=== PATIENT | male | born 1930 | race Caucasian/White ===

== ENCOUNTER 2016-03-08 08:32 | Inpatient (IN) | payer OTHER ==
[~2016-03-08] VITALS: Ht 157.5 cm; Wt 89.0 kg
[~2016-03-08 08:32] MED LIST: ASPI325T4 PO; BICA50TA4 PO; CARV3.1260 PO; LISI-525 PO; MAGN400T27 PO; URSO300C21 PO
[2016-03-08 08:38] VITALS: Ht 157.5 cm; Wt 89.0 kg
--- NOTE | 2016-03-08 09:08 | RADRPT ---
PROCEDURE: Chest Radiograph. CLINICAL INDICATION: Chest pain. Shortness of breath. TECHNIQUE: Single frontal chest radiograph. COMPARISON: Chest radiograph 04/18/2015 FINDINGS: The heart is enlarged. Atherosclerotic calcifications are present. There is mild central vascular c ongestion and interstitial opacities suggesting pulmonary edema. These findings are new when compar ed to prior study and suggest congestive heart failure. There is a small left pleural effusion and possible trace right pleural effusion. The bones are unchanged in appearance. IMPRESSION: 1. Cardiomegaly with new central vascular congestion and suggested pulmonary edema. Recommend jessica elation with CHF. 2. Small left and suggested trace right pleural effusion. 3. Atherosclerotic vascular disease. RPTAT: AA .Christian Alcantara MD, MD Date Time Electronically viewed and signed by .Christian Alcantara MD, on 03/08/2016 09:08 .B/
[2016-03-08 09:55] LABS: POTASSIUM 5.1 mmol/L (3.5-5.1)
[2016-03-08 09:57] LABS: CREATININE 0.97 mg/dl (0.61-1.24)
[2016-03-08 09:58] LABS: CALCIUM 6.5 mg/dl (8.4-10.2)
[2016-03-08 09:59] LABS: BASOPHILS % 0.1 % (0.0-2.0); EOSINOPHILS % 0.3 % (0.0-7.0); HEMATOCRIT 23.2 % (42.0-52.0); HEMOGLOBIN 7.8 g/dl (14.0-18.0); INR 1.16; LYMPHOCYTES # 0.9 10^3/ul (0.8-2.9); LYMPHOCYTES % 13.5 % (15.0-51.0); MEAN CORPUSCULAR HEMOGLOBIN 30.2 pg (29.0-33.0); MEAN CORPUSCULAR HGB CONC 33.5 g/dl (32.0-37.0); MEAN CORPUSCULAR VOLUME 90.2 fl (82.0-101.0); MEAN PLATELET VOLUME 6.9 fl (7.4-10.4); MONOCYTE # 0.7 10^3/ul (0.3-0.9); MONOCYTES % 10.4 % (0.0-11.0); NEUTROPHIL # 5.2 10^3/ul (1.6-7.5); NEUTROPHILS % 75.7 % (39.0-77.0); PLATELET COUNT 263 10^3/UL (140-440); PROTIME 14.9 Sec (12.2-14.2); PT RATIO 1.2; RED BLOOD COUNT 2.57 10^6/ul (4.70-6.10); RED CELL DISTRIBUTION WIDTH 18.2 % (11.5-14.5); UNCORRECTED WBC 6.9 10^3/ul (4.8-10.8); WHITE BLOOD COUNT 6.9 10^3/ul (4.8-10.8)
[2016-03-08 10:00] LABS: PARTIAL THROMBOPLASTIN TIME 44.5 Sec (25.0-35.0)
[2016-03-08 10:05] LABS: CONDITION 1; LH ANALYZER COMMENTS 1
[2016-03-08 10:11] LABS: TROPONIN-I 0.037 ng/ml (0.00-0.12)
[2016-03-08] MEDS ORDERED: ASPI-664 PO (10:22)
[2016-03-08] MEDS ORDERED: LEVO25TA50 PO (10:22)
[2016-03-08] MEDS ORDERED: IMIP25TA3 PO (10:23)
[2016-03-08] MEDS ORDERED: FUROSEMIDE 40 MG INJ IV ONE (10:30)
[2016-03-08] MEDS ORDERED: ACETAMINOPHEN 325 MG TAB PO PRN (12:00)
[2016-03-08] MEDS ORDERED: ONDANSETRON 4 MG INJ IV PRN ×2 (12:00→14:00)
[2016-03-08 12:10] LABS: T3 UPTAKE 41.3 % (23.5-40.5)
[2016-03-08] MEDS ORDERED: NACL 0.9% 3 ML SYG IV SCH (14:00)
[2016-03-08] MEDS: PANTOPRAZOLE (EC) 40 MG TAB PO SCH (14:12)
--- NOTE | 2016-03-08 15:07 | ERD ---
ER Documentation Chief Complaint Date/Time DATE: 03/08/16 TIME: 15:01 Chief Complaint sob, onset last night HPI This 85-year-old male presents with shortness of breath the began last night is getting worse. States that he can only take a few steps before he gets very short of breath. He denies any chest pain. Denies any nausea or vomiting. Patient gets his medications mostly in [place]. With him he has potassium pills from pharmacy in [place]. Does a history of congestive heart failure. Denies any fevers and chills. ROS All systems reviewed and are negative except as per history of present illness. Medications Home Meds Reported Medications Imipramine Hcl* (Imipramine Hcl*) 25 Mg Tablet, 25 MG PO BID, TAB 03/08/16 Levothyroxine Sodium* (Levoxyl*) 25 Mcg Tablet, 25 MCG PO BEFORE BREAKFAST, #30 TAB 03/08/16 Aspirin (Low Dose Aspirin) 81 Mg Tablet.dr, 81 MG PO DAILY, #30 TAB 03/08/16 Carvedilol* (Carvedilol*) 3.125 Mg Tablet, 3.125 MG PO BID, #60 TAB 04/18/15 Bicalutamide* (Bicalutamide*) 50 Mg Tablet, 50 MG PO DAILY, TAB 04/18/15 Discontinued Reported Medications Aspirin* (Aspirin*) 325 Mg Tablet, 325 MG PO DAILY, TAB 04/18/15 Discontinued Scripts Ursodiol* (Actigall*) 300 Mg Cap, 300 MG PO BID for 14 Days, CAP Prov:HARPREET GARZA MD 04/28/15 Magnesium Oxide* (Mag-Oxide*) 400 Mg Tab, 400 MG PO DAILY for 28 Days, TAB Prov:HARPREET GARZA MD 04/28/15 Lisinopril* (Zestril*) 20 Mg Tab, 20 MG PO BID for 90 Days, TAB Prov:HARPREET GARZA MD 04/28/15 Allergies Allergies: Coded Allergies: No Known Allergy (Unverified , 03/08/16) PMhx/Soc History of Surgery: No (not indicated) Anesthesia Reaction: No Hx Neurological Disorder: No Hx Respiratory Disorders: No Hx Cardiac Disorders: No (High cholestrol and possibly htn) Hx Psychiatric Problems: No Hx Miscellaneous Medical Probl: Yes (HTN, pancreatitis, prostate CA) Hx Alcohol Use: Yes (sporadically, tequilla in the morning per his doctor) Hx Substance Use: No Hx Tobacco Use: No Smoking Status: Former smoker Physical Exam Vitals Vital Signs Date Time Temp Pulse Resp B/P Pulse Ox O2 Delivery O2 Flow Rate FiO2 03/08/16 12:02 66 16 123/56 99 Nasal Cannula 2.0 03/08/16 08:54 Nasal Cannula 2 03/08/16 08:38 98.1 71 28 103/51 93 Physical Exam Const: [] No acute distress Head: Atraumatic Eyes: Normal Conjunctiva ENT: Normal External Ears, Nose and Mouth. Neck: Full range of motion..~ No meningismus. Resp: Decreased bibasilar breath sounds with mild bilateral rales Cardio: Regular rate and rhythm, no murmurs Abd: Soft, non tender, non distended. Normal bowel sounds Skin: No petechiae or rashes Back: No midline or flank tenderness Ext: No cyanosis, or edema Neur: Awake and alert and oriented 3, no focal deficits Psych: Normal Mood and Affect Result Diagram: 03/08/1691203/08/16912 Results 24 hrs Laboratory Tests Test 03/08/16 09:13 Activated Partial Thromboplast Time 44.5Sec Anion Gap 20 B-Type Natriuretic Peptide 98624FO/ML Basophils # 0.010^3/ul Basophils % 0.1% Blood Morphology Comment Blood Urea Nitrogen 23mg/dl Calcium Level 6.5mg/dl Carbon Dioxide Level 21mmol/L Chloride Level 104mmol/L Creatinine 0.97mg/dl Eosinophils # 0.010^3/ul Eosinophils % 0.3% Free Thyroxine Index 2.73ug/ml Glucose Level 118mg/dl Hematocrit 23.2% Hemoglobin 7.8g/dl INR International Normalized Ratio 1.16 Lymphocytes # 0.910^3/ul Lymphocytes % 13.5% Mean Corpuscular Hemoglobin 30.2pg Mean Corpuscular Hemoglobin Concent 33.5g/dl Mean Corpuscular Volume 90.2fl Mean Platelet Volume 6.9fl Monocytes # 0.710^3/ul Monocytes % 10.4% Neutrophils # 5.210^3/ul Neutrophils % 75.7% Nucleated Red Blood Cells # 0.010^3/ul Nucleated Red Blood Cells % 0.0/100WBC Platelet Count 18802^3/UL Potassium Level 5.1mmol/L Prothrombin Time 14.9Sec Prothrombin Time Ratio 1.2 Red Blood Count 2.5710^6/ul Red Cell Distribution Width 18.2% Sodium Level 140mmol/L Thyroxine (T4) 6.6ug/dl Triiodothyronine (T3) Uptake 41.3% Troponin I 0.037ng/ml White Blood Count 6.910^3/ul Current Medications Medications (Trade) Dose Ordered Sig/Alonso Route PRN Reason Start Time Stop Time Status Last Admin Dose Admin Furosemide (Lasix) 40 mg ONCE ONCE IV 03/08/16 10:30 03/08/16 10:31 DC 03/08/16 10:25 Ondansetron HCl (Zofran Inj) 4 mg ER BRIDGE PRN IV NAUSEA AND/OR VOMITING 03/08/16 12:00 03/09/16 11:59 Acetaminophen (Tylenol Tab) 650 mg ER BRIDGE PRN PO MILD PAIN/FEVER 03/08/16 12:00 03/09/16 11:59 IV Flush (NS 3 ml) 3 ml PER PROTOCOL IV 03/08/16 14:00 Ondansetron HCl (Zofran Inj) 4 mg Q6H PRN IV NAUSEA AND/OR VOMITING 03/08/16 14:00 Acetaminophen (Tylenol Tab) 650 mg Q6H PRN PO PAIN LEVEL 1-3 OR FEVER 03/08/16 14:00 Acetaminophen/ Hydrocodone Bitart ([place] (5/325)) 1 tab Q6H PRN PO PAIN LEVEL 4-6 03/08/16 14:00 Morphine Sulfate (morphine) 2 mg Q4H PRN IV PAIN LEVEL 7-10 03/08/16 14:00 Pantoprazole (Protonix Tab) 40 mg DAILY@06 PO 03/08/16 14:30 03/08/16 14:12 Furosemide (Lasix) 20 mg BID DIURETICS IV 03/08/16 18:00 Procedures/MDM EKG interpretation: Normal sinus rhythm at 65, right axis deviation, left bundle -branch block, no other ST or T-wave changes concerning for acute ischemia personnel monitor interpretation: Normal sinus rhythm with occasional PVCs. No other arrhythmia Chest x-ray interpretation: Pulmonary vascular engorgement with mild pulmonary edema most pronounced on right side. No widened mediastinum, no pneumothorax no fractures 85-year-old male with acute congestive heart failure. He appears elevated at 14, 000 patient's shortness of breath is increasing at most and dyspnea. He does have decreased bibasilar breath sounds and mild Rales. History of congestive heart failure as well as given 40 mg of Lasix in the emergency room stating monitoring specialist. Evidence and imaging of daily does have mild pulmonary edema. Patient as well as oxygen saturation 1-89% without oxygen. Patient is placed on oxygen. I'm admitting him to telemetry. I spoke with Dr. Montero who will be admitting for further cardiac workup and discussed the patient's 7.8 and hemoglobin he states that he will decide on transfusion. Departure Diagnosis: Primary Impression: Acute congestive heart failure Additional Impression: Symptomatic anemia Condition: Serious CASTRO ALEXIS DO Mar 08, 2016 15:07
[2016-03-08] MEDS ORDERED: hydrALAzine 20 MG INJ IV PRN (16:00)
[2016-03-08 16:15] VITALS: TEMP 98.3
--- NOTE | 2016-03-08 16:57 | HP ---
DATE OF ADMISSION: 03/08/2016 TIME OF EVALUATION: 1500 hours. REASON FOR ADMISSION: Dyspnea on exertion. CONSULTATIONS: Dr. aMrk Macias, cardiology. HISTORY OF PRESENT ILLNESS: This is an 85-year-old male with past medical history of essential hypertension, hypothyroidism, cardiomyopathy with ejection fraction of 25%, vascular dementia and esophagitis who was brought in by the patient's family members because of dyspnea with exertion that started from 03/07/2016 as per the patient's family. The patient was also complaining of some palpitations. The patient denied any chest pain. He denied any fevers or chills. The patient denied any syncope or presyncope. The patient gets most of his medications from [place]. In the emergency room, the patient's initial troponins were negative. The patient's 12-lead EKG showed sinus rhythm with right axis deviation and left bundle branch block. [place] [address]. The patient was noticed to be anemic with a hemoglobin and hematocrit of 7.8 and 23.2 respectively. The patient was treated with IV Lasix in the emergency room. PAST MEDICAL HISTORY: Hypothyroidism, essential hypertension, cardiomyopathy, prostate cancer, esophagitis, dementia. PAST SURGICAL HISTORY: None. HOME MEDICATIONS: 1. Bicalutamide 50 mg p.o. daily. 2. Coreg 3.125 mg p.o. daily. 3. Aspirin 81 mg p.o. daily. 4. Imipramine 25 mg p.o. b.i.d. 5. Synthroid 25 mcg p.o. before breakfast. ALLERGIES: NO KNOWN DRUG ALLERGIES. SOCIAL HISTORY: The patient lives at home with his family. The patient was a former smoker. Social drinker. REVIEW OF SYSTEMS: A 12-point review of systems were made and the review of systems were negative other than what is mentioned in history of present illness. PHYSICAL EXAMINATION: VITAL SIGNS: Temperature 98.1, pulse is 66, respiratory rate 18, blood pressure 123/57, oxygen saturation 99% on low flow O2. GENERAL: This is a frail-looking 85-year-old male lying in bed in no apparent distress. HEENT: Head normocephalic and atraumatic. Eyes: Anicteric sclerae. Conjunctivae clear. ENT: Nasal septum is midline. Oral mucosa is dry. NECK: Supple. No JVD noticed. RESPIRATORY: Bilaterally diminished breath sounds. Bilateral fine rales heard. No use of accessory muscles for respiration. CARDIAC: Regular rate and rhythm with a grade II/ systolic ejection murmur heard at the left sternal border. GASTROINTESTINAL: Abdomen soft, nontender and nondistended. Bowel sounds positive in all 4 quadrants. GENITOURINARY: Deferred. EXTREMITIES: No cyanosis, no clubbing. Bilateral trace pedal edema. Peripheral pulses palpable. NEUROLOGIC: The patient is awake, alert and oriented. Cranial nerves are grossly intact. LABORATORY AND DIAGNOSTIC DATA: WBC 6.9, hemoglobin 7.8, hematocrit 23.2, platelet count 263. Sodium 140, potassium 4.1, chloride 104, carbon dioxide 20 , anion gap 20, BUN 23, creatinine 0.97, glucose 118, calcium 6.5. Troponin 0.037. BNP 14573. PT 14.9, INR 1.16, PTT 44.5. Chest x-ray. Cardiomegaly with new central vascular congestion suggestive of pulmonary edema. Small left suggested trace right pleural effusion. Atherosclerotic vascular disease. IMPRESSION: This is an 85-year-old male who came to the emergency room with chief complaint of shortness breath who was found to have evidence of congestive heart failure who will be admitted here for further treatment and evaluation. ASSESSMENT AND PLAN: 1. Acute respiratory failure. Hypoxic, most probably secondary to underlying congestive heart failure exacerbation. The patient will be maintained on supplemental oxygen. The patient will be provided with inhaled bronchodilators. The patient will be started on adequate diuresis. The patient will be ruled out for any acute coronary syndrome. 2. Congestive heart failure exacerbation. Acute on chronic systolic and diastolic dysfunction. The patient will be adequately diuresed. A cardiology consult will be obtained. A 2D echocardiogram will be obtained to evaluate the left ventricular ejection fraction. 3. Cardiomyopathy, most probably ischemic cardiomyopathy. The patient had a stress test done on 04/20/2015 that showed a small to moderate-sized nonreversible perfusion defects with a left ventricular ejection fraction at stress of 21%. The patient will be maintained on beta blockers. If the blood pressure allows, the patient will be started on ANUJ inhibitors. 4. Normocytic normochromic anemia. Etiology unclear. Will obtain an iron panel to evaluate for any underlying iron deficiency. Will obtain a stool for occult blood to evaluate for any covert bleeding. The patient's aspirin will be held at this time because of the patient's anemia. The patient will be maintained on proton pump inhibitors. 5. Hypothyroidism. The patient's Synthroid will be resumed. A thyroid function will be obtained on this patient. 6. Essential hypertension. The patient will be maintained on antihypertensives including p.r.n. antihypertensives for any systolic blood pressure readings greater than 160 mmHg. 7. History of prostate cancer. The patient will be maintained on Bicalutamide. Plan. The patient will be admitted to inpatient telemetry floor. The patient will be started on a low cholesterol diet. The patient will be started on DVT prophylaxis and gastrointestinal prophylaxis. However, chemical DVT prophylaxis will be avoided because of the patient's underlying anemia. The patient will remain a FULL CODE. Activities will be as tolerated. The rest of the patient's management will be based on the clinical course, the results of diagnostic studies, and inputs from consultants. Based on the patient's clinical presentation, he most probably requires at least one midnight's stay for further management and evaluation of his clinical presentation. The case and management of this patient was fully discussed with Dr. Barrera. Approximately 50 minutes was spent on the history and physical of this patient. ERICA BARRERA MD, AM/JESUS Conf#: [id number] DID#: [id number] MTDD
[2016-03-08 17:52] LABS: IRON 56 ug/dl (35-150)
[2016-03-08 18:03] LABS: TOTAL IRON BINDING CAPACITY 255 ug/dl (241-421)
[2016-03-08] MEDS: FUROSEMIDE 20 MG INJ IV SCH (18:15)
[2016-03-08] MEDS: HYDROCODONE/APAP (5/325) TAB PO PRN (18:24)
[2016-03-08 18:25] LABS: THYROID STIMULATING HORMONE 5.66 MIU/L (0.465-4.680)
[2016-03-08 18:52] LABS: TROPONIN-I 0.101 ng/ml (0.00-0.12)
[2016-03-08 19:20] LABS: CK-MB 1.43 ng/ml (0.0-2.4)
--- NOTE | 2016-03-08 19:20 | RADRPT ---
Echocardiogram Report Patient Name: BELLA SAUCEDO Gender: Male Date: 1930 Study Date: 08-Mar-2016 Electrophysiology Nurse Practitioner: Kenya Garcia RDCS Location: [facility] Ref. Physician: ERICA MOHAN Quality: Good Procedures: Transthoracic echocardiogram with complete 2D, M-Mode, and doppler examination. Indications: Evaluate Left Ventricular function. 2D/M Mode Doppler Measurement Value Normal Ranges Measurement Value Normal Ranges LVIDd 2D 7.5 3.5 - 5.6 cm AV Mean Frederic 1.2 m/sec LVIDs 2D 5.1 2.1 - 4.1 cm AV Mean PG 7.4 mmHg LVPWd 2D 1.1 0.6 - 1.1 cm AV Peak Frederic 2.3 m/sec IVSd 2D 0.8 0.6 - 1.1 cm AV Peak PG 21.6 mmHg AoR Diam 2D 2.9 2.0 - 3.7 cm AV VTI 41.0 cm EDV 2D 300.2 cm3 AI Peak PG 36.3 mmHg ESV 2D 134.7 cm3 AI Peak Frederic 3.0 m/sec LA Dimen 2D 4.1 2.3 - 4.0 cm AI PHT 273.9 msec LVOT Mean Frederic 0.7 m/sec LVOT Mean PG 2.7 mmHg LVOT Peak Frederic 1.2 m/sec LVOT Peak PG 6.0 mmHg LVOT VTI 26.1 cm MV E Peak Frederic 0.9 m/sec MV A Peak Frederic 1.0 m/sec MV E/A 0.9 MV Decel Time 173 msec MV Decel Tarrant 5 MV E/A 0.9 TR Peak Frederic 4.4 m/sec TR Peak PG 76.6 mmHg RVSP 85.0 mmHg Findings Left Ventricle: Mild concentric left ventricular hypertrophy. Severe enlargement of left ventricle cavity. Severe left ventricular systolic dysfunction. Ejection fraction is visually estimated at 2025 %. Tissue Doppler/Mitral Doppler indices are consistent with impaired relaxation (Stage I diastolic dysfunction). Multiple segmental wall motion abnormalities. Right Ventricle: Normal right ventricular size. Normal right ventricular systolic function. Left Atrium: There is mild enlargement of left atrium. Right Atrium: There is mild enlargement of right atrium. Mitral Valve: Mitral valve leaflets appear mildly thickened. Mild mitral annular calcification. Moderate mitral valve regurgitation. Aortic Valve: Aortic valve Max velocity 2.32 m/sec. Max PG 21.60 mmHg. Mean PG 7.40 mmHg. Aortic sclerosis without stenosis. Aortic cusps appear moderately calcified. Mild to moderate aortic valve regurgitation. Tricuspid Valve: Normal appearance of the tricuspid valve. Estimated peak PA systolic pressure 85 mmHg. There is moderate tricuspid regurgitation. Pericardium: Normal pericardium with no significant pericardial effusion. Aorta: Normal aortic root. IVC: Dilated IVC with respiratory collapse consistent with elevated right atrial pressure. Conclusions 1.Mild concentric left ventricular hypertrophy. Severe enlargement of left ventricle cavity. Severe left ventricular systolic dysfunction. Ejection fraction is visually estimated at 20-25 %. Tissue Doppler/Mitral Doppler indices are consistent with impaired relaxation (Stage I diastolic dysfunction). Multiple segmental wall motion abnormalities. 2.There is mild enlargement of right atrium. 3.Mitral valve leaflets appear mildly thickened. Mild mitral annular calcification. Moderate mitral valve regurgitation. 4.Aortic valve Max velocity 2.32 m/sec. Max PG 21.60 mmHg. Mean PG 7.40 mmHg. Aortic sclerosis without stenosis. Aortic cusps appear moderately calcified. Mild to moderate aortic valve regurgitation. 5.Normal appearance of the tricuspid valve. Estimated peak PA systolic pressure 85 mmHg. There is moderate tricuspid regurgitation. Electronically Signed By: Mark Macias 08-Mar-2016 19:20:14 -0800 Patient Name: BELLA SAUCEDO Study Date: 08-Mar-[id number]
[2016-03-08] MEDS: ALBUTEROL/IPRATROPIUM (NEB) 3 ML AMP HHN SCH (20:00)
--- NOTE | 2016-03-08 21:35 | CONS ---
DATE OF ADMISSION: 03/08/2016 DATE OF CONSULTATION: 03/08/2016 CARDIOLOGY CONSULTATION REASON FOR CONSULTATION: Congestive heart failure. REQUESTING PHYSICIAN: Dr. Barrera from the hospitalist service and Taran Coffey NP from the hospitalis t service. HISTORY OF PRESENT ILLNESS: Mr. Frey is an 85-year-old male with a history of non-ST elevation m yocardial infarction, hypertension, cardiomyopathy with severely depressed left ventricular ejection fraction of approximately 20% to 25% and with a stress test 03/2015 revealing EF of 21% with no sig nificant ischemia, but positive scar, who now presents with shortness of breath. Upon arrival, temp erature 98.1, blood pressure 103/51, pulse 79, respiratory rate 20, saturating 93%. Patient's labs, white count of 6.9, hemoglobin low at 7.8, platelet count 263. Sodium 140, potassium 5.1, creatini ne 0.97, BUN of 23. Troponin negative. BNP of 13,900. T4 level 6.6. INR 1.1. The patient underwent a chest x-ray revealing cardiomegaly with new central vascular congestion cons istent with pulmonary edema, small suggested trace right pleural effusion. The patient's electrocar diogram revealed sinus rhythm and a rate of 65, first degree AV block, right axis deviation, left bu ndle branch block, secondary repolarization abnormalities. The patient subsequently has been treate d with aspirin, a dose of Lasix 40 x1 and now awaits admit to the floor. PAST MEDICAL HISTORY: As above in HPI. MEDICATIONS PRIOR TO ADMIT: 1. Carvedilol 3.125 mg p.o. b.i.d. 2. Aspirin 81 mg daily. 3. Imipramine 20 mg p.o. b.i.d. 4. Synthroid 25 mcg daily. 5. Casodex 50 mg daily. MEDICATIONS CURRENTLY IN HOSPITAL: 1. Casodex 60 mg daily. 2. Synthroid 25 mcg daily. 3. Carvedilol 3.125 mg p.o. b.i.d. 4. Lasix 20 mg IV b.i.d. 5. Hydralazine p.r.n. 6. Zofran p.r.n. 7. Tylenol p.r.n. 8. Morphine p.r.n. 9. Zofran p.r.n. 10. DuoNebs p.r.n. ALLERGIES: NO KNOWN DRUG ALLERGIES. SOCIAL HISTORY: No tobacco, ETOH or illicit drug use. FAMILY HISTORY: No history of sudden cardiac or early CAD. REVIEW OF SYSTEMS: As above in HPI. CONSTITUTIONAL: No fevers, chills. PULMONARY: Shortness of breath. CARDIOVASCULAR: No chest pain. GASTROINTESTINAL: No vomiting. GENITOURINARY: No hematuria. MUSCULOSKELETAL: Degenerative joint disease. PSYCHIATRIC: The patient denies depression. NEUROLOGIC: No documented history of CVA. ENDOCRINE: No documented history of diabetes mellitus. Positive for thyroid disease. PHYSICAL EXAMINATION: VITAL SIGNS: Temperature of 98.3, blood pressure 115/69, pulse 75, respiratory rate 19, saturating 90% on 2 liters. GENERAL: The patient is alert, awake, complaining of shortness of breath. NECK: JVP approximately 9 cm of water. CHEST: Bibasilar crackles. HEART: Regular rate and rhythm. Normal S1, S2, I/ systolic murmur, laterally displaced PMI. ABDOMEN: Positive bowel sounds, soft. EXTREMITIES: No pitting edema, 1+ pulses bilateral posterior tibial. LABORATORY DATA: As above in HPI. No further labs for my review at this time. IMAGING STUDIES: As above in HPI. No further imaging studies for my review at this time. ELECTROCARDIOGRAM: As above in HPI. No further electrocardiograms for my review at this time. IMPRESSION: 1. Congestive heart failure exacerbation, systolic, acute on chronic. 2. History of cardiomyopathy with severely depressed left ventricular ejection fraction, last appro ximately 20% to 25% by echo 04/2015. 3. End-stage renal disease on hemodialysis. 4. History of myocardial infarction by stress 04/2015. 5. Anemia. 6. Hypertension. 7. Hypothyroidism. 8. Prostate carcinoma. 9. Dementia. RECOMMENDATIONS: 1. At this time, the patient will be admitted to telemetry monitoring to follow rhythm and rate con trol closely. 2. Complete a rule out for myocardial infarction and assure the patient's current presentation is n ot due to acute coronary syndrome such as acute myocardial infarction. 3. Continue the patient's baseline carvedilol for treatment of cardiomyopathy and will initiate pat ient on low dose ANUJ inhibitor for afterload reduction. 4. Continue the patient's Lasix diuresis, following strict I's and O's to grade diuresis closely. 5. Check a fasting lipid panel for general risk stratification and initiate lipid-lowering medicati on as necessary. 6. We will follow up patient's 2D echo that has been order. 7. The patient has previously been evaluated for a LifeVest and it is unclear if the patient still has LifeVest at home or if this would be against the patient's current wishes. Thank you for allowing me to take part in the care of this patient. I will continue to follow very closely with you with further recommendations to be made as the patient progresses through his [facility] clinical course. Dictated By: JUAN CARLOS HERNANDEZ/JESUS Conf#: [id number] DID#: [id number] CC: TARAN COFFEY NP; OLIVA BARRERA MD;*End*
[2016-03-08] MEDS: IMIPRAMINE 25 MG TAB PO SCH (21:39)
[2016-03-08 22:49] LABS: CK-MB 1.22 ng/ml (0.0-2.4)
[2016-03-08 22:55] LABS: TROPONIN-I 0.126 ng/ml (0.00-0.12)
[2016-03-08 23:50] VITALS: BP 124/59; PULSE 68; RESP 16
[2016-03-09] VITALS (12 sets, daily range): BP systolic 92–129; BP diastolic 51–60; PULSE 66–164; RESP 18
[2016-03-09] MEDS: PANTOPRAZOLE (EC) 40 MG TAB PO SCH (06:21)
[2016-03-09] MEDS: FUROSEMIDE 20 MG INJ IV SCH ×2 (06:22→18:22)
[2016-03-09] MEDS: HYDROCODONE/APAP (5/325) TAB PO PRN ×2 (06:23→16:47)
[2016-03-09] MEDS: LEVOTHYROXINE 25 MCG TAB PO SCH (06:29)
[2016-03-09 06:46] LABS: PHOSPHORUS 2.9 mg/dl (2.5-4.9)
[2016-03-09 06:47] LABS: CHOL/HDL RATIO 7.6 RATIO
[2016-03-09 06:50] LABS: POTASSIUM 4.4 mmol/L (3.5-5.1)
[2016-03-09 06:53] LABS: CREATININE 1.01 mg/dl (0.61-1.24)
[2016-03-09 06:54] LABS: CALCIUM 6.1 mg/dl (8.4-10.2); HEMATOCRIT 22.7 % (42.0-52.0); HEMOGLOBIN 7.7 g/dl (14.0-18.0); MEAN CORPUSCULAR HEMOGLOBIN 30.6 pg (29.0-33.0); MEAN CORPUSCULAR HGB CONC 33.9 g/dl (32.0-37.0); MEAN CORPUSCULAR VOLUME 90.3 fl (82.0-101.0); MEAN PLATELET VOLUME 6.9 fl (7.4-10.4); PLATELET COUNT 231 10^3/UL (140-440); RED BLOOD COUNT 2.51 10^6/ul (4.70-6.10); RED CELL DISTRIBUTION WIDTH 18.2 % (11.5-14.5); UNCORRECTED WBC 5.6 10^3/ul (4.8-10.8); WHITE BLOOD COUNT 5.6 10^3/ul (4.8-10.8)
[2016-03-09 06:57] LABS: TROPONIN-I 0.104 ng/ml (0.00-0.12)
[2016-03-09 06:58] LABS: CK-MB 1.13 ng/ml (0.0-2.4)
[2016-03-09 07:28] LABS: CONDITION 1; LH ANALYZER COMMENTS 1
[2016-03-09] MEDS: ALBUTEROL/IPRATROPIUM (NEB) 3 ML AMP HHN SCH ×3 (08:50→20:00)
[2016-03-09] MEDS ORDERED: ASPIRIN (EC) 81 MG TAB PO SCH (09:00)
[2016-03-09] MEDS: IMIPRAMINE 25 MG TAB PO SCH ×2 (09:12→20:45)
[2016-03-09] MEDS: LISINOPRIL 5 MG TAB PO SCH (09:15)
[2016-03-09] MEDS: BICALUTAMIDE 50 MG TAB PO SCH (09:20)
[2016-03-09 10:43] LABS: ANISOCYTOSIS 1+; LYMPHOCYTES # 0.7 10^3/ul (0.8-2.9); MONOCYTE # 0.4 10^3/ul (0.3-0.9); MYELOCYTES # 0.1; NEUTROPHIL # 4.1 10^3/ul (1.6-7.5)
[2016-03-09 10:44] LABS: POLYCHROMASIA 1+
--- NOTE | 2016-03-09 12:44 | CONS ---
Date/Time of Note Date/Time of Note DATE: 03/09/16 TIME: 12:41 Assessment/Plan Assessment/Plan Chief Complaint/Hosp Course IMPRESSION: 1. Congestive heart failure exacerbation, systolic, acute on chronic. 2. History of cardiomyopathy with severely depressed left ventricular ejection fraction, last approximately 20% to 25% by echo 04/2015. 3. End-stage renal disease on hemodialysis. 4. History of myocardial infarction by stress 04/2015. 5. Anemia. 6. Hypertension. 7. Hypothyroidism. 8. Prostate carcinoma. 9. Dementia. 10. Positive troponin-now trended negative Recc: -Tele -continue BB -Continur ACEI -Continue gentle lasix diuresis Problems: Consultation Date/Type/Reason Admit Date/Time Mar 08, 2016 at 11:43 Initial Consult Date 03/08/2016 Type of Consultation: Cardiology Reason for Consultation CHF Referring Provider: OLIVA BARRERA Exam/Review of Systems Vital Signs Vitals Vital Signs Date Time Temp Pulse Resp B/P Pulse Ox O2 Delivery O2 Flow Rate FiO2 03/09/16 12:14 73 03/09/16 11:54 98.0 18 108/58 98 03/09/16 11:26 Nasal Cannula 3.0 Intake and Output 03/08/16 03/08/16 03/09/16 15:00 23:00 07:00 Intake Total 60 ml 80 ml Output Total 675 ml Balance -615 ml 80 ml Exam Review of Systems: CONSTITUTIONAL: No fevers, chills. PULMONARY: mild sob CARDIOVASCULAR: No chest pain/palpitations GASTROINTESTINAL: No nausea/vomiting. GENITOURINARY: No hematuria/dysuria. MUSCULOSKELETAL: No myagias/arthalgias. PSYCHIATRIC: The patient denies depression. NEUROLOGIC: lethargic Constitutional: other (sleeping, arousable) Psych: no complaints Head: normocephalic ENMT: mucosa pink and moist Neck: jvd (9 cm water), supple Respiratory: diminished breath sounds Cardiovascular: regular rate and rhythm Gastrointestinal: non-tender, soft Musculoskeletal: muscle tone (normal) Extremities: edema (none) Neurological: lethargic, other (No focal deficits) Results Result Diagram: 03/09/16 0600 03/09/16 0600 Results 24 hrs Laboratory Tests Test 03/08/16 15:42 03/08/16 17:55 03/08/16 21:45 03/09/16 06:00 Ferritin 215.0 Free Thyroxine 1.34 Thyroid Stimulating Hormone (TSH) 5.660 H Creatine Kinase 91 90 93 Creatine Kinase Index 1.6 1.4 1.2 Creatinine Kinase MB (Mass) 1.43 1.22 1.13 Troponin I 0.101 0.126 *H 0.104 Anion Gap 18 H Anisocytosis 1+ Band Neutrophils % 6.0 H Blood Morphology Comment Blood Urea Nitrogen 23 H Calcium Level 6.1 L Carbon Dioxide Level 22 Chloride Level 104 Cholesterol Level 200 Cholesterol/HDL Ratio 7.6 Creatinine 1.01 Glucose Level 138 HDL Cholesterol 26 L Hematocrit 22.7 L Hemoglobin 7.7 L LDL Cholesterol, Calculated 155 Lymphocytes # 0.7 L Lymphocytes % 12.0 L Magnesium Level 2.0 Mean Corpuscular Hemoglobin 30.6 Mean Corpuscular Hemoglobin Concent 33.9 Mean Corpuscular Volume 90.3 Mean Platelet Volume 6.9 L Metamyelocytes # 0.1 Metamyelocytes % 1.0 H Monocytes # 0.4 Monocytes % 7.0 Myelocytes # 0.1 Myelocytes % 1.0 H Neutrophils # 4.1 Neutrophils % 73.0 Nucleated Red Blood Cells # Nucleated Red Blood Cells % 4.0 H Phosphorus Level 2.9 Platelet Count 231 Polychromasia 1+ Potassium Level 4.4 Red Blood Count 2.51 L Red Cell Distribution Width 18.2 H Sodium Level 140 Triglycerides Level 95 White Blood Count 5.6 Medications Medications Current Medications Ondansetron HCl (Zofran Inj) 4 mg Q6H PRN IV NAUSEA AND/OR VOMITING; Start at 14:00 Acetaminophen (Tylenol Tab) 650 mg Q6H PRN PO PAIN LEVEL 1-3 OR FEVER; Start at 14:00 Acetaminophen/ Hydrocodone Bitart ([place] (5/325)) 1 tab Q6H PRN PO PAIN LEVEL 4 -6 Last administered on 03/09/16 06:23; Admin Dose 1 TAB; Start 03/08/16 at 14: 00 Morphine Sulfate (morphine) 2 mg Q4H PRN IV PAIN LEVEL 7-10; Start 03/08/16 at 14:00 Pantoprazole (Protonix Tab) 40 mg DAILY@06 PO Last administered on 03/09/16 06 :21; Admin Dose 40 MG; Start 03/08/16 at 14:30 Carvedilol (Coreg) 3.125 mg BID PO Last administered on 03/09/16 09:15; Admin Dose 3.125 MG; Start 03/08/16 at 21:00 Imipramine HCl (Tofranil) 25 mg BID PO Last administered on 03/09/16 09:12; Admin Dose 25 MG; Start 03/08/16 at 21:00 Hydralazine HCl (Apresoline) 10 mg Q6H PRN IV SBP>160; Start 03/08/16 at 16:00 Bicalutamide (Casodex) 50 mg DAILY PO Last administered on 03/09/16 09:20; Admin Dose 50 MG; Start 03/09/16 at 09:00 Lisinopril (Zestril) 2.5 mg DAILY PO Last administered on 03/09/16 09:15; Admin Dose 2.5 MG; Start 03/09/16 at 09:00 Influenza Virus Vaccine (Fluzone) 0.5 ml ONCE ONCE IM* ; Start 03/11/16 at 09:00 ; Stop 03/11/16 at 09:01 JUAN CARLOS ALEJANDRO Mar 09, 2016 12:44
--- NOTE | 2016-03-09 16:50 | PN ---
Date/Time of Note Date/Time of Note DATE: 03/09/16 TIME: 16:47 Assessment/Plan VTE Prophylaxis VTE Prophylaxis Intervention: SCD's Lines/Catheters IV [facility]from [facility] Urinary Cath still in place: No Assessment/Plan Chief Complaint/Hosp Course 1. Acute respiratory failure. Hypoxic, most probably secondary to underlying congestive heart failure exacerbation. The patient will be maintained on supplemental oxygen. The patient will be provided with inhaled bronchodilators. The patient was started on adequate diuresis. The patient will be ruled out for any acute coronary syndrome. 2. Congestive heart failure exacerbation. Acute on chronic systolic dysfunction. The patient will be adequately diuresed. Cardiology following. 2- D echocardiogram showing ejection fraction of 20-25% with stage I diastolic dysfunction. 3. Severe pulmonary hypertension. PA pressure of 85 mmHg as per 2-D echocardiogram. Continue supplemental oxygen. 4. Cardiomyopathy, most probably ischemic cardiomyopathy. 2-D echocardiogram showing ejection fraction of 20-25%. Continue beta blockers and nicho inhibitors. 5. Normocytic normochromic anemia. Etiology unclear. Iron panel showing no iron deficiency. Will obtain a stool for occult blood. Will evaluate the patient for any hemolytic anemia. The patient will be maintained on proton pump inhibitors. 6. Hypothyroidism. The patient will be continued on Synthroid. 7. Essential hypertension. The patient will be maintained on antihypertensives including p.r.n. antihypertensives for any systolic blood pressure readings greater than 160 mmHg. 8. History of prostate cancer. The patient will be maintained on Bicalutamide. 9. Dysphagia. The patient has prior history of dysphagia that was extensively evaluated and was found have reflux esophagitis as per EGDscopy. The patient will be maintained on proton pump inhibitors. Speech therapy evaluation will be ordered. 10. Elevated troponins. The patient's troponins have been normalized. Aspirin on hold because of underlying anemia. Cardiology following. 11. Fluids, electrolytes, and nutrition. Low-cholesterol diet. 12. DVT prophylaxis. No chemical DVT prophylaxis because of underlying anemia. Bilateral sequential compression devices. 13. Gastrointestinal prophylaxis. Proton pump inhibitors. 14. Plan. Continue diuretics. Appreciate cardiology input. Order speech therapy evaluation. Case discussed with Dr. Jimenez. Plan of care was explained to the patient's son was at the bedside. Problems: Subjective 24 Hr Interval Summary Free Text/Dictation Complains of dysphagia. "Breathing better." Exam/Review of Systems Vital Signs Vitals Vital Signs Date Time Temp Pulse Resp B/P Pulse Ox O2 Delivery O2 Flow Rate FiO2 03/09/16 16:39 98.0 74 18 129/60 97 03/09/16 12:52 Nasal Cannula 4.0 Intake and Output 03/08/16 03/08/16 03/09/16 15:00 23:00 07:00 Intake Total 60 ml 80 ml Output Total 675 ml Balance -615 ml 80 ml Exam GENERAL: This is a frail-looking 85-year-old male lying in bed in no apparent distress. HEENT: Head normocephalic and atraumatic. Eyes: Anicteric sclerae. Conjunctivae clear. ENT: Nasal septum is midline. Oral mucosa is dry. NECK: Supple. No JVD noticed. RESPIRATORY: Bilaterally diminished breath sounds. Bilateral fine rales heard. No use of accessory muscles for respiration. CARDIAC: Regular rate and rhythm with a grade II/ systolic ejection murmur heard at the left sternal border. GASTROINTESTINAL: Abdomen soft, nontender and nondistended. Bowel sounds positive in all 4 quadrants. GENITOURINARY: Deferred. EXTREMITIES: No cyanosis, no clubbing. Bilateral trace pedal edema. Peripheral pulses palpable. NEUROLOGIC: The patient is awake, alert and oriented. Cranial nerves are grossly intact. Results Result Diagram: 03/09/16 0600 03/09/16 0600 Results 24 hrs Laboratory Tests Test 03/08/16 17:55 03/08/16 21:45 03/09/16 06:00 Creatine Kinase 91 90 93 Creatine Kinase Index 1.6 1.4 1.2 Creatinine Kinase MB (Mass) 1.43 1.22 1.13 Troponin I 0.101 0.126 *H 0.104 Anion Gap 18 H Anisocytosis 1+ Band Neutrophils % 6.0 H Blood Morphology Comment Blood Urea Nitrogen 23 H Calcium Level 6.1 L Carbon Dioxide Level 22 Chloride Level 104 Cholesterol Level 200 Cholesterol/HDL Ratio 7.6 Creatinine 1.01 Glucose Level 138 HDL Cholesterol 26 L Hematocrit 22.7 L Hemoglobin 7.7 L LDL Cholesterol, Calculated 155 Lymphocytes # 0.7 L Lymphocytes % 12.0 L Magnesium Level 2.0 Mean Corpuscular Hemoglobin 30.6 Mean Corpuscular Hemoglobin Concent 33.9 Mean Corpuscular Volume 90.3 Mean Platelet Volume 6.9 L Metamyelocytes # 0.1 Metamyelocytes % 1.0 H Monocytes # 0.4 Monocytes % 7.0 Myelocytes # 0.1 Myelocytes % 1.0 H Neutrophils # 4.1 Neutrophils % 73.0 Nucleated Red Blood Cells # Nucleated Red Blood Cells % 4.0 H Phosphorus Level 2.9 Platelet Count 231 Polychromasia 1+ Potassium Level 4.4 Red Blood Count 2.51 L Red Cell Distribution Width 18.2 H Sodium Level 140 Triglycerides Level 95 White Blood Count 5.6 Medications Medications Current Medications Ondansetron HCl (Zofran Inj) 4 mg Q6H PRN IV NAUSEA AND/OR VOMITING; Start at 14:00 Acetaminophen (Tylenol Tab) 650 mg Q6H PRN PO PAIN LEVEL 1-3 OR FEVER; Start at 14:00 Acetaminophen/ Hydrocodone Bitart ([place] (5/325)) 1 tab Q6H PRN PO PAIN LEVEL 4 -6 Last administered on 03/09/16 06:23; Admin Dose 1 TAB; Start 03/08/16 at 14: 00 Morphine Sulfate (morphine) 2 mg Q4H PRN IV PAIN LEVEL 7-10; Start 03/08/16 at 14:00 Pantoprazole (Protonix Tab) 40 mg DAILY@06 PO Last administered on 03/09/16 06 :21; Admin Dose 40 MG; Start 03/08/16 at 14:30 Carvedilol (Coreg) 3.125 mg BID PO Last administered on 03/09/16 09:15; Admin Dose 3.125 MG; Start 03/08/16 at 21:00 Imipramine HCl (Tofranil) 25 mg BID PO Last administered on 03/09/16 09:12; Admin Dose 25 MG; Start 03/08/16 at 21:00 Hydralazine HCl (Apresoline) 10 mg Q6H PRN IV SBP>160; Start 03/08/16 at 16:00 Bicalutamide (Casodex) 50 mg DAILY PO Last administered on 03/09/16 09:20; Admin Dose 50 MG; Start 03/09/16 at 09:00 Lisinopril (Zestril) 2.5 mg DAILY PO Last administered on 03/09/16 09:15; Admin Dose 2.5 MG; Start 03/09/16 at 09:00 Influenza Virus Vaccine (Fluzone) 0.5 ml ONCE ONCE IM* ; Start 03/11/16 at 09:00 ; Stop 03/11/16 at 09:01 ERICA MOHAN NP Mar 09, 2016 16:50
[2016-03-10] VITALS (12 sets, daily range): BP systolic 106–129; BP diastolic 51–59; PULSE 69–94; RESP 17–20
[2016-03-10 06:00] LABS: ALBUMIN 3.2 g/dl (3.3-4.9)
[2016-03-10 06:02] LABS: BILIRUBIN,INDIRECT 0.4 mg/dl (0-1.1); BILIRUBIN,TOTAL 0.4 mg/dl (0.2-1.3); CREATININE 1.02 mg/dl (0.61-1.24)
[2016-03-10 06:03] LABS: ALBUMIN/GLOBULIN RATIO 1.03; CALCIUM 6.1 mg/dl (8.4-10.2); RETICULOCYTE COUNT % 3.2 % (0.5-1.5); TOTAL PROTEIN 6.3 g/dl (6.1-8.1)
[2016-03-10 06:04] LABS: BASOPHILS % 0.3 % (0.0-2.0); EOSINOPHILS % 0.5 % (0.0-7.0); HEMATOCRIT 22.2 % (42.0-52.0); HEMOGLOBIN 7.4 g/dl (14.0-18.0); LYMPHOCYTES # 0.9 10^3/ul (0.8-2.9); LYMPHOCYTES % 16.8 % (15.0-51.0); MEAN CORPUSCULAR HEMOGLOBIN 30.4 pg (29.0-33.0); MEAN CORPUSCULAR HGB CONC 33.5 g/dl (32.0-37.0); MEAN CORPUSCULAR VOLUME 90.8 fl (82.0-101.0); MEAN PLATELET VOLUME 7.1 fl (7.4-10.4); MONOCYTE # 0.6 10^3/ul (0.3-0.9); MONOCYTES % 11.5 % (0.0-11.0); NEUTROPHIL # 3.6 10^3/ul (1.6-7.5); NEUTROPHILS % 70.9 % (39.0-77.0); PLATELET COUNT 225 10^3/UL (140-440); RED BLOOD COUNT 2.44 10^6/ul (4.70-6.10); RED CELL DISTRIBUTION WIDTH 18.8 % (11.5-14.5); UNCORRECTED WBC 5.1 10^3/ul (4.8-10.8); WHITE BLOOD COUNT 5.1 10^3/ul (4.8-10.8)
[2016-03-10 06:08] LABS: MAGNESIUM 1.8 mg/dl (1.7-2.5)
[2016-03-10] MEDS: LEVOTHYROXINE 25 MCG TAB PO SCH (06:54)
[2016-03-10] MEDS: FUROSEMIDE 20 MG INJ IV SCH ×2 (06:54→17:33)
[2016-03-10] MEDS: PANTOPRAZOLE (EC) 40 MG TAB PO SCH ×2 (06:54→17:33)
[2016-03-10 06:56] LABS: CONDITION 1; LH ANALYZER COMMENTS 1
[2016-03-10] MEDS: ALBUTEROL/IPRATROPIUM (NEB) 3 ML AMP HHN SCH ×3 (07:56→20:45)
[2016-03-10] MEDS: IMIPRAMINE 25 MG TAB PO SCH ×2 (08:25→20:37)
[2016-03-10] MEDS: LISINOPRIL 5 MG TAB PO SCH (08:27)
[2016-03-10] MEDS: HYDROCODONE/APAP (5/325) TAB PO PRN ×2 (08:27→17:33)
[2016-03-10] MEDS: BICALUTAMIDE 50 MG TAB PO SCH (08:36)
--- NOTE | 2016-03-10 09:21 | CONS ---
Date/Time of Note Date/Time of Note DATE: 03/10/16 TIME: 09:07 Assessment/Plan Assessment/Plan Chief Complaint/Hosp Course Impression: 1. Dysphagia: chronic. 2. Anemia: r/o GIB 3. Acute respiratory failure. Hypoxic, most probably secondary to underlying congestive heart failure exacerbation. 4. Congestive heart failure exacerbation. Acute and chronic systolic and diastolic dysfunction. Cardiology following. 2-D echocardiogram showing ejection fraction of 20-25% with stage I diastolic dysfunction. 5. Severe pulmonary hypertension. PA pressure of 85 mmHg as per 2-D echocardiogram. 6. Cardiomyopathy, most probably ischemic cardiomyopathy. 2-D echocardiogram showing ejection fraction of 20-25%. Continue beta blockers and nicho inhibitors. 7. Normocytic normochromic anemia. Iron panel showing no iron deficiency. Most likely anemia of chronic disease. 8. Hypothyroidism. The patient will be continued on Synthroid. 9. GERD 10. Elevated troponins. The patient's troponins have been normalized. Aspirin on hold because of underlying anemia. Cardiology following. 11. Constipation: no BM since admission. Recommendations: 1. resume aspirin if occult blood negative 2. need medical and cardiac optimization and clearance for any potential endoscopic procedures especially given pt had runs of V tach yesterday 3. will perform EGD and colonoscopy if occult blood positive and pending medical and cardiac optimization and clearance. 4. will perform EGD for dysphagia if indicated after swallow evaluation and pending medical and cardiac optimization and clearance. 5. swallow eval 6. I ordered to check folate and vitamin B12 level as part of anemia w/u 7. I ordered standing colace for his constipation. 8. Continue protonix 40 mg bid Problems: Consultation Date/Type/Reason Admit Date/Time Mar 08, 2016 at 11:43 Type of Consultation: GI Reason for Consultation 1. dysphagia 2. anemia r/o GIB Hx of Present Illness 85-year-old male with past medical history of essential hypertension, hypothyroidism, cardiomyopathy with ejection fraction of 25%, vascular dementia and esophagitis who was admitted for dyspnea with exertion that started from 01/2017 as per the patient's family. The patient was also complaining of some palpitations. The patient denied any chest pain. He denied any fevers or chills. The patient denied any syncope or presyncope. The patient gets most of his medications from [place]. Hopitalization w/u showed that patient is anemic. Iron panel normal. Patient also states that he has dysphagia and always feel that food got stuck in his throat but no actual food impaction or odynophagia. He feels constipated since being hospitalized without any BM. No n/ v, melena, BRBPR, coffee ground emesis or hematemesis. All point ros administered, pertinent positives and negatives in HPI otherwise negative. Psychological: no complaints Past Medical History dysphagia Medical History: congestive heart failure, coronary artery disease, hypertension Past Surgical History Past Surgical Hx: no surgical history Family History Significant Family History: no pertinent family hx Social History Alcohol Use: none Smoking Status: Former smoker Drug Use: none Exam/Review of Systems Vital Signs Vitals Vital Signs Date Time Temp Pulse Resp B/P Pulse Ox O2 Delivery O2 Flow Rate FiO2 03/10/16 08:32 69 03/10/16 08:06 98.1 17 129/58 95 03/10/16 07:57 Nasal Cannula 4.0 Intake and Output 03/09/16 03/09/16 03/10/16 15:00 23:00 07:00 Intake Total 700 ml Output Total 1500 ml Balance -800 ml Exam Constitutional: alert, frail, oriented Psych: nl mood/affect, no complaints Head: atraumatic, normocephalic Eyes: EOMI, nl conjunctiva, nl lids, nl sclera ENMT: mucosa pink and moist, nl external ears & nose, nl lips & teeth, nl nasal mucosa & septum Neck: non-tender, supple Respiratory: clear to auscultation, normal air movement Cardiovascular: nl pulses, regular rate and rhythm Gastrointestinal: bowel sounds, non-tender, soft Musculoskeletal: nl extremities to inspection, nl gait and stance Neurological: nl mental status, nl speech, nl strength Results Result Diagram: 03/10/16 0500 03/10/16 0500 Results 24 hrs Laboratory Tests Test 03/09/16 20:34 03/10/16 05:00 Bedside Glucose 132 Absolute Reticulocyte Count 0.079 Alanine Aminotransferase (ALT/SGPT) 22 Albumin 3.2 L Albumin/Globulin Ratio 1.03 Alkaline Phosphatase 649 H Anion Gap 17 H Aspartate Amino Transf (AST/SGOT) 35 Basophils # 0.0 Basophils % 0.3 Blood Morphology Comment Blood Urea Nitrogen 26 H Calcium Level 6.1 L Carbon Dioxide Level 23 Chloride Level 103 Creatinine 1.02 Direct Bilirubin 0.00 Eosinophils # 0.0 Eosinophils % 0.5 Globulin 3.10 Glucose Level 105 Hematocrit 22.2 L Hemoglobin 7.4 L Indirect Bilirubin 0.4 Lactate Dehydrogenase 793 H Lymphocytes # 0.9 Lymphocytes % 16.8 Magnesium Level 1.8 Mean Corpuscular Hemoglobin 30.4 Mean Corpuscular Hemoglobin Concent 33.5 Mean Corpuscular Volume 90.8 Mean Platelet Volume 7.1 L Monocytes # 0.6 Monocytes % 11.5 H Neutrophils # 3.6 Neutrophils % 70.9 Nucleated Red Blood Cells # 0.0 Nucleated Red Blood Cells % 0.0 Percent Reticulocyte Count 3.2 H Phosphorus Level 3.0 Platelet Count 225 Potassium Level 4.0 Red Blood Count 2.44 L Red Cell Distribution Width 18.8 H Sodium Level 139 Total Bilirubin 0.4 Total Protein 6.3 White Blood Count 5.1 Medications Medications Current Medications Ondansetron HCl (Zofran Inj) 4 mg Q6H PRN IV NAUSEA AND/OR VOMITING; Start at 14:00 Acetaminophen (Tylenol Tab) 650 mg Q6H PRN PO PAIN LEVEL 1-3 OR FEVER; Start at 14:00 Acetaminophen/ Hydrocodone Bitart ([place] (5/325)) 1 tab Q6H PRN PO PAIN LEVEL 4 -6 Last administered on 03/10/16 08:27; Admin Dose 1 TAB; Start 03/08/16 at 14: 00 Morphine Sulfate (morphine) 2 mg Q4H PRN IV PAIN LEVEL 7-10; Start 03/08/16 at 14:00 Pantoprazole (Protonix Tab) 40 mg DAILY@06 PO Last administered on 03/10/16 06 :54; Admin Dose 40 MG; Start 03/08/16 at 14:30 Carvedilol (Coreg) 3.125 mg BID PO Last administered on 03/10/16 08:26; Admin Dose 3.125 MG; Start 03/08/16 at 21:00 Imipramine HCl (Tofranil) 25 mg BID PO Last administered on 03/10/16 08:25; Admin Dose 25 MG; Start 03/08/16 at 21:00 Hydralazine HCl (Apresoline) 10 mg Q6H PRN IV SBP>160; Start 03/08/16 at 16:00 Bicalutamide (Casodex) 50 mg DAILY PO Last administered on 03/10/16 08:36; Admin Dose 50 MG; Start 03/09/16 at 09:00 Lisinopril (Zestril) 2.5 mg DAILY PO Last administered on 03/10/16 08:27; Admin Dose 2.5 MG; Start 03/09/16 at 09:00 Influenza Virus Vaccine (Fluzone) 0.5 ml ONCE ONCE IM* ; Start 03/11/16 at 09:00 ; Stop 03/11/16 at 09:01 RENZO JEFFERY MD Mar 10, 2016 09:21
--- NOTE | 2016-03-10 10:06 | PN ---
Date/Time of Note Date/Time of Note DATE: 03/10/16 TIME: 09:57 Assessment/Plan VTE Prophylaxis VTE Prophylaxis Intervention: SCD's Lines/Catheters IV [facility] Urinary Cath still in place: No Assessment/Plan Chief Complaint/Hosp Course 1. Acute respiratory failure. Hypoxic, most probably secondary to underlying congestive heart failure exacerbation. The patient will be maintained on supplemental oxygen. The patient will be provided with inhaled bronchodilators. The patient was started on adequate diuresis. 2. Congestive heart failure exacerbation. Acute on chronic systolic dysfunction. The patient will be adequately diuresed. Cardiology following. 2- D echocardiogram showing ejection fraction of 20-25% with stage I diastolic dysfunction. 3. Severe pulmonary hypertension. PA pressure of 85 mmHg as per 2-D echocardiogram. Continue supplemental oxygen. 4. Cardiomyopathy, most probably ischemic cardiomyopathy. 2-D echocardiogram showing ejection fraction of 20-25%. Continue beta blockers and nicho inhibitors. 5. Normocytic normochromic anemia. Etiology unclear. Iron panel showing no iron deficiency. Pending stool for occult blood. The patient will be maintained on proton pump inhibitors. Absolute reticulocyte count within normal limits. LDH slightly elevated. Pending haptoglobin levels. Gastroenterology consult called. 6. Hypothyroidism. The patient will be continued on Synthroid. 7. Essential hypertension. The patient will be maintained on antihypertensives including p.r.n. antihypertensives for any systolic blood pressure readings greater than 160 mmHg. 8. History of prostate cancer. The patient will be maintained on Bicalutamide. 9. Dysphagia. The patient has prior history of dysphagia that was extensively evaluated and was found have reflux esophagitis as per EGDscopy. The patient will be maintained on proton pump inhibitors. Speech therapy evaluation ordered. 10. Elevated troponins. The patient's troponins have been normalized. Aspirin on hold because of underlying anemia. Cardiology following. 11. Nonsustained ventricular tachycardia. Continue beta-blockers. Will keep electrolyte levels optimal. Replete magnesium to keep the levels above 2.0. 12. Fluids, electrolytes, and nutrition. Low-cholesterol diet. 13. DVT prophylaxis. No chemical DVT prophylaxis because of underlying anemia. Bilateral sequential compression devices. 14. Gastrointestinal prophylaxis. Proton pump inhibitors. 15. Plan. Continue diuretics. Appreciate cardiology input. Gastroenterology consult called. Magnesium supplementation. Case discussed with Dr. Jimenez. Problems: Subjective 24 Hr Interval Summary Free Text/Dictation The patient had 8 beats of V. tach last night. Exam/Review of Systems Vital Signs Vitals Vital Signs Date Time Temp Pulse Resp B/P Pulse Ox O2 Delivery O2 Flow Rate FiO2 03/10/16 08:32 69 03/10/16 08:06 98.1 17 129/58 95 03/10/16 07:57 Nasal Cannula 4.0 Intake and Output 03/09/16 03/09/16 03/10/16 15:00 23:00 07:00 Intake Total 700 ml Output Total 1500 ml Balance -800 ml Exam GENERAL: This is a frail-looking 85-year-old male lying in bed in no apparent distress. HEENT: Head normocephalic and atraumatic. Eyes: Anicteric sclerae. Conjunctivae clear. ENT: Nasal septum is midline. Oral mucosa is dry. NECK: Supple. No JVD noticed. RESPIRATORY: Bilaterally diminished breath sounds. Bilateral fine rales heard. No use of accessory muscles for respiration. CARDIAC: Regular rate and rhythm with a grade II/ systolic ejection murmur heard at the left sternal border. GASTROINTESTINAL: Abdomen soft, nontender and nondistended. Bowel sounds positive in all 4 quadrants. GENITOURINARY: Deferred. EXTREMITIES: No cyanosis, no clubbing. Bilateral trace pedal edema. Peripheral pulses palpable. NEUROLOGIC: The patient is awake, alert and oriented. Cranial nerves are grossly intact. Results Result Diagram: 03/10/16 0500 03/10/16 0500 Results 24 hrs Laboratory Tests Test 03/09/16 20:34 03/10/16 05:00 Bedside Glucose 132 Absolute Reticulocyte Count 0.079 Alanine Aminotransferase (ALT/SGPT) 22 Albumin 3.2 L Albumin/Globulin Ratio 1.03 Alkaline Phosphatase 649 H Anion Gap 17 H Aspartate Amino Transf (AST/SGOT) 35 Basophils # 0.0 Basophils % 0.3 Blood Morphology Comment Blood Urea Nitrogen 26 H Calcium Level 6.1 L Carbon Dioxide Level 23 Chloride Level 103 Creatinine 1.02 Direct Bilirubin 0.00 Eosinophils # 0.0 Eosinophils % 0.5 Globulin 3.10 Glucose Level 105 Hematocrit 22.2 L Hemoglobin 7.4 L Indirect Bilirubin 0.4 Lactate Dehydrogenase 793 H Lymphocytes # 0.9 Lymphocytes % 16.8 Magnesium Level 1.8 Mean Corpuscular Hemoglobin 30.4 Mean Corpuscular Hemoglobin Concent 33.5 Mean Corpuscular Volume 90.8 Mean Platelet Volume 7.1 L Monocytes # 0.6 Monocytes % 11.5 H Neutrophils # 3.6 Neutrophils % 70.9 Nucleated Red Blood Cells # 0.0 Nucleated Red Blood Cells % 0.0 Percent Reticulocyte Count 3.2 H Phosphorus Level 3.0 Platelet Count 225 Potassium Level 4.0 Red Blood Count 2.44 L Red Cell Distribution Width 18.8 H Sodium Level 139 Total Bilirubin 0.4 Total Protein 6.3 White Blood Count 5.1 Medications Medications Current Medications Ondansetron HCl (Zofran Inj) 4 mg Q6H PRN IV NAUSEA AND/OR VOMITING; Start at 14:00 Acetaminophen (Tylenol Tab) 650 mg Q6H PRN PO PAIN LEVEL 1-3 OR FEVER; Start at 14:00 Acetaminophen/ Hydrocodone Bitart ([place] (5/325)) 1 tab Q6H PRN PO PAIN LEVEL 4 -6 Last administered on 03/10/16 08:27; Admin Dose 1 TAB; Start 03/08/16 at 14: 00 Morphine Sulfate (morphine) 2 mg Q4H PRN IV PAIN LEVEL 7-10; Start 03/08/16 at 14:00 Carvedilol (Coreg) 3.125 mg BID PO Last administered on 03/10/16 08:26; Admin Dose 3.125 MG; Start 03/08/16 at 21:00 Imipramine HCl (Tofranil) 25 mg BID PO Last administered on 03/10/16 08:25; Admin Dose 25 MG; Start 03/08/16 at 21:00 Hydralazine HCl (Apresoline) 10 mg Q6H PRN IV SBP>160; Start 03/08/16 at 16:00 Bicalutamide (Casodex) 50 mg DAILY PO Last administered on 03/10/16 08:36; Admin Dose 50 MG; Start 03/09/16 at 09:00 Lisinopril (Zestril) 2.5 mg DAILY PO Last administered on 03/10/16 08:27; Admin Dose 2.5 MG; Start 03/09/16 at 09:00 Influenza Virus Vaccine (Fluzone) 0.5 ml ONCE ONCE IM* ; Start 1/16/17 at 09:00 ; Stop 03/11/16 at 09:01 Docusate Sodium (Colace) 200 mg HS PO ; Start 03/10/16 at 21:00 ERICA MOHAN NP Mar 10, 2016 10:06
[2016-03-10] MEDS ORDERED: MAGNESIUM SULFATE 1 GM/D5W 100 ML IVPB ONE (10:30)
[2016-03-10] MEDS: morphine 2 MG INJ IV PRN (11:07)
--- NOTE | 2016-03-10 14:43 | CONS ---
Date/Time of Note Date/Time of Note DATE: 03/10/16 TIME: 14:40 Assessment/Plan Assessment/Plan Chief Complaint/Hosp Course IMPRESSION: 1. Congestive heart failure exacerbation, systolic, acute on chronic. 2. History of cardiomyopathy with severely depressed left ventricular ejection fraction, last approximately 20% to 25% by echo 04/2015. 3. End-stage renal disease on hemodialysis. 4. History of myocardial infarction by stress 04/2015. 5. Anemia. 6. Hypertension. 7. Hypothyroidism. 8. Prostate carcinoma. 9. Dementia. 10. Positive troponin-now trended negative 11.Wide complex tachycardia- ?NSVT Recc: -Tele -continue BB -Continue ACEI -Continue gentle lasix diuresis -Replete Mg Problems: Consultation Date/Type/Reason Admit Date/Time Mar 08, 2016 at 11:43 Initial Consult Date 03/08/2016 Type of Consultation: Cardiology Reason for Consultation CHF/cardiomyopathy Referring Provider: OLIVA BARRERA Exam/Review of Systems Vital Signs Vitals Vital Signs Date Time Temp Pulse Resp B/P Pulse Ox O2 Delivery O2 Flow Rate FiO2 03/10/16 13:35 86 18 95 Aerosol 3.0 Nasal Cannula Non Rebreather Mask 03/10/16 11:49 98.5 113/55 Intake and Output 03/09/16 03/09/16 03/10/16 15:00 23:00 07:00 Intake Total 700 ml Output Total 1500 ml Balance -800 ml Exam Review of Systems: CONSTITUTIONAL: No fevers, chills. PULMONARY: No sob CARDIOVASCULAR: No chest pain/palpitations GASTROINTESTINAL: No nausea/vomiting. GENITOURINARY: No hematuria/dysuria. MUSCULOSKELETAL: No myagias/arthalgias. PSYCHIATRIC: The patient denies depression. NEUROLOGIC: Generalized weakness Constitutional: alert Psych: no complaints Head: normocephalic ENMT: mucosa pink and moist Neck: jvd (9 cm water), supple Respiratory: diminished breath sounds (at bases/B) Cardiovascular: regular rate and rhythm Gastrointestinal: non-tender, soft Musculoskeletal: muscle tone (normal) Extremities: edema (none) Neurological: other (No focal deficits) Results Result Diagram: 03/10/16 0500 03/10/16 0500 Results 24 hrs Laboratory Tests Test 03/09/16 20:34 03/10/16 05:00 Bedside Glucose 132 Absolute Reticulocyte Count 0.079 Alanine Aminotransferase (ALT/SGPT) 22 Albumin 3.2 L Albumin/Globulin Ratio 1.03 Alkaline Phosphatase 649 H Anion Gap 17 H Aspartate Amino Transf (AST/SGOT) 35 Basophils # 0.0 Basophils % 0.3 Blood Morphology Comment Blood Urea Nitrogen 26 H Calcium Level 6.1 L Carbon Dioxide Level 23 Chloride Level 103 Creatinine 1.02 Direct Bilirubin 0.00 Eosinophils # 0.0 Eosinophils % 0.5 Globulin 3.10 Glucose Level 105 Hematocrit 22.2 L Hemoglobin 7.4 L Indirect Bilirubin 0.4 Lactate Dehydrogenase 793 H Lymphocytes # 0.9 Lymphocytes % 16.8 Magnesium Level 1.8 Mean Corpuscular Hemoglobin 30.4 Mean Corpuscular Hemoglobin Concent 33.5 Mean Corpuscular Volume 90.8 Mean Platelet Volume 7.1 L Monocytes # 0.6 Monocytes % 11.5 H Neutrophils # 3.6 Neutrophils % 70.9 Nucleated Red Blood Cells # 0.0 Nucleated Red Blood Cells % 0.0 Percent Reticulocyte Count 3.2 H Phosphorus Level 3.0 Platelet Count 225 Potassium Level 4.0 Red Blood Count 2.44 L Red Cell Distribution Width 18.8 H Sodium Level 139 Total Bilirubin 0.4 Total Protein 6.3 White Blood Count 5.1 Medications Medications Current Medications Ondansetron HCl (Zofran Inj) 4 mg Q6H PRN IV NAUSEA AND/OR VOMITING; Start at 14:00 Acetaminophen (Tylenol Tab) 650 mg Q6H PRN PO PAIN LEVEL 1-3 OR FEVER; Start at 14:00 Acetaminophen/ Hydrocodone Bitart ([place] (5/325)) 1 tab Q6H PRN PO PAIN LEVEL 4 -6 Last administered on 03/10/16 08:27; Admin Dose 1 TAB; Start 03/08/16 at 14: 00 Morphine Sulfate (morphine) 2 mg Q4H PRN IV PAIN LEVEL 7-10 Last administered on 03/10/16 11:07; Admin Dose 2 MG; Start 03/08/16 at 14:00 Carvedilol (Coreg) 3.125 mg BID PO Last administered on 03/10/16 08:26; Admin Dose 3.125 MG; Start 03/08/16 at 21:00 Imipramine HCl (Tofranil) 25 mg BID PO Last administered on 03/10/16 08:25; Admin Dose 25 MG; Start 03/08/16 at 21:00 Hydralazine HCl (Apresoline) 10 mg Q6H PRN IV SBP>160; Start 03/08/16 at 16:00 Bicalutamide (Casodex) 50 mg DAILY PO Last administered on 03/10/16 08:36; Admin Dose 50 MG; Start 03/09/16 at 09:00 Lisinopril (Zestril) 2.5 mg DAILY PO Last administered on 03/10/16 08:27; Admin Dose 2.5 MG; Start 03/09/16 at 09:00 Influenza Virus Vaccine (Fluzone) 0.5 ml ONCE ONCE IM* ; Start 03/11/16 at 09:00 ; Stop 03/11/16 at 09:01 Docusate Sodium (Colace) 200 mg HS PO ; Start 03/10/16 at 21:00 JUAN CARLOS ALEJANDRO Mar 10, 2016 14:42
[2016-03-10] MEDS ORDERED: MAGNESIUM SULFATE 2 GM/50 ML 50 ML IVPB ONE (15:00)
[2016-03-10] MEDS: DOCUSATE SODIUM 100 MG CAP PO SCH (20:37)
[2016-03-10] MEDS ORDERED: BISACODYL 10 MG SUPP PR ONE (22:30)
[2016-03-11] VITALS (16 sets, daily range): BP systolic 90–111; BP diastolic 50–57; PULSE 67–82; RESP 18–20
[2016-03-11] MEDS: FUROSEMIDE 20 MG INJ IV SCH (06:00)
[2016-03-11 06:03] LABS: EOSINOPHILS % 0.3 % (0.0-7.0); HEMATOCRIT 21.8 % (42.0-52.0); HEMOGLOBIN 7.4 g/dl (14.0-18.0); LYMPHOCYTES # 0.9 10^3/ul (0.8-2.9); LYMPHOCYTES % 15.4 % (15.0-51.0); MEAN CORPUSCULAR HEMOGLOBIN 30.5 pg (29.0-33.0); MEAN CORPUSCULAR VOLUME 89.6 fl (82.0-101.0); MEAN PLATELET VOLUME 7.2 fl (7.4-10.4); MONOCYTE # 0.7 10^3/ul (0.3-0.9); MONOCYTES % 11.7 % (0.0-11.0); NEUTROPHIL # 4.2 10^3/ul (1.6-7.5); NEUTROPHILS % 72.6 % (39.0-77.0); PLATELET COUNT 220 10^3/UL (140-440); RED BLOOD COUNT 2.44 10^6/ul (4.70-6.10); RED CELL DISTRIBUTION WIDTH 18.6 % (11.5-14.5); UNCORRECTED WBC 5.8 10^3/ul (4.8-10.8); WHITE BLOOD COUNT 5.8 10^3/ul (4.8-10.8)
[2016-03-11 06:12] LABS: CONDITION 1; LH ANALYZER COMMENTS 1
[2016-03-11 06:18] LABS: POTASSIUM 4.4 mmol/L (3.5-5.1)
[2016-03-11 06:20] LABS: CREATININE 1.5 mg/dl (0.61-1.24)
--- NOTE | 2016-03-11 06:20 | CONS ---
Date/Time of Note Date/Time of Note DATE: 03/11/16 TIME: 06:14 Assessment/Plan Assessment/Plan Chief Complaint/Hosp Course Impression: 1. Dysphagia: chronic. 2. Anemia: r/o GIB 3. Acute respiratory failure. Hypoxic, most probably secondary to underlying congestive heart failure exacerbation. 4. Congestive heart failure exacerbation. Acute and chronic systolic and diastolic dysfunction. Cardiology following. 2-D echocardiogram showing ejection fraction of 20-25% with stage I diastolic dysfunction. 5. Severe pulmonary hypertension. PA pressure of 85 mmHg as per 2-D echocardiogram. 6. Cardiomyopathy, most probably ischemic cardiomyopathy. 2-D echocardiogram showing ejection fraction of 20-25%. Continue beta blockers and nicho inhibitors. 7. Normocytic normochromic anemia. Iron panel showing no iron deficiency. Most likely anemia of chronic disease. 8. Hypothyroidism. The patient will be continued on Synthroid. 9. GERD 10. Elevated troponins. The patient's troponins have been normalized. Aspirin on hold because of underlying anemia. Cardiology following. 11. Constipation: no BM since admission. I started standing colace yesterday. Recommendations: 1. resume aspirin if occult blood negative 2. need medical and cardiac optimization and clearance for any potential endoscopic procedures especially given pt had runs of V tach on 03-09-16. 3. will perform EGD and colonoscopy if occult blood positive and pending medical and cardiac optimization and clearance. 4. will perform EGD for dysphagia if indicated after swallow evaluation and pending medical and cardiac optimization and clearance. 5. Await swallow eval 6. f/u folate and vitamin B12 level as part of anemia w/u (results not back as of time of this note) 7. continue colace and ulcolax for his constipation until he as a BM. 8. Continue protonix [address] Manzanares to resume care of this patient tomorrow. Problems: Consultation Date/Type/Reason Admit Date/Time Mar 08, 2016 at 11:43 Initial Consult Date Type of Consultation: Caden Referring Provider: OLIVA BARRERA 24 HR Interval Summary Free Text/Dictation sleepy but arousable, still reports sensation of dysphagia with food stuck in the throat. Denies melena, BRBPR. Exam/Review of Systems Vital Signs Vitals Vital Signs Date Time Temp Pulse Resp B/P Pulse Ox O2 Delivery O2 Flow Rate FiO2 03/11/16 04:31 67 03/11/16 04:14 99.3 19 98/53 93 03/11/16 01:50 3.0 03/10/16 20:46 Nasal Cannula Intake and Output 03/10/16 03/10/16 03/11/16 15:00 23:00 07:00 Intake Total 100 ml 900 ml Output Total 1100 ml Balance 100 ml -200 ml Exam Psych: nl mood/affect, no complaints Head: atraumatic, normocephalic Eyes: EOMI, nl conjunctiva, nl lids ENMT: mucosa pink and moist, nl external ears & nose, nl lips & teeth, nl nasal mucosa & septum Neck: non-tender, supple Respiratory: clear to auscultation, normal air movement Cardiovascular: nl pulses, regular rate and rhythm Gastrointestinal: bowel sounds, non-tender, soft Results Result Diagram: 03/11/16 0500 03/10/16 0500 Results 24 hrs Laboratory Tests Test 03/11/16 05:00 Basophils # 0.0 Basophils % 0.0 Blood Morphology Comment Eosinophils # 0.0 Eosinophils % 0.3 Hematocrit 21.8 L Hemoglobin 7.4 L Lymphocytes # 0.9 Lymphocytes % 15.4 Mean Corpuscular Hemoglobin 30.5 Mean Corpuscular Hemoglobin Concent 34.0 Mean Corpuscular Volume 89.6 Mean Platelet Volume 7.2 L Monocytes # 0.7 Monocytes % 11.7 H Neutrophils # 4.2 Neutrophils % 72.6 Nucleated Red Blood Cells # 0.0 Nucleated Red Blood Cells % 0.0 Platelet Count 220 Red Blood Count 2.44 L Red Cell Distribution Width 18.6 H White Blood Count 5.8 Medications Medications Current Medications Ondansetron HCl (Zofran Inj) 4 mg Q6H PRN IV NAUSEA AND/OR VOMITING; Start at 14:00 Acetaminophen (Tylenol Tab) 650 mg Q6H PRN PO PAIN LEVEL 1-3 OR FEVER; Start at 14:00 Acetaminophen/ Hydrocodone Bitart ([place] (5/325)) 1 tab Q6H PRN PO PAIN LEVEL 4 -6 Last administered on 03/10/16t 17:33; Admin Dose 1 TAB; Start 03/08/16 at 14: 00 Morphine Sulfate (morphine) 2 mg Q4H PRN IV PAIN LEVEL 7-10 Last administered on 03/10/16 11:07; Admin Dose 2 MG; Start 03/08/16 at 14:00 Carvedilol (Coreg) 3.125 mg BID PO Last administered on 03/10/16 20:38; Admin Dose 3.125 MG; Start 03/08/16 at 21:00 Imipramine HCl (Tofranil) 25 mg BID PO Last administered on 03/10/16 20:37; Admin Dose 25 MG; Start 03/08/16 at 21:00 Hydralazine HCl (Apresoline) 10 mg Q6H PRN IV SBP>160; Start 03/08/16 at 16:00 Bicalutamide (Casodex) 50 mg DAILY PO Last administered on 03/10/16 08:36; Admin Dose 50 MG; Start 03/09/16 at 09:00 Lisinopril (Zestril) 2.5 mg DAILY PO Last administered on 03/10/16 08:27; Admin Dose 2.5 MG; Start 03/09/16 at 09:00 Influenza Virus Vaccine (Fluzone) 0.5 ml ONCE ONCE IM* ; Start 03/11/16 at 09:00 ; Stop 03/11/16 at 09:01 Docusate Sodium (Colace) 200 mg HS PO Last administered on 03/10/16 20:37; Admin Dose 200 MG; Start 03/10/16 at 21:00 RENZO JEFFERY MD Mar 11, 2016 06:19
[2016-03-11 06:21] LABS: CALCIUM 6.2 mg/dl (8.4-10.2)
[2016-03-11] MEDS: LEVOTHYROXINE 25 MCG TAB PO SCH (06:27)
[2016-03-11] MEDS: PANTOPRAZOLE (EC) 40 MG TAB PO SCH ×2 (06:27→17:21)
[2016-03-11 07:06] LABS: MAGNESIUM 2.5 mg/dl (1.7-2.5); PHOSPHORUS 3.7 mg/dl (2.5-4.9)
[2016-03-11 07:49] LABS: FOLATE 5.4 ng/ml (2.8-20.0)
[2016-03-11] MEDS: morphine 2 MG INJ IV PRN (08:05)
[2016-03-11] MEDS: IMIPRAMINE 25 MG TAB PO SCH ×2 (08:09→21:28)
[2016-03-11] MEDS: BICALUTAMIDE 50 MG TAB PO SCH (08:15)
[2016-03-11] MEDS: LISINOPRIL 5 MG TAB PO SCH (08:26)
[2016-03-11] MEDS ORDERED: INFLUENZA VIRUS VACCINE 0.5 ML SYG IM* ONE (09:00)
[2016-03-11] MEDS: ALBUTEROL/IPRATROPIUM (NEB) 3 ML AMP HHN SCH ×3 (09:03→19:44)
--- NOTE | 2016-03-11 13:19 | CONS ---
Date/Time of Note Date/Time of Note DATE: 03/11/16 TIME: 13:13 Assessment/Plan Assessment/Plan Chief Complaint/Hosp Course IMPRESSION: 1. Congestive heart failure exacerbation, systolic, acute on chronic. 2. History of cardiomyopathy with severely depressed left ventricular ejection fraction, last approximately 20% to 25% by echo 04/2015. 3. End-stage renal disease on hemodialysis. 4. History of myocardial infarction by stress 04/2015. 5. Anemia. 6. Hypertension. 7. Hypothyroidism. 8. Prostate carcinoma. 9. Dementia. 10. Positive troponin-now trended negative 11.Wide complex tachycardia- ?NSVT-no recurrence 12. acute renal failure Recc: -Tele -continue BB -Hold ACEI given ARF -Continue gentle lasix diuresis -Check CXR to assess for ongoing CHF -will consider lexiscan stress test in this patient for GI pre-procedure eval Problems: Consultation Date/Type/Reason Admit Date/Time Mar 08, 2016 at 11:43 Initial Consult Date 03/08/2016 Type of Consultation: Cardiology Reason for Consultation CHF Referring Provider: OLIVA BARRERA Exam/Review of Systems Vital Signs Vitals Vital Signs Date Time Temp Pulse Resp B/P Pulse Ox O2 Delivery O2 Flow Rate FiO2 03/11/16 12:57 71 100/52 03/11/16 11:48 97.6 19 95 03/11/16 09:06 Nasal Cannula 3.0 Intake and Output 03/10/16 03/10/16 03/11/16 15:00 23:00 07:00 Intake Total 100 ml 900 ml 240 ml Output Total 1100 ml 200 ml Balance 100 ml -200 ml 40 ml Exam Review of Systems: CONSTITUTIONAL: No fevers, chills. PULMONARY: No sob CARDIOVASCULAR: No chest pain/palpitations GASTROINTESTINAL: No nausea/vomiting. GENITOURINARY: No hematuria/dysuria. MUSCULOSKELETAL: No myagias/arthalgias. PSYCHIATRIC: The patient denies depression. NEUROLOGIC: No weakness Constitutional: alert Psych: no complaints Head: normocephalic ENMT: mucosa pink and moist Respiratory: clear to auscultation Cardiovascular: regular rate and rhythm Gastrointestinal: non-tender, soft Musculoskeletal: muscle tone Extremities: edema (No focal deficits) Neurological: other (No focal deficits) Results Result Diagram: 03/11/16 0500 03/11/16 0500 Results 24 hrs Laboratory Tests Test 03/11/16 00:55 03/11/16 05:00 Stool Occult Blood NEGATIVE Anion Gap 16 Basophils # 0.0 Basophils % 0.0 Blood Morphology Comment Blood Urea Nitrogen 36 H Calcium Level 6.2 L Carbon Dioxide Level 24 Chloride Level 100 Creatinine 1.50 H Eosinophils # 0.0 Eosinophils % 0.3 Folate 5.4 Glucose Level 114 Hematocrit 21.8 L Hemoglobin 7.4 L Lymphocytes # 0.9 Lymphocytes % 15.4 Magnesium Level 2.5 Mean Corpuscular Hemoglobin 30.5 Mean Corpuscular Hemoglobin Concent 34.0 Mean Corpuscular Volume 89.6 Mean Platelet Volume 7.2 L Monocytes # 0.7 Monocytes % 11.7 H Neutrophils # 4.2 Neutrophils % 72.6 Nucleated Red Blood Cells # 0.0 Nucleated Red Blood Cells % 0.0 Phosphorus Level 3.7 Platelet Count 220 Potassium Level 4.4 Red Blood Count 2.44 L Red Cell Distribution Width 18.6 H Sodium Level 136 Vitamin B12 Level 647 White Blood Count 5.8 Medications Medications Current Medications Ondansetron HCl (Zofran Inj) 4 mg Q6H PRN IV NAUSEA AND/OR VOMITING; Start at 14:00 Acetaminophen (Tylenol Tab) 650 mg Q6H PRN PO PAIN LEVEL 1-3 OR FEVER; Start at 14:00 Acetaminophen/ Hydrocodone Bitart ([place] (5/325)) 1 tab Q6H PRN PO PAIN LEVEL 4 -6 Last administered on 03/10/16 17:33; Admin Dose 1 TAB; Start 03/08/16 at 14: 00 Morphine Sulfate (morphine) 2 mg Q4H PRN IV PAIN LEVEL 7-10 Last administered on 03/11/16 08:05; Admin Dose 2 MG; Start 03/08/16 at 14:00 Carvedilol (Coreg) 3.125 mg BID PO Last administered on 03/10/16 20:38; Admin Dose 3.125 MG; Start 03/08/16 at 21:00 Imipramine HCl (Tofranil) 25 mg BID PO Last administered on 03/11/16 08:09; Admin Dose 25 MG; Start 03/08/16 at 21:00 Hydralazine HCl (Apresoline) 10 mg Q6H PRN IV SBP>160; Start 03/08/16 at 16:00 Bicalutamide (Casodex) 50 mg DAILY PO Last administered on 03/11/16 08:15; Admin Dose 50 MG; Start 03/09/16 at 09:00 Lisinopril (Zestril) 2.5 mg DAILY PO Last administered on 03/11/16 08:26; Admin Dose 2.5 MG; Start 03/09/16 at 09:00 Docusate Sodium (Colace) 200 mg HS PO Last administered on 03/10/16 20:37; Admin Dose 200 MG; Start 03/10/16 at 21:00 JUAN CARLOS ALEJANDRO Mar 11, 2016 13:18
--- NOTE | 2016-03-11 14:38 | RADRPT ---
PROCEDURE: XR Chest. CLINICAL INDICATION: Congestive heart failure TECHNIQUE: Chest AP portable. COMPARISON: 03/08/2016 FINDINGS: The mediastinal structures are unremarkable. There is calcification of the thoracic aorta (consiste nt with atherosclerosis). There is mild cardiomegaly. There is a decrease in the congestive heart failure. There is a decrease in the RLL and LLL patchy consolidations. There are trace bilateral p leural effusions. There are senescent changes of the axial skeleton. IMPRESSION: Mild cardiomegaly. Decrease in congestive heart failure. Decrease in RLL and LLL patchy consolidations. Trace bilateral pleural effusions. RPTAT: HGDB .Stanley Velez MD, MD Date Time Electronically viewed and signed by .Stanley Velez MD, on 03/11/2016 14:37 .B/
--- NOTE | 2016-03-11 14:57 | PN ---
Date/Time of Note Date/Time of Note DATE: 03/11/16 TIME: 14:52 Assessment/Plan VTE Prophylaxis VTE Prophylaxis Intervention: SCD's Lines/Catheters IV [facility] [place] Urinary Cath still in place: No Assessment/Plan Chief Complaint/Hosp Course 1. Acute respiratory failure. Hypoxic, most probably secondary to underlying congestive heart failure exacerbation-Improved with Lasix -The patient will be maintained on supplemental oxygen. The patient will be provided with inhaled bronchodilators. -Hold Lasix 2/2 Cr rise 2. Congestive heart failure exacerbation. Acute on chronic systolic dysfunction - s/p Diureses. Cardiology following. 2-D echocardiogram showing ejection fraction of 20-25% with stage I diastolic dysfunction. -Hold Lasix for now 2/2 TOMASZ 3. Severe pulmonary hypertension. PA pressure of 85 mmHg as per 2-D echocardiogram. Continue supplemental oxygen. 4. Cardiomyopathy, most probably ischemic cardiomyopathy. 2-D echocardiogram showing ejection fraction of 20-25%. Continue beta blockers and nicho inhibitors. -Cards following 5. Normocytic normochromic anemia 2/2 Chronic Disease -Stool occult blood negative and Iron panel is normal -Pending haptoglobin levels. Gastroenterology consult appreciated 6. Hypothyroidism. The patient will be continued on Synthroid. 7. Essential hypertension. The patient will be maintained on antihypertensives including p.r.n. antihypertensives for any systolic blood pressure readings greater than 160 mmHg. 8. History of prostate cancer. The patient will be maintained on Bicalutamide. 9. Dysphagia. The patient has prior history of dysphagia that was extensively evaluated and was found have reflux esophagitis as per EGD. The patient will be maintained on proton pump inhibitors. Speech therapy evaluation ordered. 10. Elevated troponins. The patient's troponins have been normalized. Aspirin on hold because of underlying anemia. Cardiology following. 11. Nonsustained ventricular tachycardia. Continue beta-blockers. Will keep electrolyte levels optimal. Replete magnesium to keep the levels above 2.0. 12. Fluids, electrolytes, and nutrition. Low-cholesterol diet. 13. DVT prophylaxis. No chemical DVT prophylaxis because of underlying anemia. Bilateral sequential compression devices. 14. Gastrointestinal prophylaxis. Proton pump inhibitors. Problems: Subjective 24 Hr Interval Summary Constitutional: no complaints Exam/Review of Systems Vital Signs Vitals Vital Signs Date Time Temp Pulse Resp B/P Pulse Ox O2 Delivery O2 Flow Rate FiO2 03/11/16 13:52 81 20 95 Nasal Cannula 3.0 03/11/16 12:57 100/52 03/11/16 11:48 97.6 Intake and Output 03/10/16 03/10/16 03/11/16 15:00 23:00 07:00 Intake Total 100 ml 900 ml 240 ml Output Total 1100 ml 200 ml Balance 100 ml -200 ml 40 ml Exam Constitutional: alert Respiratory: clear to auscultation Cardiovascular: regular rate and rhythm Gastrointestinal: soft, No distended Musculoskeletal: nl extremities to inspection Results Result Diagram: 03/11/16 0500 03/11/16 0500 Results 24 hrs Laboratory Tests Test 03/11/16 00:55 03/11/16 05:00 Stool Occult Blood NEGATIVE Anion Gap 16 Basophils # 0.0 Basophils % 0.0 Blood Morphology Comment Blood Urea Nitrogen 36 H Calcium Level 6.2 L Carbon Dioxide Level 24 Chloride Level 100 Creatinine 1.50 H Eosinophils # 0.0 Eosinophils % 0.3 Folate 5.4 Glucose Level 114 Hematocrit 21.8 L Hemoglobin 7.4 L Lymphocytes # 0.9 Lymphocytes % 15.4 Magnesium Level 2.5 Mean Corpuscular Hemoglobin 30.5 Mean Corpuscular Hemoglobin Concent 34.0 Mean Corpuscular Volume 89.6 Mean Platelet Volume 7.2 L Monocytes # 0.7 Monocytes % 11.7 H Neutrophils # 4.2 Neutrophils % 72.6 Nucleated Red Blood Cells # 0.0 Nucleated Red Blood Cells % 0.0 Phosphorus Level 3.7 Platelet Count 220 Potassium Level 4.4 Red Blood Count 2.44 L Red Cell Distribution Width 18.6 H Sodium Level 136 Vitamin B12 Level 647 White Blood Count 5.8 Medications Medications Current Medications Ondansetron HCl (Zofran Inj) 4 mg Q6H PRN IV NAUSEA AND/OR VOMITING; Start at 14:00 Acetaminophen (Tylenol Tab) 650 mg Q6H PRN PO PAIN LEVEL 1-3 OR FEVER; Start at 14:00 Acetaminophen/ Hydrocodone Bitart ([place] (5/325)) 1 tab Q6H PRN PO PAIN LEVEL 4 -6 Last administered on 03/10/16t 17:33; Admin Dose 1 TAB; Start 03/08/16 at 14: 00 Morphine Sulfate (morphine) 2 mg Q4H PRN IV PAIN LEVEL 7-10 Last administered on 03/11/16 08:05; Admin Dose 2 MG; Start 03/08/16 at 14:00 Carvedilol (Coreg) 3.125 mg BID PO Last administered on 03/10/16 20:38; Admin Dose 3.125 MG; Start 03/08/16 at 21:00 Imipramine HCl (Tofranil) 25 mg BID PO Last administered on 03/11/16 08:09; Admin Dose 25 MG; Start 03/08/16 at 21:00 Hydralazine HCl (Apresoline) 10 mg Q6H PRN IV SBP>160; Start 03/08/16 at 16:00 Bicalutamide (Casodex) 50 mg DAILY PO Last administered on 03/11/16 08:15; Admin Dose 50 MG; Start 03/09/16 at 09:00 Lisinopril (Zestril) 2.5 mg DAILY PO Last administered on 03/11/16 08:26; Admin Dose 2.5 MG; Start 03/09/16 at 09:00; Status Future Hold Docusate Sodium (Colace) 200 mg HS PO Last administered on 03/10/16 20:37; Admin Dose 200 MG; Start 03/10/16 at 21:00 Hydralazine HCl (Apresoline) 10 mg Q12 PO ; Start 03/11/16 at 21:00 TESS MAURO Mar 11, 2016 14:56
[2016-03-11] MEDS ORDERED: SOD CHLORIDE 0.45% 1,000 ML IV SCH (15:00)
[2016-03-11] MEDS: DOCUSATE SODIUM 100 MG CAP PO SCH (21:28)
[2016-03-11] MEDS: ACETAMINOPHEN 325 MG TAB PO PRN (21:28)
[2016-03-12] VITALS (11 sets, daily range): BP systolic 99–116; BP diastolic 46–58; PULSE 69–80; RESP 18–20
[2016-03-12] MEDS: LEVOTHYROXINE 25 MCG TAB PO SCH (06:31)
[2016-03-12] MEDS: PANTOPRAZOLE (EC) 40 MG TAB PO SCH ×2 (06:31→17:33)
[2016-03-12 07:04] LABS: POTASSIUM 4.5 mmol/L (3.5-5.1)
[2016-03-12 07:07] LABS: CREATININE 1.22 mg/dl (0.61-1.24)
[2016-03-12 07:08] LABS: MAGNESIUM 2.5 mg/dl (1.7-2.5)
[2016-03-12 07:10] LABS: CALCIUM 5.7 mg/dl (8.4-10.2)
[2016-03-12] MEDS: ALBUTEROL/IPRATROPIUM (NEB) 3 ML AMP HHN SCH ×3 (07:27→19:48)
[2016-03-12 07:33] LABS: BASOPHILS % 0.2 % (0.0-2.0); EOSINOPHILS # 0.1 10^3/ul (0.0-0.5); HEMOGLOBIN 7.5 g/dl (14.0-18.0); LYMPHOCYTES # 0.8 10^3/ul (0.8-2.9); MEAN CORPUSCULAR HEMOGLOBIN 30.7 pg (29.0-33.0); MEAN CORPUSCULAR HGB CONC 34.2 g/dl (32.0-37.0); MEAN CORPUSCULAR VOLUME 89.8 fl (82.0-101.0); MEAN PLATELET VOLUME 7.4 fl (7.4-10.4); MONOCYTE # 0.5 10^3/ul (0.3-0.9); MONOCYTES % 9.5 % (0.0-11.0); NEUTROPHIL # 3.9 10^3/ul (1.6-7.5); NEUTROPHILS % 74.3 % (39.0-77.0); PLATELET COUNT 228 10^3/UL (140-440); RED BLOOD COUNT 2.45 10^6/ul (4.70-6.10); RED CELL DISTRIBUTION WIDTH 18.8 % (11.5-14.5); UNCORRECTED WBC 5.3 10^3/ul (4.8-10.8); WHITE BLOOD COUNT 5.3 10^3/ul (4.8-10.8)
[2016-03-12 07:48] LABS: CONDITION 1; LH ANALYZER COMMENTS 1; NUCLEATED RED BLOOD CELLS # 0.1 10^3/ul (0.0-0.0)
[2016-03-12] MEDS: BICALUTAMIDE 50 MG TAB PO SCH (09:14)
[2016-03-12] MEDS: IMIPRAMINE 25 MG TAB PO SCH ×2 (09:14→20:51)
[2016-03-12] MEDS ORDERED: CALCIUM GLUCONATE 10% 2 GM in SOD CHLORIDE 0.9% 100 ML IVPB ONE (09:30)
[2016-03-12] MEDS: morphine 2 MG INJ IV PRN (10:48)
--- NOTE | 2016-03-12 11:03 | RADRPT ---
Vent Rate: 77 bpm RR Interval: 0 msec [place] Interval: 176 msec QRS Duration: 170 msec QT Interval: 482 msec QTC Interval: 545 msec P-R-T [place]: 53 - 22 - 171 degrees Normal sinus rhythm with sinus arrhythmia Left bundle branch block Abnormal ECG Electronically Signed By: Ayaz Chris [id number]
--- NOTE | 2016-03-12 11:24 | CONS ---
Date/Time of Note Date/Time of Note DATE: 03/12/16 TIME: 11:23 Assessment/Plan Assessment/Plan Additional Assessment/Plan 1. Congestive heart failure exacerbation, systolic, acute on chronic =- better now, remove fluid with HD. 2. History of cardiomyopathy with severely depressed left ventricular ejection fraction, last approximately 20% to 25% by echo 04/2015 - will monitor clinically. 3. End-stage renal disease on hemodialysis - RD per renal team. 4. History of myocardial infarction by stress 04/2015. 5. Anemia - H/H stable - op bleeding noted. 6. Hypertension. 7. Hypothyroidism. 8. Prostate carcinoma. 9. Dementia- advanced. 10. Positive troponin-now trended negative 11.Wide complex tachycardia- ?NSVT-no recurrence 12. acute renal failure Consultation Date/Type/Reason Admit Date/Time Mar 08, 2016 at 11:43 Initial Consult Date Type of Consultation: Cardiology Referring Provider: OLIVA BARRERA 24 HR Interval Summary Free Text/Dictation No acute events - BP stable - con't top remove fluid with HD. ROS: No fever, no chills, no nausea, no vomiting, no diarrhea/constipation No recent weight changes No chest pain, no PND, no orthopnea No dizziness, blurred vision No thirst, no heat or cold intolerance Exam/Review of Systems Vital Signs Vitals Vital Signs Date Time Temp Pulse Resp B/P Pulse Ox O2 Delivery O2 Flow Rate FiO2 03/12/16 11:02 98.7 72 20 106/57 96 03/12/16 09:43 Nasal Cannula 3.0 Intake and Output 03/11/16 03/11/16 03/12/16 15:00 23:00 07:00 Intake Total 1010 ml 630 ml Output Total 700 ml 700 ml Balance 310 ml -70 ml Exam General: WN/WD/NAD, AOx 1-2 HEENT: Unicetric/atraumatic/EOMI (does not follow commands) NECK: JVD elevated, no thyromegaly Lymph: no lymphadenopathy HEART: regular with no S3, II/ systolic murmur at apex LUNGS: Coarse sounds ABD: soft, NT, ND, +BS : Intact Neuro: non focal SKIN: chronic changes EXT: trace edema Results Result Diagram: 03/12/1661903/12/16619 Results 24 hrs Laboratory Tests Test 03/12/16 06:20 Anion Gap 18 H Basophils # 0.0 Basophils % 0.2 Blood Morphology Comment Blood Urea Nitrogen 39 H Calcium Level 5.7 *L Carbon Dioxide Level 24 Chloride Level 98 Creatinine 1.22 Differential Comment AUTO w/SCAN Eosinophils # 0.1 Eosinophils % 1.0 Glucose Level 115 Hematocrit 22.0 L Hemoglobin 7.5 L Lymphocytes # 0.8 Lymphocytes % 15.0 Magnesium Level 2.5 Mean Corpuscular Hemoglobin 30.7 Mean Corpuscular Hemoglobin Concent 34.2 Mean Corpuscular Volume 89.8 Mean Platelet Volume 7.4 Monocytes # 0.5 Monocytes % 9.5 Neutrophils # 3.9 Neutrophils % 74.3 Nucleated Red Blood Cells # 0.1 H Nucleated Red Blood Cells % 0.0 Platelet Count 228 Potassium Level 4.5 Red Blood Count 2.45 L Red Cell Distribution Width 18.8 H Sodium Level 135 White Blood Count 5.3 Medications Medications Current Medications Ondansetron HCl (Zofran Inj) 4 mg Q6H PRN IV NAUSEA AND/OR VOMITING; Start at 14:00 Acetaminophen (Tylenol Tab) 650 mg Q6H PRN PO PAIN LEVEL 1-3 OR FEVER Last administered on 03/11/16 21:28; Admin Dose 650 MG; Start 03/08/16 at 14:00 Acetaminophen/ Hydrocodone Bitart ([place] (5/325)) 1 tab Q6H PRN PO PAIN LEVEL 4 -6 Last administered on 03/10/16 17:33; Admin Dose 1 TAB; Start 03/08/16 at 14: 00 Morphine Sulfate (morphine) 2 mg Q4H PRN IV PAIN LEVEL 7-10 Last administered on 03/12/16 10:48; Admin Dose 2 MG; Start 03/08/16 at 14:00 Carvedilol (Coreg) 3.125 mg BID PO Last administered on 03/11/16 21:28; Admin Dose 3.125 MG; Start 03/08/16 at 21:00 Imipramine HCl (Tofranil) 25 mg BID PO Last administered on 03/12/16 09:14; Admin Dose 25 MG; Start 03/08/16 at 21:00 Hydralazine HCl (Apresoline) 10 mg Q6H PRN IV SBP>160; Start 03/08/16 at 16:00 Bicalutamide (Casodex) 50 mg DAILY PO Last administered on 03/12/16 09:14; Admin Dose 50 MG; Start 03/09/16 at 09:00 Lisinopril (Zestril) 2.5 mg DAILY PO Last administered on 03/11/16 08:26; Admin Dose 2.5 MG; Start 03/09/16 at 09:00; Status Future Hold Docusate Sodium (Colace) 200 mg HS PO Last administered on 03/11/16 21:28; Admin Dose 200 MG; Start 03/10/16 at 21:00 Hydralazine HCl 10 mg 10 mg Q12 PO ; Start 03/11/16 at 21:00 Sodium Chloride 1,000 ml @ 40 mls/hr Q24H IV Last administered on 03/11/16 15 :26; Admin Dose 40 MLS/HR; Start 03/11/16 at 15:00; Stop 03/12/16 at 15:59 Calcium Gluconate/ Sodium Chloride (Ca Gluc/NS) 120 ml @ 60 mls/hr ONCE ONCE IVPB Last administered on 03/12/16 09:32; Admin Dose 60 MLS/HR; Start at 09:30; Stop 03/12/16 at 11:29 KIMBERLEE LOPES MD Mar 12, 2016 11:24
[2016-03-12] MEDS ORDERED: FURO40TA4 PO (14:25)
--- NOTE | 2016-03-12 14:25 | PDOCDIS ---
Discharge Instructions CONDITION Patient Condition: Good HOME CARE INSTRUCTIONS: Diet Instructions: Reduced Sodium ACTIVITY: Activity Restrictions: No Restrictions FOLLOW UP/APPOINTMENTS Appointments F/U WITH YOUR PCP IN 1-2 WEEKS TESS MAURO Mar 12, 2016 14:25
[2016-03-12] MEDS ORDERED: FURO20TA3 PO (14:27)
--- NOTE | 2016-03-12 14:42 | CONS ---
Date/Time of Note Date/Time of Note DATE: 03/12/16 TIME: 14:40 Assessment/Plan Assessment/Plan Additional Assessment/Plan 1. Dysphagia: chronic. Passed swallow evaluation. 2. Anemia: Likely secondary to chronic disease. Stool OB negative. 3. Acute respiratory failure. Hypoxic, most probably secondary to underlying congestive heart failure exacerbation. 4. Congestive heart failure exacerbation. Acute and chronic systolic and diastolic dysfunction. Cardiology following. 2-D echocardiogram showing ejection fraction of 20-25% with stage I diastolic dysfunction. 5. Severe pulmonary hypertension. PA pressure of 85 mmHg as per 2-D echocardiogram. 6. Cardiomyopathy, most probably ischemic cardiomyopathy. 2-D echocardiogram showing ejection fraction of 20-25%. Continue beta blockers and nicho inhibitors. 7. Normocytic normochromic anemia. Iron panel showing no iron deficiency. Most likely anemia of chronic disease. 8. Hypothyroidism. The patient will be continued on Synthroid. 9. GERD 10. Elevated troponins. The patient's troponins have been normalized. Aspirin on hold because of underlying anemia. Cardiology following. 11. Constipation: no BM since admission. I started standing colace yesterday. Recommendations: 1. resume aspirin if occult blood negative 2. need medical and cardiac optimization and clearance for any potential endoscopic procedures especially given pt had runs of V tach on 03-09-16. 3. will perform EGD and colonoscopy if occult blood positive and pending medical and cardiac optimization and clearance. Not indicated. Stool OB neg 4. will perform EGD for dysphagia if indicated after swallow evaluation and pending medical and cardiac optimization and clearance. Passed swallow eval. 5. Continue protonix 40 mg bid 6. folate and vitamin B12 WNL 7. continue colace and Dulcolax for his constipation until he as a BM. 8. Pt stable from GI standpoint. GI sign off 9. Patient seen in collaboration with Dr. Manzanares Consultation Date/Type/Reason Admit Date/Time Mar 08, 2016 at 11:43 Initial Consult Date Type of Consultation: Gastroenterology Referring Provider: OLIVA BARRERA 24 HR Interval Summary Free Text/Dictation No reports of abdominal pain, nausea, vomiting Passed swallow evaluation Stool OB negative Exam/Review of Systems Vital Signs Vitals Vital Signs Date Time Temp Pulse Resp B/P Pulse Ox O2 Delivery O2 Flow Rate FiO2 03/12/16 13:45 62 18 97 Nasal Cannula 3.0 03/12/16 11:02 98.7 106/57 Intake and Output 03/11/16 03/11/16 03/12/16 15:00 23:00 07:00 Intake Total 1010 ml 630 ml Output Total 700 ml 700 ml Balance 310 ml -70 ml Exam Psych: nl mood/affect, no complaints Head: atraumatic, normocephalic Eyes: EOMI, nl conjunctiva, nl lids ENMT: mucosa pink and moist, nl external ears & nose, nl lips & teeth, nl nasal mucosa & septum Neck: non-tender, supple Respiratory: clear to auscultation, normal air movement Cardiovascular: nl pulses, regular rate and rhythm Gastrointestinal: bowel sounds, non-tender, soft Results Result Diagram: 03/12/1661903/12/16 06 Results 24 hrs Laboratory Tests Test 03/12/16 06:20 Anion Gap 18 H Basophils # 0.0 Basophils % 0.2 Blood Morphology Comment Blood Urea Nitrogen 39 H Calcium Level 5.7 *L Carbon Dioxide Level 24 Chloride Level 98 Creatinine 1.22 Differential Comment AUTO w/SCAN Eosinophils # 0.1 Eosinophils % 1.0 Glucose Level 115 Hematocrit 22.0 L Hemoglobin 7.5 L Lymphocytes # 0.8 Lymphocytes % 15.0 Magnesium Level 2.5 Mean Corpuscular Hemoglobin 30.7 Mean Corpuscular Hemoglobin Concent 34.2 Mean Corpuscular Volume 89.8 Mean Platelet Volume 7.4 Monocytes # 0.5 Monocytes % 9.5 Neutrophils # 3.9 Neutrophils % 74.3 Nucleated Red Blood Cells # 0.1 H Nucleated Red Blood Cells % 0.0 Platelet Count 228 Potassium Level 4.5 Red Blood Count 2.45 L Red Cell Distribution Width 18.8 H Sodium Level 135 White Blood Count 5.3 Medications Medications Current Medications Ondansetron HCl (Zofran Inj) 4 mg Q6H PRN IV NAUSEA AND/OR VOMITING; Start at 14:00 Acetaminophen (Tylenol Tab) 650 mg Q6H PRN PO PAIN LEVEL 1-3 OR FEVER Last administered on 03/11/16 21:28; Admin Dose 650 MG; Start 03/08/16 at 14:00 Acetaminophen/ Hydrocodone Bitart ([place] (5/325)) 1 tab Q6H PRN PO PAIN LEVEL 4 -6 Last administered on 03/10/16 17:33; Admin Dose 1 TAB; Start 03/08/16 at 14: 00 Morphine Sulfate (morphine) 2 mg Q4H PRN IV PAIN LEVEL 7-10 Last administered on 03/12/16 10:48; Admin Dose 2 MG; Start 03/08/16 at 14:00 Carvedilol (Coreg) 3.125 mg BID PO Last administered on 03/11/16 21:28; Admin Dose 3.125 MG; Start 03/08/16 at 21:00 Imipramine HCl (Tofranil) 25 mg BID PO Last administered on 03/12/16 09:14; Admin Dose 25 MG; Start 03/08/16 at 21:00 Hydralazine HCl (Apresoline) 10 mg Q6H PRN IV SBP>160; Start 03/08/16 at 16:00 Bicalutamide (Casodex) 50 mg DAILY PO Last administered on 03/12/16 09:14; Admin Dose 50 MG; Start 03/09/16 at 09:00 Lisinopril (Zestril) 2.5 mg DAILY PO Last administered on 03/11/16 08:26; Admin Dose 2.5 MG; Start 03/09/16 at 09:00; Status Future Hold Docusate Sodium (Colace) 200 mg HS PO Last administered on 03/11/16 21:28; Admin Dose 200 MG; Start 03/10/16 at 21:00 Hydralazine HCl 10 mg 10 mg Q12 PO ; Start 03/11/16 at 21:00 Sodium Chloride (1/2 NS) 1,000 ml @ 40 mls/hr Q24H IV Last administered on 15:26; Admin Dose 40 MLS/HR; Start 03/11/16 at 15:00; Stop 03/12/16 at 15:59 WAYNE NICOLE Mar 12, 2016 14:42
[2016-03-12] MEDS: HYDROCODONE/APAP (5/325) TAB PO PRN (17:30)
--- NOTE | 2016-03-12 18:03 | DS ---
DATE OF ADMISSION: 03/08/2016 DATE OF DISCHARGE: 03/12/2016 DISCHARGE DIAGNOSES 1. Acute respiratory failure secondary to congestive heart failure exacerbation. The patient has a n ejection fraction of 20% to 25%, now improved with Lasix. 2. Cardiomyopathy with an ejection fraction of 20% to 25%, likely ischemic. Patient was seen by ca rdiology during the hospitalization. Continue home medications. 3. Anemia of chronic disease, stable. 4. Hypothyroidism. Continue home Synthroid. 5. Hypertension, stable. 6. History of prostate cancer. Continue home medications. 7. History of dysphagia. The patient has a diagnosis of reflux esophagitis as per EGD in the past. The patient tolerating a p.o. diet and was evaluated by speech therapy. 8. Elevated troponins, stabilized. No further intervention per cardiology. 9. Nonsustained ventricular tachycardia, resolved with no further episodes. HOSPITAL COURSE: The patient is an 85-year-old male, likely history of dementia. The patient prese nted with acute respiratory failure. Patient had echo that showed ejection fraction of 20% to 25%. Of note, he also has a history of hypothyroidism, hypertension, and prostate cancer. Patient was s tarted on diuretics. He was seen by cardiology this cardiomyopathy, it is likely from ischemi c cardiomyopathy. The patient has a reported history of dysphagia, and this was extensively evaluat ed in the past and was found to have reflux esophagitis per an EGD in the past. Patient was maintai kia on his PPIs. The patient did have episode of nonsustained ventricular tachycardia. This resolve d and there was no further episode. There was a question of possible gastrointestinal bleed. The p atient did have anemia, is felt to be anemia of chronic disease. Stool occult was negative. The pa kristen's shortness of breath did improve with diuretics and was felt to be stable for discharge per c ardiology, and on day of discharge the patient's vitals, labs, physical exam were stable. Of note, his creatinine did jump up at one point then later diuretics were held and he was given some IV flui ds and his creatinine improved. Once again, the day of discharge, the patient's vitals, labs and ph ysical exam was stable. He had no acute complaints. Questions were answered. CONDITION ON DISCHARGE: Stable. DISPOSITION: To home. MEDICATIONS: Patient to continue usual home medications. He was given a prescription for Lasix 20 mg daily. FOLLOWUP: The patient to follow up with his PCP in 1 to 2 weeks. Greater than 30 minutes was spent coordinating discharge of this patient. Dictated By: TESS MAURO MD BS/NTS Conf#: [id number] DID#: [id number]
[2016-03-12] MEDS: DOCUSATE SODIUM 100 MG CAP PO SCH (20:51)
[2016-03-13] MEDS: PANTOPRAZOLE (EC) 40 MG TAB PO SCH ×2 (07:10→17:33)
[2016-03-13] MEDS: LEVOTHYROXINE 25 MCG TAB PO SCH (07:10)
[2016-03-13 07:57] VITALS: BP 138/60; RESP 18
[2016-03-13] MEDS: ALBUTEROL/IPRATROPIUM (NEB) 3 ML AMP HHN SCH ×3 (08:56→20:11)
--- NOTE | 2016-03-13 11:27 | CONS ---
Date/Time of Note Date/Time of Note DATE: 03/13/16 TIME: 11:23 Assessment/Plan Assessment/Plan Chief Complaint/Hosp Course IMPRESSION: 1. Congestive heart failure exacerbation, systolic, acute on chronic.-improved volume status by exam 2. History of cardiomyopathy with severely depressed left ventricular ejection fraction, last approximately 20% to 25% by echo 04/2015. 3. End-stage renal disease on hemodialysis. 4. History of myocardial infarction by stress 04/2015. 5. Anemia. 6. Hypertension. 7. Hypothyroidism. 8. Prostate carcinoma. 9. Dementia. 10. Positive troponin-now trended negative 11.Wide complex tachycardia- ?NSVT-no recurrence 12. acute renal failure Recc: -Tele -continue BB/HYdralazine as tolerated -ACEI held given ARF -Would resume gentle PO lasix diuresis as outpatient -Consider lexiscan stress test which can be done as an outpatient to assess significance of low positive troponin -outpatient cards f/u 2-3 weeks Problems: Consultation Date/Type/Reason Admit Date/Time Mar 08, 2016 at 11:43 Initial Consult Date 03/08/2016 Type of Consultation: Cardiology Reason for Consultation CHF Referring Provider: OLIVA BARRERA Exam/Review of Systems Vital Signs Vitals Vital Signs Date Time Temp Pulse Resp B/P Pulse Ox O2 Delivery O2 Flow Rate FiO2 03/13/16 08:57 72 16 96 Nasal Cannula 3.0 03/13/16 07:57 98.0 138/60 Intake and Output 03/12/16 03/12/16 03/13/16 15:00 23:00 07:00 Intake Total 420 ml 240 ml Output Total 900 ml 400 ml Balance -480 ml -160 ml Exam Review of Systems: CONSTITUTIONAL: No fevers, chills. PULMONARY: Mild sob CARDIOVASCULAR: No chest pain/palpitations GASTROINTESTINAL: No nausea/vomiting. GENITOURINARY: No hematuria/dysuria. MUSCULOSKELETAL: No myagias/arthalgias. PSYCHIATRIC: The patient denies depression. NEUROLOGIC: No weakness Constitutional: alert Head: normocephalic ENMT: mucosa pink and moist Neck: jvd (9 cm water), supple Respiratory: diminished breath sounds (at bases/B) Cardiovascular: regular rate and rhythm Gastrointestinal: non-tender, soft Musculoskeletal: muscle tone (normal) Extremities: edema (none) Neurological: other (No focal deficits) Results Result Diagram: 03/12/1661903/12/16619 Medications Medications Current Medications Ondansetron HCl (Zofran Inj) 4 mg Q6H PRN IV NAUSEA AND/OR VOMITING; Start at 14:00 Acetaminophen (Tylenol Tab) 650 mg Q6H PRN PO PAIN LEVEL 1-3 OR FEVER Last administered on 03/11/16 21:28; Admin Dose 650 MG; Start 03/08/16 at 14:00 Acetaminophen/ Hydrocodone Bitart ([place] (5/325)) 1 tab Q6H PRN PO PAIN LEVEL 4 -6 Last administered on 03/12/16 17:30; Admin Dose 1 TAB; Start 03/08/16 at 14: 00 Morphine Sulfate (morphine) 2 mg Q4H PRN IV PAIN LEVEL 7-10 Last administered on 03/12/16 10:48; Admin Dose 2 MG; Start 03/08/16 at 14:00 Carvedilol (Coreg) 3.125 mg BID PO Last administered on 03/13/16 08:51; Admin Dose 3.125 MG; Start 03/08/16 at 21:00 Imipramine HCl (Tofranil) 25 mg BID PO Last administered on 03/12/16 20:51; Admin Dose 25 MG; Start 03/08/16 at 21:00 Hydralazine HCl (Apresoline) 10 mg Q6H PRN IV SBP>160; Start 03/08/16 at 16:00 Bicalutamide (Casodex) 50 mg DAILY PO Last administered on 03/12/16 09:14; Admin Dose 50 MG; Start 03/09/16 at 09:00 Lisinopril (Zestril) 2.5 mg DAILY PO Last administered on 03/11/16 08:26; Admin Dose 2.5 MG; Start 03/09/16 at 09:00; Status Future Hold Docusate Sodium (Colace) 200 mg HS PO Last administered on 03/12/16 20:51; Admin Dose 200 MG; Start 03/10/16 at 21:00 Hydralazine HCl (Apresoline) 10 mg Q12 PO Last administered on 03/13/16 08:51 ; Admin Dose 10 MG; Start 03/11/16 at 21:00 JUAN CARLOS ALEJANDRO Mar 13, 2016 11:27
[2016-03-13] MEDS: IMIPRAMINE 25 MG TAB PO SCH ×2 (13:00→21:00)
[2016-03-13] MEDS: BICALUTAMIDE 50 MG TAB PO SCH (13:09)
--- NOTE | 2016-03-13 17:50 | PN ---
Date/Time of Note Date/Time of Note DATE: 03/13/16 TIME: 17:48 Assessment/Plan VTE Prophylaxis VTE Prophylaxis Intervention: SCD's Lines/Catheters IV [facility]ter Type [facility] Peripheral IV Urinary Cath still in place: No Assessment/Plan Chief Complaint/Hosp Course 1. Acute respiratory failure 2/2 underlying congestive heart failure exacerbation-Improved with Lasix -The patient will be maintained on supplemental oxygen. The patient will be provided with inhaled bronchodilators. -Hold Lasix 2/2 Cr rise 2. Congestive heart failure exacerbation. Acute on chronic systolic dysfunction - s/p Diureses. Cardiology following. 2-D echocardiogram showing ejection fraction of 20-25% with stage I diastolic dysfunction. -Hold Lasix for now 2/2 TOMASZ 3. Severe pulmonary hypertension. PA pressure of 85 mmHg as per 2-D echocardiogram. Continue supplemental oxygen. 4. Cardiomyopathy, most probably ischemic cardiomyopathy. 2-D echocardiogram showing ejection fraction of 20-25%. Continue beta blockers and nicho inhibitors. -Cards following 5. Normocytic normochromic anemia 2/2 Chronic Disease -Stool occult blood negative and Iron panel is normal -Pending haptoglobin levels. Gastroenterology consult appreciated 6. Hypothyroidism. The patient will be continued on Synthroid. 7. Essential hypertension. The patient will be maintained on antihypertensives including p.r.n. antihypertensives for any systolic blood pressure readings greater than 160 mmHg. 8. History of prostate cancer. The patient will be maintained on Bicalutamide. 9. Dysphagia. The patient has prior history of dysphagia that was extensively evaluated and was found have reflux esophagitis as per EGD. The patient will be maintained on proton pump inhibitors. Speech therapy evaluation ordered. 10. Elevated troponins. The patient's troponins have been normalized. Aspirin on hold because of underlying anemia. Cardiology following. 11. Nonsustained ventricular tachycardia. Continue beta-blockers. Will keep electrolyte levels optimal. Replete magnesium to keep the levels above 2.0. 12. Dementia -will need SNF placement, CM aware 13. DVT prophylaxis. No chemical DVT prophylaxis because of underlying anemia. Bilateral sequential compression devices. 14. Gastrointestinal prophylaxis. Proton pump inhibitors. Problems: Subjective 24 Hr Interval Summary Constitutional: disoriented Exam/Review of Systems Vital Signs Vitals Vital Signs Date Time Temp Pulse Resp B/P Pulse Ox O2 Delivery O2 Flow Rate FiO2 03/13/16 16:33 3.0 03/13/16 14:10 69 14 95 Nasal Cannula 03/13/16 07:57 98.0 138/60 Intake and Output 03/12/16 03/12/16 03/13/16 15:00 23:00 07:00 Intake Total 420 ml 240 ml Output Total 900 ml 400 ml Balance -480 ml -160 ml Exam Psych: confusion Respiratory: clear to auscultation Cardiovascular: regular rate and rhythm Gastrointestinal: soft, No distended Musculoskeletal: nl extremities to inspection Results Result Diagram: 03/12/1661903/12/16 0620 Medications Medications Current Medications Ondansetron HCl (Zofran Inj) 4 mg Q6H PRN IV NAUSEA AND/OR VOMITING; Start at 14:00 Acetaminophen (Tylenol Tab) 650 mg Q6H PRN PO PAIN LEVEL 1-3 OR FEVER Last administered on 03/11/16 21:28; Admin Dose 650 MG; Start 03/08/16 at 14:00 Acetaminophen/ Hydrocodone Bitart ([place] (5/325)) 1 tab Q6H PRN PO PAIN LEVEL 4 -6 Last administered on 03/12/16 17:30; Admin Dose 1 TAB; Start 03/08/16 at 14: 00 Morphine Sulfate (morphine) 2 mg Q4H PRN IV PAIN LEVEL 7-10 Last administered on 03/12/16 10:48; Admin Dose 2 MG; Start 03/08/16 at 14:00 Carvedilol (Coreg) 3.125 mg BID PO Last administered on 03/13/16 08:51; Admin Dose 3.125 MG; Start 03/08/16 at 21:00 Imipramine HCl (Tofranil) 25 mg BID PO Last administered on 03/13/16 13:00; Admin Dose 25 MG; Start 03/08/16 at 21:00 Hydralazine HCl (Apresoline) 10 mg Q6H PRN IV SBP>160; Start 03/08/16 at 16:00 Bicalutamide (Casodex) 50 mg DAILY PO Last administered on 03/13/16 13:09; Admin Dose 50 MG; Start 03/09/16 at 09:00 Lisinopril (Zestril) 2.5 mg DAILY PO Last administered on 03/11/16 08:26; Admin Dose 2.5 MG; Start 03/09/16 at 09:00; Status Future Hold Docusate Sodium (Colace) 200 mg HS PO Last administered on 03/12/16 20:51; Admin Dose 200 MG; Start 03/10/16 at 21:00 Hydralazine HCl (Apresoline) 10 mg Q12 PO Last administered on 03/13/16 08:51 ; Admin Dose 10 MG; Start 03/11/16 at 21:00 TESS MAURO Mar 13, 2016 17:50
[2016-03-13] MEDS ORDERED: CEPASTAT LOZENGE MT PRN (19:00)
[2016-03-13] MEDS: HYDROCODONE/APAP (5/325) TAB PO PRN (19:33)
[2016-03-13 20:00] VITALS: BP 128/55; RESP 20
[2016-03-13] MEDS: DOCUSATE SODIUM 100 MG CAP PO SCH (20:51)
[2016-03-14 06:30] LABS: CALCIUM 6.5 mg/dl (8.4-10.2); CREATININE 0.92 mg/dl (0.61-1.24)
[2016-03-14 06:31] LABS: MAGNESIUM 2.4 mg/dl (1.7-2.5)
[2016-03-14] MEDS: LEVOTHYROXINE 25 MCG TAB PO SCH (07:43)
[2016-03-14] MEDS: PANTOPRAZOLE (EC) 40 MG TAB PO SCH ×2 (07:43→17:38)
[2016-03-14] MEDS: ALBUTEROL/IPRATROPIUM (NEB) 3 ML AMP HHN SCH ×3 (08:00→20:27)
[2016-03-14 08:12] VITALS: BP 117/56; RESP 18
[2016-03-14] MEDS: IMIPRAMINE 25 MG TAB PO SCH ×2 (08:35→21:28)
[2016-03-14] MEDS: BICALUTAMIDE 50 MG TAB PO SCH (08:39)
--- NOTE | 2016-03-14 10:27 | CONS ---
Date/Time of Note Date/Time of Note DATE: 03/14/16 TIME: 10:24 Assessment/Plan Assessment/Plan Chief Complaint/Hosp Course IMPRESSION: 1. Congestive heart failure exacerbation, systolic, acute on chronic.-improved volume status by exam 2. History of cardiomyopathy with severely depressed left ventricular ejection fraction, last approximately 20% to 25% by echo thius admit 3. End-stage renal disease on hemodialysis. 4. History of myocardial infarction by stress 04/2015. 5. Anemia. 6. Hypertension. 7. Hypothyroidism. 8. Prostate carcinoma. 9. Dementia. 10. Positive troponin-now trended negative 11.Wide complex tachycardia- ?NSVT-no recurrence 12. acute renal failure Recc: -Tele -continue BB/HYdralazine as tolerated -ACEI held given ARF but if creatnine remains stable will resume ACEI -Resume PO lasix diuresis -Lexiscan stress test to assess significance of positive troponin Problems: Consultation Date/Type/Reason Admit Date/Time Mar 08, 2016 at 11:43 Initial Consult Date 03/08/2016 Type of Consultation: Cardiology Reason for Consultation cardiomyopathy/CHF./positive troponin Referring Provider: OLIVA BARRERA Exam/Review of Systems Vital Signs Vitals Vital Signs Date Time Temp Pulse Resp B/P Pulse Ox O2 Delivery O2 Flow Rate FiO2 03/14/16 08:44 3.0 03/14/16 08:12 97.8 75 18 117/56 98 03/13/16 21:00 Nasal Cannula Intake and Output 03/13/16 03/13/16 03/14/16 15:00 23:00 07:00 Intake Total 940 ml 200 ml Output Total 1000 ml 650 ml Balance -60 ml -450 ml Exam Review of Systems: CONSTITUTIONAL: No fevers, chills. PULMONARY: No sob CARDIOVASCULAR: No chest pain/palpitations GASTROINTESTINAL: No nausea/vomiting. GENITOURINARY: No hematuria/dysuria. MUSCULOSKELETAL: No myagias/arthalgias. PSYCHIATRIC: The patient denies depression. NEUROLOGIC: mile generalized weakness Constitutional: alert Psych: no complaints Head: normocephalic ENMT: mucosa pink and moist Neck: jvd (9 cm water), supple Respiratory: diminished breath sounds (at bases/B) Cardiovascular: regular rate and rhythm Gastrointestinal: non-tender, soft Musculoskeletal: muscle tone (normal) Extremities: edema (none) Neurological: lethargic Results Result Diagram: 03/12/16 0620 03/14/16 0525 Results 24 hrs Laboratory Tests Test 03/14/16 05:25 Anion Gap 18 H Blood Urea Nitrogen 25 #H Calcium Level 6.5 L Carbon Dioxide Level 24 Chloride Level 101 Creatinine 0.92 Glucose Level 120 Magnesium Level 2.4 Potassium Level 5.0 Sodium Level 138 Medications Medications Current Medications Ondansetron HCl (Zofran Inj) 4 mg Q6H PRN IV NAUSEA AND/OR VOMITING; Start at 14:00 Acetaminophen (Tylenol Tab) 650 mg Q6H PRN PO PAIN LEVEL 1-3 OR FEVER Last administered on 03/11/16 21:28; Admin Dose 650 MG; Start 03/08/16 at 14:00 Acetaminophen/ Hydrocodone Bitart ([place] (5/325)) 1 tab Q6H PRN PO PAIN LEVEL 4 -6 Last administered on 03/13/16 19:33; Admin Dose 1 TAB; Start 03/08/16 at 14: 00 Morphine Sulfate (morphine) 2 mg Q4H PRN IV PAIN LEVEL 7-10 Last administered on 03/12/16 10:48; Admin Dose 2 MG; Start 03/08/16 at 14:00 Carvedilol (Coreg) 3.125 mg BID PO Last administered on 03/14/16 08:30; Admin Dose 3.125 MG; Start 03/08/16 at 21:00 Imipramine HCl (Tofranil) 25 mg BID PO Last administered on 03/14/16 08:35; Admin Dose 25 MG; Start 03/08/16 at 21:00 Hydralazine HCl (Apresoline) 10 mg Q6H PRN IV SBP>160; Start 03/08/16 at 16:00 Bicalutamide (Casodex) 50 mg DAILY PO Last administered on 03/14/16 08:39; Admin Dose 50 MG; Start 03/09/16 at 09:00 Lisinopril (Zestril) 2.5 mg DAILY PO Last administered on 03/11/16 08:26; Admin Dose 2.5 MG; Start 03/09/16 at 09:00; Status Future Hold Docusate Sodium (Colace) 200 mg HS PO Last administered on 03/13/16 20:51; Admin Dose 200 MG; Start 03/10/16 at 21:00 Hydralazine HCl (Apresoline) 10 mg Q12 PO Last administered on 03/14/16 08:30 ; Admin Dose 10 MG; Start 03/11/16 at 21:00 Phenol (Cepastat Lozenge) 1 lozenge Q4 PRN MT SORE THROAT; Start 03/13/16 at 19 :00 JUAN CARLOS ALEJANDRO Mar 14, 2016 10:27
[2016-03-14] MEDS: FUROSEMIDE 20 MG TAB PO SCH (11:26)
--- NOTE | 2016-03-14 14:43 | PN ---
Date/Time of Note Date/Time of Note DATE: 03/14/16 TIME: 14:41 Assessment/Plan VTE Prophylaxis VTE Prophylaxis Intervention: SCD's Lines/Catheters IV [facility] Urinary Cath still in place: No Assessment/Plan Chief Complaint/Hosp Course 1. Acute respiratory failure 2/2 underlying congestive heart failure exacerbation-Improved with Lasix -The patient will be maintained on supplemental oxygen. The patient will be provided with inhaled bronchodilators. -Cont Lasix 2. Congestive heart failure exacerbation. Acute on chronic systolic dysfunction - s/p Diureses. Cardiology following. 2-D echocardiogram showing ejection fraction of 20-25% with stage I diastolic dysfunction. -Cont cardiac meds, Nuclear Stress test 3. Severe pulmonary hypertension. PA pressure of 85 mmHg as per 2-D echocardiogram. Continue supplemental oxygen. 4. Cardiomyopathy, most probably ischemic cardiomyopathy. 2-D echocardiogram showing ejection fraction of 20-25%. Continue beta blockers and nicho inhibitors. -Cards following 5. Normocytic normochromic anemia 2/2 Chronic Disease -Stool occult blood negative and Iron panel is normal -Gastroenterology consult appreciated 6. Hypothyroidism. The patient will be continued on Synthroid. 7. Essential hypertension. The patient will be maintained on antihypertensives including p.r.n. antihypertensives for any systolic blood pressure readings greater than 160 mmHg. 8. History of prostate cancer. The patient will be maintained on Bicalutamide. 9. Dysphagia. The patient has prior history of dysphagia that was extensively evaluated and was found have reflux esophagitis as per EGD. The patient will be maintained on proton pump inhibitors. Speech therapy evaluation ordered. 10. Elevated troponins. The patient's troponins have been normalized. Aspirin on hold because of underlying anemia. Cardiology following. 11. Nonsustained ventricular tachycardia. Continue beta-blockers. Will keep electrolyte levels optimal. Replete magnesium to keep the levels above 2.0. 12. Dementia -will need SNF placement, CM aware 13. DVT prophylaxis. No chemical DVT prophylaxis because of underlying anemia. Bilateral sequential compression devices. 14. Gastrointestinal prophylaxis. Proton pump inhibitors. Problems: Subjective 24 Hr Interval Summary Constitutional: disoriented, no complaints Exam/Review of Systems Vital Signs Vitals Vital Signs Date Time Temp Pulse Resp B/P Pulse Ox O2 Delivery O2 Flow Rate FiO2 03/14/16 12:51 77 16 96 Nasal Cannula 3.0 03/14/16 08:12 97.8 117/56 Intake and Output 03/13/16 03/13/16 03/14/16 15:00 23:00 07:00 Intake Total 940 ml 200 ml Output Total 1000 ml 650 ml Balance -60 ml -450 ml Exam Constitutional: alert Respiratory: clear to auscultation Cardiovascular: regular rate and rhythm Gastrointestinal: soft, No distended Musculoskeletal: nl extremities to inspection Results Result Diagram: 03/12/16 0620 03/14/16 0525 Results 24 hrs Laboratory Tests Test 03/14/16 05:25 Anion Gap 18 H Blood Urea Nitrogen 25 #H Calcium Level 6.5 L Carbon Dioxide Level 24 Chloride Level 101 Creatinine 0.92 Glucose Level 120 Magnesium Level 2.4 Potassium Level 5.0 Sodium Level 138 Medications Medications Current Medications Ondansetron HCl (Zofran Inj) 4 mg Q6H PRN IV NAUSEA AND/OR VOMITING; Start at 14:00 Acetaminophen (Tylenol Tab) 650 mg Q6H PRN PO PAIN LEVEL 1-3 OR FEVER Last administered on 03/11/16 21:28; Admin Dose 650 MG; Start 03/08/16 at 14:00 Acetaminophen/ Hydrocodone Bitart ([place] (5/325)) 1 tab Q6H PRN PO PAIN LEVEL 4 -6 Last administered on 03/13/16 19:33; Admin Dose 1 TAB; Start 03/08/16 at 14: 00 Morphine Sulfate (morphine) 2 mg Q4H PRN IV PAIN LEVEL 7-10 Last administered on 03/12/16 10:48; Admin Dose 2 MG; Start 03/08/16 at 14:00 Carvedilol (Coreg) 3.125 mg BID PO Last administered on 03/14/16 08:30; Admin Dose 3.125 MG; Start 03/08/16 at 21:00 Imipramine HCl (Tofranil) 25 mg BID PO Last administered on 03/14/16 08:35; Admin Dose 25 MG; Start 03/08/16 at 21:00 Hydralazine HCl (Apresoline) 10 mg Q6H PRN IV SBP>160; Start 03/08/16 at 16:00 Bicalutamide (Casodex) 50 mg DAILY PO Last administered on 03/14/16 08:39; Admin Dose 50 MG; Start 03/09/16 at 09:00 Lisinopril (Zestril) 2.5 mg DAILY PO Last administered on 03/11/16 08:26; Admin Dose 2.5 MG; Start 03/09/16 at 09:00; Status Future Hold Docusate Sodium (Colace) 200 mg HS PO Last administered on 03/13/16 20:51; Admin Dose 200 MG; Start 03/10/16 at 21:00 Hydralazine HCl (Apresoline) 10 mg Q12 PO Last administered on 03/14/16 08:30 ; Admin Dose 10 MG; Start 03/11/16 at 21:00 Phenol (Cepastat Lozenge) 1 lozenge Q4 PRN MT SORE THROAT; Start 03/13/16 at 19 :00 Furosemide (Lasix) 20 mg DAILY PO Last administered on 03/14/16 11:26; Admin Dose 20 MG; Start 03/14/16 at 11:00 TESS MAURO Mar 14, 2016 14:43
[2016-03-14 19:34] VITALS: BP 124/67; RESP 40
[2016-03-14] MEDS: morphine 2 MG INJ IV PRN (19:54)
[2016-03-14] MEDS ORDERED: NITROGLYCERIN (SL) 0.4 MG TAB SL ONE (20:30)
[2016-03-14] MEDS: DOCUSATE SODIUM 100 MG CAP PO SCH (21:28)
[2016-03-15] MEDS: LEVOTHYROXINE 25 MCG TAB PO SCH (06:10)
[2016-03-15 06:40] LABS: HEMATOCRIT 20.7 % (42.0-52.0); MEAN CORPUSCULAR HGB CONC 33.1 g/dl (32.0-37.0); MEAN CORPUSCULAR VOLUME 90.6 fl (82.0-101.0); MEAN PLATELET VOLUME 7.4 fl (7.4-10.4); PLATELET COUNT 245 10^3/UL (140-440); RED BLOOD COUNT 2.28 10^6/ul (4.70-6.10); RED CELL DISTRIBUTION WIDTH 18.5 % (11.5-14.5); UNCORRECTED WBC 5.4 10^3/ul (4.8-10.8); WHITE BLOOD COUNT 5.4 10^3/ul (4.8-10.8)
[2016-03-15 06:41] LABS: POTASSIUM 4.4 mmol/L (3.5-5.1)
[2016-03-15 06:44] LABS: CREATININE 1.06 mg/dl (0.61-1.24)
[2016-03-15 06:51] LABS: CALCIUM 5.5 mg/dl (8.4-10.2)
[2016-03-15 07:06] LABS: CONDITION 1; HEMOGLOBIN 6.8 g/dl (14.0-18.0); LH ANALYZER COMMENTS 1
[2016-03-15 07:28] VITALS: BP 118/60; RESP 20
[2016-03-15] MEDS ORDERED: FUROSEMIDE 20 MG INJ IV ONE (07:30)
[2016-03-15] MEDS: PANTOPRAZOLE (EC) 40 MG TAB PO SCH ×2 (08:11→17:30)
[2016-03-15] MEDS: IMIPRAMINE 25 MG TAB PO SCH ×2 (08:11→22:41)
[2016-03-15] MEDS: FUROSEMIDE 20 MG TAB PO SCH (08:11)
[2016-03-15] MEDS: BICALUTAMIDE 50 MG TAB PO SCH (08:27)
[2016-03-15] MEDS: ALBUTEROL/IPRATROPIUM (NEB) 3 ML AMP HHN SCH ×3 (08:37→20:13)
[2016-03-15 09:51] LABS: EOSINOPHILS # 0.1 10^3/ul (0.0-0.5); LYMPHOCYTES # 0.8 10^3/ul (0.8-2.9); MONOCYTE # 0.2 10^3/ul (0.3-0.9); MYELOCYTES # 0.1; NEUTROPHIL # 3.3 10^3/ul (1.6-7.5)
--- NOTE | 2016-03-15 10:04 | CONS ---
Date/Time of Note Date/Time of Note DATE: 03/15/16 TIME: 10:02 Assessment/Plan Assessment/Plan Chief Complaint/Hosp Course IMPRESSION: 1. Congestive heart failure exacerbation, systolic, acute on chronic.-improved volume status by exam 2. History of cardiomyopathy with severely depressed left ventricular ejection fraction, last approximately 20% to 25% by echo thius admit 3. End-stage renal disease on hemodialysis. 4. History of myocardial infarction by stress 04/2015. 5. Anemia. 6. Hypertension. 7. Hypothyroidism. 8. Prostate carcinoma. 9. Dementia. 10. Positive troponin-now trended negative 11.Wide complex tachycardia- ?NSVT-no recurrence 12. acute renal failure Recc: -Tele -continue BB/Hydralazine as tolerated -ACEI held given ARF but if creatnine remains stable will resume ACEI -Resume PO lasix diuresis -Lexiscan stress test to assess significance of positive troponin today -Transfuse PRBC's Problems: Consultation Date/Type/Reason Admit Date/Time Mar 08, 2016 at 11:43 Initial Consult Date 03/08/2016 Type of Consultation: Cardiology Reason for Consultation positive troponin Referring Provider: OLIVA BARRERA Exam/Review of Systems Vital Signs Vitals Vital Signs Date Time Temp Pulse Resp B/P Pulse Ox O2 Delivery O2 Flow Rate FiO2 03/15/16 08:37 97 3.0 03/15/16 08:37 89 18 Nasal Cannula 03/15/16 07:28 97.6 118/60 Intake and Output 03/14/16 03/14/16 03/15/16 15:00 23:00 07:00 Intake Total 120 ml 100 ml Output Total 240 ml 300 ml Balance -120 ml -200 ml Exam Review of Systems: CONSTITUTIONAL: No fevers, chills. PULMONARY: No sob CARDIOVASCULAR: No chest pain/palpitations GASTROINTESTINAL: No nausea/vomiting. GENITOURINARY: No hematuria/dysuria. MUSCULOSKELETAL: No myagias/arthalgias. PSYCHIATRIC: The patient denies depression. NEUROLOGIC: lethargic Constitutional: alert Psych: no complaints Head: normocephalic ENMT: mucosa pink and moist Neck: jvd (9 cm water.), supple Respiratory: diminished breath sounds (at bases/B) Cardiovascular: regular rate and rhythm Gastrointestinal: non-tender, soft Musculoskeletal: muscle tone (normal) Extremities: edema (none) Neurological: other (No focal deficits) Results Result Diagram: 03/15/16 0515 03/15/16 0515 Results 24 hrs Laboratory Tests Test 03/15/16 05:15 Anion Gap 17 H Band Neutrophils % 16.0 H Basophils # Basophils % Blood Morphology Comment Blood Urea Nitrogen 28 H Calcium Level 5.5 *L Carbon Dioxide Level 22 Chloride Level 103 Creatinine 1.06 Differential Comment MANUAL DIFF Eosinophils # 0.1 Eosinophils % 1.0 Glucose Level 117 Hematocrit 20.7 L Hemoglobin 6.8 *L Lymphocytes # 0.8 Lymphocytes % 14.0 L Mean Corpuscular Hemoglobin 30.0 Mean Corpuscular Hemoglobin Concent 33.1 Mean Corpuscular Volume 90.6 Mean Platelet Volume 7.4 Metamyelocytes # 0.2 Metamyelocytes % 3.0 H Monocytes # 0.2 L Monocytes % 3.0 Myelocytes # 0.1 Myelocytes % 2.0 H Neutrophils # 3.3 Neutrophils % 61.0 Nucleated Red Blood Cells # Nucleated Red Blood Cells % Platelet Count 245 Potassium Level 4.4 Red Blood Count 2.28 L Red Cell Distribution Width 18.5 H Sodium Level 138 White Blood Count 5.4 Medications Medications Current Medications Ondansetron HCl (Zofran Inj) 4 mg Q6H PRN IV NAUSEA AND/OR VOMITING; Start at 14:00 Acetaminophen (Tylenol Tab) 650 mg Q6H PRN PO PAIN LEVEL 1-3 OR FEVER Last administered on 03/11/16 21:28; Admin Dose 650 MG; Start 03/08/16 at 14:00 Acetaminophen/ Hydrocodone Bitart ([place] (5/325)) 1 tab Q6H PRN PO PAIN LEVEL 4 -6 Last administered on 03/13/16 19:33; Admin Dose 1 TAB; Start 03/08/16 at 14: 00 Morphine Sulfate (morphine) 2 mg Q4H PRN IV PAIN LEVEL 7-10 Last administered on 03/14/16 19:54; Admin Dose 2 MG; Start 03/08/16 at 14:00 Carvedilol (Coreg) 3.125 mg BID PO Last administered on 03/15/16 08:17; Admin Dose 3.125 MG; Start 03/08/16 at 21:00 Imipramine HCl (Tofranil) 25 mg BID PO Last administered on 03/15/16 08:11; Admin Dose 25 MG; Start 03/08/16 at 21:00 Hydralazine HCl (Apresoline) 10 mg Q6H PRN IV SBP>160; Start 03/08/16 at 16:00 Bicalutamide (Casodex) 50 mg DAILY PO Last administered on 03/15/16 08:27; Admin Dose 50 MG; Start 03/09/16 at 09:00 Lisinopril (Zestril) 2.5 mg DAILY PO Last administered on 03/11/16 08:26; Admin Dose 2.5 MG; Start 03/09/16 at 09:00; Status Future Hold Docusate Sodium (Colace) 200 mg HS PO Last administered on 03/14/16 21:28; Admin Dose 200 MG; Start 03/10/16 at 21:00 Hydralazine HCl (Apresoline) 10 mg Q12 PO Last administered on 03/15/16 08:12 ; Admin Dose 10 MG; Start 03/11/16 at 21:00 Phenol (Cepastat Lozenge) 1 lozenge Q4 PRN MT SORE THROAT; Start 03/13/16 at 19 :00 Furosemide (Lasix) 20 mg DAILY PO Last administered on 03/15/16 08:11; Admin Dose 20 MG; Start 03/14/16 at 11:00 Epoetin Nick (Epogen (Oncology)) 20,000 units ONCE SC ; Start 03/15/16 at 09:30 ; Status JUAN CARLOS MORA Mar 15, 2016 10:04
[2016-03-15] MEDS ORDERED: SOD CHLORIDE 0.9% 250 ML IV* ONE (10:06)
[2016-03-15] MEDS ORDERED: REGADENOSON 0.4 MG/5 ML SYG ONE (10:07)
[2016-03-15] MEDS ORDERED: CALCIUM GLUCONATE 10% 1 GM in SOD CHLORIDE 0.9% 100 ML IVPB ONE (10:30)
--- NOTE | 2016-03-15 11:09 | CONS ---
DATE OF ADMISSION: 03/08/2016 DATE OF CONSULTATION: 03/15/2016 PHYSICIAN REQUESTING CONSULTATION: Dr. Tomlin REASON FOR CONSULTATION: Prostate carcinoma and anemia. Dear Dr. Tomlin: Thank you very much for asking me to see this very interesting and pleasant gentleman in oncologic c onsultation. As you may be aware, I am familiar with Mr. Frey who actually is known in our offic e as Anil Zabala. I originally saw Mr. Zabala in approximately 09/1994. At that time, the mel varela was referred because of worsening anemia. The patient did have a diagnosis at the time of meta static prostate carcinoma. He had been treated with leuprolide. The patient apparently, however, d iscontinued this therapy and because of what he felt were side effects, after discontinuation of the rapy, the patient was followed in our office, but remained on Casodex. At the same time, the patien magaly was receiving monthly zoledronic acid. The patient did have an excellent response. His PSA had remained under good control. The patient wendy torres originally seen had a PSA of only 0.3. More recently, however, it has begun to increase, so elena magaly when the patient was last seen on 01/16/2016, PSA had increased to 68.0. At the same time, the zaki peterson at that time had a hemoglobin of 10.3. His hemoglobin had previously risen to 12.8. The patient was then started on Firmagon. He received a loading dose of 240 mg of Firmagon on 01/23 and was due within the last week to receive his next dose of Firmagon. 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 MEDICATIONS: Had included: 1. Carvedilol 3.125 mg twice a day. 2. Casodex 50 mg daily. 2. Ibuprofen 800 mg every 8 hours as needed. 3. Imipramine 25 mg twice a day. 4. Lisinopril 10 mg daily. ALLERGIES: THE PATIENT IS STATED TO HAVE NO ALLERGIES. The patient's past history includes the diagnosis of prostatic carcinoma. As noted, the patient was originally diagnosed with prostatic carcinoma approximately 10 years ago. He underwent a radical p rostatectomy. He did not receive any postoperative therapy. In early 2014, however, the patient began to experience increasing weakness and fatigue and bone albaro n. 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 The patient was started at that time on leuprolide and Casodex, which resulted in significant improv ement. The patient discontinued the injections of leuprolide; however, on 06/2014 because he had be en told by others it had many side effects. The Casodex has continued to this time. Other medical problems in the past have included hypertension. The patient has also had an open red uction internal fixation of left hip and right ankle due to fractures. SOCIAL HISTORY: The patient is and he lives with his daughters. 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 He has no known exposures to industrial toxins or ionizing radiation. He has never been a smoker or used tobacco products but has had moderate alcohol intake. FAMILY HISTORY: Unremarkable except for some history of diabetes. REVIEW OF SYSTEMS: The patient at this time is admitted with complaints of increasing shortness of breath. This has included dyspnea exertion. He has not actually had any chest pain. He has had no fevers, chills or night sweats. LABORATORIES: On admission, on the patient's white count is 6900, hemoglobin 7.9, hematocrit 23.3 wi th MCV of 90.2, platelet count 263,000. The patient's hemoglobin has now dropped to 6.8 today. Ret ic count is 3.2, haptoglobin 528. Chemistries have included on admission, sodium 140, potassium 5.1, creatinine 0.97, BUN 23, calcium 6.5 with an albumin of 3.4. An iron is 56, iron binding capacity 255, percent saturation 22, and a ferritin 215. IMAGING: A chest x-ray suggests some central vascular congestion with pulmonary edema. There is a small left as suggested trace right pleural effusion. There is no mention of sclerotic or lytic les ions in the bone. PHYSICAL EXAMINATION: GENERAL: At this time reveals a well-developed elderly male who is resting comfortably in bed. VITAL SIGNS: Temperature 97.6, pulse 101 per minute and regular, respirations 20, blood pressure 11 8/60, pulse oximetry is 97% on 3 liters of nasal oxygen. SKIN: No ecchymoses. No petechiae or rashes. HEENT: Normocephalic. No evidence of trauma. The pupils are equal, round, react to light and acco mmodation. Sclerae are nonicteric. Oral mucosa is moist without lesions. Tongue is well papillate d. There is no gingival hyperplasia, no hypertrophy of Waldeyer ring, no mucosa telangiectasias. NECK: Supple, no jugular venous distention or thyroid enlargement. CHEST: Reveals bilateral basilar rales. There are no rubs or wheezes. CARDIOVASCULAR: Sinus tachycardia. No S3, S4 or murmurs. ABDOMEN: Flat and soft. No organomegaly, masses or tenderness. Bowel sounds are active. There is no obvious ascites. EXTREMITIES: No clubbing or cyanosis. There is trace pretibial pedal edema. DISCUSSION: This patient has evidence of congestive heart failure. It is also known that this patient has a history of prostatic carcinoma. This was well controlled u ntil the patient refused to take Lupron any longer. Since then his PSA has been climbing. He has n ot complained of bone pain, but there has been increasing alkaline phosphatase as well. His anemia has been worsening as well. Iron studies do not suggest an iron deficiency, but more rather anemia of chronic disease. As noted, the patient has received 1 dose of Firmagon. I do feel this should be continued. The pat ient, however, should not receive denosumab or zoledronic acid due to his hypocalcemia. Some of the hypercalcemia is of course related to his hypoalbuminemia. I will request a nuclear medicine bone scan at this time, as well as a PSA. It is presently planned that the patient will be given a unit of packed red blood cells. Would also start therapy with erythropoietin. Once again, thank you very much for the opportunity of participating in the medical care of this donita y interesting and pleasant patient. I will be happy to follow this patient with you and assist in h is hematologic and oncologic evaluation and followup as necessary. Dictated By: MELINDA PAYNE MD SR/JESUS Conf#: [id number] DID#: [id number]
--- NOTE | 2016-03-15 11:53 | CARRPT ---
DATE OF PROCEDURE: 03/15/2016 LEXISCAN CARDIOLITE STRESS TEST, ELECTROCARDIOGRAM PORTION REASON FOR STRESS TESTING: Positive troponin, assess significance. REQUESTING PHYSICIAN: Dr. Peck from the hospitalist service BASELINE VITAL SIGNS AND ELECTROCARDIOGRAM: Pulse 80, blood pressure 109/58. Electrocardiogram rev eals normal sinus rhythm, rate of 80 with left axis deviation, left bundle branch block, secondary r epolarization abnormalities. PROCEDURE: The patient underwent standard Lexiscan infusion protocol over 10 seconds followed by ra diolabeled tracer. The patient's test was stopped due to completion of protocol. Maximal achieved blood pressure during the test 101/51. Maximum heart rate during the test 90. ECG FINDINGS: The patient did not develop any new Lexiscan-induced ST or T-wave changes from baseli ne abnormalities. No documented PVCs. SYMPTOMS: 1. The patient had no complaints of chest pain or shortness of breath during stress testing. 2. The patient had no documented premature ventricular contractions during stress testing. 3. Report of nuclear images to follow in separate dictation. Dictated By: JUAN CARLOS HERNANDEZ/NTS Conf#: [id number] DID#: [id number] CC: TESS PECK MD;*EndCC*
[2016-03-15 12:00] VITALS: BP 112/53; PULSE 79; RESP 19
[2016-03-15] MEDS ORDERED: EPOETIN 10000 UNITS/ML VIAL (ONCOLOGY) SC ONE (13:00)
--- NOTE | 2016-03-15 14:58 | RADRPT ---
PROCEDURE: Nuclear medicine myocardial stress and rest scan. CLINICAL INDICATION: Chest pain. TECHNIQUE: The patient was stressed with 0.4 mg IV Lexiscan. 10.6 mCi technetium 99m Tetrofosmin (Myoview) was administered rest. 31.8 mCi technetium 99m Tetrofosmin (Myoview) was administered du ring stress. Images were obtained and reconstructed in the short axis, horizontal long axis, and ve rtical long axis. Gated images were obtained and ejection fraction was calculated. COMPARISON: 04/20/2015. FINDINGS: The stress and rest images demonstrate a fixed defect in the inferior wall from base to apex consist ent with an old infarct. There is no reversible abnormality. There is no evidence of transient isch emic dilatation. There is diffuse hypokinesis with minimal wall motion and no wall thickening throughout. There is a kinesis of the infarcted inferior wall. The ventricle is diffusely dilated. Ejection fraction at stress is 16%. IMPRESSION: 1. No evidence of stress induced myocardial ischemia. 2. Large fixed defect in the inferior wall from base to apex consistent with an old infarct. This i s larger than seen on 04/20/2015. 3. Diffuse hypokinesis. 4. Akinesis of the infarcted inferior wall. 5. Diffusely dilated left ventricle. 6. Ejection fraction at stress is markedly diminished measuring 16%. RPTAT: QQ .Srinivas Coley MD, Date Time Electronically viewed and signed by .Srinivas Coley MD, on 03/15/2016 14:58 .R/
--- NOTE | 2016-03-15 15:50 | PN ---
Date/Time of Note Date/Time of Note DATE: 03/15/16 TIME: 15:47 Assessment/Plan VTE Prophylaxis VTE Prophylaxis Intervention: SCD's Lines/Catheters IV Catheter Type (from [facility] Saline Lock Urinary Cath still in place: No Assessment/Plan Chief Complaint/Hosp Course 1. Acute respiratory failure 2/2 underlying congestive heart failure exacerbation-Improved with Lasix -The patient will be maintained on supplemental oxygen. The patient will be provided with inhaled bronchodilators. -Cont Lasix 2. Congestive heart failure exacerbation. Acute on chronic systolic dysfunction - s/p Diureses. Cardiology following. 2-D echocardiogram showing ejection fraction of 20-25% with stage I diastolic dysfunction. -Cont cardiac meds, Nuclear Stress test shows no acute lesions 3. Severe pulmonary hypertension. PA pressure of 85 mmHg as per 2-D echocardiogram. Continue supplemental oxygen. 4. Cardiomyopathy, most probably ischemic cardiomyopathy. 2-D echocardiogram showing ejection fraction of 20-25%. Continue beta blockers and nicho inhibitors. -Cards following 5. Normocytic normochromic anemia 2/2 Chronic Disease from Prostate CA -transfuse 2 units today -Stool occult blood negative and Iron panel is normal -Gastroenterology consult appreciated 6. Hypothyroidism. The patient will be continued on Synthroid. 7. Essential hypertension. The patient will be maintained on antihypertensives including p.r.n. antihypertensives for any systolic blood pressure readings greater than 160 mmHg. 8. History of Metastatic prostate cancer -cont Bicalutamide -Dr Rain who is the patients Onc has seen pt in house 9. Dysphagia. The patient has prior history of dysphagia that was extensively evaluated and was found have reflux esophagitis as per EGD. The patient will be maintained on proton pump inhibitors. Speech therapy evaluation ordered. 10. Elevated troponins. The patient's troponins have been normalized. Aspirin on hold because of underlying anemia. Cardiology following. 11. Nonsustained ventricular tachycardia. Continue beta-blockers. Will keep electrolyte levels optimal. Replete magnesium to keep the levels above 2.0. 12. Dementia -will need SNF placement, CM aware 13. DVT prophylaxis. No chemical DVT prophylaxis because of underlying anemia. Bilateral sequential compression devices. 14. Gastrointestinal prophylaxis. Proton pump inhibitors. Problems: Subjective 24 Hr Interval Summary Constitutional: no complaints Exam/Review of Systems Vital Signs Vitals Vital Signs Date Time Temp Pulse Resp B/P Pulse Ox O2 Delivery O2 Flow Rate FiO2 03/15/16 14:00 98 3.0 03/15/16 14:00 99 22 Nasal Cannula 03/15/16 12:00 97.8 112/53 Intake and Output 03/14/16 03/14/16 03/15/16 15:00 23:00 07:00 Intake Total 120 ml 100 ml Output Total 240 ml 300 ml Balance -120 ml -200 ml Exam Constitutional: alert Psych: confusion Respiratory: clear to auscultation Cardiovascular: regular rate and rhythm Gastrointestinal: soft, No distended Musculoskeletal: nl extremities to inspection Results Result Diagram: 03/15/16 0515 03/15/16 0515 Results 24 hrs Laboratory Tests Test 03/15/16 05:15 Anion Gap 17 H Band Neutrophils % 16.0 H Basophils # Basophils % Blood Morphology Comment Blood Urea Nitrogen 28 H Calcium Level 5.5 *L Carbon Dioxide Level 22 Chloride Level 103 Creatinine 1.06 Differential Comment MANUAL DIFF Eosinophils # 0.1 Eosinophils % 1.0 Glucose Level 117 Hematocrit 20.7 L Hemoglobin 6.8 *L Lymphocytes # 0.8 Lymphocytes % 14.0 L Mean Corpuscular Hemoglobin 30.0 Mean Corpuscular Hemoglobin Concent 33.1 Mean Corpuscular Volume 90.6 Mean Platelet Volume 7.4 Metamyelocytes # 0.2 Metamyelocytes % 3.0 H Monocytes # 0.2 L Monocytes % 3.0 Myelocytes # 0.1 Myelocytes % 2.0 H Neutrophils # 3.3 Neutrophils % 61.0 Nucleated Red Blood Cells # Nucleated Red Blood Cells % Platelet Count 245 Potassium Level 4.4 Prostate Specific Antigen Red Blood Count 2.28 L Red Cell Distribution Width 18.5 H Sodium Level 138 White Blood Count 5.4 Medications Medications Current Medications Ondansetron HCl (Zofran Inj) 4 mg Q6H PRN IV NAUSEA AND/OR VOMITING; Start at 14:00 Acetaminophen (Tylenol Tab) 650 mg Q6H PRN PO PAIN LEVEL 1-3 OR FEVER Last administered on 03/11/16 21:28; Admin Dose 650 MG; Start 03/08/16 at 14:00 Acetaminophen/ Hydrocodone Bitart ([place] (5/325)) 1 tab Q6H PRN PO PAIN LEVEL 4 -6 Last administered on 03/13/16 19:33; Admin Dose 1 TAB; Start 03/08/16 at 14: 00 Morphine Sulfate (morphine) 2 mg Q4H PRN IV PAIN LEVEL 7-10 Last administered on 03/14/16 19:54; Admin Dose 2 MG; Start 03/08/16 at 14:00 Carvedilol (Coreg) 3.125 mg BID PO Last administered on 03/15/16 08:17; Admin Dose 3.125 MG; Start 03/08/16 at 21:00 Imipramine HCl (Tofranil) 25 mg BID PO Last administered on 03/15/16 08:11; Admin Dose 25 MG; Start 03/08/16 at 21:00 Hydralazine HCl (Apresoline) 10 mg Q6H PRN IV SBP>160; Start 03/08/16 at 16:00 Bicalutamide (Casodex) 50 mg DAILY PO Last administered on 03/15/16 08:27; Admin Dose 50 MG; Start 03/09/16 at 09:00 Lisinopril (Zestril) 2.5 mg DAILY PO Last administered on 03/11/16 08:26; Admin Dose 2.5 MG; Start 03/09/16 at 09:00; Status Future Hold Docusate Sodium (Colace) 200 mg HS PO Last administered on 03/14/16 21:28; Admin Dose 200 MG; Start 03/10/16 at 21:00 Hydralazine HCl (Apresoline) 10 mg Q12 PO Last administered on 03/15/16 08:12 ; Admin Dose 10 MG; Start 03/11/16 at 21:00 Phenol (Cepastat Lozenge) 1 lozenge Q4 PRN MT SORE THROAT; Start 03/13/16 at 19 :00 Furosemide (Lasix) 20 mg DAILY PO Last administered on 03/15/16 08:11; Admin Dose 20 MG; Start 03/14/16 at 11:00 TESS MAURO Mar 15, 2016 15:50
[2016-03-15 19:25] VITALS: BP 107/69; RESP 20
[2016-03-15] MEDS ORDERED: DIPHENHYDRAMINE 25 MG CAP PO ONE (21:30)
[2016-03-15] MEDS ORDERED: ACETAMINOPHEN 325 MG TAB PO ONE (21:30)
[2016-03-15] MEDS: DOCUSATE SODIUM 100 MG CAP PO SCH (21:32)
[2016-03-16] MEDS ORDERED: FUROSEMIDE 20 MG INJ IV ONE (02:34)
[2016-03-16] MEDS: LEVOTHYROXINE 25 MCG TAB PO SCH (05:58)
[2016-03-16 07:27] LABS: POTASSIUM 4.2 mmol/L (3.5-5.1)
[2016-03-16 07:30] LABS: CREATININE 1.27 mg/dl (0.61-1.24)
[2016-03-16 07:49] LABS: CALCIUM 5.2 mg/dl (8.4-10.2)
[2016-03-16] MEDS: ALBUTEROL/IPRATROPIUM (NEB) 3 ML AMP HHN SCH ×3 (08:17→19:39)
[2016-03-16 08:24] VITALS: BP 119/57; RESP 16
[2016-03-16 08:32] LABS: BASOPHILS % 0.3 % (0.0-2.0); CONDITION 1; EOSINOPHILS % 0.2 % (0.0-7.0); HEMATOCRIT 28.7 % (42.0-52.0); HEMOGLOBIN 9.7 g/dl (14.0-18.0); LH ANALYZER COMMENTS 1; LYMPHOCYTES # 0.8 10^3/ul (0.8-2.9); LYMPHOCYTES % 13.5 % (15.0-51.0); MEAN CORPUSCULAR HGB CONC 33.8 g/dl (32.0-37.0); MEAN CORPUSCULAR VOLUME 88.8 fl (82.0-101.0); MEAN PLATELET VOLUME 7.8 fl (7.4-10.4); MONOCYTE # 0.5 10^3/ul (0.3-0.9); MONOCYTES % 8.7 % (0.0-11.0); NEUTROPHIL # 4.3 10^3/ul (1.6-7.5); NEUTROPHILS % 77.3 % (39.0-77.0); NUCLEATED RED BLOOD CELLS # 0.2 10^3/ul (0.0-0.0); NUCLEATED RED BLOOD CELLS% 3.2 /100WBC (0.0-0.0); PLATELET COUNT 242 10^3/UL (140-440); RED BLOOD COUNT 3.23 10^6/ul (4.70-6.10); RED CELL DISTRIBUTION WIDTH 16.8 % (11.5-14.5); UNCORRECTED WBC 5.6 10^3/ul (4.8-10.8); WHITE BLOOD COUNT 5.6 10^3/ul (4.8-10.8)
[2016-03-16] MEDS: FUROSEMIDE 20 MG TAB PO SCH (08:47)
[2016-03-16] MEDS: IMIPRAMINE 25 MG TAB PO SCH ×2 (08:47→21:23)
[2016-03-16] MEDS: BICALUTAMIDE 50 MG TAB PO SCH (08:51)
[2016-03-16] MEDS: PANTOPRAZOLE (EC) 40 MG TAB PO SCH ×2 (08:53→17:58)
--- NOTE | 2016-03-16 08:53 | CONS ---
Date/Time of Note Date/Time of Note DATE: 03/16/16 TIME: 08:47 Consult Date/Type/Reason Admit Date/Time Mar 08, 2016 at 11:43 Initial Consult Date Type of Consultation: Cardiology Ordering Provider: OLIAV BARRERA Subjective Pt has some shortness of breath and weakness. Tx 2upRBC yesterday. Tolerated it well. No fevers or chills. Objective Vital Signs Date Time Temp Pulse Resp B/P Pulse Ox O2 Delivery O2 Flow Rate FiO2 03/16/16 08:24 97.7 74 16 119/57 94 03/16/16 08:18 Nasal Cannula 3.0 Intake and Output 03/15/16 03/15/16 03/16/16 15:00 23:00 07:00 Intake Total 840 ml 420 ml Output Total 250 ml Balance 840 ml 170 ml Thin male OP clear JVD not elevated Distant heart sounds- Weak radial pulse CTA B Abd-thin, nt, nd, +BS, no organomegaly No c/c/e Results/Medications Result Diagram: 03/16/16 0508 03/16/16 0508 Results 24 hrs Laboratory Tests Test 03/16/16 05:08 Anion Gap 21 H Basophils # 0.0 Basophils % 0.3 Blood Morphology Comment Blood Urea Nitrogen 39 #H Calcium Level 5.2 *L Carbon Dioxide Level 21 Chloride Level 101 Creatinine 1.27 H Eosinophils # 0.0 Eosinophils % 0.2 Glucose Level 131 Hematocrit 28.7 #L Hemoglobin 9.7 #L Lymphocytes # 0.8 Lymphocytes % 13.5 L Mean Corpuscular Hemoglobin 30.0 Mean Corpuscular Hemoglobin Concent 33.8 Mean Corpuscular Volume 88.8 Mean Platelet Volume 7.8 Monocytes # 0.5 Monocytes % 8.7 Neutrophils # 4.3 Neutrophils % 77.3 H Nucleated Red Blood Cells # 0.2 H Nucleated Red Blood Cells % 3.2 H Platelet Count 242 Potassium Level 4.2 Red Blood Count 3.23 #L Red Cell Distribution Width 16.8 H Sodium Level 139 White Blood Count 5.6 Medications Current Medications Ondansetron HCl (Zofran Inj) 4 mg Q6H PRN IV NAUSEA AND/OR VOMITING; Start at 14:00 Acetaminophen (Tylenol Tab) 650 mg Q6H PRN PO PAIN LEVEL 1-3 OR FEVER Last administered on 03/11/16 21:28; Admin Dose 650 MG; Start 03/08/16 at 14:00 Acetaminophen/ Hydrocodone Bitart ([place] (5/325)) 1 tab Q6H PRN PO PAIN LEVEL 4 -6 Last administered on 03/13/16 19:33; Admin Dose 1 TAB; Start 03/08/16 at 14: 00 Morphine Sulfate (morphine) 2 mg Q4H PRN IV PAIN LEVEL 7-10 Last administered on 03/14/16 19:54; Admin Dose 2 MG; Start 03/08/16 at 14:00 Carvedilol (Coreg) 3.125 mg BID PO Last administered on 03/15/16 22:41; Admin Dose 3.125 MG; Start 03/08/16 at 21:00 Imipramine HCl (Tofranil) 25 mg BID PO Last administered on 03/15/16 22:41; Admin Dose 25 MG; Start 03/08/16 at 21:00 Hydralazine HCl (Apresoline) 10 mg Q6H PRN IV SBP>160; Start 03/08/16 at 16:00 Bicalutamide (Casodex) 50 mg DAILY PO Last administered on 03/15/16 08:27; Admin Dose 50 MG; Start 03/09/16 at 09:00 Lisinopril (Zestril) 2.5 mg DAILY PO Last administered on 03/11/16 08:26; Admin Dose 2.5 MG; Start 03/09/16 at 09:00; Status Future Hold Docusate Sodium (Colace) 200 mg HS PO Last administered on 03/15/16 21:32; Admin Dose 200 MG; Start 03/10/16 at 21:00 Hydralazine HCl (Apresoline) 10 mg Q12 PO Last administered on 03/15/16 23:21 ; Admin Dose 10 MG; Start 03/11/16 at 21:00 Phenol (Cepastat Lozenge) 1 lozenge Q4 PRN MT SORE THROAT; Start 03/13/16 at 19 :00 Furosemide (Lasix) 20 mg DAILY PO Last administered on 03/15/16 08:11; Admin Dose 20 MG; Start 03/14/16 at 11:00 Assessment/Plan Problems: (1) Acute renal insufficiency (2) Leukocytosis (3) Community acquired pneumonia (4) Severe sepsis (5) NSTEMI (non-ST elevated myocardial infarction) (6) History of prostate cancer (7) Acute congestive heart failure (8) Symptomatic anemia Additional Assessment/Plan 1. Anemia: due to chronic disease and possibly prostate cancer invading bone marrow reducing erythropoiesis. 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 Consider bone marrow biopsy to confirm above suspicion. Hb stable today. No need for further transfusion now. 2. CHF: controlled with diuretics and blood transfusion. Cont current care. 3. 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 Can consider oral testosterone phil, Xtandi or enzalutamide, to better control disease. Pt is not a candidate for chemotherapy due to poor performance status. Nuclear bone scan pending. 4. Hypocalcemia: Will give 1 amp of calcium gluconate. Monitor closely. TIFF CALDERON Mar 16, 2016 08:53
[2016-03-16] MEDS ORDERED: CALCIUM GLUCONATE 10% 1 GM in SOD CHLORIDE 0.9% 100 ML IVPB ONE (09:00)
--- NOTE | 2016-03-16 11:48 | CONS ---
Date/Time of Note Date/Time of Note DATE: 03/16/16 TIME: 11:34 Assessment/Plan Assessment/Plan Additional Assessment/Plan Congestive heart failure exacerbation, systolic, acute on chronic. CAD s/p ME with cardiomyopathy Severe Pulmonary Hypertension End-stage renal disease on hemodialysis. Anemia. Hypertension. Hypothyroidism. Prostate carcinoma. Dementia. Wide complex tachycardia Acute renal failure Hypocalcemia Hypothyroidism Heart failure clinically compensated Hemodynamically stable Avoid Volume Overload Restrict fluids 1500cc/ 24 hours Hold Lasix, pre renal Hold ANUJ-I due to elevated creatinine Continue Coreg Continue Casodex Continue Synthroid Continue GI and DVT Prophylaxis Consultation Date/Type/Reason Admit Date/Time Mar 08, 2016 at 11:43 Constitutional: no complaints Psychological: confusion Past Medical History Medical History: congestive heart failure, coronary artery disease, hypertension Past Surgical History Past Surgical Hx: no surgical history Social History Alcohol Use: none Smoking Status: Former smoker Drug Use: none Exam/Review of Systems Vital Signs Vitals Vital Signs Date Time Temp Pulse Resp B/P Pulse Ox O2 Delivery O2 Flow Rate FiO2 03/16/16 08:24 97.7 74 16 119/57 94 03/16/16 08:18 Nasal Cannula 3.0 Intake and Output 03/15/16 03/15/16 03/16/16 15:00 23:00 07:00 Intake Total 840 ml 420 ml Output Total 250 ml Balance 840 ml 170 ml Exam Constitutional: alert, oriented Head: atraumatic, normocephalic Respiratory: clear to auscultation Cardiovascular: regular rate and rhythm Gastrointestinal: nl liver, spleen, non-tender, soft Extremities: normal pulses Results Result Diagram: 03/16/16 0508 03/16/16 0508 Results 24 hrs Laboratory Tests Test 03/16/16 05:08 Anion Gap 21 H Basophils # 0.0 Basophils % 0.3 Blood Morphology Comment Blood Urea Nitrogen 39 #H Calcium Level 5.2 *L Carbon Dioxide Level 21 Chloride Level 101 Creatinine 1.27 H Eosinophils # 0.0 Eosinophils % 0.2 Glucose Level 131 Hematocrit 28.7 #L Hemoglobin 9.7 #L Lymphocytes # 0.8 Lymphocytes % 13.5 L Mean Corpuscular Hemoglobin 30.0 Mean Corpuscular Hemoglobin Concent 33.8 Mean Corpuscular Volume 88.8 Mean Platelet Volume 7.8 Monocytes # 0.5 Monocytes % 8.7 Neutrophils # 4.3 Neutrophils % 77.3 H Nucleated Red Blood Cells # 0.2 H Nucleated Red Blood Cells % 3.2 H Platelet Count 242 Potassium Level 4.2 Red Blood Count 3.23 #L Red Cell Distribution Width 16.8 H Sodium Level 139 White Blood Count 5.6 Medications Medications Current Medications Ondansetron HCl (Zofran Inj) 4 mg Q6H PRN IV NAUSEA AND/OR VOMITING; Start at 14:00 Acetaminophen (Tylenol Tab) 650 mg Q6H PRN PO PAIN LEVEL 1-3 OR FEVER Last administered on 03/11/16 21:28; Admin Dose 650 MG; Start 03/08/16 at 14:00 Acetaminophen/ Hydrocodone Bitart ([place] (5/325)) 1 tab Q6H PRN PO PAIN LEVEL 4 -6 Last administered on 03/13/16 19:33; Admin Dose 1 TAB; Start 03/08/16 at 14: 00 Morphine Sulfate (morphine) 2 mg Q4H PRN IV PAIN LEVEL 7-10 Last administered on 03/14/16 19:54; Admin Dose 2 MG; Start 03/08/16 at 14:00 Carvedilol (Coreg) 3.125 mg BID PO Last administered on 03/16/16 08:52; Admin Dose 3.125 MG; Start 03/08/16 at 21:00 Imipramine HCl (Tofranil) 25 mg BID PO Last administered on 03/16/16 08:47; Admin Dose 25 MG; Start 03/08/16 at 21:00 Hydralazine HCl (Apresoline) 10 mg Q6H PRN IV SBP>160; Start 03/08/16 at 16:00 Bicalutamide (Casodex) 50 mg DAILY PO Last administered on 03/16/16 08:51; Admin Dose 50 MG; Start 03/09/16 at 09:00 Lisinopril (Zestril) 2.5 mg DAILY PO Last administered on 03/11/16 08:26; Admin Dose 2.5 MG; Start 03/09/16 at 09:00; Status Future Hold Docusate Sodium (Colace) 200 mg HS PO Last administered on 03/15/16 21:32; Admin Dose 200 MG; Start 03/10/16 at 21:00 Hydralazine HCl (Apresoline) 10 mg Q12 PO Last administered on 03/16/16 08:47 ; Admin Dose 10 MG; Start 03/11/16 at 21:00 Phenol (Cepastat Lozenge) 1 lozenge Q4 PRN MT SORE THROAT; Start 03/13/16 at 19 :00 Furosemide (Lasix) 20 mg DAILY PO Last administered on 03/16/16 08:47; Admin Dose 20 MG; Start 03/14/16 at 11:00 TYSHAWN MATHEWS M.D. Mar 16, 2016 11:44
--- NOTE | 2016-03-16 13:00 | PN ---
Date/Time of Note Date/Time of Note DATE: 03/16/16 TIME: 12:57 Assessment/Plan VTE Prophylaxis VTE Prophylaxis Intervention: SCD's Lines/Catheters IV Catheter Type (from [facility]): Saline Lock Urinary Cath still in place: No Assessment/Plan Chief Complaint/Hosp Course 1. Acute respiratory failure 2/2 underlying congestive heart failure exacerbation-Improved with Lasix -The patient will be maintained on supplemental oxygen. The patient will be provided with inhaled bronchodilators. -Cont Lasix 2. Congestive heart failure exacerbation. Acute on chronic systolic dysfunction - s/p Diureses. Cardiology following. 2-D echocardiogram showing ejection fraction of 20-25% with stage I diastolic dysfunction. -Cont cardiac meds, Nuclear Stress test shows no acute lesions 3. Severe pulmonary hypertension. PA pressure of 85 mmHg as per 2-D echocardiogram. Continue supplemental oxygen. 4. Cardiomyopathy, most probably ischemic cardiomyopathy. 2-D echocardiogram showing ejection fraction of 20-25%. Continue beta blockers and nicho inhibitors. -Cards following 5. Normocytic normochromic anemia 2/2 Chronic Disease from Prostate CA -transfuse 2 units today -Stool occult blood negative and Iron panel is normal -Gastroenterology consult appreciated 6. Hypothyroidism. The patient will be continued on Synthroid. 7. Essential hypertension. The patient will be maintained on antihypertensives including p.r.n. antihypertensives for any systolic blood pressure readings greater than 160 mmHg. 8. History of Metastatic prostate cancer -cont Bicalutamide -Dr Rain who is the patients Onc has seen pt in house and has ordered a Bone scan which is being delayed as pt recently had a Nuclear Stress test and the contrast from that test interferes with the Bone scan for a few days 9. Dysphagia. The patient has prior history of dysphagia that was extensively evaluated and was found have reflux esophagitis as per EGD. The patient will be maintained on proton pump inhibitors. Speech therapy evaluation ordered. 10. Elevated troponins. The patient's troponins have been normalized. Aspirin on hold because of underlying anemia. Cardiology following. 11. Nonsustained ventricular tachycardia. Continue beta-blockers. Will keep electrolyte levels optimal. Replete magnesium to keep the levels above 2.0. 12. Dementia -will need SNF placement, CM aware and placement is pending 13. DVT prophylaxis. No chemical DVT prophylaxis because of underlying anemia. Bilateral sequential compression devices. 14. Gastrointestinal prophylaxis. Proton pump inhibitors. Problems: Subjective 24 Hr Interval Summary Constitutional: no complaints Exam/Review of Systems Vital Signs Vitals Vital Signs Date Time Temp Pulse Resp B/P Pulse Ox O2 Delivery O2 Flow Rate FiO2 03/16/16 08:30 Nasal Cannula 3.0 03/16/16 08:24 97.7 74 16 119/57 94 Intake and Output 03/15/16 03/15/16 03/16/16 15:00 23:00 07:00 Intake Total 840 ml 420 ml Output Total 250 ml Balance 840 ml 170 ml Exam Constitutional: alert Psych: confusion Respiratory: clear to auscultation Cardiovascular: regular rate and rhythm Gastrointestinal: soft, No distended Musculoskeletal: No nl extremities to inspection Results Result Diagram: 03/16/16 0508 03/16/16 0508 Results 24 hrs Laboratory Tests Test 03/16/16 05:08 Anion Gap 21 H Basophils # 0.0 Basophils % 0.3 Blood Morphology Comment Blood Urea Nitrogen 39 #H Calcium Level 5.2 *L Carbon Dioxide Level 21 Chloride Level 101 Creatinine 1.27 H Eosinophils # 0.0 Eosinophils % 0.2 Glucose Level 131 Hematocrit 28.7 #L Hemoglobin 9.7 #L Lymphocytes # 0.8 Lymphocytes % 13.5 L Mean Corpuscular Hemoglobin 30.0 Mean Corpuscular Hemoglobin Concent 33.8 Mean Corpuscular Volume 88.8 Mean Platelet Volume 7.8 Monocytes # 0.5 Monocytes % 8.7 Neutrophils # 4.3 Neutrophils % 77.3 H Nucleated Red Blood Cells # 0.2 H Nucleated Red Blood Cells % 3.2 H Platelet Count 242 Potassium Level 4.2 Red Blood Count 3.23 #L Red Cell Distribution Width 16.8 H Sodium Level 139 White Blood Count 5.6 Medications Medications Current Medications Ondansetron HCl (Zofran Inj) 4 mg Q6H PRN IV NAUSEA AND/OR VOMITING; Start at 14:00 Acetaminophen (Tylenol Tab) 650 mg Q6H PRN PO PAIN LEVEL 1-3 OR FEVER Last administered on 03/11/16 21:28; Admin Dose 650 MG; Start 03/08/16 at 14:00 Acetaminophen/ Hydrocodone Bitart ([place] (5/325)) 1 tab Q6H PRN PO PAIN LEVEL 4 -6 Last administered on 03/13/16 19:33; Admin Dose 1 TAB; Start 03/08/16 at 14: 00 Morphine Sulfate (morphine) 2 mg Q4H PRN IV PAIN LEVEL 7-10 Last administered on 03/14/16 19:54; Admin Dose 2 MG; Start 03/08/16 at 14:00 Carvedilol (Coreg) 3.125 mg BID PO Last administered on 03/16/16 08:52; Admin Dose 3.125 MG; Start 03/08/16 at 21:00 Imipramine HCl (Tofranil) 25 mg BID PO Last administered on 03/16/16 08:47; Admin Dose 25 MG; Start 03/08/16 at 21:00 Hydralazine HCl (Apresoline) 10 mg Q6H PRN IV SBP>160; Start 03/08/16 at 16:00 Bicalutamide (Casodex) 50 mg DAILY PO Last administered on 03/16/16 08:51; Admin Dose 50 MG; Start 03/09/16 at 09:00 Lisinopril (Zestril) 2.5 mg DAILY PO Last administered on 03/11/16 08:26; Admin Dose 2.5 MG; Start 03/09/16 at 09:00; Status Future Hold Docusate Sodium (Colace) 200 mg HS PO Last administered on 03/15/16 21:32; Admin Dose 200 MG; Start 03/10/16 at 21:00 Hydralazine HCl (Apresoline) 10 mg Q12 PO Last administered on 03/16/16 08:47 ; Admin Dose 10 MG; Start 03/11/16 at 21:00 Phenol (Cepastat Lozenge) 1 lozenge Q4 PRN MT SORE THROAT; Start 03/13/16 at 19 :00 Furosemide (Lasix) 20 mg DAILY PO Last administered on 03/16/16 08:47; Admin Dose 20 MG; Start 03/14/16 at 11:00; Status Future Hold TESS MAURO Mar 16, 2016 13:00
[2016-03-16 19:19] VITALS: BP 124/73; RESP 18
[2016-03-16 20:13] VITALS: BP 108/60; RESP 18
[2016-03-16] MEDS: DOCUSATE SODIUM 100 MG CAP PO SCH (21:23)
[2016-03-17] MEDS: ALBUTEROL/IPRATROPIUM (NEB) 3 ML AMP HHN SCH ×4 (00:43→19:14)
[2016-03-17] MEDS: ALBUTEROL/IPRATROPIUM (NEB) 3 ML AMP HHN PRN ×2 (00:45→04:54)
[2016-03-17 05:45] LABS: POTASSIUM 4.1 mmol/L (3.5-5.1)
[2016-03-17 05:48] LABS: CREATININE 1.25 mg/dl (0.61-1.24)
[2016-03-17 05:53] LABS: CALCIUM 5.4 mg/dl (8.4-10.2)
[2016-03-17] MEDS: LEVOTHYROXINE 25 MCG TAB PO SCH (06:13)
[2016-03-17 07:54] VITALS: BP 114/61; RESP 16
[2016-03-17] MEDS: PANTOPRAZOLE (EC) 40 MG TAB PO SCH ×2 (08:23→17:45)
[2016-03-17] MEDS: IMIPRAMINE 25 MG TAB PO SCH ×2 (08:23→21:46)
--- NOTE | 2016-03-17 08:27 | CONS ---
Date/Time of Note Date/Time of Note DATE: 03/17/16 TIME: 08:24 Consult Date/Type/Reason Admit Date/Time Mar 08, 2016 at 11:43 Type of Consultation: Cardiology Ordering Provider: OLIVA BARRERA Subjective No fevers overnight. Not eating much. SOB better. Objective Vital Signs Date Time Temp Pulse Resp B/P Pulse Ox O2 Delivery O2 Flow Rate FiO2 03/17/16 07:54 97.6 78 16 114/61 98 03/17/16 04:54 Nasal Cannula 3.0 Intake and Output 03/16/16 03/16/16 03/17/16 15:00 23:00 07:00 Intake Total 710 ml 200 ml Output Total 400 ml 400 ml Balance 310 ml -200 ml Resting, A&Ox 2, Thin, cachectic RRR CTA Soft no c/c/e Poor le strength Results/Medications Result Diagram: 03/16/16 0508 03/17/16 0435 Results 24 hrs Laboratory Tests Test 03/17/16 04:35 Anion Gap 22 H Blood Urea Nitrogen 40 H Calcium Level 5.4 *L Carbon Dioxide Level 21 Chloride Level 99 Creatinine 1.25 H Glucose Level 145 Potassium Level 4.1 Sodium Level 138 Medications Current Medications Ondansetron HCl (Zofran Inj) 4 mg Q6H PRN IV NAUSEA AND/OR VOMITING; Start at 14:00 Acetaminophen (Tylenol Tab) 650 mg Q6H PRN PO PAIN LEVEL 1-3 OR FEVER Last administered on 03/11/16 21:28; Admin Dose 650 MG; Start 03/08/16 at 14:00 Acetaminophen/ Hydrocodone Bitart ([employer] (5/325)) 1 tab Q6H PRN PO PAIN LEVEL 4 -6 Last administered on 03/13/16 19:33; Admin Dose 1 TAB; Start 03/08/16 at 14: 00 Morphine Sulfate (morphine) 2 mg Q4H PRN IV PAIN LEVEL 7-10 Last administered on 03/14/16 19:54; Admin Dose 2 MG; Start 03/08/16 at 14:00 Carvedilol (Coreg) 3.125 mg BID PO Last administered on 03/16/16 21:30; Admin Dose 3.125 MG; Start 03/08/16 at 21:00 Imipramine HCl (Tofranil) 25 mg BID PO Last administered on 03/16/16 21:23; Admin Dose 25 MG; Start 03/08/16 at 21:00 Hydralazine HCl (Apresoline) 10 mg Q6H PRN IV SBP>160; Start 03/08/16 at 16:00 Bicalutamide (Casodex) 50 mg DAILY PO Last administered on 03/16/16 08:51; Admin Dose 50 MG; Start 03/09/16 at 09:00 Lisinopril (Zestril) 2.5 mg DAILY PO Last administered on 03/11/16 08:26; Admin Dose 2.5 MG; Start 03/09/16 at 09:00; Status Future Hold Docusate Sodium (Colace) 200 mg HS PO Last administered on 03/16/16 21:23; Admin Dose 200 MG; Start 03/10/16 at 21:00 Hydralazine HCl (Apresoline) 10 mg Q12 PO Last administered on 03/16/16 21:24 ; Admin Dose 10 MG; Start 03/11/16 at 21:00 Phenol (Cepastat Lozenge) 1 lozenge Q4 PRN MT SORE THROAT; Start 03/13/16 at 19 :00 Furosemide (Lasix) 20 mg DAILY PO Last administered on 03/16/16 08:47; Admin Dose 20 MG; Start 03/14/16 at 11:00; Status Future Hold Assessment/Plan Problems: (1) Acute renal insufficiency (2) Leukocytosis (3) Community acquired pneumonia (4) Severe sepsis (5) NSTEMI (non-ST elevated myocardial infarction) (6) History of prostate cancer (7) Acute congestive heart failure (8) Symptomatic anemia Additional Assessment/Plan 1. Anemia: due to chronic disease and possibly prostate cancer invading bone marrow reducing erythropoiesis. 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 Consider bone marrow biopsy to confirm above suspicion. Hb stable today. No need for further transfusion now. 2. CHF: controlled with diuretics and blood transfusion. Cont current care. 3. 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 Can consider oral testosterone phil, Xtandi or enzalutamide, to better control disease. Pt is not a candidate for chemotherapy due to poor performance status. Nuclear bone scan pending. 4. Hypocalcemia: Transfuse another amp today. 5. KIESHA: Consider holding on further diuresis as Cr rising. TIFF CALDERON Mar 17, 2016 08:27
[2016-03-17] MEDS: BICALUTAMIDE 50 MG TAB PO SCH (08:38)
--- NOTE | 2016-03-17 14:22 | CONS ---
Date/Time of Note Date/Time of Note DATE: 03/17/16 TIME: 14:19 Assessment/Plan Assessment/Plan Additional Assessment/Plan Congestive heart failure exacerbation, systolic, acute on chronic. CAD s/p SD with cardiomyopathy Severe Pulmonary Hypertension End-stage renal disease on hemodialysis. Anemia. Hypertension. Hypothyroidism. Prostate carcinoma. Dementia. Wide complex tachycardia Acute renal failure Hypocalcemia Hypothyroidism Heart failure clinically compensated Hemodynamically stable Avoid Volume Overload Restrict fluids 1500cc/ 24 hours Hold Lasix, pre renal Hold ANUJ-I due to elevated creatinine Continue Coreg Continue Casodex Continue Synthroid Continue GI and DVT Prophylaxis Consultation Date/Type/Reason Admit Date/Time Mar 08, 2016 at 11:43 Initial Consult Date Type of Consultation: Cardiology Referring Provider: OLIVA BARRERA Exam/Review of Systems Vital Signs Vitals Vital Signs Date Time Temp Pulse Resp B/P Pulse Ox O2 Delivery O2 Flow Rate FiO2 03/17/16 08:15 Nasal Cannula 2.0 03/17/16 07:54 82 18 99 03/17/16 07:54 97.6 114/61 Intake and Output 03/16/16 03/16/16 03/17/16 15:00 23:00 07:00 Intake Total 710 ml 200 ml Output Total 400 ml 400 ml Balance 310 ml -200 ml Exam Head: atraumatic, normocephalic Respiratory: clear to auscultation Cardiovascular: regular rate and rhythm Gastrointestinal: nl liver, spleen, non-tender, soft Extremities: normal pulses Results Result Diagram: 03/16/16 0508 03/17/16 0435 Results 24 hrs Laboratory Tests Test 03/17/16 04:35 Anion Gap 22 H Blood Urea Nitrogen 40 H Calcium Level 5.4 *L Carbon Dioxide Level 21 Chloride Level 99 Creatinine 1.25 H Glucose Level 145 Potassium Level 4.1 Sodium Level 138 Medications Medications Current Medications Ondansetron HCl (Zofran Inj) 4 mg Q6H PRN IV NAUSEA AND/OR VOMITING; Start at 14:00 Acetaminophen (Tylenol Tab) 650 mg Q6H PRN PO PAIN LEVEL 1-3 OR FEVER Last administered on 03/11/16t 21:28; Admin Dose 650 MG; Start 03/08/16 at 14:00 Acetaminophen/ Hydrocodone Bitart ([place] (5/325)) 1 tab Q6H PRN PO PAIN LEVEL 4 -6 Last administered on 03/13/16 19:33; Admin Dose 1 TAB; Start 03/08/16 at 14: 00 Morphine Sulfate (morphine) 2 mg Q4H PRN IV PAIN LEVEL 7-10 Last administered on 03/14/16 19:54; Admin Dose 2 MG; Start 03/08/16 at 14:00 Carvedilol (Coreg) 3.125 mg BID PO Last administered on 03/17/16 08:24; Admin Dose 3.125 MG; Start 03/08/16 at 21:00 Imipramine HCl (Tofranil) 25 mg BID PO Last administered on 03/17/16 08:23; Admin Dose 25 MG; Start 03/08/16 at 21:00 Hydralazine HCl (Apresoline) 10 mg Q6H PRN IV SBP>160; Start 03/08/16 at 16:00 Bicalutamide (Casodex) 50 mg DAILY PO Last administered on 03/17/16 08:38; Admin Dose 50 MG; Start 03/09/16 at 09:00 Lisinopril (Zestril) 2.5 mg DAILY PO Last administered on 03/11/16 08:26; Admin Dose 2.5 MG; Start 03/09/16 at 09:00; Status Future Hold Docusate Sodium (Colace) 200 mg HS PO Last administered on 03/16/16 21:23; Admin Dose 200 MG; Start 03/10/16 at 21:00 Hydralazine HCl (Apresoline) 10 mg Q12 PO Last administered on 03/17/16 08:24 ; Admin Dose 10 MG; Start 03/11/16 at 21:00 Phenol (Cepastat Lozenge) 1 lozenge Q4 PRN MT SORE THROAT; Start 03/13/16 at 19 :00 Furosemide (Lasix) 20 mg DAILY PO Last administered on 03/16/16 08:47; Admin Dose 20 MG; Start 03/14/16 at 11:00; Status Future Hold TYSHAWN MATHEWS M.D. Mar 17, 2016 14:21
--- NOTE | 2016-03-17 18:17 | PN ---
Date/Time of Note Date/Time of Note DATE: 03/17/16 TIME: 18:14 Assessment/Plan VTE Prophylaxis VTE Prophylaxis Intervention: SCD's Lines/Catheters [facility] [facility] Urinary Cath still in place: No Assessment/Plan Chief Complaint/Hosp Course 1. Acute respiratory failure 2/2 underlying congestive heart failure exacerbation-Improved with Lasix -The patient will be maintained on supplemental oxygen. The patient will be provided with inhaled bronchodilators. -Cont Lasix 2. Congestive heart failure exacerbation. Acute on chronic systolic dysfunction - s/p Diureses. Cardiology following. 2-D echocardiogram showing ejection fraction of 20-25% with stage I diastolic dysfunction. -Cont cardiac meds, Nuclear Stress test shows no acute lesions 3. Severe pulmonary hypertension. PA pressure of 85 mmHg as per 2-D echocardiogram. Continue supplemental oxygen. 4. Cardiomyopathy, most probably ischemic cardiomyopathy. 2-D echocardiogram showing ejection fraction of 20-25%. Continue beta blockers and nicho inhibitors. -Cards following 5. Normocytic normochromic anemia 2/2 Chronic Disease from Prostate CA -s/p 2 units -Stool occult blood negative and Iron panel is normal -Gastroenterology consult appreciated 6. Hypothyroidism. The patient will be continued on Synthroid. 7. Essential hypertension. The patient will be maintained on antihypertensives including p.r.n. antihypertensives for any systolic blood pressure readings greater than 160 mmHg. 8. History of Metastatic prostate cancer -cont Bicalutamide -Dr Rain who is the patients Onc has seen pt in house and has ordered a Bone scan which is being delayed as pt recently had a Nuclear Stress test and the contrast from that test interferes with the Bone scan for a few days -Megace for appetite stimulation 9. Dysphagia. The patient has prior history of dysphagia that was extensively evaluated and was found have reflux esophagitis as per EGD. The patient will be maintained on proton pump inhibitors. Speech therapy evaluation ordered. 10. Elevated troponins. The patient's troponins have been normalized. Aspirin on hold because of underlying anemia. Cardiology following. 11. Nonsustained ventricular tachycardia. Continue beta-blockers. Will keep electrolyte levels optimal. Replete magnesium to keep the levels above 2.0. 12. Dementia -will need SNF placement, CM aware and placement is pending, placement has been difficult possibly because of a monthly CTX that the pt is receiving but the pt can continue this at [facility] and does not need it to be administered at the [facility] 13. DVT prophylaxis. No chemical DVT prophylaxis because of underlying anemia. Bilateral sequential compression devices. 14. Gastrointestinal prophylaxis. Proton pump inhibitors. Problems: Subjective 24 Hr Interval Summary Free Text/Dictation lacking an appetite Exam/Review of Systems Vital Signs Vitals Vital Signs Date Time Temp Pulse Resp B/P Pulse Ox O2 Delivery O2 Flow Rate FiO2 03/17/16 14:47 98 2.0 03/17/16 14:47 80 32 Nasal Cannula 03/17/16 07:54 97.6 114/61 Intake and Output 03/16/16 03/16/16 03/17/16 15:00 23:00 07:00 Intake Total 710 ml 200 ml Output Total 400 ml 400 ml Balance 310 ml -200 ml Exam Constitutional: alert Respiratory: clear to auscultation Cardiovascular: regular rate and rhythm Gastrointestinal: soft, No distended Musculoskeletal: nl extremities to inspection Results Result Diagram: 03/16/16 0508 03/17/16 0435 Results 24 hrs Laboratory Tests Test 03/17/16 04:35 Anion Gap 22 H Blood Urea Nitrogen 40 H Calcium Level 5.4 *L Carbon Dioxide Level 21 Chloride Level 99 Creatinine 1.25 H Glucose Level 145 Potassium Level 4.1 Sodium Level 138 Medications Medications Current Medications Ondansetron HCl (Zofran Inj) 4 mg Q6H PRN IV NAUSEA AND/OR VOMITING; Start at 14:00 Acetaminophen (Tylenol Tab) 650 mg Q6H PRN PO PAIN LEVEL 1-3 OR FEVER Last administered on 03/11/16 21:28; Admin Dose 650 MG; Start 03/08/16 at 14:00 Acetaminophen/ Hydrocodone Bitart ([place] (5/325)) 1 tab Q6H PRN PO PAIN LEVEL 4 -6 Last administered on 03/13/16 19:33; Admin Dose 1 TAB; Start 03/08/16 at 14: 00 Morphine Sulfate (morphine) 2 mg Q4H PRN IV PAIN LEVEL 7-10 Last administered on 03/14/16 19:54; Admin Dose 2 MG; Start 03/08/16 at 14:00 Carvedilol (Coreg) 3.125 mg BID PO Last administered on 03/17/16 08:24; Admin Dose 3.125 MG; Start 03/08/16 at 21:00 Imipramine HCl (Tofranil) 25 mg BID PO Last administered on 03/17/16 08:23; Admin Dose 25 MG; Start 03/08/16 at 21:00 Hydralazine HCl (Apresoline) 10 mg Q6H PRN IV SBP>160; Start 03/08/16 at 16:00 Bicalutamide (Casodex) 50 mg DAILY PO Last administered on 03/17/16 08:38; Admin Dose 50 MG; Start 03/09/16 at 09:00 Lisinopril (Zestril) 2.5 mg DAILY PO Last administered on 03/11/16 08:26; Admin Dose 2.5 MG; Start 03/09/16 at 09:00; Status Future Hold Docusate Sodium (Colace) 200 mg HS PO Last administered on 03/16/16 21:23; Admin Dose 200 MG; Start 03/10/16 at 21:00 Hydralazine HCl (Apresoline) 10 mg Q12 PO Last administered on 03/17/16 08:24 ; Admin Dose 10 MG; Start 03/11/16 at 21:00 Phenol (Cepastat Lozenge) 1 lozenge Q4 PRN MT SORE THROAT; Start 03/13/16 at 19 :00 Furosemide (Lasix) 20 mg DAILY PO Last administered on 03/16/16 08:47; Admin Dose 20 MG; Start 03/14/16 at 11:00; Status Future Hold TESS MAURO Mar 17, 2016 18:17
[2016-03-17 19:20] VITALS: BP 107/53; RESP 18
[2016-03-17] MEDS: DOCUSATE SODIUM 100 MG CAP PO SCH (21:46)
[2016-03-17] MEDS: MEGESTROL (40 MG/ML) 10ML CUP PO SCH (21:46)
--- NOTE | 2016-03-17 22:33 | RADRPT ---
PROCEDURE: Whole body bone scan study CLINICAL INDICATION: 85 -year-old patient with prostate cancer, for evaluation for skeletal metast ases. TECHNIQUE: Following the intravenous injection of mCi of Tc-99m MDP, whole body anterior and post erior planar images were obtained along with spot views of the chest, abdomen and pelvis. COMPARISON: No prior bone scans are available for comparison. CT scan of the chest dated April 20, 2015. FINDINGS: Patchy heterogeneous distribution of activity seen in the calvarium, both shoulders, throughout the spine, in the rib cages bilaterally, left sacroiliac joint, left hip and perhaps left mid femur. No other definite abnormal areas of increased activity or asymmetries are visualized in the study an d distribution of radionuclide is homogeneous in the skull, spine, rib cages, sternum, pelvis and vi sualized portions of the upper and lower extremities. Of incidental note, there is no evidence of mass abnormalities of the poorly visualized kidney kidne ys. IMPRESSION: Patchy heterogeneous distribution of tracer activity throughout the axial and appendicular skeleton, as described above, concerning for skeletal metastases. RPTAT: HH .Keara Walden MD, MD Date Time Electronically viewed and signed by .Keara Walden MD, MD on 03/17/2016 22:32 .L/
[2016-03-18] VITALS (26 sets, daily range): BP systolic 90–115; BP diastolic 47–83; PULSE 66–95; RESP 18–38
[2016-03-18] MEDS: ALBUTEROL/IPRATROPIUM (NEB) 3 ML AMP HHN PRN (02:39)
[2016-03-18] MEDS ORDERED: LORAZEPAM 2 MG INJ IV ONE (03:30)
[2016-03-18] MEDS ORDERED: FUROSEMIDE 20 MG INJ IV ONE (03:30)
--- NOTE | 2016-03-18 05:14 | RADRPT ---
PROCEDURE: Chest. CLINICAL INDICATION: Shortness of breath. TECHNIQUE: Single frontal view of the chest was obtained. COMPARISON: 03/11/2016. FINDINGS: The cardiac silhouette is enlarged. The aortic arch is calcified. There is pulmonary venous conges tion. There are scattered infiltrates within the right lung . There are bilateral small pleural ef fusions. There is no pneumothorax. IMPRESSION: Moderate cardiomegaly and pulmonary venous congestion, increased compared with the prior study. Scattered infiltrates within the right lung, increased compared with the prior study. Bilateral small pleural effusions, increased. Aortic atherosclerosis. .Marty Winter MD, Date Time Electronically viewed and signed by .Marty Winter MD, MD on 03/18/2016 05:14 .T/
[2016-03-18 06:13] LABS: BASOPHILS % 0.3 % (0.0-2.0); EOSINOPHILS % 0.2 % (0.0-7.0); HEMATOCRIT 29.9 % (42.0-52.0); LYMPHOCYTES # 0.8 10^3/ul (0.8-2.9); LYMPHOCYTES % 13.5 % (15.0-51.0); MEAN CORPUSCULAR HEMOGLOBIN 30.2 pg (29.0-33.0); MEAN CORPUSCULAR HGB CONC 33.6 g/dl (32.0-37.0); MEAN CORPUSCULAR VOLUME 89.9 fl (82.0-101.0); MEAN PLATELET VOLUME 7.9 fl (7.4-10.4); MONOCYTE # 0.5 10^3/ul (0.3-0.9); MONOCYTES % 7.8 % (0.0-11.0); NEUTROPHIL # 4.7 10^3/ul (1.6-7.5); NEUTROPHILS % 78.2 % (39.0-77.0); PLATELET COUNT 271 10^3/UL (140-440); RED BLOOD COUNT 3.33 10^6/ul (4.70-6.10); RED CELL DISTRIBUTION WIDTH 17.7 % (11.5-14.5); UNCORRECTED WBC 6.1 10^3/ul (4.8-10.8); WHITE BLOOD COUNT 6.1 10^3/ul (4.8-10.8)
[2016-03-18 06:24] LABS: POTASSIUM 4.3 mmol/L (3.5-5.1)
[2016-03-18 06:26] LABS: CREATININE 1.11 mg/dl (0.61-1.24)
[2016-03-18 06:29] LABS: CONDITION 1; LH ANALYZER COMMENTS 1
[2016-03-18] MEDS ORDERED: LEVOFLOXACIN 500MG/D5W (PMX) 100 ML IVPB SCH ×2 (06:30)
[2016-03-18] MEDS: LEVOTHYROXINE 25 MCG TAB PO SCH (06:46)
[2016-03-18 06:57] LABS: CALCIUM 5.1 mg/dl (8.4-10.2)
[2016-03-18] MEDS: BICALUTAMIDE 50 MG TAB PO SCH (08:25)
[2016-03-18] MEDS: IMIPRAMINE 25 MG TAB PO SCH ×2 (08:25→21:20)
[2016-03-18] MEDS: PANTOPRAZOLE (EC) 40 MG TAB PO SCH ×2 (08:29→17:24)
[2016-03-18] MEDS: MEGESTROL (40 MG/ML) 10ML CUP PO SCH ×2 (08:30→21:19)
[2016-03-18] MEDS: ALBUTEROL/IPRATROPIUM (NEB) 3 ML AMP HHN SCH ×4 (08:43→20:33)
--- NOTE | 2016-03-18 09:00 | PN ---
DATE: 03/18/2016 SUBJECTIVE: Mr. Frey seems to be doing well. He has no specific complaints. No shortness of br eath or cough. He denies orthopnea or PND. OBJECTIVE VITAL SIGNS: Temperature 97.6 orally, pulse 78 per minute and regular, respirations 20, oxygen satu ration is 99 on high flow oxygen. SKIN: No ecchymosis, no petechiae or rashes. HEENT: No mucosal lesions. No scleral icterus. NECK: Supple, no jugular venous distention or thyroid enlargement. CHEST: Clear to auscultation and percussion. There are no rales. HEART: Regular sinus rhythm, no S3 or S4 or murmurs. ABDOMEN: Soft, no masses, no ascites. The patient has had a nuclear medicine myocardial stress test. There is a diffusely dilated left ve ntricle and diffuse hypokinesis. Ejection fraction at stress was measured to be only 16%. A bone scan does show findings consistent with diffuse skeletal metastases. White count is 6100, hemoglobin 10, hematocrit 29.9, platelet count 271,000. PSA obtained on 2016 is reported as being "greater than 1000." IMPRESSION 1. Cardiomyopathy. 2. Metastatic prostate carcinoma. PLAN: The patient is not actually hormone refractory. He had stopped taking Lupron approximately a year and a half ago because of potential side effects. He never demonstrated that he was refractor y. He was now to be started on Firmagon but received only a loading dose. Having some difficulty o btaining Firmagon here in the hospital. The patient's major issues, however, are not that of metastatic prostate carcinoma, although certain ly that is issue, but rather I feel that his problems mostly are cardiac in nature. Dictated By: MELINDA PAYNE MD SR/NTS Conf#: [id number] DID#: [id number]
[2016-03-18] MEDS ORDERED: FUROSEMIDE 40 MG INJ ONE (10:11)
[2016-03-18 10:23] LABS: AADO2 Arterial 326.5 mmHg (7.0-24.0); Arterial Base Excess -3.4 mmol/L (-3.0-3); Arterial COHb 0.3 % (0.0-3.0); Arterial HCO3 18.6 mmol/L (22.0-26.0); Arterial MetHb 0.1 % (0.0-1.5); Arterial Total Hemglobin 11.4 g/dl (12.0-18.0); MODE MASK - NRB
[2016-03-18] MEDS ORDERED: FUROSEMIDE 40 MG INJ IV ONE (10:30)
[2016-03-18] MEDS ORDERED: CALCIUM GLUCONATE 10% 2 GM in SOD CHLORIDE 0.9% 100 ML IVPB ONE (11:00)
--- NOTE | 2016-03-18 11:22 | PN ---
DATE: 03/18/2016 HOSPITALIST PROGRESS NOTE SUBJECTIVE DATA: A rapid response was called on this patient as the patient was desaturating Upon walking into the room, the patient was noticed to be using his accessory muscles of respiration. The patient was noticed to be saturating in the low 80s to high 70s despite being on 100% nonrebreather mask. The patient denied any chest pain. The patient was awake and alert. INTERVENTIONS done. A 12-lead EKG that showed atrial fibrillation with rapid ventricular response. Stat ABG ordered. Stat BMP and troponins ordered. The patient had a chest x-ray done earlier today that showed increasing pulmonary edema with bilateral small pleural effusions. The patient was given 40 mg IV Lasix. The patient was maintained on high-flow oxygen. A decision was made to move the patient down to intensive care unit for further monitoring. Will insert a Hernandez catheter. The patient's daughter who was at the bedside, was informed about the patient's condition, and the patient's daughter wants the patient to remain a full code. Pulmonary consult was obtained. Will involve Palliative Care on the case, since the patient remains a full code despite he has evidence of metastases. ASSESSMENT: 1. Congestive heart failure exacerbation. Systolic dysfunction. Acute on chronic. 2. Ischemic cardiomyopathy with ejection fraction of 20% to 25%. 3. Severe pulmonary hypertension with a PA pressure of 85 mmHg. 4. Metastatic prostate carcinoma with bone metastasis. 5. Hypocalcemia. 6. Hypothyroidism. 7. Wide complex tachycardia with current evidence of A. fib w/ RVR. 8. Essential hypertension. 9. Normocytic, normochromic anemia. 10. Dementia. Case discussed with Dr. Jimenez. Critical care time more than 35 minutes. ERICA JIMENEZ MD, AM/JESUS Conf#: [id number] DID#: [id number] MTDD
--- NOTE | 2016-03-18 12:00 | CONS ---
DATE OF ADMISSION: 03/08/2016 DATE OF CONSULTATION: REASON FOR CONSULTATION: Shortness of breath. Thank you, Dr. Tomlin, for this consultation. HISTORY OF PRESENT ILLNESS: An 85-year-old gentleman with multiple medical problems including histo ry of dementia had originally presented with shortness of breath secondary to congestive cardiac sanket lure with established low ejection fraction who had responded well to diuretics and was scheduled fo r discharge soon. He experienced increasing shortness of breath this morning with orthopnea, PND, h ypoxemia, now requiring nonrebreather O2 and transferred to the intensive care unit. Here, he remai ns awake, alert, oriented. He is on facemask O2, but no accessory muscle use. Arterial blood gas s hows adequate oxygenation, but no evidence of hypercapnia. PAST MEDICAL HISTORY: Prostate cancer, mild dementia, cardiomyopathy with decreased ejection fracti on and recurrent hypoxemic respiratory failure secondary to above, history of nonsustained ventricul ar tachycardia. MEDICATIONS: Per chart. ALLERGIES: NONE. SOCIAL HISTORY: Nonsmoker, no alcohol, no history of drug use. FAMILY HISTORY: Noncontributory. SYSTEMS REVIEW: A 12-point review of systems was negative other than that mentioned above. PHYSICAL EXAMINATION: GENERAL: Elderly-appearing gentleman appears comfortable at rest, no acute distress. VITAL SIGNS: Currently afebrile, pulse is 70, blood pressure 115/57, O2 saturation 96% on nonrebrea ther. NECK: Supple. No JVD or lymphadenopathy. CARDIAC: S1, S2, no added sounds or murmurs. CHEST: Diminished air entry bilaterally. ABDOMEN: Soft, nontender. No guarding or rebound. EXTREMITIES: No cyanosis, clubbing or edema. NEUROLOGIC: Grossly intact. No focal deficits. LABORATORIES: White count 6.1, hemoglobin 10, platelets of 271, BUN 42, creatinine 1.11. Arterial blood gas pH 7.49, pCO2 of 25, pO2 of 361. INR 1.16. Stool occult blood was negative. DIAGNOSTIC DATA: Chest x-ray showed congestive cardiac failure right side greater than left, possib le aspiration component. IMPRESSION AND PLAN: 1. Acute hypoxemic respiratory failure, likely secondary to congestive cardiac failure with underly ing history of cardiomyopathy. 2. History of prostate cancer. 3. Possible urinary retention. 4. Possible aspiration pneumonia. The patient will require: 1. Continued bronchodilators. 2. Supplemental O2. 3. Emergent diuresis. 4. Consider Hernandez catheter. 5. DVT and GI prophylaxis. Dictated By: MARLA MIRAMONTES/JESUS Conf#: [id number] DID#: [id number]
[2016-03-18 12:12] LABS: TROPONIN-I 0.047 ng/ml (0.00-0.12)
--- NOTE | 2016-03-18 12:36 | CONS ---
Date/Time of Note Date/Time of Note DATE: 03/18/16 TIME: 12:32 Assessment/Plan Assessment/Plan Chief Complaint/Hosp Course IMPRESSION: 1. Congestive heart failure exacerbation, systolic, acute on chronic.-Now with worsening volume status and has been transferred to ICU 2. History of cardiomyopathy with severely depressed left ventricular ejection fraction, last approximately 20% to 25% by echo thius admit 3. End-stage renal disease on hemodialysis. 4. History of myocardial infarction by stress 04/2015/No ischemia by stress this admit EF 16% 5. Anemia. 6. Hypertension. 7. Hypothyroidism. 8. Prostate carcinoma. 9. Dementia. 10. Positive troponin-now trended negative 11.Wide complex tachycardia- ?NSVT-no recurrence 12. acute renal failure Recc: -Tele -continue BB/Hydralazine as tolerated -ACEI held given ARF but if creatnine remains stable will resume ACEI -Increase lasix diuresis -F/U bone scan Problems: Consultation Date/Type/Reason Admit Date/Time Mar 08, 2016 at 11:43 Initial Consult Date 03/08/2016 Type of Consultation: Cardiology Reason for Consultation CHF Referring Provider: OLIVA BARRERA Exam/Review of Systems Vital Signs Vitals Vital Signs Date Time Temp Pulse Resp B/P Pulse Ox O2 Delivery O2 Flow Rate FiO2 03/18/16 11:45 24 101/58 03/18/16 11:15 83 03/18/16 11:00 Non Rebreather 15.0 03/18/16 10:45 99.1 03/18/16 10:30 77 03/18/16 09:55 100 Intake and Output 03/17/16 03/17/16 03/18/16 15:00 23:00 07:00 Intake Total 360 ml 700 ml Output Total 200 ml Balance 360 ml 500 ml Exam Review of Systems: CONSTITUTIONAL: No fevers, chills. PULMONARY: sob CARDIOVASCULAR: No chest pain/palpitations GASTROINTESTINAL: No nausea/vomiting. GENITOURINARY: No hematuria/dysuria. MUSCULOSKELETAL: No myagias/arthalgias. PSYCHIATRIC: The patient denies depression. NEUROLOGIC: Generalized weakness Constitutional: alert Head: normocephalic ENMT: mucosa pink and moist Neck: jvd (9-10 cm water) Respiratory: diminished breath sounds (at bases/B) Cardiovascular: regular rate and rhythm Gastrointestinal: non-tender, soft Musculoskeletal: muscle tone (normal) Extremities: edema (trace/B) Neurological: lethargic Results Result Diagram: 03/18/16 0510 03/18/16 0510 Results 24 hrs Laboratory Tests Test 03/18/16 05:10 03/18/16 10:03 03/18/16 10:06 03/18/16 10:30 Anion Gap 22 H Basophils # 0.0 Basophils % 0.3 Blood Morphology Comment Blood Urea Nitrogen 42 H Calcium Level 5.1 *L Carbon Dioxide Level 20 L Chloride Level 102 Creatinine 1.11 Eosinophils # 0.0 Eosinophils % 0.2 Glucose Level 142 Hematocrit 29.9 L Hemoglobin 10.0 L Lymphocytes # 0.8 Lymphocytes % 13.5 L Mean Corpuscular Hemoglobin 30.2 Mean Corpuscular Hemoglobin Concent 33.6 Mean Corpuscular Volume 89.9 Mean Platelet Volume 7.9 Monocytes # 0.5 Monocytes % 7.8 Neutrophils # 4.7 Neutrophils % 78.2 H Nucleated Red Blood Cells # 0.0 Nucleated Red Blood Cells % 0.0 Platelet Count 271 Potassium Level 4.3 Red Blood Count 3.33 L Red Cell Distribution Width 17.7 H Sodium Level 140 White Blood Count 6.1 Bedside Glucose 139 Arterial Blood HCO3 18.6 L Arterial Blood Base Excess -3.4 L Arterial Blood Oxygen Saturation 99.4 Brigido Test N/A Arterial Blood Gas Puncture Site Right Brachial Arterial Blood Carboxyhemoglobin 0.3 Arterial Blood Date Drawn 03/18/2016 10:10:25 AM Arterial Blood Methemoglobin 0.1 Arterial Blood pCO2 (Temp correct) 25.0 L Arterial Blood pH (Temp corrected) 7.490 H Arterial Blood pO2 (Temp corrected) 361.5 H Blood Gas A-a O2 Differential 326.5 H Blood Gas Modality MASK - NRB Blood Gas Notified Time 03/18/2016 10:23:05 AM Blood Gas Notified Whom JLD Blood Gas Specimen Source Blood arterial Blood Gas Temperature 37.0 FiO2 100.0 Oxyhemoglobin Percent 99.0 Total Hemoglobin 11.4 L B-Type Natriuretic Peptide Pending Lactic Acid Level 1.6 Troponin I 0.047 Medications Medications Current Medications Ondansetron HCl (Zofran Inj) 4 mg Q6H PRN IV NAUSEA AND/OR VOMITING; Start at 14:00 Acetaminophen (Tylenol Tab) 650 mg Q6H PRN PO PAIN LEVEL 1-3 OR FEVER Last administered on 03/11/16 21:28; Admin Dose 650 MG; Start 03/08/16 at 14:00 Acetaminophen/ Hydrocodone Bitart ([place] (5/325)) 1 tab Q6H PRN PO PAIN LEVEL 4 -6 Last administered on 03/13/16 19:33; Admin Dose 1 TAB; Start 03/08/16 at 14: 00 Morphine Sulfate (morphine) 2 mg Q4H PRN IV PAIN LEVEL 7-10 Last administered on 03/14/16 19:54; Admin Dose 2 MG; Start 03/08/16 at 14:00 Carvedilol (Coreg) 3.125 mg BID PO Last administered on 03/18/16 08:21; Admin Dose 3.125 MG; Start 03/08/16 at 21:00 Imipramine HCl (Tofranil) 25 mg BID PO Last administered on 03/18/16 08:25; Admin Dose 25 MG; Start 03/08/16 at 21:00 Hydralazine HCl (Apresoline) 10 mg Q6H PRN IV SBP>160; Start 03/08/16 at 16:00 Bicalutamide (Casodex) 50 mg DAILY PO Last administered on 03/18/16 08:25; Admin Dose 50 MG; Start 03/09/16 at 09:00 Lisinopril (Zestril) 2.5 mg DAILY PO Last administered on 03/11/16 08:26; Admin Dose 2.5 MG; Start 03/09/16 at 09:00; Status Future Hold Docusate Sodium (Colace) 200 mg HS PO Last administered on 03/17/16 21:46; Admin Dose 200 MG; Start 03/10/16 at 21:00 Hydralazine HCl (Apresoline) 10 mg Q12 PO Last administered on 03/18/16 08:34 ; Admin Dose 10 MG; Start 03/11/16 at 21:00 Phenol (Cepastat Lozenge) 1 lozenge Q4 PRN MT SORE THROAT; Start 03/13/16 at 19 :00 Furosemide (Lasix) 20 mg DAILY PO Last administered on 03/16/16 08:47; Admin Dose 20 MG; Start 03/14/16 at 11:00; Status Future Hold Megestrol Acetate 400 mg 400 mg BID PO Last administered on 03/18/16 08:30; Admin Dose 400 MG; Start 03/17/16 at 21:00 Levofloxacin/ Dextrose 50 ml @ 50 mls/hr Q24H IVPB ; Start 03/19/16 at 07:00 Calcium Gluconate/ Sodium Chloride (Ca Gluc/NS) 120 ml @ 60 mls/hr ONCE ONCE IVPB Last administered on 03/18/16 12:30; Admin Dose 60 MLS/HR; Start at 11:00; Stop 03/18/16 at 12:59 JUAN CARLOS ALEJANDRO Mar 18, 2016 12:36
--- NOTE | 2016-03-18 16:59 | CONS ---
DATE OF ADMISSION: 03/08/2016 DATE OF CONSULTATION: 03/18/2016 TYPE OF CONSULTATION: Urology. REQUESTING PHYSICIAN: 1. Dr. Jimenez 2. Dr. Tomlin 3. Taran Weir, Nurse Practitioner HISTORY OF PRESENT ILLNESS: The patient is an 85-year-old male who was initially admitted to [facility] with a history of shortness of breath and dyspnea on exertion. The patient w as found to have acute respiratory failure, hypoxic and secondary to congestive heart failure. The patient was then treated and he was found yesterday to be hypoxic and was desaturating and therefore was transferred to the intensive care unit and because of his congestive heart failure they wanted to diurese him and wanted to have a Hernandez catheter and when the catheter was attempted to be inserte d by the nursing staff, they were not successful. Therefore, a urological consultation was requeste d. This patient has history of prostate cancer. He is status post radical prostatectomy, but he do es have metastatic disease to the spine and the bones and he has been on bicalutamide 50 mg daily. According to his daughter he also has been incontinent. PAST MEDICAL HISTORY: Other medical problems includes, in addition to the acute respiratory failure, has a history of congestive heart failure and cardiomyopathy with an ejection fraction of 21%. He has normocytic, normochromic anemia, hypothyroidism, hypertension. ALLERGIES: THE PATIENT HAS NO KNOWN DRUG ALLERGIES. HOME MEDICATIONS: Included: 1. bicalutamide. 2. Coreg. 3. Aspirin. 4. Imipenem. 5. Synthroid. SOCIAL HISTORY: He lives at home with his family. He was a former smoker and also a social drinker . PHYSICAL EXAMINATION GENERAL: Reveals an elderly male. He weighs about 89 kilograms. He is 62 inches tall. VITAL SIGNS: The temperature is 98.7, pulse is 81, respiration 25, blood pressure 99/50. The patie nt is awake and alert. The neck is supple. The chest he has atrial fibrillation. ABDOMEN: Soft. He does have a scar in the low mid abdomen from the radical prostatectomy. GENITALIA: External genitalia are normal. RECTAL: No mass felt. EXTREMITIES: There is no edema. LABORATORY DATA: CBC shows a white count of 6.1, hemoglobin 10.0, hematocrit 29.9. The BUN is 42, creatinine 1.11. Electrolytes are normal. The PT is 14.9, INR 1.16. The prostate specific antigen was done and the PSA is greater than 1000. The patient also did have a bone scan and that showed patchy heterogeneous distribution of tracer ac tivity throughout the axial and appendicular skeleton concerning for skeletal metastasis that is daniel varium both shoulders, throughout the spine, ribcage bilaterally, sacroiliac joint left side, left h ip and left mid femur. IMPRESSION: Metastatic prostate cancer with PSA over 1000. The patient is on bicalutamide and he bishop s acute respiratory failure and congestive heart failure. On the examination, he did have a urethra l meatal stenosis which I dilated and then I inserted a 16-Macedonian coude catheter and that went into the bladder without problem and about 250 mL of clear urine drained out. Impression is metastatic p rostate cancer and urethral meatal stenosis. PLAN: The urethral dilatation and insertion of Hernandez catheter and that was done. I will follow his urological problem. I do thank you for allowing me to help in his care. Dictated By: DAQUAN PINTO/JESUS Conf#: [id number] DID#: [id number]
[2016-03-18] MEDS: FUROSEMIDE 20 MG INJ IV SCH (17:24)
--- NOTE | 2016-03-18 17:28 | CONS ---
DATE OF ADMISSION: 03/08/2016 DATE OF CONSULTATION: 03/18/2016 HISTORY OF PRESENT ILLNESS: This is an 85-year-old gentleman who was admitted to [facility] 03/08/2016. At that time, he was admitted with increasing shortness of breath, underlyin g respiratory failure with an ejection fraction of 25%, presumed to be secondary to ischemic cardiom yopathy. He also has comorbid medical problems including hypertension, hypothyroidism, normocytic n ormochromic anemia and history of prostate cancer with mets to the bone. He was being seen by oncol sean, cardiology, pulmonary medicine and has not done well while he has been hospitalized, and on he was transferred to the intensive care unit. A rapid response was done at that time. He was desaturating 80 to 90 without chest pain. He was found to be in atrial fibrillation which is new and a nonrebreather was placed at 100% FIO2, transferred to the intensive care unit. I am asked to speak to family members. He is an 85-year-old gentleman who is a FULL CODE at this time, who has m ultiple family members, two of which is at patient's bedside and [address]. Issue one is meta static prostate cancer with mets that family has not told patient of yet and that he is a FULL CODE at this time and still symptomatic in spite of aggressive intervention. History of dementia. MEDICATIONS: Please refer to reconciliation sheets. ALLERGIES: NO KNOWN DRUG ALLERGIES. MAJOR MEDICAL PROBLEMS IN THE PAST: Primarily for this hospitalization as per history of present il lness. SOCIAL HISTORY: Lives at home with family, social drinker, former smoker. FAMILY HISTORY: Noncontributory. REVIEW OF SYSTEMS: A 12-point review of systems cannot be ascertained as patient is mild to moderat lucho demented. PHYSICAL EXAMINATION: GENERAL: Shows an ill-appearing, elderly gentleman in no major acute distress. VITAL SIGNS: Blood pressure 96/62, pulse 74 and regular, respirations of 20, and 94% saturation on 5 liters FIO2. CHEST: Shows inspiratory and expiratory crackles on examination without rhonchi. COR: S1, S2, difficult to evaluate rhythm. NEUROLOGIC: He answers simple questions. He is oriented x1. Motor functions are intact both upper and lower extremities. LABORATORIES: Have been reviewed. I have had a short conference with patient's [id number]. Son is on his way. However, in speak ing to patient's [id number] apparently there are multiple other children. According to her, th ere has been no communication amongst the children except a daughter who did visit this morning. It is unclear whether or not she is a decision maker at this time. I will research that further once th e patient's son has arrived. We will try and address the code status first because patient has under lying dementia I do not think it is efficacious to address that question with him. I do not think h carmenza has the cognitive ability to make decisions on his own behalf. Dictated By: CARISSA TINAJERO MD, LP/JESUS Conf#: [id number] DID#: [id number]
[2016-03-18] MEDS: DOCUSATE SODIUM 100 MG CAP PO SCH (21:19)
[2016-03-19] VITALS (23 sets, daily range): BP systolic 82–122; BP diastolic 45–87; PULSE 75–103; RESP 17–34
[2016-03-19] MEDS: FUROSEMIDE 20 MG INJ IV SCH ×2 (05:24→17:17)
[2016-03-19] MEDS: LEVOTHYROXINE 25 MCG TAB PO SCH (05:24)
[2016-03-19] MEDS: PANTOPRAZOLE (EC) 40 MG TAB PO SCH ×3 (05:25→17:17)
[2016-03-19 05:39] LABS: ALBUMIN 3.1 g/dl (3.3-4.9); POTASSIUM 3.5 mmol/L (3.5-5.1)
[2016-03-19 05:42] LABS: ALBUMIN/GLOBULIN RATIO 0.88; BILIRUBIN,INDIRECT 0.5 mg/dl (0-1.1); BILIRUBIN,TOTAL 0.5 mg/dl (0.2-1.3); CREATININE 1.14 mg/dl (0.61-1.24); TOTAL PROTEIN 6.6 g/dl (6.1-8.1)
[2016-03-19 05:55] LABS: EOSINOPHILS % 0.2 % (0.0-7.0); HEMATOCRIT 27.6 % (42.0-52.0); HEMOGLOBIN 9.3 g/dl (14.0-18.0); LYMPHOCYTES # 0.7 10^3/ul (0.8-2.9); LYMPHOCYTES % 10.8 % (15.0-51.0); MEAN CORPUSCULAR HEMOGLOBIN 30.3 pg (29.0-33.0); MEAN CORPUSCULAR HGB CONC 33.8 g/dl (32.0-37.0); MEAN CORPUSCULAR VOLUME 89.6 fl (82.0-101.0); MEAN PLATELET VOLUME 7.7 fl (7.4-10.4); MONOCYTE # 0.4 10^3/ul (0.3-0.9); MONOCYTES % 6.8 % (0.0-11.0); NEUTROPHIL # 5.1 10^3/ul (1.6-7.5); NEUTROPHILS % 82.2 % (39.0-77.0); PLATELET COUNT 251 10^3/UL (140-440); RED BLOOD COUNT 3.08 10^6/ul (4.70-6.10); RED CELL DISTRIBUTION WIDTH 17.6 % (11.5-14.5); UNCORRECTED WBC 6.2 10^3/ul (4.8-10.8); WHITE BLOOD COUNT 6.2 10^3/ul (4.8-10.8)
[2016-03-19 05:58] LABS: NUCLEATED RED BLOOD CELLS # 0.2 10^3/ul (0.0-0.0)
[2016-03-19 05:59] LABS: CONDITION 1; LH ANALYZER COMMENTS 1
[2016-03-19] MEDS: LEVOFLOXACIN 250MG/D5W (PMX) 50 ML IVPB SCH (07:11)
[2016-03-19 07:15] LABS: PHOSPHORUS 3.4 mg/dl (2.5-4.9)
[2016-03-19 08:27] LABS: AADO2 Arterial 175.6 mmHg (7.0-24.0); Allen Test ACCEPTAB; Arterial Base Excess -4.3 mmol/L (-3.0-3); Arterial COHb 0.3 % (0.0-3.0); Arterial Fraction of Oxyhgb 95.1 % (93.0-99.0); Arterial HCO3 17.6 mmol/L (22.0-26.0); Arterial MetHb 0.3 % (0.0-1.5); Arterial Total Hemglobin 10.9 g/dl (12.0-18.0); MODE NASAL CANNULA
[2016-03-19] MEDS: ALBUTEROL/IPRATROPIUM (NEB) 3 ML AMP HHN SCH ×3 (08:28→20:39)
[2016-03-19] MEDS: MEGESTROL (40 MG/ML) 10ML CUP PO SCH ×2 (08:41→22:10)
[2016-03-19] MEDS: IMIPRAMINE 25 MG TAB PO SCH ×2 (08:41→21:07)
[2016-03-19] MEDS: BICALUTAMIDE 50 MG TAB PO SCH (08:47)
--- NOTE | 2016-03-19 09:42 | PN ---
DATE: 03/19/2016 HOSPITALIST PROGRESS NOTE TIME OF EVALUATION: 8:30 a.m. SUBJECTIVE DATA: Complains of dry mouth and throat pain. Denies any chest pain. OBJECTIVE DATA: VITAL SIGNS: Temperature 97.6, pulse rate 70, respiratory rate 20, blood pressure 108/54, oxygen saturation 96% on 5 L oxygen via nasal cannula. GENERAL: This is an elderly male lying in bed in mild to moderate respiratory distress. HEENT: Head normocephalic and atraumatic. Eyes: Anicteric sclerae. Conjunctivae clear. ENT: Nasal septum is midline. Oral mucosa is dry. Tongue midline. No thrush. NECK: Supple. No JVD noticed. RESPIRATORY: Bilaterally diminished breath sounds. Use of accessory muscles of respiration. CARDIAC: Regular rate and rhythm. ABDOMEN: Soft, nontender, and nondistended. Bowel sounds positive in all 4 quadrants. GENITOURINARY: The patient has a Hernandez catheter in place that is draining clear , straw-colored urine. EXTREMITIES: No cyanosis, no clubbing, no edema. Peripheral pulses are palpable. NEUROLOGIC: The patient is awake, alert, and oriented. The patient moves all 4 extremities. LABORATORY AND DIAGNOSTIC DATA: WBC 6.8, hemoglobin 9.3, hematocrit 27.6, platelet count 251. Sodium 139, potassium 3.5, chloride 102, carbon dioxide 90 , anion gap 22, BUN 30, creatinine 1.14, glucose 115, calcium 5.0, phosphorus 3.4, magnesium 2.0. ASSESSMENT AND PLAN: 1. Congestive heart failure exacerbation, acute on chronic, systolic dysfunction. Continue aggressive diuresis. Cardiology following the patient. 2. Metastatic prostate carcinoma with bone metastasis. Continue pain control. The patient is on bicalutamide. The patient being followed by oncology. 3. Ischemic cardiomyopathy with ejection fraction of 20% to 25%. Continue beta blockers. Je inhibitors have been on hold because of worsening renal function. Cardiology following. 4. Hypocalcemia. Will provide the patient with calcium supplements. Etiology of hypocalcemia remains unclear. Most probably secondary to bony metastasis. Will obtain a vitamin D level and parathyroid hormone levels. 5. Acute hypoxic respiratory failure secondary to congestive heart failure exacerbation. Continue supplemental oxygen and inhaled bronchodilators. Pulmonary following the patient. 6. Severe pulmonary hypertension with a PA pressure of 85 mmHg. Continue supplemental oxygen. 7. Hypothyroidism. Continue Synthroid. 8. Non sustained wide complex tachycardia. Continue management as per cardiology. 9. Essential hypertension. Continue antihypertensives. 10. Normocytic normochromic anemia. Iron panel within normal limits. Stool for OB x1 negative. Probably anemia of chronic disease. Monitor H and H closely. Transfuse as needed. 11. Dementia. Continue frequent reorientation. 12. Fluids, electrolytes, and nutrition. Pureed diet. 13. Deep venous thrombosis prophylaxis. Bilateral sequential compression devices. 14. Gastrointestinal prophylaxis. Proton pump inhibitors. 15. Plan. Continue supplemental oxygen. Continue inhaled bronchodilators. Replete calcium. The patient may be moved out of the intensive care unit if cleared by consultants. The case was discussed with Dr. Jimenez. Critical care time 35 minutes. ERICA JIMENEZ MD, AM/JESUS Conf#: [id number] DID#: [id number] MTDD
--- NOTE | 2016-03-19 09:42 | PN ---
Date/Time of Note Date/Time of Note DATE: 03/19/16 TIME: 09:37 Assessment/Plan VTE Prophylaxis VTE Prophylaxis Intervention: other (per primary MD) Lines/Catheters IV Catheter Type (from Nrsg): Saline Lock Urinary Cath still in place: Yes Reason Cath still needed: urinary retention Assessment/Plan Assessment/Plan Pt seen by Dr. Rain for Stage IV prostate cancer but pt was not compliant with treatment. Firmagon to be continued when available but the main issues appear to be cardiac. Family is not here now but are going to be coming in this week. We will f/u but the acute issues are not due to the malignancy. Subjective 24 Hr Interval Summary Free Text/Dictation Pt is stable but still on O2 and is fragile in ICU Exam/Review of Systems Vital Signs Vitals Vital Signs Date Time Temp Pulse Resp B/P Pulse Ox O2 Delivery O2 Flow Rate FiO2 03/19/16 09:00 78 20 102/80 98 Nasal Cannula 5.0 03/19/16 08:00 97.8 03/18/16 09:55 100 Intake and Output 03/18/16 03/18/16 03/19/16 15:00 23:00 07:00 Intake Total 220 ml Output Total 360 ml 365 ml 330 ml Balance -140 ml -365 ml -330 ml Exam Constitutional: oriented Head: normocephalic Eyes: nl conjunctiva Neck: supple Respiratory: diminished breath sounds Cardiovascular: regular rate and rhythm Gastrointestinal: non-tender, soft Results Result Diagram: 03/19/16 0450 03/19/16 0450 Results 24 hrs Laboratory Tests Test 03/18/16 10:03 03/18/16 10:06 03/18/16 10:30 03/18/16 18:04 Bedside Glucose 139 Arterial Blood HCO3 18.6 L Arterial Blood Base Excess -3.4 L Arterial Blood Oxygen Saturation 99.4 Brigido Test N/A Arterial Blood Gas Puncture Site Right Brachial Arterial Blood Carboxyhemoglobin 0.3 Arterial Blood Date Drawn 03/18/2016 10:10:25 AM Arterial Blood Methemoglobin 0.1 Arterial Blood pCO2 (Temp correct) 25.0 L Arterial Blood pH (Temp corrected) 7.490 H Arterial Blood pO2 (Temp corrected) 361.5 H Blood Gas A-a O2 Differential 326.5 H Blood Gas Modality MASK - NRB Blood Gas Notified Time 03/18/2016 10:23:05 AM Blood Gas Notified Whom D Blood Gas Specimen Source Blood arterial Blood Gas Temperature 37.0 FiO2 100.0 Oxyhemoglobin Percent 99.0 Total Hemoglobin 11.4 L B-Type Natriuretic Peptide 37084 H Lactic Acid Level 1.6 Troponin I 0.047 0.056 Test 03/19/16 04:50 03/19/16 08:00 Alanine Aminotransferase (ALT/SGPT) 60 Albumin 3.1 L Albumin/Globulin Ratio 0.88 Alkaline Phosphatase 698 H Anion Gap 22 H Aspartate Amino Transf (AST/SGOT) 58 H Basophils # 0.0 Basophils % 0.0 Blood Morphology Comment Blood Urea Nitrogen 38 H Calcium Level 5.0 *L Carbon Dioxide Level 19 L Chloride Level 102 Creatinine 1.14 Direct Bilirubin 0.00 Eosinophils # 0.0 Eosinophils % 0.2 Globulin 3.50 H Glucose Level 115 Hematocrit 27.6 L Hemoglobin 9.3 L Indirect Bilirubin 0.5 Lymphocytes # 0.7 L Lymphocytes % 10.8 L Magnesium Level 2.0 Mean Corpuscular Hemoglobin 30.3 Mean Corpuscular Hemoglobin Concent 33.8 Mean Corpuscular Volume 89.6 Mean Platelet Volume 7.7 Monocytes # 0.4 Monocytes % 6.8 Neutrophils # 5.1 Neutrophils % 82.2 H Nucleated Red Blood Cells # 0.2 H Nucleated Red Blood Cells % 3.0 H Phosphorus Level 3.4 Platelet Count 251 Potassium Level 3.5 Red Blood Count 3.08 L Red Cell Distribution Width 17.6 H Sodium Level 139 Total Bilirubin 0.5 Total Protein 6.6 White Blood Count 6.2 Arterial Blood HCO3 17.6 L Arterial Blood Base Excess -4.3 L Arterial Blood Oxygen Saturation 95.7 Brigido Test ACCEPTAB Arterial Blood Gas Puncture Site Right Radial Arterial Blood Carboxyhemoglobin 0.3 Arterial Blood Date Drawn 03/19/2016 8:15:41 AM Arterial Blood Methemoglobin 0.3 Arterial Blood pCO2 (Temp correct) 23.4 L Arterial Blood pH (Temp corrected) 7.494 H Arterial Blood pO2 (Temp corrected) 75.5 L Blood Gas A-a O2 Differential 175.6 H Blood Gas Modality NASAL CANNULA Blood Gas Notified Time 03/19/2016 8:27:25 AM Blood Gas Notified Whom [facility] Blood Gas Specimen Source Blood arterial Blood Gas Temperature 37.0 FiO2 39.0 Oxyhemoglobin Percent 95.1 Total Hemoglobin 10.9 L Medications Medications Current Medications Ondansetron HCl (Zofran Inj) 4 mg Q6H PRN IV NAUSEA AND/OR VOMITING; Start at 14:00 Acetaminophen (Tylenol Tab) 650 mg Q6H PRN PO PAIN LEVEL 1-3 OR FEVER Last administered on 03/11/16 21:28; Admin Dose 650 MG; Start 03/08/16 at 14:00 Acetaminophen/ Hydrocodone Bitart (Pe Ell (5/325)) 1 tab Q6H PRN PO PAIN LEVEL 4 -6 Last administered on 03/13/16 19:33; Admin Dose 1 TAB; Start 03/08/16 at 14: 00 Morphine Sulfate (morphine) 2 mg Q4H PRN IV PAIN LEVEL 7-10 Last administered on 03/14/16 19:54; Admin Dose 2 MG; Start 03/08/16 at 14:00 Carvedilol (Coreg) 3.125 mg BID PO Last administered on 03/19/16 08:57; Admin Dose 3.125 MG; Start 03/08/16 at 21:00 Imipramine HCl (Tofranil) 25 mg BID PO Last administered on 03/19/16 08:41; Admin Dose 25 MG; Start 03/08/16 at 21:00 Hydralazine HCl (Apresoline) 10 mg Q6H PRN IV SBP>160; Start 03/08/16 at 16:00 Bicalutamide (Casodex) 50 mg DAILY PO Last administered on 03/19/16 08:47; Admin Dose 50 MG; Start 03/09/16 at 09:00 Lisinopril (Zestril) 2.5 mg DAILY PO Last administered on 03/11/16 08:26; Admin Dose 2.5 MG; Start 03/09/16 at 09:00; Status Future Hold Docusate Sodium (Colace) 200 mg HS PO Last administered on 03/18/16 21:19; Admin Dose 200 MG; Start 03/10/16 at 21:00 Hydralazine HCl (Apresoline) 10 mg Q12 PO Last administered on 03/19/16 08:57 ; Admin Dose 10 MG; Start 03/11/16 at 21:00 Phenol (Cepastat Lozenge) 1 lozenge Q4 PRN MT SORE THROAT; Start 03/13/16 at 19 :00 Furosemide (Lasix) 20 mg DAILY PO Last administered on 03/16/16 08:47; Admin Dose 20 MG; Start 03/14/16 at 11:00; Status Future Hold Megestrol Acetate 400 mg 400 mg BID PO Last administered on 03/19/16 08:41; Admin Dose 400 MG; Start 03/17/16 at 21:00 Levofloxacin/ Dextrose 50 ml @ 50 mls/hr Q24H IVPB Last administered on 07:11; Admin Dose 50 MLS/HR; Start 03/19/16 at 07:00 Calcium Gluconate/ Sodium Chloride (Ca Gluc/NS) 120 ml @ 60 mls/hr ONCE ONCE IVPB ; Start 03/19/16 at 10:00; Stop 03/19/16 at 11:59 Calcium Carbonate (Oyster Shell Calcium) 1.25 gm TID PO ; Start 03/19/16 at 09: 00 KIMBERLEE BAER MD Mar 19, 2016 09:41
[2016-03-19] MEDS ORDERED: CALCIUM GLUCONATE 10% 2 GM in SOD CHLORIDE 0.9% 100 ML IVPB ONE (10:00)
[2016-03-19] MEDS: morphine 2 MG INJ IV PRN (10:48)
[2016-03-19] MEDS: CALCIUM CARBONATE 1.25 GM TAB PO SCH ×3 (10:48→21:07)
--- NOTE | 2016-03-19 11:07 | CONS ---
Date/Time of Note Date/Time of Note DATE: 03/19/16 TIME: 11:05 Consult Date/Type/Reason Admit Date/Time Mar 08, 2016 at 11:43 Initial Consult Date Type of Consultation: Pulm Ordering Provider: OLIVA BARRERA Subjective Better, less short of breath, on nasal cannula. Objective Vital Signs Date Time Temp Pulse Resp B/P Pulse Ox O2 Delivery O2 Flow Rate FiO2 03/19/16 10:00 78 22 108/71 94 Nasal Cannula 5.0 03/19/16 08:00 97.8 03/18/16 09:55 100 Intake and Output 03/18/16 03/18/16 03/19/16 14:59 22:59 06:59 Intake Total 220 ml Output Total 315 ml 370 ml 325 ml Balance -95 ml -370 ml -325 ml PHYSICAL EXAMINATION: GENERAL: Elderly-appearing gentleman appears comfortable at rest, no acute distress. VITAL SIGNS: as above NECK: Supple. No JVD or lymphadenopathy. CARDIAC: S1, S2, no added sounds or murmurs. CHEST: Diminished air entry bilaterally. ABDOMEN: Soft, nontender. No guarding or rebound. EXTREMITIES: No cyanosis, clubbing or edema. NEUROLOGIC: Grossly intact. No focal deficits. Results/Medications Result Diagram: 03/19/16 0450 03/19/16 0450 Results 24 hrs Laboratory Tests Test 03/18/16 18:04 03/19/16 04:50 03/19/16 08:00 Troponin I 0.056 Alanine Aminotransferase (ALT/SGPT) 60 Albumin 3.1 L Albumin/Globulin Ratio 0.88 Alkaline Phosphatase 698 H Anion Gap 22 H Aspartate Amino Transf (AST/SGOT) 58 H Basophils # 0.0 Basophils % 0.0 Blood Morphology Comment Blood Urea Nitrogen 38 H Calcium Level 5.0 *L Carbon Dioxide Level 19 L Chloride Level 102 Creatinine 1.14 Direct Bilirubin 0.00 Eosinophils # 0.0 Eosinophils % 0.2 Globulin 3.50 H Glucose Level 115 Hematocrit 27.6 L Hemoglobin 9.3 L Indirect Bilirubin 0.5 Lymphocytes # 0.7 L Lymphocytes % 10.8 L Magnesium Level 2.0 Mean Corpuscular Hemoglobin 30.3 Mean Corpuscular Hemoglobin Concent 33.8 Mean Corpuscular Volume 89.6 Mean Platelet Volume 7.7 Monocytes # 0.4 Monocytes % 6.8 Neutrophils # 5.1 Neutrophils % 82.2 H Nucleated Red Blood Cells # 0.2 H Nucleated Red Blood Cells % 3.0 H Phosphorus Level 3.4 Platelet Count 251 Potassium Level 3.5 Red Blood Count 3.08 L Red Cell Distribution Width 17.6 H Sodium Level 139 Total Bilirubin 0.5 Total Protein 6.6 White Blood Count 6.2 Arterial Blood HCO3 17.6 L Arterial Blood Base Excess -4.3 L Arterial Blood Oxygen Saturation 95.7 Brigido Test ACCEPTAB Arterial Blood Gas Puncture Site Right Radial Arterial Blood Carboxyhemoglobin 0.3 Arterial Blood Date Drawn 03/19/2016 8:15:41 AM Arterial Blood Methemoglobin 0.3 Arterial Blood pCO2 (Temp correct) 23.4 L Arterial Blood pH (Temp corrected) 7.494 H Arterial Blood pO2 (Temp corrected) 75.5 L Blood Gas A-a O2 Differential 175.6 H Blood Gas Modality NASAL CANNULA Blood Gas Notified Time 03/19/2016 8:27:25 AM Blood Gas Notified Whom JLD Blood Gas Specimen Source Blood arterial Blood Gas Temperature 37.0 FiO2 39.0 Oxyhemoglobin Percent 95.1 Total Hemoglobin 10.9 L Medications Current Medications Ondansetron HCl (Zofran Inj) 4 mg Q6H PRN IV NAUSEA AND/OR VOMITING; Start at 14:00 Acetaminophen (Tylenol Tab) 650 mg Q6H PRN PO PAIN LEVEL 1-3 OR FEVER Last administered on 03/11/16 21:28; Admin Dose 650 MG; Start 03/08/16 at 14:00 Acetaminophen/ Hydrocodone Bitart ([place] (5/325)) 1 tab Q6H PRN PO PAIN LEVEL 4 -6 Last administered on 03/13/16 19:33; Admin Dose 1 TAB; Start 03/08/16 at 14: 00 Morphine Sulfate (morphine) 2 mg Q4H PRN IV PAIN LEVEL 7-10 Last administered on 03/19/16 10:48; Admin Dose 2 MG; Start 03/08/16 at 14:00 Carvedilol (Coreg) 3.125 mg BID PO Last administered on 03/19/16 08:57; Admin Dose 3.125 MG; Start 03/08/16 at 21:00 Imipramine HCl (Tofranil) 25 mg BID PO Last administered on 03/19/16 08:41; Admin Dose 25 MG; Start 03/08/16 at 21:00 Hydralazine HCl (Apresoline) 10 mg Q6H PRN IV SBP>160; Start 03/08/16 at 16:00 Bicalutamide (Casodex) 50 mg DAILY PO Last administered on 03/19/16 08:47; Admin Dose 50 MG; Start 03/09/16 at 09:00 Lisinopril (Zestril) 2.5 mg DAILY PO Last administered on 03/11/16 08:26; Admin Dose 2.5 MG; Start 03/09/16 at 09:00; Status Future Hold Docusate Sodium (Colace) 200 mg HS PO Last administered on 03/18/16 21:19; Admin Dose 200 MG; Start 03/10/16 at 21:00 Hydralazine HCl (Apresoline) 10 mg Q12 PO Last administered on 03/19/16 08:57 ; Admin Dose 10 MG; Start 03/11/16 at 21:00 Phenol (Cepastat Lozenge) 1 lozenge Q4 PRN MT SORE THROAT; Start 03/13/16 at 19 :00 Furosemide (Lasix) 20 mg DAILY PO Last administered on 03/16/16 08:47; Admin Dose 20 MG; Start 03/14/16 at 11:00; Status Future Hold Megestrol Acetate 400 mg 400 mg BID PO Last administered on 03/19/16 08:41; Admin Dose 400 MG; Start 03/17/16 at 21:00 Levofloxacin/ Dextrose 50 ml @ 50 mls/hr Q24H IVPB Last administered on 07:11; Admin Dose 50 MLS/HR; Start 03/19/16 at 07:00 Calcium Gluconate/ Sodium Chloride (Ca Gluc/NS) 120 ml @ 60 mls/hr ONCE ONCE IVPB Last administered on 03/19/16 10:48; Admin Dose 60 MLS/HR; Start at 10:00; Stop 03/19/16 at 11:59 Calcium Carbonate (Oyster Shell Calcium) 1.25 gm TID PO Last administered on 10:48; Admin Dose 1.25 GM; Start 03/19/16 at 09:00 Assessment/Plan Chief Complaint/Hosp Course IMPRESSION AND PLAN: 1. Acute hypoxemic respiratory failure, likely secondary to congestive cardiac failure with underlying history of cardiomyopathy. 2. History of prostate cancer. 3. Possible urinary retention. 4. Possible aspiration pneumonia. The patient will require: 1. Continued bronchodilators. 2. Supplemental O2. 3. diuresis. 4. roque catheter in place, appreciate urology recs. 5. DVT and GI prophylaxis. ok for tele Problems: MARLA NEWBY MD, [facility] Mar 19, 2016 11:07
--- NOTE | 2016-03-19 11:46 | PN ---
DATE: FAMILY CONFERENCE I have spoken to family member this morning. They are still in agreement with DO NOT RESUSCITATE, D O NOT INTUBATE patient. I spoke to them about having a discussion with Mr. Frey about his metast atic prostate cancer. They understand that he has to be told and he is cognitively intact enough to understand this. The patient is a candidate for hospice care once he is clinically improved. The zaki peterson's family stated to me that they are unable to take care of him at home. Therefore, we will sp eak to case management about appropriate discharge planning. Dictated By: CARISSA TINAJERO MD LP/NTS Conf#: [id number] DID#: [id number]
--- NOTE | 2016-03-19 13:34 | RADRPT ---
PROCEDURE: XR Chest. CLINICAL INDICATION: Shortness of breath. TECHNIQUE: Single frontal chest x-ray. COMPARISON: 03/18/2016 FINDINGS: Cardiomegaly with decrease hilar vascular congestion is noted. Perihilar edema or infiltrates or im proved. There is a small bilateral pleural effusions unchanged. .. Calcific atherosclerosis of t he aorta is present.. The osseous structures are intact. IMPRESSION: Cardiomegaly with decreased congestion and perihilar edema since previous. Small bilateral pleural effusions unchanged.. RPTAT: JJ .Santhosh Whaley MD, MD Date Time Electronically viewed and signed by .Santhosh Whaley MD, MD on 03/19/2016 13:33 .L/
--- NOTE | 2016-03-19 18:28 | CONS ---
Date/Time of Note Date/Time of Note DATE: 03/19/16 TIME: 18:26 Assessment/Plan Assessment/Plan Chief Complaint/Hosp Course IMPRESSION: 1. Congestive heart failure exacerbation, systolic, acute on chronic.-Now with worsening volume status and has been transferred to ICU 2. History of cardiomyopathy with severely depressed left ventricular ejection fraction, last approximately 20% to 25% by echo this admit 3. End-stage renal disease on hemodialysis. 4. History of myocardial infarction by stress 04/2015/No ischemia by stress this admit EF 16% 5. Anemia. 6. Hypertension. 7. Hypothyroidism. 8. Prostate carcinoma. 9. Dementia. 10. Positive troponin-now trended negative 11.Wide complex tachycardia- ?NSVT-no recurrence 12. 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 Problems: Consultation Date/Type/Reason Admit Date/Time Mar 08, 2016 at 11:43 Initial Consult Date 03/08/2016 Type of Consultation: Cardiology Reason for Consultation CHF Referring Provider: OLIVA BARRERA Exam/Review of Systems Vital Signs Vitals Vital Signs Date Time Temp Pulse Resp B/P Pulse Ox O2 Delivery O2 Flow Rate FiO2 03/19/16 18:11 5.0 03/19/16 16:54 78 03/19/16 15:35 98.0 18 111/59 98 03/19/16 15:34 Nasal Cannula 03/18/16 09:55 100 Intake and Output 03/18/16 03/18/16 03/19/16 15:00 23:00 07:00 Intake Total 220 ml Output Total 360 ml 365 ml 330 ml Balance -140 ml -365 ml -330 ml Exam Review of Systems: CONSTITUTIONAL: No fevers, chills. PULMONARY: No sob CARDIOVASCULAR: No chest pain/palpitations GASTROINTESTINAL: No nausea/vomiting. GENITOURINARY: No hematuria/dysuria. MUSCULOSKELETAL: No myagias/arthalgias. PSYCHIATRIC: The patient denies depression. NEUROLOGIC: lethargy Constitutional: alert Psych: no complaints Head: normocephalic ENMT: mucosa pink and moist Neck: jvd (9 cm water), supple Respiratory: diminished breath sounds (at bases/B) Cardiovascular: regular rate and rhythm Gastrointestinal: non-tender, soft Musculoskeletal: muscle tone (normal) Extremities: edema (none) Neurological: other (No focal deficits) Results Result Diagram: 03/19/1644903/19/16 0450 Results 24 hrs Laboratory Tests Test 03/19/16 04:50 03/19/16 08:00 Alanine Aminotransferase (ALT/SGPT) 60 Albumin 3.1 L Albumin/Globulin Ratio 0.88 Alkaline Phosphatase 698 H Anion Gap 22 H Aspartate Amino Transf (AST/SGOT) 58 H Basophils # 0.0 Basophils % 0.0 Blood Morphology Comment Blood Urea Nitrogen 38 H Calcium Level 5.0 *L Carbon Dioxide Level 19 L Chloride Level 102 Creatinine 1.14 Direct Bilirubin 0.00 Eosinophils # 0.0 Eosinophils % 0.2 Globulin 3.50 H Glucose Level 115 Hematocrit 27.6 L Hemoglobin 9.3 L Indirect Bilirubin 0.5 Lymphocytes # 0.7 L Lymphocytes % 10.8 L Magnesium Level 2.0 Mean Corpuscular Hemoglobin 30.3 Mean Corpuscular Hemoglobin Concent 33.8 Mean Corpuscular Volume 89.6 Mean Platelet Volume 7.7 Monocytes # 0.4 Monocytes % 6.8 Neutrophils # 5.1 Neutrophils % 82.2 H Nucleated Red Blood Cells # 0.2 H Nucleated Red Blood Cells % 3.0 H Parathyroid Hormone (Intact) Phosphorus Level 3.4 Platelet Count 251 Potassium Level 3.5 Red Blood Count 3.08 L Red Cell Distribution Width 17.6 H Sodium Level 139 Total Bilirubin 0.5 Total Protein 6.6 Vitamin D 1,25-Dihydroxy 18.6 L White Blood Count 6.2 Arterial Blood HCO3 17.6 L Arterial Blood Base Excess -4.3 L Arterial Blood Oxygen Saturation 95.7 Brigido Test ACCEPTAB Arterial Blood Gas Puncture Site Right Radial Arterial Blood Carboxyhemoglobin 0.3 Arterial Blood Date Drawn 03/19/2016 8:15:41 AM Arterial Blood Methemoglobin 0.3 Arterial Blood pCO2 (Temp correct) 23.4 L Arterial Blood pH (Temp corrected) 7.494 H Arterial Blood pO2 (Temp corrected) 75.5 L Blood Gas A-a O2 Differential 175.6 H Blood Gas Modality NASAL CANNULA Blood Gas Notified Time 03/19/2016 8:27:25 AM Blood Gas Notified Whom JLD Blood Gas Specimen Source Blood arterial Blood Gas Temperature 37.0 FiO2 39.0 Oxyhemoglobin Percent 95.1 Total Hemoglobin 10.9 L Medications Medications Current Medications Ondansetron HCl (Zofran Inj) 4 mg Q6H PRN IV NAUSEA AND/OR VOMITING; Start at 14:00 Acetaminophen (Tylenol Tab) 650 mg Q6H PRN PO PAIN LEVEL 1-3 OR FEVER Last administered on 03/11/16 21:28; Admin Dose 650 MG; Start 03/08/16 at 14:00 Acetaminophen/ Hydrocodone Bitart ([place] (5/325)) 1 tab Q6H PRN PO PAIN LEVEL 4 -6 Last administered on 03/13/16 19:33; Admin Dose 1 TAB; Start 03/08/16 at 14: 00 Morphine Sulfate (morphine) 2 mg Q4H PRN IV PAIN LEVEL 7-10 Last administered on 03/19/16 10:48; Admin Dose 2 MG; Start 03/08/16 at 14:00 Carvedilol (Coreg) 3.125 mg BID PO Last administered on 03/19/16 08:57; Admin Dose 3.125 MG; Start 03/08/16 at 21:00 Imipramine HCl (Tofranil) 25 mg BID PO Last administered on 03/19/16 08:41; Admin Dose 25 MG; Start 03/08/16 at 21:00 Hydralazine HCl (Apresoline) 10 mg Q6H PRN IV SBP>160; Start 03/08/16 at 16:00 Bicalutamide (Casodex) 50 mg DAILY PO Last administered on 03/19/16 08:47; Admin Dose 50 MG; Start 03/09/16 at 09:00 Lisinopril (Zestril) 2.5 mg DAILY PO Last administered on 03/11/16 08:26; Admin Dose 2.5 MG; Start 03/09/16 at 09:00; Status Future Hold Docusate Sodium (Colace) 200 mg HS PO Last administered on 03/18/16 21:19; Admin Dose 200 MG; Start 03/10/16 at 21:00 Hydralazine HCl (Apresoline) 10 mg Q12 PO Last administered on 03/19/16 08:57 ; Admin Dose 10 MG; Start 03/11/16 at 21:00 Phenol (Cepastat Lozenge) 1 lozenge Q4 PRN MT SORE THROAT; Start 03/13/16 at 19 :00 Furosemide (Lasix) 20 mg DAILY PO Last administered on 03/16/16 08:47; Admin Dose 20 MG; Start 03/14/16 at 11:00; Status Future Hold Megestrol Acetate 400 mg 400 mg BID PO Last administered on 03/19/16 08:41; Admin Dose 400 MG; Start 03/17/16 at 21:00 Levofloxacin/ Dextrose (Levaquin 250 Mg/ D5W 50 ml (Pmx)) 50 ml @ 50 mls/hr Q24H IVPB Last administered on 03/19/16 07:11; Admin Dose 50 MLS/HR; Start at 07:00 Calcium Carbonate (Oyster Shell Calcium) 1.25 gm TID PO Last administered on 13:13; Admin Dose 1.25 GM; Start 03/19/16 at 09:00 Cholecalciferol (Vitamin D) 1,000 unit DAILY PO ; Start 03/20/16 at 09:00 JUAN CARLOS ALEJANDRO Mar 19, 2016 18:28
--- NOTE | 2016-03-19 20:42 | PN ---
DATE: 03/19/2016 SUBJECTIVE: Metastatic prostate cancer and urethral meatal stenosis that was dilated and a Hernandez ca theter was inserted. The patient himself appears to be comfortable today, more alert and awake. He does not complain of pain in the pelvic area from the Hernandez catheter. OBJECTIVE: VITAL SIGNS: He is afebrile, temperature is 98.0, the pulse is 78, respiration 18, blood pressure 1 11/59. ABDOMEN: Hernandez catheter is draining clear urine and the output is about 1010 mL per 24 hours. LABORATORY DATA: His PSA is over 1000. The CBC shows a white count of 6.2, hemoglobin 9.3, hematoc rit 27.6. BUN is 38, creatinine 1.14, sodium 139, potassium 3.5, chloride 102, CO2 19. PSA is grea ter than 1000. IMPRESSION: Metastatic prostate cancer. The patient is on bicalutamide and also he is being follow ed by Oncology and he was seen by Dr. Anil Gonzalez today and it appears that the patient is on als o Firmagon and it appears that it will be resumed when it is available. PLAN: To keep the Hernandez catheter in and continue his present treatment. Dictated By: DAQUAN PINTO/JESUS Conf#: [id number] DID#: [id number]
[2016-03-19] MEDS: DOCUSATE SODIUM 100 MG CAP PO SCH (21:07)
[2016-03-20] VITALS (13 sets, daily range): BP systolic 88–114; BP diastolic 53–57; PULSE 45–91; RESP 18–20
[2016-03-20] MEDS: FUROSEMIDE 20 MG INJ IV SCH ×2 (05:33→17:22)
[2016-03-20 07:01] LABS: BASOPHILS % 0.2 % (0.0-2.0); EOSINOPHILS % 0.3 % (0.0-7.0); HEMATOCRIT 26.6 % (42.0-52.0); HEMOGLOBIN 8.9 g/dl (14.0-18.0); LYMPHOCYTES # 0.8 10^3/ul (0.8-2.9); LYMPHOCYTES % 13.4 % (15.0-51.0); MEAN CORPUSCULAR HEMOGLOBIN 29.9 pg (29.0-33.0); MEAN CORPUSCULAR HGB CONC 33.6 g/dl (32.0-37.0); MEAN CORPUSCULAR VOLUME 89.2 fl (82.0-101.0); MEAN PLATELET VOLUME 7.9 fl (7.4-10.4); MONOCYTE # 0.4 10^3/ul (0.3-0.9); MONOCYTES % 6.1 % (0.0-11.0); NEUTROPHIL # 4.8 10^3/ul (1.6-7.5); PLATELET COUNT 250 10^3/UL (140-440); RED BLOOD COUNT 2.98 10^6/ul (4.70-6.10); RED CELL DISTRIBUTION WIDTH 17.4 % (11.5-14.5)
[2016-03-20 07:06] LABS: CONDITION 1; LH ANALYZER COMMENTS 1
[2016-03-20 07:14] LABS: ALBUMIN 3.1 g/dl (3.3-4.9); POTASSIUM 3.7 mmol/L (3.5-5.1)
[2016-03-20 07:16] LABS: BILIRUBIN,INDIRECT 0.6 mg/dl (0-1.1); BILIRUBIN,TOTAL 0.6 mg/dl (0.2-1.3); CREATININE 1.2 mg/dl (0.61-1.24)
[2016-03-20 07:17] LABS: ALBUMIN/GLOBULIN RATIO 0.93; TOTAL PROTEIN 6.4 g/dl (6.1-8.1)
[2016-03-20 07:34] LABS: CALCIUM 5.7 mg/dl (8.4-10.2)
[2016-03-20 07:44] LABS: PHOSPHORUS 3.8 mg/dl (2.5-4.9)
[2016-03-20] MEDS: PANTOPRAZOLE (EC) 40 MG TAB PO SCH ×2 (07:53→17:21)
[2016-03-20] MEDS: LEVOTHYROXINE 25 MCG TAB PO SCH (07:53)
[2016-03-20] MEDS: LEVOFLOXACIN 250MG/D5W (PMX) 50 ML IVPB SCH (07:53)
[2016-03-20] MEDS: ALBUTEROL/IPRATROPIUM (NEB) 3 ML AMP HHN SCH ×3 (08:11→21:13)
[2016-03-20] MEDS ORDERED: LEUPROLIDE 7.5 MG INJ IM ONE (08:30)
[2016-03-20] MEDS: MEGESTROL (40 MG/ML) 10ML CUP PO SCH ×2 (08:47→21:56)
[2016-03-20] MEDS: CALCIUM CARBONATE 1.25 GM TAB PO SCH ×3 (08:47→21:49)
[2016-03-20] MEDS: BICALUTAMIDE 50 MG TAB PO SCH (08:48)
[2016-03-20] MEDS: CHOLECALCIFEROL 1,000 UNIT TAB PO SCH (08:49)
[2016-03-20] MEDS: IMIPRAMINE 25 MG TAB PO SCH ×2 (08:49→21:49)
[2016-03-20] MEDS ORDERED: [UNRECOGNIZED DRUG - OTHER] SC SCH (10:00)
--- NOTE | 2016-03-20 10:22 | CONS ---
DATE OF ADMISSION: 03/08/2016 DATE OF CONSULTATION: 03/20/2016 MEDICAL ONCOLOGY PROGRESS NOTE SUBJECTIVE: Mr. Frey has been transferred back to floor care. He is now resting comfortably. He denies shortness of breath. No chest pain at this time. He does not complain of bone pain. OBJECTIVE: VITAL SIGNS: Temperature 98, pulse 70 per minute and regular, respirations 18, blood pressure 114/6 5 and pulse oximetry 100% on 5 liters of oxygen by nasal cannula. SKIN: Pale, but no ecchymosis, no petechiae or rashes. HEENT: No mucosal lesions. No scleral icterus. There is nasal oxygen in place. NECK: Supple. There is some jugulovenous distention. No carotid bruits. CHEST: Bibasilar rales and decreased breath sounds in both bases. No rubs. HEART: Regular sinus rhythm, no S3, S4 or murmurs. ABDOMEN: Soft, no masses, no ascites. EXTREMITIES: No clubbing or cyanosis. No edema. NEUROLOGIC: Normal. LABORATORY DATA: White count 6000, hemoglobin 8.9, hematocrit is 26.6, and platelet count 250,000. Sodium 138, potassium 3.7, BUN 39, creatinine 1.20, calcium 5.7. ASSESSMENT: 1. Congestive cardiomyopathy. 2. Metastatic prostate carcinoma. PLAN: I would like to reiterate again this patient is not hormone refractory. He had voluntarily s topped leuprolide almost 2 years ago. The patient has recently been started on Firmagon and received only a loading dose. It is difficult for us to obtain Firmagon in the hospital and therefore will, at least in the short term, administe r leuprolide again. The patient is already receiving bicalutamide. Therefore, there is no concern about the possibility of flare and pain due to a brief spiking testosterone level after administrati on of leuprolide. We will give 7.5 mg of Depo leuprolide today. Dictated By: MELINDA PAYNE MD, SR/JESUS Conf#: [id number] DID#: [id number]
--- NOTE | 2016-03-20 11:33 | CONS ---
Date/Time of Note Date/Time of Note DATE: 03/20/16 TIME: 11:32 Consult Date/Type/Reason Admit Date/Time Mar 08, 2016 at 11:43 Type of Consultation: Pulm Ordering Provider: OLIVA BARRERA Subjective Complaining of pain around neck, awake alert. Objective Vital Signs Date Time Temp Pulse Resp B/P Pulse Ox O2 Delivery O2 Flow Rate FiO2 03/20/16 08:30 Nasal Cannula 5.0 03/20/16 08:23 68 03/20/16 08:12 98 03/20/16 08:12 16 03/20/16 08:11 97.8 102/56 03/18/16 09:55 100 Intake and Output 03/19/16 03/19/16 03/20/16 15:00 23:00 07:00 Intake Total 890 ml 100 ml 600 ml Output Total 310 ml 140 ml 650 ml Balance 580 ml -40 ml -50 ml PHYSICAL EXAMINATION: GENERAL: Elderly-appearing gentleman appears comfortable at rest, no acute distress. VITAL SIGNS: as above NECK: Supple. No JVD or lymphadenopathy. CARDIAC: S1, S2, no added sounds or murmurs. CHEST: Diminished air entry bilaterally. ABDOMEN: Soft, nontender. No guarding or rebound. EXTREMITIES: No cyanosis, clubbing or edema. NEUROLOGIC: Grossly intact. No focal deficits. Results/Medications Result Diagram: 03/20/16 0540 03/20/16 0540 Results 24 hrs Laboratory Tests Test 03/20/16 05:40 Alanine Aminotransferase (ALT/SGPT) 56 Albumin 3.1 L Albumin/Globulin Ratio 0.93 Alkaline Phosphatase 693 H Anion Gap 19 H Aspartate Amino Transf (AST/SGOT) 54 H Basophils # 0.0 Basophils % 0.2 Blood Morphology Comment Blood Urea Nitrogen 39 H Calcium Level 5.7 *L Carbon Dioxide Level 22 Chloride Level 101 Creatinine 1.20 Direct Bilirubin 0.00 Eosinophils # 0.0 Eosinophils % 0.3 Globulin 3.30 H Glucose Level 105 Hematocrit 26.6 L Hemoglobin 8.9 L Indirect Bilirubin 0.6 Lymphocytes # 0.8 Lymphocytes % 13.4 L Magnesium Level 2.0 Mean Corpuscular Hemoglobin 29.9 Mean Corpuscular Hemoglobin Concent 33.6 Mean Corpuscular Volume 89.2 Mean Platelet Volume 7.9 Monocytes # 0.4 Monocytes % 6.1 Neutrophils # 4.8 Neutrophils % 80.0 H Nucleated Red Blood Cells # 0.0 Nucleated Red Blood Cells % 0.0 Phosphorus Level 3.8 Platelet Count 250 Potassium Level 3.7 Red Blood Count 2.98 L Red Cell Distribution Width 17.4 H Sodium Level 138 Total Bilirubin 0.6 Total Protein 6.4 White Blood Count 6.0 Medications Current Medications Ondansetron HCl (Zofran Inj) 4 mg Q6H PRN IV NAUSEA AND/OR VOMITING; Start at 14:00 Acetaminophen (Tylenol Tab) 650 mg Q6H PRN PO PAIN LEVEL 1-3 OR FEVER Last administered on 03/11/16 21:28; Admin Dose 650 MG; Start 03/08/16 at 14:00 Acetaminophen/ Hydrocodone Bitart ([place] (5/325)) 1 tab Q6H PRN PO PAIN LEVEL 4 -6 Last administered on 03/13/16 19:33; Admin Dose 1 TAB; Start 03/08/16 at 14: 00 Morphine Sulfate (morphine) 2 mg Q4H PRN IV PAIN LEVEL 7-10 Last administered on 03/19/16 10:48; Admin Dose 2 MG; Start 03/08/16 at 14:00 Carvedilol (Coreg) 3.125 mg BID PO Last administered on 03/20/16 08:47; Admin Dose 3.125 MG; Start 03/08/16 at 21:00 Imipramine HCl (Tofranil) 25 mg BID PO Last administered on 03/20/16 08:49; Admin Dose 25 MG; Start 03/08/16 at 21:00 Hydralazine HCl (Apresoline) 10 mg Q6H PRN IV SBP>160; Start 03/08/16 at 16:00 Bicalutamide (Casodex) 50 mg DAILY PO Last administered on 03/20/16 08:48; Admin Dose 50 MG; Start 03/09/16 at 09:00 Lisinopril (Zestril) 2.5 mg DAILY PO Last administered on 03/11/16 08:26; Admin Dose 2.5 MG; Start 03/09/16 at 09:00; Status Future Hold Docusate Sodium (Colace) 200 mg HS PO Last administered on 03/19/16 21:07; Admin Dose 200 MG; Start 03/10/16 at 21:00 Hydralazine HCl (Apresoline) 10 mg Q12 PO Last administered on 03/20/16 08:49 ; Admin Dose 10 MG; Start 03/11/16 at 21:00 Phenol (Cepastat Lozenge) 1 lozenge Q4 PRN MT SORE THROAT; Start 03/13/16 at 19 :00 Furosemide (Lasix) 20 mg DAILY PO Last administered on 03/16/16 08:47; Admin Dose 20 MG; Start 03/14/16 at 11:00; Status Future Hold Megestrol Acetate 400 mg 400 mg BID PO Last administered on 03/20/16 08:47; Admin Dose 400 MG; Start 03/17/16 at 21:00 Levofloxacin/ Dextrose (Levaquin 250 Mg/ D5W 50 ml (Pmx)) 50 ml @ 50 mls/hr Q24H IVPB Last administered on 03/20/16 07:53; Admin Dose 50 MLS/HR; Start at 07:00 Calcium Carbonate (Oyster Shell Calcium) 1.25 gm TID PO Last administered on 08:47; Admin Dose 1.25 GM; Start 03/19/16 at 09:00 Cholecalciferol (Vitamin D) 1,000 unit DAILY PO Last administered on 03/20/16 08:49; Admin Dose 1,000 UNIT; Start 03/20/16 at 09:00 Assessment/Plan Chief Complaint/Hosp Course IMPRESSION AND PLAN: 1. Acute hypoxemic respiratory failure, likely secondary to congestive cardiac failure with underlying history of cardiomyopathy. 2. History of prostate cancer. 3. Possible urinary retention. 4. Possible aspiration pneumonia. The patient will require: 1. Continued bronchodilators. 2. Supplemental O2. 3. diuresis. 4. roque catheter in place, appreciate urology recs. 5. DVT and GI prophylaxis. 6. Continue Lupron per heme onc consider transfer to [place]. Problems: MARLA NEWBY MD, [facility] Mar 20, 2016 11:33
--- NOTE | 2016-03-20 11:51 | PN ---
Date/Time of Note Date/Time of Note DATE: 03/20/16 TIME: 11:49 Assessment/Plan VTE Prophylaxis VTE Prophylaxis Intervention: SCD's Lines/Catheters IV [facility] Urinary Cath still in place: Yes Reason Cath still needed: terminal illness/intractable pain Assessment/Plan Chief Complaint/Hosp Course 1. Congestive heart failure exacerbation, acute on chronic, systolic dysfunction. Continue aggressive diuresis. Cardiology following the patient. 2. Metastatic prostate carcinoma with bone metastasis. Continue pain control. The patient is on bicalutamide. The patient being followed by oncology. 3. Ischemic cardiomyopathy with ejection fraction of 20% to 25%. Continue beta blockers. Je inhibitors have been on hold because of worsening renal function. Cardiology following. 4. Hypocalcemia. Will provide the patient with calcium supplements. Etiology of hypocalcemia remains unclear. Most probably secondary to bony metastasis. Low vitamin D levels. Continue vitamin D supplementation. Pending parathyroid hormone levels. 5. Acute hypoxic respiratory failure secondary to congestive heart failure exacerbation. Continue supplemental oxygen and inhaled bronchodilators. Pulmonary following the patient. 6. Severe pulmonary hypertension with a PA pressure of 85 mmHg. Continue supplemental oxygen. 7. Hypothyroidism. Continue Synthroid. 8. Non sustained wide complex tachycardia. Continue management as per cardiology. 9. Essential hypertension. Continue antihypertensives. 10. Normocytic normochromic anemia. Iron panel within normal limits. Stool for OB x1 negative. Probably anemia of chronic disease. Monitor H and H closely. Transfuse as needed. 11. Dementia. Continue frequent reorientation. 12. Fluids, electrolytes, and nutrition. Pureed diet. 13. Deep venous thrombosis prophylaxis. Bilateral sequential compression devices. 14. Gastrointestinal prophylaxis. Proton pump inhibitors. 15. Plan. Continue supplemental oxygen. Continue inhaled bronchodilators. Replete calcium. Patient's family requesting hospice evaluation. Pending hospice evaluation. The case was discussed with Dr. Jimenez Problems: Subjective 24 Hr Interval Summary Free Text/Dictation Denies any pain. Vital signs stable. Exam/Review of Systems Vital Signs Vitals Vital Signs Date Time Temp Pulse Resp B/P Pulse Ox O2 Delivery O2 Flow Rate FiO2 03/20/16 08:30 Nasal Cannula 5.0 03/20/16 08:23 68 03/20/16 08:12 98 03/20/16 08:12 16 03/20/16 08:11 97.8 102/56 03/18/16 09:55 100 Intake and Output 03/19/16 03/19/16 03/20/16 15:00 23:00 07:00 Intake Total 890 ml 100 ml 600 ml Output Total 310 ml 140 ml 650 ml Balance 580 ml -40 ml -50 ml Exam GENERAL: This is an elderly male lying in bed in mild respiratory distress. HEENT: Head normocephalic and atraumatic. Eyes: Anicteric sclerae. Conjunctivae clear. ENT: Nasal septum is midline. Oral mucosa is dry. Tongue midline. No thrush. NECK: Supple. No JVD noticed. RESPIRATORY: Bilaterally diminished breath sounds. Minimal use of accessory muscles of respiration. CARDIAC: Regular rate and rhythm. ABDOMEN: Soft, nontender, and nondistended. Bowel sounds positive in all 4 quadrants. GENITOURINARY: The patient has a Hernandez catheter in place that is draining clear , straw-colored urine. EXTREMITIES: No cyanosis, no clubbing, no edema. Peripheral pulses are palpable. NEUROLOGIC: The patient is awake, alert, and oriented. The patient moves all 4 extremities. Results Result Diagram: 03/20/16 0540 03/20/16 0540 Results 24 hrs Laboratory Tests Test 03/20/16 05:40 Alanine Aminotransferase (ALT/SGPT) 56 Albumin 3.1 L Albumin/Globulin Ratio 0.93 Alkaline Phosphatase 693 H Anion Gap 19 H Aspartate Amino Transf (AST/SGOT) 54 H Basophils # 0.0 Basophils % 0.2 Blood Morphology Comment Blood Urea Nitrogen 39 H Calcium Level 5.7 *L Carbon Dioxide Level 22 Chloride Level 101 Creatinine 1.20 Direct Bilirubin 0.00 Eosinophils # 0.0 Eosinophils % 0.3 Globulin 3.30 H Glucose Level 105 Hematocrit 26.6 L Hemoglobin 8.9 L Indirect Bilirubin 0.6 Lymphocytes # 0.8 Lymphocytes % 13.4 L Magnesium Level 2.0 Mean Corpuscular Hemoglobin 29.9 Mean Corpuscular Hemoglobin Concent 33.6 Mean Corpuscular Volume 89.2 Mean Platelet Volume 7.9 Monocytes # 0.4 Monocytes % 6.1 Neutrophils # 4.8 Neutrophils % 80.0 H Nucleated Red Blood Cells # 0.0 Nucleated Red Blood Cells % 0.0 Phosphorus Level 3.8 Platelet Count 250 Potassium Level 3.7 Red Blood Count 2.98 L Red Cell Distribution Width 17.4 H Sodium Level 138 Total Bilirubin 0.6 Total Protein 6.4 White Blood Count 6.0 Medications Medications Current Medications Ondansetron HCl (Zofran Inj) 4 mg Q6H PRN IV NAUSEA AND/OR VOMITING; Start at 14:00 Acetaminophen (Tylenol Tab) 650 mg Q6H PRN PO PAIN LEVEL 1-3 OR FEVER Last administered on 03/11/16 21:28; Admin Dose 650 MG; Start 03/08/16 at 14:00 Acetaminophen/ Hydrocodone Bitart ([place] (5/325)) 1 tab Q6H PRN PO PAIN LEVEL 4 -6 Last administered on 03/13/16 19:33; Admin Dose 1 TAB; Start 03/08/16 at 14: 00 Morphine Sulfate (morphine) 2 mg Q4H PRN IV PAIN LEVEL 7-10 Last administered on 03/19/16 10:48; Admin Dose 2 MG; Start 03/08/16 at 14:00 Carvedilol (Coreg) 3.125 mg BID PO Last administered on 03/20/16 08:47; Admin Dose 3.125 MG; Start 03/08/16 at 21:00 Imipramine HCl (Tofranil) 25 mg BID PO Last administered on 03/20/16 08:49; Admin Dose 25 MG; Start 03/08/16 at 21:00 Hydralazine HCl (Apresoline) 10 mg Q6H PRN IV SBP>160; Start 03/08/16 at 16:00 Bicalutamide (Casodex) 50 mg DAILY PO Last administered on 03/20/16 08:48; Admin Dose 50 MG; Start 03/09/16 at 09:00 Lisinopril (Zestril) 2.5 mg DAILY PO Last administered on 03/11/16 08:26; Admin Dose 2.5 MG; Start 03/09/16 at 09:00; Status Future Hold Docusate Sodium (Colace) 200 mg HS PO Last administered on 03/19/16 21:07; Admin Dose 200 MG; Start 03/10/16 at 21:00 Hydralazine HCl (Apresoline) 10 mg Q12 PO Last administered on 03/20/16 08:49 ; Admin Dose 10 MG; Start 03/11/16 at 21:00 Phenol (Cepastat Lozenge) 1 lozenge Q4 PRN MT SORE THROAT; Start 03/13/16 at 19 :00 Furosemide (Lasix) 20 mg DAILY PO Last administered on 03/16/16 08:47; Admin Dose 20 MG; Start 03/14/16 at 11:00; Status Future Hold Megestrol Acetate 400 mg 400 mg BID PO Last administered on 03/20/16 08:47; Admin Dose 400 MG; Start 03/17/16 at 21:00 Levofloxacin/ Dextrose (Levaquin 250 Mg/ D5W 50 ml (Pmx)) 50 ml @ 50 mls/hr Q24H IVPB Last administered on 03/20/16 07:53; Admin Dose 50 MLS/HR; Start at 07:00 Calcium Carbonate (Oyster Shell Calcium) 1.25 gm TID PO Last administered on 08:47; Admin Dose 1.25 GM; Start 03/19/16 at 09:00 Cholecalciferol (Vitamin D) 1,000 unit DAILY PO Last administered on 03/20/16 08:49; Admin Dose 1,000 UNIT; Start 03/20/16 at 09:00 ERICA MOHAN NP Mar 20, 2016 11:51
--- NOTE | 2016-03-20 13:55 | CONS ---
Date/Time of Note Date/Time of Note DATE: 03/20/16 TIME: 13:52 Assessment/Plan Assessment/Plan Additional Assessment/Plan 1. Congestive heart failure exacerbation, systolic, acute on chronic.-stable, con't to remove fluid as tolerated. 2. History of cardiomyopathy with severely depressed left ventricular ejection fraction, last approximately 20% to 25% by echo this admit 3. End-stage renal disease on hemodialysis - RX per REanl team. 4. History of myocardial infarction by stress 04/2015/No ischemia by stress this admit EF 16% 5. Anemia. 6. Hypertension- modest Rx, will monitor clinically. 7. Hypothyroidism. 8. Prostate carcinoma. 9. Dementia. 10. Positive troponin-now trended negative - no CP now - med rx planned. 11.Wide complex tachycardia- ?NSVT-no recurrence 12. acute renal failure Consultation Date/Type/Reason Admit Date/Time Mar 08, 2016 at 11:43 Type of Consultation: Pulm Referring Provider: OLIVA BARRERA 24 HR Interval Summary Free Text/Dictation NO acute change - optimize BP with HD. ROS: No fever, no chills, no nausea, no vomiting, no diarrhea/constipation No recent weight changes No chest pain, no PND, no orthopnea No dizziness, blurred vision No thirst, no heat or cold intolerance Exam/Review of Systems Vital Signs Vitals Vital Signs Date Time Temp Pulse Resp B/P Pulse Ox O2 Delivery O2 Flow Rate FiO2 03/20/16 12:48 74 03/20/16 11:57 98.1 18 88/53 95 03/20/16 08:30 Nasal Cannula 5.0 03/18/16 09:55 100 Intake and Output 03/19/16 03/19/16 03/20/16 15:00 23:00 07:00 Intake Total 890 ml 100 ml 600 ml Output Total 310 ml 140 ml 650 ml Balance 580 ml -40 ml -50 ml Exam General: WN/WD/NAD, AOx 1-2 HEENT: Unicetric/atraumatic/EOMI (does not follow commands) NECK: JVD elevated, no thyromegaly Lymph: no lymphadenopathy HEART: regular with no S3, II/ systolic murmur at apex LUNGS: Coarse sounds ABD: soft, NT, ND, +BS : Intact Neuro: non focal SKIN: chronic changes EXT: trace edema Results Result Diagram: 03/20/16 0540 03/20/16 0540 Results 24 hrs Laboratory Tests Test 03/20/16 05:40 Alanine Aminotransferase (ALT/SGPT) 56 Albumin 3.1 L Albumin/Globulin Ratio 0.93 Alkaline Phosphatase 693 H Anion Gap 19 H Aspartate Amino Transf (AST/SGOT) 54 H Basophils # 0.0 Basophils % 0.2 Blood Morphology Comment Blood Urea Nitrogen 39 H Calcium Level 5.7 *L Carbon Dioxide Level 22 Chloride Level 101 Creatinine 1.20 Direct Bilirubin 0.00 Eosinophils # 0.0 Eosinophils % 0.3 Globulin 3.30 H Glucose Level 105 Hematocrit 26.6 L Hemoglobin 8.9 L Indirect Bilirubin 0.6 Lymphocytes # 0.8 Lymphocytes % 13.4 L Magnesium Level 2.0 Mean Corpuscular Hemoglobin 29.9 Mean Corpuscular Hemoglobin Concent 33.6 Mean Corpuscular Volume 89.2 Mean Platelet Volume 7.9 Monocytes # 0.4 Monocytes % 6.1 Neutrophils # 4.8 Neutrophils % 80.0 H Nucleated Red Blood Cells # 0.0 Nucleated Red Blood Cells % 0.0 Phosphorus Level 3.8 Platelet Count 250 Potassium Level 3.7 Red Blood Count 2.98 L Red Cell Distribution Width 17.4 H Sodium Level 138 Total Bilirubin 0.6 Total Protein 6.4 White Blood Count 6.0 Medications Medications Current Medications Ondansetron HCl (Zofran Inj) 4 mg Q6H PRN IV NAUSEA AND/OR VOMITING; Start at 14:00 Acetaminophen (Tylenol Tab) 650 mg Q6H PRN PO PAIN LEVEL 1-3 OR FEVER Last administered on 03/11/16 21:28; Admin Dose 650 MG; Start 03/08/16 at 14:00 Acetaminophen/ Hydrocodone Bitart ([place] (5/325)) 1 tab Q6H PRN PO PAIN LEVEL 4 -6 Last administered on 03/13/16 19:33; Admin Dose 1 TAB; Start 03/08/16 at 14: 00 Morphine Sulfate (morphine) 2 mg Q4H PRN IV PAIN LEVEL 7-10 Last administered on 03/19/16 10:48; Admin Dose 2 MG; Start 03/08/16 at 14:00 Carvedilol (Coreg) 3.125 mg BID PO Last administered on 03/20/16 08:47; Admin Dose 3.125 MG; Start 03/08/16 at 21:00 Imipramine HCl (Tofranil) 25 mg BID PO Last administered on 03/20/16 08:49; Admin Dose 25 MG; Start 03/08/16 at 21:00 Hydralazine HCl (Apresoline) 10 mg Q6H PRN IV SBP>160; Start 03/08/16 at 16:00 Bicalutamide (Casodex) 50 mg DAILY PO Last administered on 03/20/16 08:48; Admin Dose 50 MG; Start 03/09/16 at 09:00 Lisinopril (Zestril) 2.5 mg DAILY PO Last administered on 03/11/16 08:26; Admin Dose 2.5 MG; Start 03/09/16 at 09:00; Status Future Hold Docusate Sodium (Colace) 200 mg HS PO Last administered on 03/19/16 21:07; Admin Dose 200 MG; Start 03/10/16 at 21:00 Hydralazine HCl (Apresoline) 10 mg Q12 PO Last administered on 03/20/16 08:49 ; Admin Dose 10 MG; Start 03/11/16 at 21:00 Phenol (Cepastat Lozenge) 1 lozenge Q4 PRN MT SORE THROAT; Start 03/13/16 at 19 :00 Furosemide (Lasix) 20 mg DAILY PO Last administered on 03/16/16 08:47; Admin Dose 20 MG; Start 03/14/16 at 11:00; Status Future Hold Megestrol Acetate 400 mg 400 mg BID PO Last administered on 03/20/16 08:47; Admin Dose 400 MG; Start 03/17/16 at 21:00 Levofloxacin/ Dextrose (Levaquin 250 Mg/ D5W 50 ml (Pmx)) 50 ml @ 50 mls/hr Q24H IVPB Last administered on 03/20/16 07:53; Admin Dose 50 MLS/HR; Start at 07:00 Calcium Carbonate (Oyster Shell Calcium) 1.25 gm TID PO Last administered on 13:02; Admin Dose 1.25 GM; Start 03/19/16 at 09:00 Cholecalciferol (Vitamin D) 1,000 unit DAILY PO Last administered on 03/20/16 08:49; Admin Dose 1,000 UNIT; Start 03/20/16 at 09:00 KIMBERLEE LOPES MD Mar 20, 2016 13:55
--- NOTE | 2016-03-20 14:10 | PN ---
DATE: 03/20/2016 SUBJECTIVE: The patient does have metastatic prostate cancer, and he has urethral meatal stenosis t hat was dilated, and a Hernandez catheter was put in. OBJECTIVE: VITAL SIGNS: Temperature is 98.1, pulse is 74, blood pressure 88/53, respiration 18, and pulse oxim etry is 95%. ABDOMEN: Soft. GENITOURINARY: Hernandez catheter that he has is draining clear urine. LABORATORY DATA: His CBC shows a white count of 6.0, hemoglobin is 8.9, hematocrit 26.6. BUN is 39 , creatinine 1.2. His PSA has been over 1000. The urine culture shows no growth after 48 hours. IMPRESSION AND PLAN: Metastatic prostate cancer. The patient is on bicalutamide, and he is being f ollowed by oncology. He is supposed to be on Firmagon as per oncology, and that probably is not [place] here in the hospital yet. He was given Lupron instead of the Firmagon. At some time, we hav e to take out the Hernandez catheter and see if he is able to urinate on his own. Dictated By: DAQUAN PINTO/JESUS Conf#: [id number] DID#: [id number]
--- NOTE | 2016-03-20 14:19 | PN ---
DATE: 03/20/2016 It was previously felt that the patient would be receiving Lupron but the hospital was able to obtai n Firmagon and the patient will be given Firmagon today. Dictated By: MELINDA PAYNE MD SR/NTS Conf#: [id number] DID#: [id number]
--- NOTE | 2016-03-20 14:47 | RADRPT ---
Vent Rate: 76 bpm RR Interval: 0 msec [place] Interval: 0 msec QRS Duration: 168 msec QT Interval: 506 msec QTC Interval: 569 msec P-R-T [place]: 0 - 7 - 0 degrees Atrial fibrillation Left bundle branch block Abnormal ECG Electronically Signed By: Anil Romano [id number]
[2016-03-20] MEDS ORDERED: BISACODYL (EC) 5 MG TAB PO PRN (15:00)
[2016-03-20] MEDS: DOCUSATE SODIUM 100 MG CAP PO SCH (21:49)
[2016-03-20] MEDS: POLYETHYLENE GLYCOL 17 GM PACKET PO SCH (21:49)
[2016-03-21] VITALS (11 sets, daily range): BP systolic 96–113; BP diastolic 51–57; PULSE 70–81; RESP 16–18
[2016-03-21] MEDS: FUROSEMIDE 20 MG INJ IV SCH ×2 (06:01→17:53)
[2016-03-21] MEDS: LEVOTHYROXINE 25 MCG TAB PO SCH (06:01)
[2016-03-21 08:15] LABS: BASOPHILS % 0.4 % (0.0-2.0); EOSINOPHILS % 0.3 % (0.0-7.0); HEMATOCRIT 27.5 % (42.0-52.0); HEMOGLOBIN 9.3 g/dl (14.0-18.0); LYMPHOCYTES # 0.8 10^3/ul (0.8-2.9); LYMPHOCYTES % 12.8 % (15.0-51.0); MEAN CORPUSCULAR HEMOGLOBIN 30.3 pg (29.0-33.0); MEAN CORPUSCULAR VOLUME 89.2 fl (82.0-101.0); MEAN PLATELET VOLUME 7.9 fl (7.4-10.4); MONOCYTE # 0.4 10^3/ul (0.3-0.9); MONOCYTES % 6.6 % (0.0-11.0); NEUTROPHIL # 4.7 10^3/ul (1.6-7.5); NEUTROPHILS % 79.9 % (39.0-77.0); PLATELET COUNT 232 10^3/UL (140-440); RED BLOOD COUNT 3.08 10^6/ul (4.70-6.10); RED CELL DISTRIBUTION WIDTH 17.8 % (11.5-14.5); UNCORRECTED WBC 5.9 10^3/ul (4.8-10.8); WHITE BLOOD COUNT 5.9 10^3/ul (4.8-10.8)
[2016-03-21 08:16] LABS: ALBUMIN 3.1 g/dl (3.3-4.9); POTASSIUM 3.6 mmol/L (3.5-5.1)
[2016-03-21 08:18] LABS: BILIRUBIN,INDIRECT 0.5 mg/dl (0-1.1); BILIRUBIN,TOTAL 0.5 mg/dl (0.2-1.3); CREATININE 0.96 mg/dl (0.61-1.24)
[2016-03-21 08:19] LABS: ALBUMIN/GLOBULIN RATIO 0.88; TOTAL PROTEIN 6.6 g/dl (6.1-8.1)
[2016-03-21 08:24] LABS: MAGNESIUM 2.1 mg/dl (1.7-2.5); PHOSPHORUS 3.1 mg/dl (2.5-4.9)
[2016-03-21 08:24] LABS: CALCIUM 5.9 mg/dl (8.4-10.2)
[2016-03-21] MEDS: LEVOFLOXACIN 250MG/D5W (PMX) 50 ML IVPB SCH (08:26)
[2016-03-21] MEDS: PANTOPRAZOLE (EC) 40 MG TAB PO SCH ×2 (08:28→17:53)
[2016-03-21] MEDS: CHOLECALCIFEROL 1,000 UNIT TAB PO SCH (08:28)
[2016-03-21 08:30] LABS: CONDITION 1; LH ANALYZER COMMENTS 1
[2016-03-21] MEDS: BICALUTAMIDE 50 MG TAB PO SCH (08:32)
[2016-03-21] MEDS: POLYETHYLENE GLYCOL 17 GM PACKET PO SCH ×2 (08:32→21:00)
[2016-03-21] MEDS: IMIPRAMINE 25 MG TAB PO SCH ×2 (08:32→22:07)
[2016-03-21] MEDS: CALCIUM CARBONATE 1.25 GM TAB PO SCH ×3 (08:32→22:07)
[2016-03-21] MEDS: MEGESTROL (40 MG/ML) 10ML CUP PO SCH ×2 (08:32→22:07)
[2016-03-21] MEDS: ALBUTEROL/IPRATROPIUM (NEB) 3 ML AMP HHN SCH ×3 (10:01→21:12)
--- NOTE | 2016-03-21 10:27 | CONS ---
Date/Time of Note Date/Time of Note DATE: 03/21/16 TIME: 10:23 Assessment/Plan Assessment/Plan Additional Assessment/Plan 1. Congestive heart failure exacerbation, systolic, acute on chronic.-stable, con't to remove fluid as tolerated - better overall 2. History of cardiomyopathy with severely depressed left ventricular ejection fraction, last approximately 20% to 25% by echo this admit 3. End-stage renal disease on hemodialysis - RX per Renal team, will follow 4. History of myocardial infarction by stress 04/2015/No ischemia by stress this admit EF 16% 5. Anemia- H/H stable - no bleed 6. Hypertension- modest Rx, will monitor clinically. 7. Hypothyroidism. 8. Prostate carcinoma. 9. Dementia. 10. Positive troponin-now trended negative - no CP now - med rx planned. 11.Wide complex tachycardia- ?NSVT-no recurrence 12. acute renal failure Consultation Date/Type/Reason Admit Date/Time Mar 08, 2016 at 11:43 Type of Consultation: Pulm Referring Provider: OLIVA BARRERA 24 HR Interval Summary Free Text/Dictation No acute change - BP stable - doubt ischemia. Better fluid status now. ROS: No fever, no chills, no nausea, no vomiting, no diarrhea/constipation No recent weight changes No chest pain, no PND, no orthopnea No dizziness, blurred vision No thirst, no heat or cold intolerance Exam/Review of Systems Vital Signs Vitals Vital Signs Date Time Temp Pulse Resp B/P Pulse Ox O2 Delivery O2 Flow Rate FiO2 03/21/16 10:09 3.0 03/21/16 09:55 85 22 95 Nasal Cannula 03/21/16 07:51 97.7 104/57 03/18/16 09:55 100 Intake and Output 03/20/16 03/20/16 03/21/16 15:00 23:00 07:00 Intake Total 720 ml 750 ml Output Total 700 ml 600 ml Balance 20 ml 150 ml Exam General: WN/WD/NAD, AOx2-3 HEENT: Unicetric/atraumatic/EOMI (follow commands) NECK: JVD elevated, no thyromegaly Lymph: no lymphadenopathy HEART: regular with no S3, II/ systolic murmur at apex LUNGS: Coarse sounds ABD: soft, NT, ND, +BS : Intact Neuro: non focal SKIN: chronic changes EXT: trace edema Results Result Diagram: 03/21/16 0638 03/21/16 0638 Results 24 hrs Laboratory Tests Test 03/20/16 19:20 03/21/16 06:30 03/21/16 06:38 Lab Scanned Report BLOOD TRANSFUSION Magnesium Level 2.1 Phosphorus Level 3.1 Alanine Aminotransferase (ALT/SGPT) 141 H Albumin 3.1 L Albumin/Globulin Ratio 0.88 Alkaline Phosphatase 976 H Anion Gap 19 H Aspartate Amino Transf (AST/SGOT) 225 #H Basophils # 0.0 Basophils % 0.4 Blood Morphology Comment Blood Urea Nitrogen 33 H Calcium Level 5.9 *L Carbon Dioxide Level 22 Chloride Level 102 Creatinine 0.96 Direct Bilirubin 0.00 Eosinophils # 0.0 Eosinophils % 0.3 Globulin 3.50 H Glucose Level 117 Hematocrit 27.5 L Hemoglobin 9.3 L Indirect Bilirubin 0.5 Lymphocytes # 0.8 Lymphocytes % 12.8 L Mean Corpuscular Hemoglobin 30.3 Mean Corpuscular Hemoglobin Concent 34.0 Mean Corpuscular Volume 89.2 Mean Platelet Volume 7.9 Monocytes # 0.4 Monocytes % 6.6 Neutrophils # 4.7 Neutrophils % 79.9 H Nucleated Red Blood Cells # 0.0 Nucleated Red Blood Cells % 0.0 Platelet Count 232 Potassium Level 3.6 Red Blood Count 3.08 L Red Cell Distribution Width 17.8 H Sodium Level 139 Total Bilirubin 0.5 Total Protein 6.6 White Blood Count 5.9 Medications Medications Current Medications Ondansetron HCl (Zofran Inj) 4 mg Q6H PRN IV NAUSEA AND/OR VOMITING; Start at 14:00 Acetaminophen (Tylenol Tab) 650 mg Q6H PRN PO PAIN LEVEL 1-3 OR FEVER Last administered on 03/11/16 21:28; Admin Dose 650 MG; Start 03/08/16 at 14:00 Acetaminophen/ Hydrocodone Bitart ([place] (5/325)) 1 tab Q6H PRN PO PAIN LEVEL 4 -6 Last administered on 03/13/16 19:33; Admin Dose 1 TAB; Start 03/08/16 at 14: 00 Morphine Sulfate (morphine) 2 mg Q4H PRN IV PAIN LEVEL 7-10 Last administered on 03/19/16 10:48; Admin Dose 2 MG; Start 03/08/16 at 14:00 Carvedilol (Coreg) 3.125 mg BID PO Last administered on 03/20/16 21:53; Admin Dose 3.125 MG; Start 03/08/16 at 21:00 Imipramine HCl (Tofranil) 25 mg BID PO Last administered on 03/21/16 08:32; Admin Dose 25 MG; Start 03/08/16 at 21:00 Hydralazine HCl (Apresoline) 10 mg Q6H PRN IV SBP>160; Start 03/08/16 at 16:00 Bicalutamide (Casodex) 50 mg DAILY PO Last administered on 03/21/16 08:32; Admin Dose 50 MG; Start 03/09/16 at 09:00 Lisinopril (Zestril) 2.5 mg DAILY PO Last administered on 03/11/16 08:26; Admin Dose 2.5 MG; Start 03/09/16 at 09:00; Status Future Hold Docusate Sodium (Colace) 200 mg HS PO Last administered on 03/20/16 21:49; Admin Dose 200 MG; Start 03/10/16 at 21:00 Hydralazine HCl (Apresoline) 10 mg Q12 PO Last administered on 03/20/16 08:49 ; Admin Dose 10 MG; Start 03/11/16 at 21:00 Phenol (Cepastat Lozenge) 1 lozenge Q4 PRN MT SORE THROAT; Start 03/13/16 at 19 :00 Furosemide (Lasix) 20 mg DAILY PO Last administered on 03/16/16 08:47; Admin Dose 20 MG; Start 03/14/16 at 11:00; Status Future Hold Megestrol Acetate 400 mg 400 mg BID PO Last administered on 03/21/16 08:32; Admin Dose 400 MG; Start 03/17/16 at 21:00 Levofloxacin/ Dextrose (Levaquin 250 Mg/ D5W 50 ml (Pmx)) 50 ml @ 50 mls/hr Q24H IVPB Last administered on 03/21/16 08:26; Admin Dose 50 MLS/HR; Start at 07:00 Calcium Carbonate (Oyster Shell Calcium) 1.25 gm TID PO Last administered on 08:32; Admin Dose 1.25 GM; Start 03/19/16 at 09:00 Cholecalciferol (Vitamin D) 1,000 unit DAILY PO Last administered on 03/21/16 08:28; Admin Dose 1,000 UNIT; Start 03/20/16 at 09:00 Bisacodyl (Dulcolax) 10 mg DAILY PRN PO CONSTIPATION Last administered on 17:21; Admin Dose 10 MG; Start 03/20/16 at 15:00 Polyethylene Glycol (Miralax) 17 gm BID PO Last administered on 03/21/16 08:32 ; Admin Dose 17 GM; Start 03/20/16 at 21:00 KIMBERLEE LOPES MD Mar 21, 2016 10:27
--- NOTE | 2016-03-21 13:03 | CONS ---
Date/Time of Note Date/Time of Note DATE: 03/21/16 TIME: 13:02 Consult Date/Type/Reason Admit Date/Time Mar 08, 2016 at 11:43 Type of Consultation: Pulm Ordering Provider: OLIVA BARRERA Subjective Appears comfortable less shortness of breath Objective Vital Signs Date Time Temp Pulse Resp B/P Pulse Ox O2 Delivery O2 Flow Rate FiO2 03/21/16 12:11 70 03/21/16 12:00 98.4 18 107/55 97 03/21/16 10:09 3.0 03/21/16 09:55 Nasal Cannula 03/18/16 09:55 100 Intake and Output 03/20/16 03/20/16 03/21/16 15:00 23:00 07:00 Intake Total 720 ml 750 ml Output Total 700 ml 600 ml Balance 20 ml 150 ml PHYSICAL EXAMINATION: GENERAL: Elderly-appearing gentleman appears comfortable at rest, no acute distress. VITAL SIGNS: as above NECK: Supple. No JVD or lymphadenopathy. CARDIAC: S1, S2, no added sounds or murmurs. CHEST: Diminished air entry bilaterally. ABDOMEN: Soft, nontender. No guarding or rebound. EXTREMITIES: No cyanosis, clubbing or edema. NEUROLOGIC: Grossly intact. No focal deficits. Results/Medications Result Diagram: 03/21/16 0638 03/21/16 0638 Results 24 hrs Laboratory Tests Test 03/20/16 19:20 03/21/16 06:30 03/21/16 06:38 Lab Scanned Report BLOOD TRANSFUSION Magnesium Level 2.1 Phosphorus Level 3.1 Alanine Aminotransferase (ALT/SGPT) 141 H Albumin 3.1 L Albumin/Globulin Ratio 0.88 Alkaline Phosphatase 976 H Anion Gap 19 H Aspartate Amino Transf (AST/SGOT) 225 #H Basophils # 0.0 Basophils % 0.4 Blood Morphology Comment Blood Urea Nitrogen 33 H Calcium Level 5.9 *L Carbon Dioxide Level 22 Chloride Level 102 Creatinine 0.96 Direct Bilirubin 0.00 Eosinophils # 0.0 Eosinophils % 0.3 Globulin 3.50 H Glucose Level 117 Hematocrit 27.5 L Hemoglobin 9.3 L Indirect Bilirubin 0.5 Lymphocytes # 0.8 Lymphocytes % 12.8 L Mean Corpuscular Hemoglobin 30.3 Mean Corpuscular Hemoglobin Concent 34.0 Mean Corpuscular Volume 89.2 Mean Platelet Volume 7.9 Monocytes # 0.4 Monocytes % 6.6 Neutrophils # 4.7 Neutrophils % 79.9 H Nucleated Red Blood Cells # 0.0 Nucleated Red Blood Cells % 0.0 Platelet Count 232 Potassium Level 3.6 Red Blood Count 3.08 L Red Cell Distribution Width 17.8 H Sodium Level 139 Total Bilirubin 0.5 Total Protein 6.6 White Blood Count 5.9 Medications Current Medications Ondansetron HCl (Zofran Inj) 4 mg Q6H PRN IV NAUSEA AND/OR VOMITING; Start at 14:00 Acetaminophen (Tylenol Tab) 650 mg Q6H PRN PO PAIN LEVEL 1-3 OR FEVER Last administered on 03/11/16 21:28; Admin Dose 650 MG; Start 03/08/16 at 14:00 Acetaminophen/ Hydrocodone Bitart ([place] (5/325)) 1 tab Q6H PRN PO PAIN LEVEL 4 -6 Last administered on 03/13/16 19:33; Admin Dose 1 TAB; Start 03/08/16 at 14: 00 Morphine Sulfate (morphine) 2 mg Q4H PRN IV PAIN LEVEL 7-10 Last administered on 03/19/16 10:48; Admin Dose 2 MG; Start 03/08/16 at 14:00 Carvedilol (Coreg) 3.125 mg BID PO Last administered on 03/20/16 21:53; Admin Dose 3.125 MG; Start 03/08/16 at 21:00 Imipramine HCl (Tofranil) 25 mg BID PO Last administered on 03/21/16 08:32; Admin Dose 25 MG; Start 03/08/16 at 21:00 Hydralazine HCl (Apresoline) 10 mg Q6H PRN IV SBP>160; Start 03/08/16 at 16:00 Bicalutamide (Casodex) 50 mg DAILY PO Last administered on 03/21/16 08:32; Admin Dose 50 MG; Start 03/09/16 at 09:00 Lisinopril (Zestril) 2.5 mg DAILY PO Last administered on 03/11/16 08:26; Admin Dose 2.5 MG; Start 03/09/16 at 09:00; Status Future Hold Docusate Sodium (Colace) 200 mg HS PO Last administered on 03/20/16 21:49; Admin Dose 200 MG; Start 03/10/16 at 21:00 Hydralazine HCl (Apresoline) 10 mg Q12 PO Last administered on 03/20/16 08:49 ; Admin Dose 10 MG; Start 03/11/16 at 21:00 Phenol (Cepastat Lozenge) 1 lozenge Q4 PRN MT SORE THROAT; Start 03/13/16 at 19 :00 Furosemide (Lasix) 20 mg DAILY PO Last administered on 03/16/16 08:47; Admin Dose 20 MG; Start 03/14/16 at 11:00; Status Future Hold Megestrol Acetate 400 mg 400 mg BID PO Last administered on 03/21/16 08:32; Admin Dose 400 MG; Start 03/17/16 at 21:00 Levofloxacin/ Dextrose (Levaquin 250 Mg/ D5W 50 ml (Pmx)) 50 ml @ 50 mls/hr Q24H IVPB Last administered on 03/21/16 08:26; Admin Dose 50 MLS/HR; Start at 07:00 Calcium Carbonate (Oyster Shell Calcium) 1.25 gm TID PO Last administered on 08:32; Admin Dose 1.25 GM; Start 03/19/16 at 09:00 Cholecalciferol (Vitamin D) 1,000 unit DAILY PO Last administered on 03/21/16 08:28; Admin Dose 1,000 UNIT; Start 03/20/16 at 09:00 Bisacodyl (Dulcolax) 10 mg DAILY PRN PO CONSTIPATION Last administered on 17:21; Admin Dose 10 MG; Start 03/20/16 at 15:00 Polyethylene Glycol (Miralax) 17 gm BID PO Last administered on 03/21/16 08:32 ; Admin Dose 17 GM; Start 03/20/16 at 21:00 Assessment/Plan Chief Complaint/Hosp Course IMPRESSION AND PLAN: 1. Acute hypoxemic respiratory failure, likely secondary to congestive cardiac failure with underlying history of cardiomyopathy. 2. History of prostate cancer. 3. Possible urinary retention. 4. Possible aspiration pneumonia. The patient will require: 1. Continued bronchodilators. 2. Supplemental O2. 3. diuresis. 4. roque catheter in place, appreciate urology recs. 5. DVT and GI prophylaxis. 6. Continue Lupron per heme onc consider transfer to [place]. Consider snf placement Problems: MARLA NEWBY MD, [facility] Mar 21, 2016 13:03
--- NOTE | 2016-03-21 13:26 | PN ---
Date/Time of Note Date/Time of Note DATE: 03/21/16 TIME: 13:24 Assessment/Plan VTE Prophylaxis VTE Prophylaxis Intervention: other (per primary MD) Lines/Catheters IV Catheter Type (from Nrsg): Saline Lock Urinary Cath still in place: Yes Reason Cath still needed: skin wounds contaminated by urine Assessment/Plan Assessment/Plan Pt is eating a bit. He likes Boost but consumes little of the pureed diet. Breathing is not labored. Continue current plans. Firmagon resumed and will need to be given monthly. Subjective 24 Hr Interval Summary Free Text/Dictation Pt is eating some lunch with daughter feeding him Exam/Review of Systems Vital Signs Vitals Vital Signs Date Time Temp Pulse Resp B/P Pulse Ox O2 Delivery O2 Flow Rate FiO2 03/21/16 12:11 70 03/21/16 12:00 98.4 18 107/55 97 03/21/16 10:09 3.0 03/21/16 09:55 Nasal Cannula 03/18/16 09:55 100 Intake and Output 03/20/16 03/20/16 03/21/16 15:00 23:00 07:00 Intake Total 720 ml 750 ml Output Total 700 ml 600 ml Balance 20 ml 150 ml Exam Constitutional: alert Head: normocephalic Eyes: nl conjunctiva Neck: supple Respiratory: clear to auscultation Cardiovascular: regular rate and rhythm Gastrointestinal: soft Results Result Diagram: 03/21/16 0638 03/21/16 0638 Results 24 hrs Laboratory Tests Test 03/20/16 19:20 03/21/16 06:30 03/21/16 06:38 Lab Scanned Report BLOOD TRANSFUSION Magnesium Level 2.1 Phosphorus Level 3.1 Alanine Aminotransferase (ALT/SGPT) 141 H Albumin 3.1 L Albumin/Globulin Ratio 0.88 Alkaline Phosphatase 976 H Anion Gap 19 H Aspartate Amino Transf (AST/SGOT) 225 #H Basophils # 0.0 Basophils % 0.4 Blood Morphology Comment Blood Urea Nitrogen 33 H Calcium Level 5.9 *L Carbon Dioxide Level 22 Chloride Level 102 Creatinine 0.96 Direct Bilirubin 0.00 Eosinophils # 0.0 Eosinophils % 0.3 Globulin 3.50 H Glucose Level 117 Hematocrit 27.5 L Hemoglobin 9.3 L Indirect Bilirubin 0.5 Lymphocytes # 0.8 Lymphocytes % 12.8 L Mean Corpuscular Hemoglobin 30.3 Mean Corpuscular Hemoglobin Concent 34.0 Mean Corpuscular Volume 89.2 Mean Platelet Volume 7.9 Monocytes # 0.4 Monocytes % 6.6 Neutrophils # 4.7 Neutrophils % 79.9 H Nucleated Red Blood Cells # 0.0 Nucleated Red Blood Cells % 0.0 Platelet Count 232 Potassium Level 3.6 Red Blood Count 3.08 L Red Cell Distribution Width 17.8 H Sodium Level 139 Total Bilirubin 0.5 Total Protein 6.6 White Blood Count 5.9 Medications Medications Current Medications Ondansetron HCl (Zofran Inj) 4 mg Q6H PRN IV NAUSEA AND/OR VOMITING; Start at 14:00 Acetaminophen (Tylenol Tab) 650 mg Q6H PRN PO PAIN LEVEL 1-3 OR FEVER Last administered on 03/11/16 21:28; Admin Dose 650 MG; Start 03/08/16 at 14:00 Acetaminophen/ Hydrocodone Bitart ([place] (5/325)) 1 tab Q6H PRN PO PAIN LEVEL 4 -6 Last administered on 03/13/16 19:33; Admin Dose 1 TAB; Start 03/08/16 at 14: 00 Morphine Sulfate (morphine) 2 mg Q4H PRN IV PAIN LEVEL 7-10 Last administered on 03/19/16 10:48; Admin Dose 2 MG; Start 03/08/16 at 14:00 Carvedilol (Coreg) 3.125 mg BID PO Last administered on 03/20/16 21:53; Admin Dose 3.125 MG; Start 03/08/16 at 21:00 Imipramine HCl (Tofranil) 25 mg BID PO Last administered on 03/21/16 08:32; Admin Dose 25 MG; Start 03/08/16 at 21:00 Hydralazine HCl (Apresoline) 10 mg Q6H PRN IV SBP>160; Start 03/08/16 at 16:00 Bicalutamide (Casodex) 50 mg DAILY PO Last administered on 03/21/16 08:32; Admin Dose 50 MG; Start 03/09/16 at 09:00 Lisinopril (Zestril) 2.5 mg DAILY PO Last administered on 03/11/16 08:26; Admin Dose 2.5 MG; Start 03/09/16 at 09:00; Status Future Hold Docusate Sodium (Colace) 200 mg HS PO Last administered on 03/20/16 21:49; Admin Dose 200 MG; Start 03/10/16 at 21:00 Hydralazine HCl (Apresoline) 10 mg Q12 PO Last administered on 03/20/16 08:49 ; Admin Dose 10 MG; Start 03/11/16 at 21:00 Phenol (Cepastat Lozenge) 1 lozenge Q4 PRN MT SORE THROAT; Start 03/13/16 at 19 :00 Furosemide (Lasix) 20 mg DAILY PO Last administered on 03/16/16 08:47; Admin Dose 20 MG; Start 03/14/16 at 11:00; Status Future Hold Megestrol Acetate 400 mg 400 mg BID PO Last administered on 03/21/16 08:32; Admin Dose 400 MG; Start 03/17/16 at 21:00 Levofloxacin/ Dextrose (Levaquin 250 Mg/ D5W 50 ml (Pmx)) 50 ml @ 50 mls/hr Q24H IVPB Last administered on 03/21/16 08:26; Admin Dose 50 MLS/HR; Start at 07:00 Calcium Carbonate (Oyster Shell Calcium) 1.25 gm TID PO Last administered on 08:32; Admin Dose 1.25 GM; Start 03/19/16 at 09:00 Cholecalciferol (Vitamin D) 1,000 unit DAILY PO Last administered on 03/21/16 08:28; Admin Dose 1,000 UNIT; Start 03/20/16 at 09:00 Bisacodyl (Dulcolax) 10 mg DAILY PRN PO CONSTIPATION Last administered on 17:21; Admin Dose 10 MG; Start 03/20/16 at 15:00 Polyethylene Glycol (Miralax) 17 gm BID PO Last administered on 03/21/16 08:32 ; Admin Dose 17 GM; Start 03/20/16 at 21:00 KIMBERLEE BAER MD Mar 21, 2016 13:26
--- NOTE | 2016-03-21 14:18 | PN ---
Date/Time of Note Date/Time of Note DATE: 03/21/16 TIME: 14:17 Assessment/Plan VTE Prophylaxis VTE Prophylaxis Intervention: SCD's Lines/Catheters IV Catheter Type (from [facility]): Saline Lock Urinary Cath still in place: Yes Reason Cath still needed: terminal illness/intractable pain Assessment/Plan Chief Complaint/Hosp Course 1. Congestive heart failure exacerbation, acute on chronic, systolic dysfunction. Continue aggressive diuresis. Cardiology following the patient. 2. Metastatic prostate carcinoma with bone metastasis. Continue pain control. The patient is on bicalutamide. The patient being followed by oncology. 3. Ischemic cardiomyopathy with ejection fraction of 20% to 25%. Continue beta blockers. Je inhibitors have been on hold because of worsening renal function. Cardiology following. 4. Hypocalcemia. Will provide the patient with calcium supplements. Etiology of hypocalcemia remains unclear. Most probably secondary to bony metastasis. Low vitamin D levels. Continue vitamin D supplementation. Pending parathyroid hormone levels. 5. Acute hypoxic respiratory failure secondary to congestive heart failure exacerbation. Continue supplemental oxygen and inhaled bronchodilators. Pulmonary following the patient. 6. Severe pulmonary hypertension with a PA pressure of 85 mmHg. Continue supplemental oxygen. 7. Hypothyroidism. Continue Synthroid. 8. Non sustained wide complex tachycardia. Continue management as per cardiology. 9. Essential hypertension. Continue antihypertensives. 10. Normocytic normochromic anemia. Iron panel within normal limits. Stool for OB x1 negative. Probably anemia of chronic disease. Monitor H and H closely. Transfuse as needed. 11. Dementia. Continue frequent reorientation. 12. Fluids, electrolytes, and nutrition. Pureed diet. 13. Deep venous thrombosis prophylaxis. Bilateral sequential compression devices. 14. Gastrointestinal prophylaxis. Proton pump inhibitors. 15. Plan. Continue supplemental oxygen. Continue inhaled bronchodilators. Replete calcium. Patient's family requesting hospice evaluation. Pending hospice evaluation. The case was discussed with Dr. Jimenez Problems: Subjective 24 Hr Interval Summary Free Text/Dictation Denies any pain. Had a few beats of V. tach today. Exam/Review of Systems Vital Signs Vitals Vital Signs Date Time Temp Pulse Resp B/P Pulse Ox O2 Delivery O2 Flow Rate FiO2 03/21/16 14:11 78 20 93 Nasal Cannula 3.0 03/21/16 12:00 98.4 107/55 03/18/16 09:55 100 Intake and Output 03/20/16 03/20/16 03/21/16 15:00 23:00 07:00 Intake Total 720 ml 750 ml Output Total 700 ml 600 ml Balance 20 ml 150 ml Exam GENERAL: This is an elderly male lying in bed in mild respiratory distress. HEENT: Head normocephalic and atraumatic. Eyes: Anicteric sclerae. Conjunctivae clear. ENT: Nasal septum is midline. Oral mucosa is dry. Tongue midline. No thrush. NECK: Supple. No JVD noticed. RESPIRATORY: Bilaterally diminished breath sounds. Minimal use of accessory muscles of respiration. CARDIAC: Regular rate and rhythm. ABDOMEN: Soft, nontender, and nondistended. Bowel sounds positive in all 4 quadrants. GENITOURINARY: The patient has a Hernandez catheter in place that is draining clear , straw-colored urine. EXTREMITIES: No cyanosis, no clubbing, no edema. Peripheral pulses are palpable. NEUROLOGIC: The patient is awake, alert, and oriented. The patient moves all 4 extremities. Results Result Diagram: 03/21/16 0638 03/21/16 0638 Results 24 hrs Laboratory Tests Test 03/20/16 19:20 03/21/16 06:30 03/21/16 06:38 Lab Scanned Report BLOOD TRANSFUSION Magnesium Level 2.1 Phosphorus Level 3.1 Alanine Aminotransferase (ALT/SGPT) 141 H Albumin 3.1 L Albumin/Globulin Ratio 0.88 Alkaline Phosphatase 976 H Anion Gap 19 H Aspartate Amino Transf (AST/SGOT) 225 #H Basophils # 0.0 Basophils % 0.4 Blood Morphology Comment Blood Urea Nitrogen 33 H Calcium Level 5.9 *L Carbon Dioxide Level 22 Chloride Level 102 Creatinine 0.96 Direct Bilirubin 0.00 Eosinophils # 0.0 Eosinophils % 0.3 Globulin 3.50 H Glucose Level 117 Hematocrit 27.5 L Hemoglobin 9.3 L Indirect Bilirubin 0.5 Lymphocytes # 0.8 Lymphocytes % 12.8 L Mean Corpuscular Hemoglobin 30.3 Mean Corpuscular Hemoglobin Concent 34.0 Mean Corpuscular Volume 89.2 Mean Platelet Volume 7.9 Monocytes # 0.4 Monocytes % 6.6 Neutrophils # 4.7 Neutrophils % 79.9 H Nucleated Red Blood Cells # 0.0 Nucleated Red Blood Cells % 0.0 Platelet Count 232 Potassium Level 3.6 Red Blood Count 3.08 L Red Cell Distribution Width 17.8 H Sodium Level 139 Total Bilirubin 0.5 Total Protein 6.6 White Blood Count 5.9 Medications Medications Current Medications Ondansetron HCl (Zofran Inj) 4 mg Q6H PRN IV NAUSEA AND/OR VOMITING; Start at 14:00 Acetaminophen (Tylenol Tab) 650 mg Q6H PRN PO PAIN LEVEL 1-3 OR FEVER Last administered on 03/11/16 21:28; Admin Dose 650 MG; Start 03/08/16 at 14:00 Acetaminophen/ Hydrocodone Bitart ([place] (5/325)) 1 tab Q6H PRN PO PAIN LEVEL 4 -6 Last administered on 03/13/16 19:33; Admin Dose 1 TAB; Start 03/08/16 at 14: 00 Morphine Sulfate (morphine) 2 mg Q4H PRN IV PAIN LEVEL 7-10 Last administered on 03/19/16 10:48; Admin Dose 2 MG; Start 03/08/16 at 14:00 Carvedilol (Coreg) 3.125 mg BID PO Last administered on 03/20/16 21:53; Admin Dose 3.125 MG; Start 03/08/16 at 21:00 Imipramine HCl (Tofranil) 25 mg BID PO Last administered on 03/21/16 08:32; Admin Dose 25 MG; Start 03/08/16 at 21:00 Hydralazine HCl (Apresoline) 10 mg Q6H PRN IV SBP>160; Start 03/08/16 at 16:00 Bicalutamide (Casodex) 50 mg DAILY PO Last administered on 03/21/16 08:32; Admin Dose 50 MG; Start 03/09/16 at 09:00 Lisinopril (Zestril) 2.5 mg DAILY PO Last administered on 03/11/16 08:26; Admin Dose 2.5 MG; Start 03/09/16 at 09:00; Status Future Hold Docusate Sodium (Colace) 200 mg HS PO Last administered on 03/20/16 21:49; Admin Dose 200 MG; Start 03/10/16 at 21:00 Hydralazine HCl (Apresoline) 10 mg Q12 PO Last administered on 03/20/16 08:49 ; Admin Dose 10 MG; Start 03/11/16 at 21:00 Phenol (Cepastat Lozenge) 1 lozenge Q4 PRN MT SORE THROAT; Start 03/13/16 at 19 :00 Furosemide (Lasix) 20 mg DAILY PO Last administered on 03/16/16 08:47; Admin Dose 20 MG; Start 03/14/16 at 11:00; Status Future Hold Megestrol Acetate 400 mg 400 mg BID PO Last administered on 03/21/16 08:32; Admin Dose 400 MG; Start 03/17/16 at 21:00 Levofloxacin/ Dextrose (Levaquin 250 Mg/ D5W 50 ml (Pmx)) 50 ml @ 50 mls/hr Q24H IVPB Last administered on 03/21/16 08:26; Admin Dose 50 MLS/HR; Start at 07:00 Calcium Carbonate (Oyster Shell Calcium) 1.25 gm TID PO Last administered on 14:07; Admin Dose 1.25 GM; Start 03/19/16 at 09:00 Cholecalciferol (Vitamin D) 1,000 unit DAILY PO Last administered on 03/21/16 08:28; Admin Dose 1,000 UNIT; Start 03/20/16 at 09:00 Bisacodyl (Dulcolax) 10 mg DAILY PRN PO CONSTIPATION Last administered on 17:21; Admin Dose 10 MG; Start 03/20/16 at 15:00 Polyethylene Glycol (Miralax) 17 gm BID PO Last administered on 03/21/16 08:32 ; Admin Dose 17 GM; Start 03/20/16 at 21:00 ERICA MOHAN NP Mar 21, 2016 14:18
[2016-03-21] MEDS: DOCUSATE SODIUM 100 MG CAP PO SCH (22:08)
[2016-03-22] VITALS (14 sets, daily range): BP systolic 107–116; BP diastolic 57–75; PULSE 75–142; RESP 18–20
[2016-03-22] MEDS: PANTOPRAZOLE (EC) 40 MG TAB PO SCH ×2 (06:38→17:35)
[2016-03-22] MEDS: LEVOFLOXACIN 250 MG TAB PO SCH (06:38)
[2016-03-22] MEDS: LEVOTHYROXINE 25 MCG TAB PO SCH (06:38)
[2016-03-22] MEDS: FUROSEMIDE 20 MG INJ IV SCH ×2 (06:39→18:00)
[2016-03-22] MEDS: ALBUTEROL/IPRATROPIUM (NEB) 3 ML AMP HHN SCH ×3 (07:56→21:08)
[2016-03-22] MEDS: CHOLECALCIFEROL 1,000 UNIT TAB PO SCH (09:57)
[2016-03-22] MEDS: IMIPRAMINE 25 MG TAB PO SCH ×2 (09:57→22:59)
[2016-03-22] MEDS: CALCIUM CARBONATE 1.25 GM TAB PO SCH ×3 (09:57→22:59)
[2016-03-22] MEDS: POLYETHYLENE GLYCOL 17 GM PACKET PO SCH ×2 (09:57→21:00)
[2016-03-22] MEDS: MEGESTROL (40 MG/ML) 10ML CUP PO SCH ×2 (09:57→22:59)
[2016-03-22] MEDS: BICALUTAMIDE 50 MG TAB PO SCH (09:58)
--- NOTE | 2016-03-22 10:03 | CONS ---
Date/Time of Note Date/Time of Note DATE: 03/22/16 TIME: 10:01 Assessment/Plan Assessment/Plan Additional Assessment/Plan 1. Congestive heart failure exacerbation, systolic, acute on chronic.-stable, BETTER overall 2. History of cardiomyopathy with severely depressed left ventricular ejection fraction, last approximately 20% to 25% by echo this admit 3. End-stage renal disease on hemodialysis - RX per Renal team, will follow - remove fluid as needed 4. History of myocardial infarction by stress 04/2015/No ischemia by stress this admit EF 16% 5. Anemia- H/H stable - no bleed 6. Hypertension- modest Rx, will monitor clinically. 7. Hypothyroidism. 8. Prostate carcinoma- primary follows 9. Dementia. 10. Positive troponin-now trended negative - no CP now - med rx planned. 11.Wide complex tachycardia- ?NSVT-no recurrence Consultation Date/Type/Reason Admit Date/Time Mar 08, 2016 at 11:43 Type of Consultation: Pulm Referring Provider: OLIVA BARRERA 24 HR Interval Summary Free Text/Dictation NO acute change - BP stable - HD to remove fluid. ROS: No fever, no chills, no nausea, no vomiting, no diarrhea/constipation No recent weight changes No chest pain, no PND, no orthopnea No dizziness, blurred vision No thirst, no heat or cold intolerance Exam/Review of Systems Vital Signs Vitals Vital Signs Date Time Temp Pulse Resp B/P Pulse Ox O2 Delivery O2 Flow Rate FiO2 03/22/16 09:18 142 03/22/16 08:29 97.7 18 112/72 97 03/22/16 07:56 3.0 03/22/16 07:56 Nasal Cannula 03/18/16 09:55 100 Intake and Output 03/21/16 03/21/16 03/22/16 15:00 23:00 07:00 Intake Total 50 ml 500 ml 200 ml Output Total 400 ml 600 ml Balance 50 ml 100 ml -400 ml Exam General: WN/WD/NAD, AOx 1-2 HEENT: Unicetric/atraumatic/EOMI (follow commands) NECK: JVD elevated, no thyromegaly Lymph: no lymphadenopathy HEART: regular with no S3, II/ systolic murmur at apex LUNGS: Coarse sounds ABD: soft, NT, ND, +BS : Intact Neuro: non focal SKIN: chronic changes EXT: trace edema Results Result Diagram: 03/21/1663703/21/16637 Medications Medications Current Medications Ondansetron HCl (Zofran Inj) 4 mg Q6H PRN IV NAUSEA AND/OR VOMITING; Start at 14:00 Acetaminophen (Tylenol Tab) 650 mg Q6H PRN PO PAIN LEVEL 1-3 OR FEVER Last administered on 03/11/16 21:28; Admin Dose 650 MG; Start 03/08/16 at 14:00 Acetaminophen/ Hydrocodone Bitart ([place] (5/325)) 1 tab Q6H PRN PO PAIN LEVEL 4 -6 Last administered on 03/13/16 19:33; Admin Dose 1 TAB; Start 03/08/16 at 14: 00 Morphine Sulfate (morphine) 2 mg Q4H PRN IV PAIN LEVEL 7-10 Last administered on 03/19/16 10:48; Admin Dose 2 MG; Start 03/08/16 at 14:00 Carvedilol (Coreg) 3.125 mg BID PO Last administered on 03/22/16 09:58; Admin Dose 3.125 MG; Start 03/08/16 at 21:00 Imipramine HCl (Tofranil) 25 mg BID PO Last administered on 03/22/16 09:57; Admin Dose 25 MG; Start 03/08/16 at 21:00 Hydralazine HCl (Apresoline) 10 mg Q6H PRN IV SBP>160; Start 03/08/16 at 16:00 Bicalutamide (Casodex) 50 mg DAILY PO Last administered on 03/22/16 09:58; Admin Dose 50 MG; Start 03/09/16 at 09:00 Lisinopril (Zestril) 2.5 mg DAILY PO Last administered on 03/11/16 08:26; Admin Dose 2.5 MG; Start 03/09/16 at 09:00; Status Future Hold Docusate Sodium (Colace) 200 mg HS PO Last administered on 03/21/16 22:08; Admin Dose 200 MG; Start 03/10/16 at 21:00 Hydralazine HCl (Apresoline) 10 mg Q12 PO Last administered on 03/20/16 08:49 ; Admin Dose 10 MG; Start 03/11/16 at 21:00 Phenol (Cepastat Lozenge) 1 lozenge Q4 PRN MT SORE THROAT; Start 03/13/16 at 19 :00 Furosemide (Lasix) 20 mg DAILY PO Last administered on 03/16/16 08:47; Admin Dose 20 MG; Start 03/14/16 at 11:00; Status Future Hold Megestrol Acetate (Megace Susp) 400 mg BID PO Last administered on 03/22/16 09 :57; Admin Dose 400 MG; Start 03/17/16 at 21:00 Calcium Carbonate (Oyster Shell Calcium) 1.25 gm TID PO Last administered on 09:57; Admin Dose 1.25 GM; Start 03/19/16 at 09:00 Cholecalciferol (Vitamin D) 1,000 unit DAILY PO Last administered on 03/22/16 09:57; Admin Dose 1,000 UNIT; Start 03/20/16 at 09:00 Bisacodyl (Dulcolax) 10 mg DAILY PRN PO CONSTIPATION Last administered on 17:21; Admin Dose 10 MG; Start 03/20/16 at 15:00 Polyethylene Glycol (Miralax) 17 gm BID PO Last administered on 03/22/16 09:57 ; Admin Dose 17 GM; Start 03/20/16 at 21:00 Levofloxacin (Levaquin) 250 mg DAILY@06 PO Last administered on 03/22/16 06:38 ; Admin Dose 250 MG; Start 03/22/16 at 06:00 KIMBERLEE LOPES MD Mar 22, 2016 10:03
[2016-03-22] MEDS: HYDROCODONE/APAP (5/325) TAB PO PRN (12:26)
[2016-03-22] MEDS: morphine 2 MG INJ IV PRN (13:59)
--- NOTE | 2016-03-22 14:05 | PN ---
DATE: 03/22/2016 MEDICAL ONCOLOGY PROGRESS NOTE HISTORY OF PRESENT ILLNESS: Mr. Frey continues to improve. He denies shortness of breath or navya st pain at this time. The patient's appetite is good. He has no complaints of nausea or vomiting. He has had no fevers o r "hot flashes." The patient has received Firmagon on March 20 and seems to have tolerated it well. OBJECTIVE: VITAL SIGNS: Temperature 97.7 orally, pulse 75 per minute, respirations 18, blood pressure 112/72, pulse oximetry is 97% on 5 L via nasal cannula. SKIN: Pale, but no ecchymosis, no petechiae or rashes. HEENT: No mucosal lesions. No scleral icterus. NECK: No jugular venous distention. CHEST: There are bibasilar rales heard which are not clear on cough or deep inspiration. ABDOMEN: Soft, no masses, no ascites. The most recent CBC was from 03/21/2016, white count 5900, hemoglobin 9.3, hematocrit 27.5, platelet count 232,000. The patient does seem to be improving. He is much more alert, appetite is good. We will continue present therapy which will include repeat injection Firmagon in 4 weeks. The patie nt also will continue bicalutamide. We will repeat a CBC and a comprehensive metabolic panel in the morning. Dictated By: MELINDA PAYNE MD SR/NTS Conf#: [id number] DID#: [id number]
--- NOTE | 2016-03-22 14:14 | CONS ---
DATE OF ADMISSION: 03/08/2016 DATE OF CONSULTATION: ADDENDUM I have discussed the patient's situation with his daughter. She states that they have had a family conference, which has included the patient who is alert and oriented. Previous notes in the chart m entioned dementia, which is not factual. Both the patient and family desire active treatment and are not interested in either palliative care or hospice. At the desire at this time is for the patient to be seen and sent to an extended care facility for r ehabilitation. Hopefully, to return home to the family. As noted, I will continue the patient on Firmagon on a monthly basis. The patient also should yulia nue to receive zoledronic acid or denosumab on a monthly basis to help decrease "skeletal events." As previously noted, this patient has not hormone refractory. The patient actually not had any horm onal therapy now for almost 2 years. He had stopped it voluntarily and had responded well to such th erapy previously. Dictated By: MELINDA PAYNE MD SR/NTS Conf#: [id number] DID#: [id number] CC: [facility] MD;*EndCC*
[2016-03-22 14:16] LABS: BASOPHILS % 0.1 % (0.0-2.0); EOSINOPHILS % 0.5 % (0.0-7.0); HEMATOCRIT 27.5 % (42.0-52.0); HEMOGLOBIN 9.3 g/dl (14.0-18.0); LYMPHOCYTES # 0.8 10^3/ul (0.8-2.9); LYMPHOCYTES % 12.1 % (15.0-51.0); MEAN CORPUSCULAR HEMOGLOBIN 29.9 pg (29.0-33.0); MEAN CORPUSCULAR HGB CONC 33.6 g/dl (32.0-37.0); MEAN PLATELET VOLUME 7.8 fl (7.4-10.4); MONOCYTE # 0.4 10^3/ul (0.3-0.9); MONOCYTES % 6.6 % (0.0-11.0); NEUTROPHILS % 80.7 % (39.0-77.0); PLATELET COUNT 240 10^3/UL (140-440); RED BLOOD COUNT 3.09 10^6/ul (4.70-6.10); RED CELL DISTRIBUTION WIDTH 17.6 % (11.5-14.5); UNCORRECTED WBC 6.2 10^3/ul (4.8-10.8); WHITE BLOOD COUNT 6.2 10^3/ul (4.8-10.8)
[2016-03-22 14:21] LABS: ALBUMIN 3.1 g/dl (3.3-4.9); POTASSIUM 4.2 mmol/L (3.5-5.1)
[2016-03-22 14:23] LABS: BILIRUBIN,INDIRECT 0.4 mg/dl (0-1.1); BILIRUBIN,TOTAL 0.4 mg/dl (0.2-1.3); CREATININE 0.87 mg/dl (0.61-1.24)
[2016-03-22 14:24] LABS: ALBUMIN/GLOBULIN RATIO 0.91; CALCIUM 7.1 mg/dl (8.4-10.2); TOTAL PROTEIN 6.5 g/dl (6.1-8.1)
[2016-03-22 14:45] LABS: CONDITION 1; LH ANALYZER COMMENTS 1
--- NOTE | 2016-03-22 14:54 | PN ---
Date/Time of Note Date/Time of Note DATE: 03/22/16 TIME: 14:52 Assessment/Plan VTE Prophylaxis VTE Prophylaxis Intervention: SCD's Lines/Catheters IV Catheter Type (from Nrs): Saline Lock Urinary Cath still in place: Yes Reason Cath still needed: terminal illness/intractable pain Assessment/Plan Chief Complaint/Hosp Course 1. Congestive heart failure exacerbation, acute on chronic, systolic dysfunction. Continue aggressive diuresis. Cardiology following the patient. 2. Metastatic prostate carcinoma with bone metastasis. Continue pain control. The patient is on bicalutamide. The patient being followed by oncology. 3. Ischemic cardiomyopathy with ejection fraction of 20% to 25%. Continue beta blockers. Je inhibitors have been on hold because of worsening renal function. Cardiology following. 4. Hypocalcemia. Will provide the patient with calcium supplements. Etiology of hypocalcemia remains unclear. Most probably secondary to bony metastasis. Low vitamin D levels. Continue vitamin D supplementation. Pending parathyroid hormone levels. 5. Acute hypoxic respiratory failure secondary to congestive heart failure exacerbation. Continue supplemental oxygen and inhaled bronchodilators. Pulmonary following the patient. 6. Severe pulmonary hypertension with a PA pressure of 85 mmHg. Continue supplemental oxygen. 7. Hypothyroidism. Continue Synthroid. 8. Non sustained wide complex tachycardia. Continue management as per cardiology. 9. Essential hypertension. Continue antihypertensives. 10. Normocytic normochromic anemia. Iron panel within normal limits. Stool for OB x1 negative. Probably anemia of chronic disease. Monitor H and H closely. Transfuse as needed. 11. Dementia. Continue frequent reorientation. 12. Transaminitis without hyperbilirubinemia. Etiology unclear. Will trend LFTs. Avoid hepatotoxic medications. 13. Fluids, electrolytes, and nutrition. Pureed diet. 14. Deep venous thrombosis prophylaxis. Bilateral sequential compression devices. 15. Gastrointestinal prophylaxis. Proton pump inhibitors. 16. Plan. Continue supplemental oxygen. Continue inhaled bronchodilators. Replete calcium. The patient's family met with the hospice on 03/21/2016. However, the patient's family requesting not to institute hospice at this time. Instead to initiate physical therapy and transfer the patient to a rehabilitation facility. Physical therapy evaluation ordered. The case was discussed with Dr. Jimenez Problems: Subjective 24 Hr Interval Summary Free Text/Dictation Was complaining of pain earlier. Status post IV morphine. Exam/Review of Systems Vital Signs Vitals Vital Signs Date Time Temp Pulse Resp B/P Pulse Ox O2 Delivery O2 Flow Rate FiO2 03/22/16 13:30 3.0 03/22/16 12:13 79 03/22/16 12:06 98.3 19 109/64 95 03/22/16 08:30 Nasal Cannula 03/18/16 09:55 100 Intake and Output 03/21/16 03/21/16 03/22/16 15:00 23:00 07:00 Intake Total 50 ml 500 ml 200 ml Output Total 400 ml 600 ml Balance 50 ml 100 ml -400 ml Exam GENERAL: This is an elderly male lying in bed in mild respiratory distress. HEENT: Head normocephalic and atraumatic. Eyes: Anicteric sclerae. Conjunctivae clear. ENT: Nasal septum is midline. Oral mucosa is dry. Tongue midline. No thrush. NECK: Supple. No JVD noticed. RESPIRATORY: Bilaterally diminished breath sounds. Minimal use of accessory muscles of respiration. CARDIAC: Regular rate and rhythm. ABDOMEN: Soft, nontender, and nondistended. Bowel sounds positive in all 4 quadrants. GENITOURINARY: The patient has a Hernandez catheter in place that is draining clear , straw-colored urine. EXTREMITIES: No cyanosis, no clubbing, no edema. Peripheral pulses are palpable. NEUROLOGIC: The patient is awake, alert, and oriented. The patient moves all 4 extremities. Results Result Diagram: 03/22/16 1350 03/22/16 1350 Results 24 hrs Laboratory Tests Test 03/22/16 13:50 Alanine Aminotransferase (ALT/SGPT) 110 H Albumin 3.1 L Albumin/Globulin Ratio 0.91 Alkaline Phosphatase 840 H Anion Gap 16 Aspartate Amino Transf (AST/SGOT) 99 #H Basophils # 0.0 Basophils % 0.1 Blood Morphology Comment Blood Urea Nitrogen 31 H Calcium Level 7.1 L Carbon Dioxide Level 24 Chloride Level 102 Creatinine 0.87 Direct Bilirubin 0.00 Eosinophils # 0.0 Eosinophils % 0.5 Globulin 3.40 H Glucose Level 119 Hematocrit 27.5 L Hemoglobin 9.3 L Indirect Bilirubin 0.4 Lymphocytes # 0.8 Lymphocytes % 12.1 L Mean Corpuscular Hemoglobin 29.9 Mean Corpuscular Hemoglobin Concent 33.6 Mean Corpuscular Volume 89.0 Mean Platelet Volume 7.8 Monocytes # 0.4 Monocytes % 6.6 Neutrophils # 5.0 Neutrophils % 80.7 H Nucleated Red Blood Cells # 0.0 Nucleated Red Blood Cells % 0.0 Platelet Count 240 Potassium Level 4.2 Red Blood Count 3.09 L Red Cell Distribution Width 17.6 H Sodium Level 138 Total Bilirubin 0.4 Total Protein 6.5 White Blood Count 6.2 Medications Medications Current Medications Ondansetron HCl (Zofran Inj) 4 mg Q6H PRN IV NAUSEA AND/OR VOMITING; Start at 14:00 Acetaminophen (Tylenol Tab) 650 mg Q6H PRN PO PAIN LEVEL 1-3 OR FEVER Last administered on 03/11/16 21:28; Admin Dose 650 MG; Start 03/08/16 at 14:00 Acetaminophen/ Hydrocodone Bitart ([place] (5/325)) 1 tab Q6H PRN PO PAIN LEVEL 4 -6 Last administered on 03/22/16 12:26; Admin Dose 1 TAB; Start 03/08/16 at 14: 00 Morphine Sulfate (morphine) 2 mg Q4H PRN IV PAIN LEVEL 7-10 Last administered on 03/22/16 13:59; Admin Dose 2 MG; Start 03/08/16 at 14:00 Carvedilol (Coreg) 3.125 mg BID PO Last administered on 03/22/16 09:58; Admin Dose 3.125 MG; Start 03/08/16 at 21:00 Imipramine HCl (Tofranil) 25 mg BID PO Last administered on 03/22/16 09:57; Admin Dose 25 MG; Start 03/08/16 at 21:00 Hydralazine HCl (Apresoline) 10 mg Q6H PRN IV SBP>160; Start 03/08/16 at 16:00 Bicalutamide (Casodex) 50 mg DAILY PO Last administered on 03/22/16 09:58; Admin Dose 50 MG; Start 03/09/16 at 09:00 Lisinopril (Zestril) 2.5 mg DAILY PO Last administered on 03/11/16 08:26; Admin Dose 2.5 MG; Start 03/09/16 at 09:00; Status Future Hold Docusate Sodium (Colace) 200 mg HS PO Last administered on 03/21/16 22:08; Admin Dose 200 MG; Start 03/10/16 at 21:00 Hydralazine HCl (Apresoline) 10 mg Q12 PO Last administered on 03/20/16 08:49 ; Admin Dose 10 MG; Start 03/11/16 at 21:00 Phenol (Cepastat Lozenge) 1 lozenge Q4 PRN MT SORE THROAT; Start 03/13/16 at 19 :00 Furosemide (Lasix) 20 mg DAILY PO Last administered on 03/16/16 08:47; Admin Dose 20 MG; Start 03/14/16 at 11:00; Status Future Hold Megestrol Acetate (Megace Susp) 400 mg BID PO Last administered on 03/22/16 09 :57; Admin Dose 400 MG; Start 03/17/16 at 21:00 Calcium Carbonate (Oyster Shell Calcium) 1.25 gm TID PO Last administered on 09:57; Admin Dose 1.25 GM; Start 03/19/16 at 09:00 Cholecalciferol (Vitamin D) 1,000 unit DAILY PO Last administered on 03/22/16 09:57; Admin Dose 1,000 UNIT; Start 03/20/16 at 09:00 Bisacodyl (Dulcolax) 10 mg DAILY PRN PO CONSTIPATION Last administered on 17:21; Admin Dose 10 MG; Start 03/20/16 at 15:00 Polyethylene Glycol (Miralax) 17 gm BID PO Last administered on 03/22/16 09:57 ; Admin Dose 17 GM; Start 03/20/16 at 21:00 Levofloxacin (Levaquin) 250 mg DAILY@06 PO Last administered on 03/22/16 06:38 ; Admin Dose 250 MG; Start 03/22/16 at 06:00 ERICA MOHAN NP Mar 22, 2016 14:54
--- NOTE | 2016-03-22 16:25 | CONS ---
Date/Time of Note Date/Time of Note DATE: 03/22/16 TIME: 16:24 Consult Date/Type/Reason Admit Date/Time Mar 08, 2016 at 11:43 Type of Consultation: Pulm Ordering Provider: OLIVA BARRERA Subjective Patient slowly improving Less shortness of breath Currently remains hemodynamically stable Objective Vital Signs Date Time Temp Pulse Resp B/P Pulse Ox O2 Delivery O2 Flow Rate FiO2 03/22/16 16:15 92 03/22/16 13:30 3.0 03/22/16 12:06 98.3 19 109/64 95 03/22/16 08:30 Nasal Cannula 03/18/16 09:55 100 Intake and Output 03/21/16 03/21/16 03/22/16 15:00 23:00 07:00 Intake Total 50 ml 500 ml 200 ml Output Total 400 ml 600 ml Balance 50 ml 100 ml -400 ml PHYSICAL EXAMINATION: GENERAL: Elderly-appearing gentleman appears comfortable at rest, no acute distress. VITAL SIGNS: as above NECK: Supple. No JVD or lymphadenopathy. CARDIAC: S1, S2, no added sounds or murmurs. CHEST: Diminished air entry bilaterally. ABDOMEN: Soft, nontender. No guarding or rebound. EXTREMITIES: No cyanosis, clubbing or edema. NEUROLOGIC: Grossly intact. No focal deficits. Results/Medications Result Diagram: 03/22/16 1350 03/22/16 1350 Results 24 hrs Laboratory Tests Test 03/22/16 13:50 Alanine Aminotransferase (ALT/SGPT) 110 H Albumin 3.1 L Albumin/Globulin Ratio 0.91 Alkaline Phosphatase 840 H Anion Gap 16 Aspartate Amino Transf (AST/SGOT) 99 #H Basophils # 0.0 Basophils % 0.1 Blood Morphology Comment Blood Urea Nitrogen 31 H Calcium Level 7.1 L Carbon Dioxide Level 24 Chloride Level 102 Creatinine 0.87 Direct Bilirubin 0.00 Eosinophils # 0.0 Eosinophils % 0.5 Globulin 3.40 H Glucose Level 119 Hematocrit 27.5 L Hemoglobin 9.3 L Indirect Bilirubin 0.4 Lymphocytes # 0.8 Lymphocytes % 12.1 L Mean Corpuscular Hemoglobin 29.9 Mean Corpuscular Hemoglobin Concent 33.6 Mean Corpuscular Volume 89.0 Mean Platelet Volume 7.8 Monocytes # 0.4 Monocytes % 6.6 Neutrophils # 5.0 Neutrophils % 80.7 H Nucleated Red Blood Cells # 0.0 Nucleated Red Blood Cells % 0.0 Platelet Count 240 Potassium Level 4.2 Red Blood Count 3.09 L Red Cell Distribution Width 17.6 H Sodium Level 138 Total Bilirubin 0.4 Total Protein 6.5 White Blood Count 6.2 Medications Current Medications Ondansetron HCl (Zofran Inj) 4 mg Q6H PRN IV NAUSEA AND/OR VOMITING; Start at 14:00 Acetaminophen (Tylenol Tab) 650 mg Q6H PRN PO PAIN LEVEL 1-3 OR FEVER Last administered on 03/11/16 21:28; Admin Dose 650 MG; Start 03/08/16 at 14:00 Acetaminophen/ Hydrocodone Bitart ([place] (5/325)) 1 tab Q6H PRN PO PAIN LEVEL 4 -6 Last administered on 03/22/16 12:26; Admin Dose 1 TAB; Start 03/08/16 at 14: 00 Morphine Sulfate (morphine) 2 mg Q4H PRN IV PAIN LEVEL 7-10 Last administered on 03/22/16 13:59; Admin Dose 2 MG; Start 03/08/16 at 14:00 Carvedilol (Coreg) 3.125 mg BID PO Last administered on 03/22/16 09:58; Admin Dose 3.125 MG; Start 03/08/16 at 21:00 Imipramine HCl (Tofranil) 25 mg BID PO Last administered on 03/22/16 09:57; Admin Dose 25 MG; Start 03/08/16 at 21:00 Hydralazine HCl (Apresoline) 10 mg Q6H PRN IV SBP>160; Start 03/08/16 at 16:00 Bicalutamide (Casodex) 50 mg DAILY PO Last administered on 03/22/16 09:58; Admin Dose 50 MG; Start 03/09/16 at 09:00 Lisinopril (Zestril) 2.5 mg DAILY PO Last administered on 03/11/16 08:26; Admin Dose 2.5 MG; Start 03/09/16 at 09:00; Status Future Hold Docusate Sodium (Colace) 200 mg HS PO Last administered on 03/21/16 22:08; Admin Dose 200 MG; Start 03/10/16 at 21:00 Hydralazine HCl (Apresoline) 10 mg Q12 PO Last administered on 03/20/16 08:49 ; Admin Dose 10 MG; Start 03/11/16 at 21:00 Phenol (Cepastat Lozenge) 1 lozenge Q4 PRN MT SORE THROAT; Start 03/13/16 at 19 :00 Furosemide (Lasix) 20 mg DAILY PO Last administered on 03/16/16 08:47; Admin Dose 20 MG; Start 03/14/16 at 11:00; Status Future Hold Megestrol Acetate (Megace Susp) 400 mg BID PO Last administered on 03/22/16 09 :57; Admin Dose 400 MG; Start 03/17/16 at 21:00 Calcium Carbonate (Oyster Shell Calcium) 1.25 gm TID PO Last administered on 09:57; Admin Dose 1.25 GM; Start 03/19/16 at 09:00 Cholecalciferol (Vitamin D) 1,000 unit DAILY PO Last administered on 03/22/16 09:57; Admin Dose 1,000 UNIT; Start 03/20/16 at 09:00 Bisacodyl (Dulcolax) 10 mg DAILY PRN PO CONSTIPATION Last administered on 17:21; Admin Dose 10 MG; Start 03/20/16 at 15:00 Polyethylene Glycol (Miralax) 17 gm BID PO Last administered on 03/22/16 09:57 ; Admin Dose 17 GM; Start 03/20/16 at 21:00 Levofloxacin (Levaquin) 250 mg DAILY@06 PO Last administered on 03/22/16 06:38 ; Admin Dose 250 MG; Start 03/22/16 at 06:00 Assessment/Plan Chief Complaint/Hosp Course IMPRESSION AND PLAN: 1. Acute hypoxemic respiratory failure, likely secondary to congestive cardiac failure with underlying history of cardiomyopathy. 2. History of metastatic prostate cancer. 3. Possible urinary retention. 4. Possible aspiration pneumonia. The patient will require: 1. Continued bronchodilators. 2. Supplemental O2. 3. diuresis. 4. roque catheter in place, appreciate urology recs. 5. DVT and GI prophylaxis. 6. Continue Lupron per heme onc Continue physical therapy Discharge to residential facility Problems: [facility] NEWBY [facility], [facility] Mar 22, 2016 16:25
[2016-03-22] MEDS: DOCUSATE SODIUM 100 MG CAP PO SCH (23:00)
[2016-03-23] VITALS (12 sets, daily range): BP systolic 103–122; BP diastolic 58–64; PULSE 76–171; RESP 17–20
[2016-03-23] MEDS: FUROSEMIDE 20 MG INJ IV SCH ×2 (06:00→17:30)
[2016-03-23 06:25] LABS: BASOPHILS % 0.2 % (0.0-2.0); EOSINOPHILS % 0.2 % (0.0-7.0); HEMATOCRIT 28.1 % (42.0-52.0); HEMOGLOBIN 9.6 g/dl (14.0-18.0); LYMPHOCYTES # 0.8 10^3/ul (0.8-2.9); LYMPHOCYTES % 12.3 % (15.0-51.0); MEAN CORPUSCULAR HGB CONC 34.2 g/dl (32.0-37.0); MEAN CORPUSCULAR VOLUME 87.8 fl (82.0-101.0); MEAN PLATELET VOLUME 8.1 fl (7.4-10.4); MONOCYTE # 0.4 10^3/ul (0.3-0.9); MONOCYTES % 6.5 % (0.0-11.0); NEUTROPHIL # 5.2 10^3/ul (1.6-7.5); NEUTROPHILS % 80.8 % (39.0-77.0); PLATELET COUNT 259 10^3/UL (140-440); RED BLOOD COUNT 3.21 10^6/ul (4.70-6.10); RED CELL DISTRIBUTION WIDTH 18.2 % (11.5-14.5); UNCORRECTED WBC 6.5 10^3/ul (4.8-10.8); WHITE BLOOD COUNT 6.5 10^3/ul (4.8-10.8)
[2016-03-23 06:29] LABS: CONDITION 1; LH ANALYZER COMMENTS 1
[2016-03-23 06:42] LABS: POTASSIUM 4.6 mmol/L (3.5-5.1)
[2016-03-23 06:44] LABS: BILIRUBIN,INDIRECT 0.3 mg/dl (0-1.1); BILIRUBIN,TOTAL 0.3 mg/dl (0.2-1.3); CALCIUM 7.2 mg/dl (8.4-10.2); CREATININE 0.86 mg/dl (0.61-1.24); TOTAL PROTEIN 6.7 g/dl (6.1-8.1)
[2016-03-23 06:45] LABS: ALBUMIN/GLOBULIN RATIO 0.81
[2016-03-23] MEDS: PANTOPRAZOLE (EC) 40 MG TAB PO SCH ×2 (06:46→17:28)
[2016-03-23] MEDS: LEVOFLOXACIN 250 MG TAB PO SCH (06:46)
[2016-03-23] MEDS: LEVOTHYROXINE 25 MCG TAB PO SCH (06:46)
[2016-03-23 07:04] LABS: MAGNESIUM 2.5 mg/dl (1.7-2.5); PHOSPHORUS 3.2 mg/dl (2.5-4.9)
[2016-03-23] MEDS: ALBUTEROL/IPRATROPIUM (NEB) 3 ML AMP HHN SCH ×3 (08:03→20:57)
[2016-03-23] MEDS: MEGESTROL (40 MG/ML) 10ML CUP PO SCH ×2 (09:43→21:22)
[2016-03-23] MEDS: CALCIUM CARBONATE 1.25 GM TAB PO SCH ×3 (09:43→21:22)
[2016-03-23] MEDS: POLYETHYLENE GLYCOL 17 GM PACKET PO SCH ×2 (09:44→21:22)
[2016-03-23] MEDS: IMIPRAMINE 25 MG TAB PO SCH ×2 (09:47→21:22)
[2016-03-23] MEDS: CHOLECALCIFEROL 1,000 UNIT TAB PO SCH (09:48)
[2016-03-23] MEDS: BICALUTAMIDE 50 MG TAB PO SCH (09:58)
--- NOTE | 2016-03-23 10:45 | CONS ---
Date/Time of Note Date/Time of Note DATE: 03/23/16 TIME: 10:43 Assessment/Plan Assessment/Plan Additional Assessment/Plan 1. Congestive heart failure exacerbation, systolic, acute on chronic.-stable, BETTER overall 2. History of cardiomyopathy with severely depressed left ventricular ejection fraction, last approximately 20% to 25% by echo this admit - will monitor 3. End-stage renal disease on hemodialysis - RX per Renal team, will follow - remove fluid as needed - MUCH IMPROIVED 4. History of myocardial infarction by stress 04/2015/No ischemia by stress this admit EF 16% 5. Anemia- H/H stable - no bleed 6. Hypertension- modest Rx, will monitor clinically. WELL Rx now 7. Hypothyroidism. 8. Prostate carcinoma- primary follows 9. Dementia. 10. Positive troponin-now trended negative - no CP now - med rx planned. 11.Wide complex tachycardia- ?NSVT-no recurrence Consultation Date/Type/Reason Admit Date/Time Mar 08, 2016 at 11:43 Type of Consultation: Pulm Referring Provider: OLIVA BARRERA 24 HR Interval Summary Free Text/Dictation NO acute change - BP stable - in good fluid status now. Plan for dispo to SNF ROS: No fever, no chills, no nausea, no vomiting, no diarrhea/constipation No recent weight changes No chest pain, no PND, no orthopnea No dizziness, blurred vision No thirst, no heat or cold intolerance Exam/Review of Systems Vital Signs Vitals Vital Signs Date Time Temp Pulse Resp B/P Pulse Ox O2 Delivery O2 Flow Rate FiO2 03/23/16 10:14 98.6 86 18 120/64 98 03/23/16 08:05 Nasal Cannula 2.0 Intake and Output 03/22/16 03/22/16 03/23/16 15:00 23:00 07:00 Intake Total 650 ml 400 ml Output Total 450 ml 500 ml Balance 200 ml -100 ml Exam General: WN/WD/NAD, AOx 2-3 [place] HEENT: Unicetric/atraumatic/EOMI (follow commands) NECK: JVD elevated, no thyromegaly Lymph: no lymphadenopathy HEART: regular with no S3, II/ systolic murmur at apex LUNGS: Coarse sounds ABD: soft, NT, ND, +BS : Intact Neuro: non focal SKIN: chronic changes EXT: trace edema Results Result Diagram: 03/23/16 0558 03/23/16 0558 Results 24 hrs Laboratory Tests Test 03/22/16 13:50 03/23/16 05:58 Alanine Aminotransferase (ALT/SGPT) 110 H 92 H Albumin 3.1 L 3.0 L Albumin/Globulin Ratio 0.91 0.81 Alkaline Phosphatase 840 H 763 H Anion Gap 16 17 H Aspartate Amino Transf (AST/SGOT) 99 #H 77 H Basophils # 0.0 0.0 Basophils % 0.1 0.2 Blood Morphology Comment Blood Urea Nitrogen 31 H 32 H Calcium Level 7.1 L 7.2 L Carbon Dioxide Level 24 25 Chloride Level 102 105 Creatinine 0.87 0.86 Direct Bilirubin 0.00 0.00 Eosinophils # 0.0 0.0 Eosinophils % 0.5 0.2 Globulin 3.40 H 3.70 H Glucose Level 119 104 Hematocrit 27.5 L 28.1 L Hemoglobin 9.3 L 9.6 L Indirect Bilirubin 0.4 0.3 Lymphocytes # 0.8 0.8 Lymphocytes % 12.1 L 12.3 L Mean Corpuscular Hemoglobin 29.9 30.0 Mean Corpuscular Hemoglobin Concent 33.6 34.2 Mean Corpuscular Volume 89.0 87.8 Mean Platelet Volume 7.8 8.1 Monocytes # 0.4 0.4 Monocytes % 6.6 6.5 Neutrophils # 5.0 5.2 Neutrophils % 80.7 H 80.8 H Nucleated Red Blood Cells # 0.0 0.0 Nucleated Red Blood Cells % 0.0 0.0 Platelet Count 240 259 Potassium Level 4.2 4.6 Red Blood Count 3.09 L 3.21 L Red Cell Distribution Width 17.6 H 18.2 H Sodium Level 138 142 Total Bilirubin 0.4 0.3 Total Protein 6.5 6.7 White Blood Count 6.2 6.5 Magnesium Level 2.5 Phosphorus Level 3.2 Medications Medications Current Medications Ondansetron HCl (Zofran Inj) 4 mg Q6H PRN IV NAUSEA AND/OR VOMITING; Start at 14:00 Acetaminophen (Tylenol Tab) 650 mg Q6H PRN PO PAIN LEVEL 1-3 OR FEVER Last administered on 03/11/16t 21:28; Admin Dose 650 MG; Start 03/08/16 at 14:00 Acetaminophen/ Hydrocodone Bitart ([place] (5/325)) 1 tab Q6H PRN PO PAIN LEVEL 4 -6 Last administered on 03/22/16 12:26; Admin Dose 1 TAB; Start 03/08/16 at 14: 00 Morphine Sulfate (morphine) 2 mg Q4H PRN IV PAIN LEVEL 7-10 Last administered on 03/22/16 13:59; Admin Dose 2 MG; Start 03/08/16 at 14:00 Carvedilol (Coreg) 3.125 mg BID PO Last administered on 03/23/16 09:47; Admin Dose 3.125 MG; Start 03/08/16 at 21:00 Imipramine HCl (Tofranil) 25 mg BID PO Last administered on 03/23/16 09:47; Admin Dose 25 MG; Start 03/08/16 at 21:00 Hydralazine HCl (Apresoline) 10 mg Q6H PRN IV SBP>160; Start 03/08/16 at 16:00 Bicalutamide (Casodex) 50 mg DAILY PO Last administered on 03/23/16 09:58; Admin Dose 50 MG; Start 03/09/16 at 09:00 Lisinopril (Zestril) 2.5 mg DAILY PO Last administered on 03/11/16 08:26; Admin Dose 2.5 MG; Start 03/09/16 at 09:00; Status Future Hold Docusate Sodium (Colace) 200 mg HS PO Last administered on 03/22/16 23:00; Admin Dose 200 MG; Start 03/10/16 at 21:00 Hydralazine HCl (Apresoline) 10 mg Q12 PO Last administered on 03/23/16 09:46 ; Admin Dose 10 MG; Start 03/11/16 at 21:00 Phenol (Cepastat Lozenge) 1 lozenge Q4 PRN MT SORE THROAT; Start 03/13/16 at 19 :00 Furosemide (Lasix) 20 mg DAILY PO Last administered on 03/16/16 08:47; Admin Dose 20 MG; Start 03/14/16 at 11:00; Status Future Hold Megestrol Acetate (Megace Susp) 400 mg BID PO Last administered on 03/23/16 09 :43; Admin Dose 400 MG; Start 03/17/16 at 21:00 Calcium Carbonate (Oyster Shell Calcium) 1.25 gm TID PO Last administered on 09:43; Admin Dose 1.25 GM; Start 03/19/16 at 09:00 Cholecalciferol (Vitamin D) 1,000 unit DAILY PO Last administered on 03/23/16 09:48; Admin Dose 1,000 UNIT; Start 03/20/16 at 09:00 Bisacodyl (Dulcolax) 10 mg DAILY PRN PO CONSTIPATION Last administered on 17:21; Admin Dose 10 MG; Start 03/20/16 at 15:00 Polyethylene Glycol (Miralax) 17 gm BID PO Last administered on 03/23/16 09:44 ; Admin Dose 17 GM; Start 03/20/16 at 21:00 Levofloxacin (Levaquin) 250 mg DAILY@06 PO Last administered on 03/23/16 06:46 ; Admin Dose 250 MG; Start 03/22/16 at 06:00 KIMBERLEE LOPES MD Mar 23, 2016 10:45
[2016-03-23] MEDS: morphine 2 MG INJ IV PRN (11:14)
--- NOTE | 2016-03-23 12:17 | PN ---
Date/Time of Note Date/Time of Note DATE: 03/23/16 TIME: 12:15 Assessment/Plan VTE Prophylaxis VTE Prophylaxis Intervention: SCD's Lines/Catheters IV Catheter Type (from Nrs): [place]ine Lock Urinary Cath still in place: Yes Reason Cath still needed: terminal illness/intractable pain Assessment/Plan Chief Complaint/Hosp Course 1. Congestive heart failure exacerbation, acute on chronic, systolic dysfunction. Continue diuresis. Cardiology following the patient. 2. Metastatic prostate carcinoma with bone metastasis. Continue pain control. The patient is on bicalutamide. The patient being followed by oncology. The patient is currently a DNR. 3. Ischemic cardiomyopathy with ejection fraction of 20% to 25%. Continue beta blockers. Je inhibitors have been on hold because of worsening renal function. Cardiology following. 4. Hypocalcemia. Will provide the patient with calcium supplements. Etiology of hypocalcemia remains unclear. Most probably secondary to bony metastasis. Low vitamin D levels. Continue vitamin D supplementation. Pending parathyroid hormone levels. 5. Acute hypoxic respiratory failure secondary to congestive heart failure exacerbation. Continue supplemental oxygen and inhaled bronchodilators. Pulmonary following the patient. 6. Severe pulmonary hypertension with a PA pressure of 85 mmHg. Continue supplemental oxygen. 7. Hypothyroidism. Continue Synthroid. 8. Non sustained wide complex tachycardia. Continue management as per cardiology. 9. Essential hypertension. Continue antihypertensives. 10. Normocytic normochromic anemia. Iron panel within normal limits. Stool for OB x1 negative. Probably anemia of chronic disease. Monitor H and H closely. Transfuse as needed. 11. Dementia. Continue frequent reorientation. 12. Transaminitis without hyperbilirubinemia. Etiology unclear. Will trend LFTs. Avoid hepatotoxic medications. 13. Fluids, electrolytes, and nutrition. Pureed diet. 14. Deep venous thrombosis prophylaxis. Bilateral sequential compression devices. 15. Gastrointestinal prophylaxis. Proton pump inhibitors. 16. Plan. Continue supplemental oxygen. Continue inhaled bronchodilators. Replete calcium. The patient's family met with the hospice on 03/21/2016. However, the patient's family requesting not to institute hospice at this time. Instead to initiate physical therapy and transfer the patient to a rehabilitation facility. Pending placement. The case was discussed with Dr. Jimenez Problems: Subjective 24 Hr Interval Summary Free Text/Dictation The patient has been complaining of generalized body pain. Exam/Review of Systems Vital Signs Vitals Vital Signs Date Time Temp Pulse Resp B/P Pulse Ox O2 Delivery O2 Flow Rate FiO2 03/23/16 12:14 98.0 85 20 103/59 96 03/23/16 08:30 Nasal Cannula 2.0 Intake and Output 03/22/16 03/22/16 03/23/16 15:00 23:00 07:00 Intake Total 650 ml 400 ml Output Total 450 ml 500 ml Balance 200 ml -100 ml Exam GENERAL: This is an elderly male lying in bed in mild respiratory distress. HEENT: Head normocephalic and atraumatic. Eyes: Anicteric sclerae. Conjunctivae clear. ENT: Nasal septum is midline. Oral mucosa is dry. Tongue midline. No thrush. NECK: Supple. No JVD noticed. RESPIRATORY: Bilaterally diminished breath sounds. Minimal use of accessory muscles of respiration. CARDIAC: Regular rate and rhythm. ABDOMEN: Soft, nontender, and nondistended. Bowel sounds positive in all 4 quadrants. GENITOURINARY: The patient has a Hernandez catheter in place that is draining clear , straw-colored urine. EXTREMITIES: No cyanosis, no clubbing, no edema. Peripheral pulses are palpable. NEUROLOGIC: The patient is awake, alert, and oriented. The patient moves all 4 extremities. Results Result Diagram: 03/23/16 0558 03/23/16 0558 Results 24 hrs Laboratory Tests Test 03/22/16 13:50 03/23/16 05:58 Alanine Aminotransferase (ALT/SGPT) 110 H 92 H Albumin 3.1 L 3.0 L Albumin/Globulin Ratio 0.91 0.81 Alkaline Phosphatase 840 H 763 H Anion Gap 16 17 H Aspartate Amino Transf (AST/SGOT) 99 #H 77 H Basophils # 0.0 0.0 Basophils % 0.1 0.2 Blood Morphology Comment Blood Urea Nitrogen 31 H 32 H Calcium Level 7.1 L 7.2 L Carbon Dioxide Level 24 25 Chloride Level 102 105 Creatinine 0.87 0.86 Direct Bilirubin 0.00 0.00 Eosinophils # 0.0 0.0 Eosinophils % 0.5 0.2 Globulin 3.40 H 3.70 H Glucose Level 119 104 Hematocrit 27.5 L 28.1 L Hemoglobin 9.3 L 9.6 L Indirect Bilirubin 0.4 0.3 Lymphocytes # 0.8 0.8 Lymphocytes % 12.1 L 12.3 L Mean Corpuscular Hemoglobin 29.9 30.0 Mean Corpuscular Hemoglobin Concent 33.6 34.2 Mean Corpuscular Volume 89.0 87.8 Mean Platelet Volume 7.8 8.1 Monocytes # 0.4 0.4 Monocytes % 6.6 6.5 Neutrophils # 5.0 5.2 Neutrophils % 80.7 H 80.8 H Nucleated Red Blood Cells # 0.0 0.0 Nucleated Red Blood Cells % 0.0 0.0 Platelet Count 240 259 Potassium Level 4.2 4.6 Red Blood Count 3.09 L 3.21 L Red Cell Distribution Width 17.6 H 18.2 H Sodium Level 138 142 Total Bilirubin 0.4 0.3 Total Protein 6.5 6.7 White Blood Count 6.2 6.5 Magnesium Level 2.5 Phosphorus Level 3.2 Medications Medications Current Medications Ondansetron HCl (Zofran Inj) 4 mg Q6H PRN IV NAUSEA AND/OR VOMITING; Start at 14:00 Acetaminophen (Tylenol Tab) 650 mg Q6H PRN PO PAIN LEVEL 1-3 OR FEVER Last administered on 03/11/16 21:28; Admin Dose 650 MG; Start 03/08/16 at 14:00 Acetaminophen/ Hydrocodone Bitart ([place] (5/325)) 1 tab Q6H PRN PO PAIN LEVEL 4 -6 Last administered on 03/22/16 12:26; Admin Dose 1 TAB; Start 03/08/16 at 14: 00 Morphine Sulfate (morphine) 2 mg Q4H PRN IV PAIN LEVEL 7-10 Last administered on 03/23/16 11:14; Admin Dose 2 MG; Start 03/08/16 at 14:00 Carvedilol (Coreg) 3.125 mg BID PO Last administered on 03/23/16 09:47; Admin Dose 3.125 MG; Start 03/08/16 at 21:00 Imipramine HCl (Tofranil) 25 mg BID PO Last administered on 03/23/16 09:47; Admin Dose 25 MG; Start 03/08/16 at 21:00 Hydralazine HCl (Apresoline) 10 mg Q6H PRN IV SBP>160; Start 03/08/16 at 16:00 Bicalutamide (Casodex) 50 mg DAILY PO Last administered on 03/23/16 09:58; Admin Dose 50 MG; Start 03/09/16 at 09:00 Lisinopril (Zestril) 2.5 mg DAILY PO Last administered on 03/11/16 08:26; Admin Dose 2.5 MG; Start 03/09/16 at 09:00; Status Future Hold Docusate Sodium (Colace) 200 mg HS PO Last administered on 03/22/16 23:00; Admin Dose 200 MG; Start 03/10/16 at 21:00 Hydralazine HCl (Apresoline) 10 mg Q12 PO Last administered on 03/23/16 09:46 ; Admin Dose 10 MG; Start 03/11/16 at 21:00 Phenol (Cepastat Lozenge) 1 lozenge Q4 PRN MT SORE THROAT; Start 03/13/16 at 19 :00 Furosemide (Lasix) 20 mg DAILY PO Last administered on 03/16/16 08:47; Admin Dose 20 MG; Start 03/14/16 at 11:00; Status Future Hold Megestrol Acetate (Megace Susp) 400 mg BID PO Last administered on 03/23/16 09 :43; Admin Dose 400 MG; Start 03/17/16 at 21:00 Calcium Carbonate (Oyster Shell Calcium) 1.25 gm TID PO Last administered on 09:43; Admin Dose 1.25 GM; Start 03/19/16 at 09:00 Cholecalciferol (Vitamin D) 1,000 unit DAILY PO Last administered on 03/23/16 09:48; Admin Dose 1,000 UNIT; Start 03/20/16 at 09:00 Bisacodyl (Dulcolax) 10 mg DAILY PRN PO CONSTIPATION Last administered on 17:21; Admin Dose 10 MG; Start 03/20/16 at 15:00 Polyethylene Glycol (Miralax) 17 gm BID PO Last administered on 03/23/16 09:44 ; Admin Dose 17 GM; Start 03/20/16 at 21:00 Levofloxacin (Levaquin) 250 mg DAILY@06 PO Last administered on 03/23/16 06:46 ; Admin Dose 250 MG; Start 03/22/16 at 06:00 ERICA MOHAN NP Mar 23, 2016 12:17
--- NOTE | 2016-03-23 17:20 | PN ---
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 The patient does have an indwelling Hernandez catheter. He is now sleeping, and he just got injection of pain medic ation. His granddaughter, Steph, is at his bedside. She tells me that prior to his hospitalizat ion, at home he was incontinent of urine. OBJECTIVE FINDINGS: VITAL SIGNS: His temperature is 98, pulse is 85, respiration 20, blood pressure 103/59. ABDOMEN: Soft. The Hernandez catheter that he has is draining clear urine. LABORATORY DATA: The CBC shows a white count of 6.5, hemoglobin 9.6, hematocrit 28.1. The BUN is 3 2, creatinine 0.86. Electrolytes are normal. 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 The pat ient does have an indwelling Hernandez catheter. Patient is already on bicalutamide and Firmagon, as pe r the Oncology Department. PLAN: To remove the Hernandez catheter in the morning, apply a condom catheter on him, and check his po stvoid residual, and do a straight catheterization if the PVR is over 300, or if he does not urinate and the bladder volume is over 500, then do a straight catheterization again. Dictated By: DAQUAN PINTO/JESUS Conf#: [id number] DID#: [id number]
--- NOTE | 2016-03-23 18:28 | PN ---
Date/Time of Note Date/Time of Note DATE: 03/23/16 TIME: 18:24 Assessment/Plan VTE Prophylaxis VTE Prophylaxis Intervention: ambulation Lines/Catheters IV [facility]ter Type (from [facility]): Saline Lock Urinary Cath still in place: Yes Reason Cath still needed: urinary retention (per urology, removing today), other (indicate) Assessment/Plan Chief Complaint/Hosp Course 85 year old male with Prostate cancer, very high PSA, responsive to castration who is on Firmagan for the last 3 months again. There are no current cancer issues. They understand importance of follow up for treatment. Problems: Subjective 24 Hr Interval Summary Free Text/Dictation Patient is doing well. there are no new c/o Family bedside, no sob No pain. Exam/Review of Systems Vital Signs Vitals Vital Signs Date Time Temp Pulse Resp B/P Pulse Ox O2 Delivery O2 Flow Rate FiO2 03/23/16 16:29 98.1 75 18 110/61 98 03/23/16 14:44 Nasal Cannula 2.0 Intake and Output 03/22/16 03/22/16 03/23/16 15:00 23:00 07:00 Intake Total 650 ml 400 ml Output Total 450 ml 500 ml Balance 200 ml -100 ml Exam Thin elderly male, in NAD No LAD Clear Soft Spine non tender. No edema. Results Result Diagram: 03/23/16 0558 03/23/16 0558 Results 24 hrs Laboratory Tests Test 03/23/16 05:58 03/23/16 12:23 Alanine Aminotransferase (ALT/SGPT) 92 H Albumin 3.0 L Albumin/Globulin Ratio 0.81 Alkaline Phosphatase 763 H Anion Gap 17 H Aspartate Amino Transf (AST/SGOT) 77 H Basophils # 0.0 Basophils % 0.2 Blood Morphology Comment Blood Urea Nitrogen 32 H Calcium Level 7.2 L Carbon Dioxide Level 25 Chloride Level 105 Creatinine 0.86 Direct Bilirubin 0.00 Eosinophils # 0.0 Eosinophils % 0.2 Globulin 3.70 H Glucose Level 104 Hematocrit 28.1 L Hemoglobin 9.6 L Indirect Bilirubin 0.3 Lymphocytes # 0.8 Lymphocytes % 12.3 L Magnesium Level 2.5 Mean Corpuscular Hemoglobin 30.0 Mean Corpuscular Hemoglobin Concent 34.2 Mean Corpuscular Volume 87.8 Mean Platelet Volume 8.1 Monocytes # 0.4 Monocytes % 6.5 Neutrophils # 5.2 Neutrophils % 80.8 H Nucleated Red Blood Cells # 0.0 Nucleated Red Blood Cells % 0.0 Phosphorus Level 3.2 Platelet Count 259 Potassium Level 4.6 Red Blood Count 3.21 L Red Cell Distribution Width 18.2 H Sodium Level 142 Total Bilirubin 0.3 Total Protein 6.7 White Blood Count 6.5 Lab Scanned Report REFERENCE LAB Medications Medications Current Medications Ondansetron HCl (Zofran Inj) 4 mg Q6H PRN IV NAUSEA AND/OR VOMITING; Start at 14:00 Acetaminophen (Tylenol Tab) 650 mg Q6H PRN PO PAIN LEVEL 1-3 OR FEVER Last administered on 03/11/16 21:28; Admin Dose 650 MG; Start 03/08/16 at 14:00 Acetaminophen/ Hydrocodone Bitart ([place] (5/325)) 1 tab Q6H PRN PO PAIN LEVEL 4 -6 Last administered on 03/22/16 12:26; Admin Dose 1 TAB; Start 03/08/16 at 14: 00 Morphine Sulfate (morphine) 2 mg Q4H PRN IV PAIN LEVEL 7-10 Last administered on 03/23/16 11:14; Admin Dose 2 MG; Start 03/08/16 at 14:00 Carvedilol (Coreg) 3.125 mg BID PO Last administered on 03/23/16 09:47; Admin Dose 3.125 MG; Start 03/08/16 at 21:00 Imipramine HCl (Tofranil) 25 mg BID PO Last administered on 03/23/16 09:47; Admin Dose 25 MG; Start 03/08/16 at 21:00 Hydralazine HCl (Apresoline) 10 mg Q6H PRN IV SBP>160; Start 03/08/16 at 16:00 Bicalutamide (Casodex) 50 mg DAILY PO Last administered on 03/23/16 09:58; Admin Dose 50 MG; Start 03/09/16 at 09:00 Lisinopril (Zestril) 2.5 mg DAILY PO Last administered on 03/11/16 08:26; Admin Dose 2.5 MG; Start 03/09/16 at 09:00; Status Future Hold Docusate Sodium (Colace) 200 mg HS PO Last administered on 03/22/16 23:00; Admin Dose 200 MG; Start 03/10/16 at 21:00 Hydralazine HCl (Apresoline) 10 mg Q12 PO Last administered on 03/23/16 09:46 ; Admin Dose 10 MG; Start 03/11/16 at 21:00 Phenol (Cepastat Lozenge) 1 lozenge Q4 PRN MT SORE THROAT; Start 03/13/16 at 19 :00 Furosemide (Lasix) 20 mg DAILY PO Last administered on 03/16/16 08:47; Admin Dose 20 MG; Start 03/14/16 at 11:00; Status Future Hold Megestrol Acetate (Megace Susp) 400 mg BID PO Last administered on 03/23/16 09 :43; Admin Dose 400 MG; Start 03/17/16 at 21:00 Calcium Carbonate (Oyster Shell Calcium) 1.25 gm TID PO Last administered on 13:00; Admin Dose 1.25 GM; Start 03/19/16 at 09:00 Cholecalciferol (Vitamin D) 1,000 unit DAILY PO Last administered on 03/23/16 09:48; Admin Dose 1,000 UNIT; Start 03/20/16 at 09:00 Bisacodyl (Dulcolax) 10 mg DAILY PRN PO CONSTIPATION Last administered on 17:21; Admin Dose 10 MG; Start 03/20/16 at 15:00 Polyethylene Glycol (Miralax) 17 gm BID PO Last administered on 03/23/16 09:44 ; Admin Dose 17 GM; Start 03/20/16 at 21:00 Levofloxacin (Levaquin) 250 mg DAILY@06 PO Last administered on 03/23/16 06:46 ; Admin Dose 250 MG; Start 03/22/16 at 06:00 VIOLETA CHAPMAN MD Mar 23, 2016 18:28
--- NOTE | 2016-03-23 20:53 | PN ---
DATE: 03/23/2016 PULMONARY FOLLOWUP Chart reviewed. Events noted. SUBJECTIVE: Currently, patient on 2 L nasal cannula, saturating 98% and does not appear in any acut e distress. PHYSICAL EXAMINATION VITAL SIGNS: Blood pressure 102/59, pulse 85, respirations 20, temperature afebrile. HEENT: Pupils are equal and reactive to light. NECK: Supple; no JVD noted, no cervical lymphadenopathy noted, no carotid bruits heard. LUNGS: Diminished breath sounds at the bases. CARDIOVASCULAR: S1, S2 normal. ABDOMEN: Soft, nontender. No organomegaly or masses noted. EXTREMITIES: No clubbing or cyanosis noted. NEUROLOGIC: No changes. LABORATORIES: WBCs 6.5, hemoglobin 9.6, hematocrit 28.1, platelets 259. Sodium 142, potassium 4.6, chloride 105, CO2 25, BUN 32, creatinine 0.86, glucose 104. IMPRESSION 1. Congestive heart failure. 2. History of cardiomyopathy. 3. History of metastatic prostate cancer. 4. Possible aspiration. RECOMMENDATIONS 1. Continue oxygen. 2. Bronchodilators. 3. Diuresis. 4. followup. 5. GI and DVT prophylaxis. Dictated By: ROSALIE MANCIA MD, MA/JESUS Conf#: [id number] DID#: [id number]
[2016-03-23] MEDS: DOCUSATE SODIUM 100 MG CAP PO SCH (21:22)
[2016-03-24] VITALS (13 sets, daily range): BP systolic 112–125; BP diastolic 55–66; PULSE 77–160; RESP 18–19
[2016-03-24] MEDS: FUROSEMIDE 20 MG INJ IV SCH ×2 (06:26→17:24)
[2016-03-24] MEDS: LEVOTHYROXINE 25 MCG TAB PO SCH (06:29)
[2016-03-24] MEDS: LEVOFLOXACIN 250 MG TAB PO SCH (06:29)
[2016-03-24] MEDS: PANTOPRAZOLE (EC) 40 MG TAB PO SCH ×2 (06:30→19:09)
[2016-03-24] MEDS: ALBUTEROL/IPRATROPIUM (NEB) 3 ML AMP HHN SCH ×3 (07:40→19:55)
[2016-03-24] MEDS: MEGESTROL (40 MG/ML) 10ML CUP PO SCH ×2 (09:12→21:46)
[2016-03-24] MEDS: POLYETHYLENE GLYCOL 17 GM PACKET PO SCH ×2 (09:13→21:46)
[2016-03-24] MEDS: IMIPRAMINE 25 MG TAB PO SCH ×2 (09:13→21:46)
[2016-03-24] MEDS: BICALUTAMIDE 50 MG TAB PO SCH (09:13)
[2016-03-24] MEDS: CALCIUM CARBONATE 1.25 GM TAB PO SCH ×3 (09:14→21:46)
[2016-03-24] MEDS: CHOLECALCIFEROL 1,000 UNIT TAB PO SCH (09:14)
--- NOTE | 2016-03-24 13:29 | CONS ---
Date/Time of Note Date/Time of Note DATE: 03/24/16 TIME: 13:27 Assessment/Plan Assessment/Plan Additional Assessment/Plan 1. Congestive heart failure exacerbation, systolic, acute on chronic.-stable, BETTER overall - GOOD FLUID STATUS NOW 2. History of cardiomyopathy with severely depressed left ventricular ejection fraction, last approximately 20% to 25% by echo this admit - will monitor 3. End-stage renal disease on hemodialysis - RX per Renal team, will follow - remove fluid as needed - MUCH IMPROIVED 4. History of myocardial infarction by stress 04/2015/No ischemia by stress this admit EF 16%- no intervention planned now 5. Anemia- H/H stable - no bleed 6. Hypertension- modest Rx, will monitor clinically. WELL Rx now 7. Hypothyroidism. 8. Prostate carcinoma- primary follows 9. Dementia. 10. Positive troponin-now trended negative - no CP now - med rx planned. 11.Wide complex tachycardia- ?NSVT-no recurrence Consultation Date/Type/Reason Admit Date/Time Mar 08, 2016 at 11:43 Type of Consultation: Pulm Referring Provider: OLIVA BARRERA 24 HR Interval Summary Free Text/Dictation NO acute change - BP stable - will monitor clinically. ROS: No fever, no chills, no nausea, no vomiting, no diarrhea/constipation No recent weight changes No chest pain, no PND, no orthopnea No dizziness, blurred vision No thirst, no heat or cold intolerance Exam/Review of Systems Vital Signs Vitals Vital Signs Date Time Temp Pulse Resp B/P Pulse Ox O2 Delivery O2 Flow Rate FiO2 03/24/16 12:41 83 03/24/16 11:51 97.8 18 118/55 97 03/24/16 09:26 Nasal Cannula 2.0 Intake and Output 03/23/16 03/23/16 03/24/16 15:00 23:00 07:00 Intake Total 970 ml 160 ml Output Total 350 ml 670 ml Balance 620 ml -510 ml Exam General: WN/WD/NAD, AOx 1 HEENT: Unicetric/atraumatic/EOMI (follow some commands) NECK: JVD elevated, no thyromegaly Lymph: no lymphadenopathy HEART: regular with no S3, II/ systolic murmur at apex LUNGS: Coarse sounds ABD: soft, NT, ND, +BS : Intact Neuro: non focal SKIN: chronic changes EXT: trace edema Results Result Diagram: 03/23/16 0558 03/23/16 0558 Medications Medications Current Medications Ondansetron HCl (Zofran Inj) 4 mg Q6H PRN IV NAUSEA AND/OR VOMITING; Start at 14:00 Acetaminophen (Tylenol Tab) 650 mg Q6H PRN PO PAIN LEVEL 1-3 OR FEVER Last administered on 03/11/16 21:28; Admin Dose 650 MG; Start 03/08/16 at 14:00 Acetaminophen/ Hydrocodone Bitart ([place] (5/325)) 1 tab Q6H PRN PO PAIN LEVEL 4 -6 Last administered on 03/22/16 12:26; Admin Dose 1 TAB; Start 03/08/16 at 14: 00 Morphine Sulfate (morphine) 2 mg Q4H PRN IV PAIN LEVEL 7-10 Last administered on 03/23/16 11:14; Admin Dose 2 MG; Start 03/08/16 at 14:00 Carvedilol (Coreg) 3.125 mg BID PO Last administered on 03/24/16 09:14; Admin Dose 3.125 MG; Start 03/08/16 at 21:00 Imipramine HCl (Tofranil) 25 mg BID PO Last administered on 03/24/16 09:13; Admin Dose 25 MG; Start 03/08/16 at 21:00 Hydralazine HCl (Apresoline) 10 mg Q6H PRN IV SBP>160; Start 03/08/16 at 16:00 Bicalutamide (Casodex) 50 mg DAILY PO Last administered on 03/24/16 09:13; Admin Dose 50 MG; Start 03/09/16 at 09:00 Lisinopril (Zestril) 2.5 mg DAILY PO Last administered on 03/11/16 08:26; Admin Dose 2.5 MG; Start 03/09/16 at 09:00; Status Future Hold Docusate Sodium (Colace) 200 mg HS PO Last administered on 03/23/16 21:22; Admin Dose 200 MG; Start 03/10/16 at 21:00 Hydralazine HCl (Apresoline) 10 mg Q12 PO Last administered on 03/23/16 09:46 ; Admin Dose 10 MG; Start 03/11/16 at 21:00 Phenol (Cepastat Lozenge) 1 lozenge Q4 PRN MT SORE THROAT; Start 03/13/16 at 19 :00 Furosemide (Lasix) 20 mg DAILY PO Last administered on 03/16/16 08:47; Admin Dose 20 MG; Start 03/14/16 at 11:00; Status Future Hold Megestrol Acetate (Megace Susp) 400 mg BID PO Last administered on 03/24/16 09 :12; Admin Dose 400 MG; Start 03/17/16 at 21:00 Calcium Carbonate (Oyster Shell Calcium) 1.25 gm TID PO Last administered on 12:46; Admin Dose 1.25 GM; Start 03/19/16 at 09:00 Cholecalciferol (Vitamin D) 1,000 unit DAILY PO Last administered on 03/24/16 09:14; Admin Dose 1,000 UNIT; Start 03/20/16 at 09:00 Bisacodyl (Dulcolax) 10 mg DAILY PRN PO CONSTIPATION Last administered on 17:21; Admin Dose 10 MG; Start 03/20/16 at 15:00 Polyethylene Glycol (Miralax) 17 gm BID PO Last administered on 03/24/16 09:13 ; Admin Dose 17 GM; Start 03/20/16 at 21:00 Levofloxacin (Levaquin) 250 mg DAILY@06 PO Last administered on 03/24/16 06:29 ; Admin Dose 250 MG; Start 03/22/16 at 06:00 KIMBERLEE LOPES MD Mar 24, 2016 13:29
--- NOTE | 2016-03-24 14:48 | PN ---
Date/Time of Note Date/Time of Note DATE: 03/24/16 TIME: 14:46 Assessment/Plan VTE Prophylaxis VTE Prophylaxis Intervention: SCD's Lines/Catheters IV Catheter Type (from Nrs): Saline Lock Central line still needed: Yes Urinary Cath still in place: Yes Reason Cath still needed: terminal illness/intractable pain Assessment/Plan Chief Complaint/Hosp Course 1. Congestive heart failure exacerbation, acute on chronic, systolic dysfunction. Continue diuresis. Cardiology following the patient. 2. Metastatic prostate carcinoma with bone metastasis. Continue pain control. The patient is on bicalutamide. The patient being followed by oncology. 3. Ischemic cardiomyopathy with ejection fraction of 20% to 25%. Continue beta blockers. ANUJ inhibitors have been on hold because of worsening renal function. Cardiology following. 4. Hypocalcemia. Will provide the patient with calcium supplements. Etiology of hypocalcemia remains unclear. Most probably secondary to bony metastasis. Low vitamin D levels. Continue vitamin D supplementation. 5. Acute hypoxic respiratory failure secondary to congestive heart failure exacerbation. Improved. Continue supplemental oxygen and inhaled bronchodilators. Pulmonary following the patient. 6. Severe pulmonary hypertension with a PA pressure of 85 mmHg. Continue supplemental oxygen. 7. Hypothyroidism. Continue Synthroid. 8. Non sustained wide complex tachycardia. Continue management as per cardiology. 9. Essential hypertension. Continue antihypertensives. 10. Normocytic normochromic anemia. Iron panel within normal limits. Stool for OB x1 negative. Probably anemia of chronic disease. Monitor H and H closely. Transfuse as needed. 11. Dementia. Continue frequent reorientation. 12. Transaminitis without hyperbilirubinemia. Etiology unclear. Will trend LFTs. Avoid hepatotoxic medications. 13. Fluids, electrolytes, and nutrition. Pureed diet. 14. Deep venous thrombosis prophylaxis. Bilateral sequential compression devices. 15. Gastrointestinal prophylaxis. Proton pump inhibitors. 16. Plan. Continue supplemental oxygen. Continue inhaled bronchodilators. Replete calcium. The patient's family met with the hospice on 03/21/2016. However, the patient's family requesting not to institute hospice at this time. Instead to initiate physical therapy and transfer the patient to a rehabilitation facility. Physical therapy evaluation done. Awaiting placement to a [facility] facility. The case was discussed with Dr. Jimenez Problems: Subjective 24 Hr Interval Summary Free Text/Dictation Pain well controlled. Exam/Review of Systems Vital Signs Vitals Vital Signs Date Time Temp Pulse Resp B/P Pulse Ox O2 Delivery O2 Flow Rate FiO2 03/24/16 13:51 2.0 03/24/16 13:50 77 18 96 Nasal Cannula 03/24/16 11:51 97.8 118/55 Intake and Output 03/23/16 03/23/16 03/24/16 14:59 22:59 06:59 Intake Total 970 ml 160 ml Output Total 350 ml 670 ml Balance 620 ml -510 ml Exam GENERAL: This is an elderly male lying in bed in no apparent distress. HEENT: Head normocephalic and atraumatic. Eyes: Anicteric sclerae. Conjunctivae clear. ENT: Nasal septum is midline. Oral mucosa is dry. Tongue midline. No thrush. NECK: Supple. No JVD noticed. RESPIRATORY: Bilaterally diminished breath sounds. No use of accessory muscles of respiration. CARDIAC: Regular rate and rhythm. ABDOMEN: Soft, nontender, and nondistended. Bowel sounds positive in all 4 quadrants. GENITOURINARY: The patient has a Hernandez catheter in place that is draining clear , straw-colored urine. EXTREMITIES: No cyanosis, no clubbing, no edema. Peripheral pulses are palpable. NEUROLOGIC: The patient is awake, alert, and oriented. The patient moves all 4 extremities. Results Result Diagram: 03/23/1658 03/23/1658 Medications Medications Current Medications Ondansetron HCl (Zofran Inj) 4 mg Q6H PRN IV NAUSEA AND/OR VOMITING; Start at 14:00 Acetaminophen (Tylenol Tab) 650 mg Q6H PRN PO PAIN LEVEL 1-3 OR FEVER Last administered on 03/11/16 21:28; Admin Dose 650 MG; Start 03/08/16 at 14:00 Acetaminophen/ Hydrocodone Bitart ([place] (5/325)) 1 tab Q6H PRN PO PAIN LEVEL 4 -6 Last administered on 03/22/16 12:26; Admin Dose 1 TAB; Start 03/08/16 at 14: 00 Morphine Sulfate (morphine) 2 mg Q4H PRN IV PAIN LEVEL 7-10 Last administered on 03/23/16 11:14; Admin Dose 2 MG; Start 03/08/16 at 14:00 Carvedilol (Coreg) 3.125 mg BID PO Last administered on 03/24/16 09:14; Admin Dose 3.125 MG; Start 03/08/16 at 21:00 Imipramine HCl (Tofranil) 25 mg BID PO Last administered on 03/24/16 09:13; Admin Dose 25 MG; Start 03/08/16 at 21:00 Hydralazine HCl (Apresoline) 10 mg Q6H PRN IV SBP>160; Start 03/08/16 at 16:00 Bicalutamide (Casodex) 50 mg DAILY PO Last administered on 03/24/16 09:13; Admin Dose 50 MG; Start 03/09/16 at 09:00 Lisinopril (Zestril) 2.5 mg DAILY PO Last administered on 03/11/16 08:26; Admin Dose 2.5 MG; Start 03/09/16 at 09:00; Status Future Hold Docusate Sodium (Colace) 200 mg HS PO Last administered on 03/23/16 21:22; Admin Dose 200 MG; Start 03/10/16 at 21:00 Hydralazine HCl (Apresoline) 10 mg Q12 PO Last administered on 03/23/16 09:46 ; Admin Dose 10 MG; Start 03/11/16 at 21:00 Phenol (Cepastat Lozenge) 1 lozenge Q4 PRN MT SORE THROAT; Start 03/13/16 at 19 :00 Furosemide (Lasix) 20 mg DAILY PO Last administered on 03/16/16 08:47; Admin Dose 20 MG; Start 03/14/16 at 11:00; Status Future Hold Megestrol Acetate (Megace Susp) 400 mg BID PO Last administered on 03/24/16 09 :12; Admin Dose 400 MG; Start 03/17/16 at 21:00 Calcium Carbonate (Oyster Shell Calcium) 1.25 gm TID PO Last administered on 12:46; Admin Dose 1.25 GM; Start 03/19/16 at 09:00 Cholecalciferol (Vitamin D) 1,000 unit DAILY PO Last administered on 03/24/16 09:14; Admin Dose 1,000 UNIT; Start 03/20/16 at 09:00 Bisacodyl (Dulcolax) 10 mg DAILY PRN PO CONSTIPATION Last administered on 17:21; Admin Dose 10 MG; Start 03/20/16 at 15:00 Polyethylene Glycol (Miralax) 17 gm BID PO Last administered on 03/24/16 09:13 ; Admin Dose 17 GM; Start 03/20/16 at 21:00 Levofloxacin (Levaquin) 250 mg DAILY@06 PO Last administered on 03/24/16 06:29 ; Admin Dose 250 MG; Start 03/22/16 at 06:00 ERICA MOHAN NP Mar 24, 2016 14:48
[2016-03-24] MEDS: morphine 2 MG INJ IV PRN (16:09)
--- NOTE | 2016-03-24 18:39 | PN ---
DATE: 03/24/2016 SUBJECTIVE: Chart reviewed. The patient on 2 liters O2 nasal cannula, saturating 97%. PHYSICAL EXAMINATION: VITAL SIGNS: Blood pressure 118/55, pulse 79, respirations 18, temperature 97.8. HEENT: Pupils are equal and react to light. NECK: Supple. ____ No cervical adenopathy. No carotid bruits heard. LUNGS: Fair breath sounds bilaterally. CARDIOVASCULAR: S1, S2 normal. ABDOMEN: Soft, nontender. No organomegaly or masses noted. EXTREMITIES: No clubbing or cyanosis noted. NEUROLOGICAL: Awake. LABORATORY DATA: None today. IMPRESSION: 1. Congestive heart failure. 2. History of cardiomyopathy. 3. History of metastatic prostate carcinoma. 4. Possible aspiration. RECOMMENDATIONS: 1. Continue oxygen. 2. Bronchodilators. 3. Urology followup. 4. GI and DVT prophylaxis. Dictated By: ROSALIE MANCIA MD, MA/JESUS Conf#: [id number] DID#: [id number]
[2016-03-24] MEDS: DOCUSATE SODIUM 100 MG CAP PO SCH (21:46)
[2016-03-25] VITALS (13 sets, daily range): BP systolic 100–114; BP diastolic 55–66; PULSE 82–100; RESP 17–20
[2016-03-25] MEDS: LEVOFLOXACIN 250 MG TAB PO SCH (06:01)
[2016-03-25] MEDS: PANTOPRAZOLE (EC) 40 MG TAB PO SCH ×2 (06:01→17:16)
[2016-03-25] MEDS: FUROSEMIDE 20 MG INJ IV SCH ×2 (06:02→17:16)
[2016-03-25] MEDS: LEVOTHYROXINE 25 MCG TAB PO SCH (06:02)
[2016-03-25 07:49] LABS: BASOPHILS % 0.4 % (0.0-2.0); EOSINOPHILS % 0.3 % (0.0-7.0); HEMATOCRIT 29.1 % (42.0-52.0); HEMOGLOBIN 10.1 g/dl (14.0-18.0); LYMPHOCYTES # 0.9 10^3/ul (0.8-2.9); MEAN CORPUSCULAR HEMOGLOBIN 30.2 pg (29.0-33.0); MEAN CORPUSCULAR HGB CONC 34.6 g/dl (32.0-37.0); MEAN CORPUSCULAR VOLUME 87.4 fl (82.0-101.0); MEAN PLATELET VOLUME 8.6 fl (7.4-10.4); MONOCYTE # 0.6 10^3/ul (0.3-0.9); MONOCYTES % 6.9 % (0.0-11.0); NEUTROPHIL # 6.9 10^3/ul (1.6-7.5); NEUTROPHILS % 81.4 % (39.0-77.0); PLATELET COUNT 238 10^3/UL (140-440); RED BLOOD COUNT 3.33 10^6/ul (4.70-6.10); RED CELL DISTRIBUTION WIDTH 17.5 % (11.5-14.5); UNCORRECTED WBC 8.4 10^3/ul (4.8-10.8); WHITE BLOOD COUNT 8.4 10^3/ul (4.8-10.8)
[2016-03-25 07:58] LABS: ALBUMIN 3.3 g/dl (3.3-4.9); CONDITION 1; LH ANALYZER COMMENTS 1
[2016-03-25 07:59] LABS: POTASSIUM 4.6 mmol/L (3.5-5.1)
[2016-03-25 08:01] LABS: MAGNESIUM 2.2 mg/dl (1.7-2.5); PHOSPHORUS 3.3 mg/dl (2.5-4.9)
[2016-03-25 08:01] LABS: ALBUMIN/GLOBULIN RATIO 0.91; BILIRUBIN,INDIRECT 0.2 mg/dl (0-1.1); BILIRUBIN,TOTAL 0.2 mg/dl (0.2-1.3); CREATININE 1.07 mg/dl (0.61-1.24); TOTAL PROTEIN 6.9 g/dl (6.1-8.1)
[2016-03-25 08:02] LABS: CALCIUM 7.3 mg/dl (8.4-10.2)
--- NOTE | 2016-03-25 08:33 | CONS ---
DATE OF ADMISSION: 03/08/2016 DATE OF CONSULTATION: 03/25/2016 TYPE OF CONSULTATION: Oncology progress note. SUBJECTIVE: Mr. Frey continues to feel well. He does not complain of shortness of breath. No c hest pain, no bone pain. OBJECTIVE: VITAL SIGNS: Temperature 98.4, pulse 72 per minute, respirations 18, blood pressure 109/55, and pul se oximetry 95% on 2 liters of oxygen by nasal cannula. SKIN: No ecchymosis, no petechiae or rashes. HEENT: No mucosal lesions. No scleral icterus. Nasal oxygen in place. NECK: Supple, no jugular venous distention or thyroid enlargement. CHEST: Basilar rales. HEART: Regular sinus rhythm, no S3, S4 or murmurs. ABDOMEN: Soft, no masses or ascites. EXTREMITIES: No clubbing, edema or cyanosis. No palpable cords or Homans sign. NEUROLOGIC: Normal. ASSESSMENT: 1. Congestive cardiomyopathy. 2. Metastatic prostate carcinoma. The patient is now stable. He is due for another injection of Firmagon on April 17. As previousl y noted, the patient and family are consistent in their desire for him to have continued therapy and are not agreeable to either palliative care or hospice. Dictated By: MELINDA PAYNE MD SR/NTS Conf#: [id number] DID#: [id number]
[2016-03-25] MEDS: IMIPRAMINE 25 MG TAB PO SCH ×2 (08:49→22:19)
[2016-03-25] MEDS: MEGESTROL (40 MG/ML) 10ML CUP PO SCH ×2 (08:49→22:19)
[2016-03-25] MEDS: POLYETHYLENE GLYCOL 17 GM PACKET PO SCH ×2 (08:49→21:00)
[2016-03-25] MEDS: CHOLECALCIFEROL 1,000 UNIT TAB PO SCH (08:49)
[2016-03-25] MEDS: CALCIUM CARBONATE 1.25 GM TAB PO SCH ×3 (08:49→22:19)
[2016-03-25] MEDS: BICALUTAMIDE 50 MG TAB PO SCH (08:51)
[2016-03-25] MEDS: ALBUTEROL/IPRATROPIUM (NEB) 3 ML AMP HHN SCH ×3 (09:39→19:53)
--- NOTE | 2016-03-25 12:05 | CONS ---
Date/Time of Note Date/Time of Note DATE: 03/25/16 TIME: 12:01 Assessment/Plan Assessment/Plan Chief Complaint/Hosp Course IMPRESSION: 1. Congestive heart failure exacerbation, systolic, acute on chronic.-Now improved volume status currently 2. History of cardiomyopathy with severely depressed left ventricular ejection fraction, last approximately 20% to 25% by echo this admit 3. End-stage renal disease on hemodialysis. 4. History of myocardial infarction by stress 04/2015. No ischemia by stress this admit EF 16% 5. Anemia. 6. Hypertension. 7. Hypothyroidism. 8. Prostate carcinoma. 9. Dementia. 10. Positive troponin-now trended negative 11.Wide complex tachycardia- ?NSVT-no recurrence 12. 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 Problems: Consultation Date/Type/Reason Admit Date/Time Mar 08, 2016 at 11:43 Initial Consult Date 03/08/2016 Type of Consultation: Cardiology Reason for Consultation cardiomyopathy Referring Provider: OLIVA BARRERA Exam/Review of Systems Vital Signs Vitals Vital Signs Date Time Temp Pulse Resp B/P Pulse Ox O2 Delivery O2 Flow Rate FiO2 03/25/16 09:39 2.0 03/25/16 09:39 100 20 97 Nasal Cannula 03/25/16 08:34 98.0 101/55 Intake and Output 03/24/16 03/24/16 03/25/16 15:00 23:00 07:00 Intake Total 890 ml 100 ml Output Total 300 ml 700 ml Balance 590 ml -600 ml Exam Review of Systems: CONSTITUTIONAL: No fevers, chills. PULMONARY: No sob CARDIOVASCULAR: No chest pain/palpitations GASTROINTESTINAL: No nausea/vomiting. GENITOURINARY: No hematuria/dysuria. MUSCULOSKELETAL: No myagias/arthalgias. PSYCHIATRIC: The patient denies depression. NEUROLOGIC: lethargic Constitutional: alert, oriented Psych: no complaints ENMT: mucosa pink and moist Neck: supple Respiratory: diminished breath sounds (at bases/B) Cardiovascular: regular rate and rhythm Gastrointestinal: non-tender, soft Musculoskeletal: muscle tone Extremities: normal pulses Neurological: other (No focal deficits) Results Result Diagram: 03/25/16 0640 03/25/16 0640 Results 24 hrs Laboratory Tests Test 03/25/16 06:40 03/25/16 06:45 Alanine Aminotransferase (ALT/SGPT) 80 H Albumin 3.3 Albumin/Globulin Ratio 0.91 Alkaline Phosphatase 1058 H Anion Gap 21 H Aspartate Amino Transf (AST/SGOT) 135 H Basophils # 0.0 Basophils % 0.4 Blood Morphology Comment Blood Urea Nitrogen 36 H Calcium Level 7.3 L Carbon Dioxide Level 24 Chloride Level 99 Creatinine 1.07 Direct Bilirubin 0.00 Eosinophils # 0.0 Eosinophils % 0.3 Globulin 3.60 H Glucose Level 128 Hematocrit 29.1 L Hemoglobin 10.1 L Indirect Bilirubin 0.2 Lymphocytes # 0.9 Lymphocytes % 11.0 L Mean Corpuscular Hemoglobin 30.2 Mean Corpuscular Hemoglobin Concent 34.6 Mean Corpuscular Volume 87.4 Mean Platelet Volume 8.6 Monocytes # 0.6 Monocytes % 6.9 Neutrophils # 6.9 Neutrophils % 81.4 H Nucleated Red Blood Cells # 0.0 Nucleated Red Blood Cells % 0.0 Platelet Count 238 Potassium Level 4.6 Red Blood Count 3.33 L Red Cell Distribution Width 17.5 H Sodium Level 139 Total Bilirubin 0.2 Total Protein 6.9 White Blood Count 8.4 # Magnesium Level 2.2 Phosphorus Level 3.3 Medications Medications Current Medications Ondansetron HCl (Zofran Inj) 4 mg Q6H PRN IV NAUSEA AND/OR VOMITING; Start at 14:00 Acetaminophen (Tylenol Tab) 650 mg Q6H PRN PO PAIN LEVEL 1-3 OR FEVER Last administered on 03/11/16 21:28; Admin Dose 650 MG; Start 03/08/16 at 14:00 Acetaminophen/ Hydrocodone Bitart ([place] (5/325)) 1 tab Q6H PRN PO PAIN LEVEL 4 -6 Last administered on 03/22/16 12:26; Admin Dose 1 TAB; Start 03/08/16 at 14: 00 Morphine Sulfate (morphine) 2 mg Q4H PRN IV PAIN LEVEL 7-10 Last administered on 03/24/16 16:09; Admin Dose 2 MG; Start 03/08/16 at 14:00 Carvedilol (Coreg) 3.125 mg BID PO Last administered on 03/25/16 08:53; Admin Dose 3.125 MG; Start 03/08/16 at 21:00 Imipramine HCl (Tofranil) 25 mg BID PO Last administered on 03/25/16 08:49; Admin Dose 25 MG; Start 03/08/16 at 21:00 Hydralazine HCl (Apresoline) 10 mg Q6H PRN IV SBP>160; Start 03/08/16 at 16:00 Bicalutamide (Casodex) 50 mg DAILY PO Last administered on 03/25/16 08:51; Admin Dose 50 MG; Start 03/09/16 at 09:00 Lisinopril (Zestril) 2.5 mg DAILY PO Last administered on 03/11/16 08:26; Admin Dose 2.5 MG; Start 03/09/16 at 09:00; Status Future Hold Docusate Sodium (Colace) 200 mg HS PO Last administered on 03/24/16 21:46; Admin Dose 200 MG; Start 03/10/16 at 21:00 Hydralazine HCl (Apresoline) 10 mg Q12 PO Last administered on 03/23/16 09:46 ; Admin Dose 10 MG; Start 03/11/16 at 21:00 Phenol (Cepastat Lozenge) 1 lozenge Q4 PRN MT SORE THROAT; Start 03/13/16 at 19 :00 Furosemide (Lasix) 20 mg DAILY PO Last administered on 03/16/16 08:47; Admin Dose 20 MG; Start 03/14/16 at 11:00; Status Future Hold Megestrol Acetate (Megace Susp) 400 mg BID PO Last administered on 03/25/16 08 :49; Admin Dose 400 MG; Start 03/17/16 at 21:00 Calcium Carbonate (Oyster Shell Calcium) 1.25 gm TID PO Last administered on 08:49; Admin Dose 1.25 GM; Start 03/19/16 at 09:00 Cholecalciferol (Vitamin D) 1,000 unit DAILY PO Last administered on 03/25/16 08:49; Admin Dose 1,000 UNIT; Start 03/20/16 at 09:00 Bisacodyl (Dulcolax) 10 mg DAILY PRN PO CONSTIPATION Last administered on 17:21; Admin Dose 10 MG; Start 03/20/16 at 15:00 Polyethylene Glycol (Miralax) 17 gm BID PO Last administered on 03/25/16 08:49 ; Admin Dose 17 GM; Start 03/20/16 at 21:00 Levofloxacin (Levaquin) 250 mg DAILY@06 PO Last administered on 03/25/16 06:01 ; Admin Dose 250 MG; Start 03/22/16 at 06:00 JUAN CARLOS ALEJANDRO Mar 25, 2016 12:05
--- NOTE | 2016-03-25 14:18 | CONS ---
Date/Time of Note Date/Time of Note DATE: 03/25/16 TIME: 14:14 Consult Date/Type/Reason Admit Date/Time Mar 08, 2016 at 11:43 Type of Consultation: pulmonary Ordering Provider: OLIVA BARRERA Subjective Appears stable on nasal cannula oxygen no evidence of respiratory distress Objective Vital Signs Date Time Temp Pulse Resp B/P Pulse Ox O2 Delivery O2 Flow Rate FiO2 03/25/16 14:03 100 20 97 Nasal Cannula 2.0 03/25/16 12:10 98.0 105/65 Intake and Output 03/24/16 03/24/16 03/25/16 15:00 23:00 07:00 Intake Total 890 ml 100 ml Output Total 300 ml 700 ml Balance 590 ml -600 ml PHYSICAL EXAMINATION: VITAL SIGNS: Blood pressure 118/55, pulse 79, respirations 18, temperature 97.8. HEENT: Pupils are equal and react to light. NECK: Supple. No cervical adenopathy. No carotid bruits heard. LUNGS: Diminished air entry right lung CARDIOVASCULAR: S1, S2 normal. ABDOMEN: Soft, nontender. No organomegaly or masses noted. EXTREMITIES: No clubbing or cyanosis noted. NEUROLOGICAL: Awake. Results/Medications Result Diagram: 03/25/16 0640 03/25/16 0640 Results 24 hrs Laboratory Tests Test 03/25/16 06:40 03/25/16 06:45 Alanine Aminotransferase (ALT/SGPT) 80 H Albumin 3.3 Albumin/Globulin Ratio 0.91 Alkaline Phosphatase 1058 H Anion Gap 21 H Aspartate Amino Transf (AST/SGOT) 135 H Basophils # 0.0 Basophils % 0.4 Blood Morphology Comment Blood Urea Nitrogen 36 H Calcium Level 7.3 L Carbon Dioxide Level 24 Chloride Level 99 Creatinine 1.07 Direct Bilirubin 0.00 Eosinophils # 0.0 Eosinophils % 0.3 Globulin 3.60 H Glucose Level 128 Hematocrit 29.1 L Hemoglobin 10.1 L Indirect Bilirubin 0.2 Lymphocytes # 0.9 Lymphocytes % 11.0 L Mean Corpuscular Hemoglobin 30.2 Mean Corpuscular Hemoglobin Concent 34.6 Mean Corpuscular Volume 87.4 Mean Platelet Volume 8.6 Monocytes # 0.6 Monocytes % 6.9 Neutrophils # 6.9 Neutrophils % 81.4 H Nucleated Red Blood Cells # 0.0 Nucleated Red Blood Cells % 0.0 Platelet Count 238 Potassium Level 4.6 Red Blood Count 3.33 L Red Cell Distribution Width 17.5 H Sodium Level 139 Total Bilirubin 0.2 Total Protein 6.9 White Blood Count 8.4 # Magnesium Level 2.2 Phosphorus Level 3.3 Medications Current Medications Ondansetron HCl (Zofran Inj) 4 mg Q6H PRN IV NAUSEA AND/OR VOMITING; Start at 14:00 Acetaminophen (Tylenol Tab) 650 mg Q6H PRN PO PAIN LEVEL 1-3 OR FEVER Last administered on 03/11/16 21:28; Admin Dose 650 MG; Start 03/08/16 at 14:00 Acetaminophen/ Hydrocodone Bitart ([place] (5/325)) 1 tab Q6H PRN PO PAIN LEVEL 4 -6 Last administered on 03/22/16 12:26; Admin Dose 1 TAB; Start 03/08/16 at 14: 00 Morphine Sulfate (morphine) 2 mg Q4H PRN IV PAIN LEVEL 7-10 Last administered on 03/24/16 16:09; Admin Dose 2 MG; Start 03/08/16 at 14:00 Carvedilol (Coreg) 3.125 mg BID PO Last administered on 03/25/16 08:53; Admin Dose 3.125 MG; Start 03/08/16 at 21:00 Imipramine HCl (Tofranil) 25 mg BID PO Last administered on 03/25/16 08:49; Admin Dose 25 MG; Start 03/08/16 at 21:00 Hydralazine HCl (Apresoline) 10 mg Q6H PRN IV SBP>160; Start 03/08/16 at 16:00 Bicalutamide (Casodex) 50 mg DAILY PO Last administered on 03/25/16 08:51; Admin Dose 50 MG; Start 03/09/16 at 09:00 Lisinopril (Zestril) 2.5 mg DAILY PO Last administered on 03/11/16 08:26; Admin Dose 2.5 MG; Start 03/09/16 at 09:00; Status Future hold Docusate Sodium (Colace) 200 mg HS PO Last administered on 03/24/16 21:46; Admin Dose 200 MG; Start 03/10/16 at 21:00 Phenol (Cepastat Lozenge) 1 lozenge Q4 PRN MT SORE THROAT; Start 03/13/16 at 19 :00 Furosemide (Lasix) 20 mg DAILY PO Last administered on 03/16/16 08:47; Admin Dose 20 MG; Start 03/14/16 at 11:00; Status Future Hold Megestrol Acetate (Megace Susp) 400 mg BID PO Last administered on 03/25/16 08 :49; Admin Dose 400 MG; Start 03/17/16 at 21:00 Calcium Carbonate (Oyster Shell Calcium) 1.25 gm TID PO Last administered on 12:31; Admin Dose 1.25 GM; Start 03/19/16 at 09:00 Cholecalciferol (Vitamin D) 1,000 unit DAILY PO Last administered on 03/25/16 08:49; Admin Dose 1,000 UNIT; Start 03/20/16 at 09:00 Bisacodyl (Dulcolax) 10 mg DAILY PRN PO CONSTIPATION Last administered on 17:21; Admin Dose 10 MG; Start 03/20/16 at 15:00 Polyethylene Glycol (Miralax) 17 gm BID PO Last administered on 03/25/16 08:49 ; Admin Dose 17 GM; Start 03/20/16 at 21:00 Levofloxacin (Levaquin) 250 mg DAILY@06 PO Last administered on 03/25/16 06:01 ; Admin Dose 250 MG; Start 03/22/16 at 06:00 Assessment/Plan Chief Complaint/Hosp Course IMPRESSION: 1. Congestive heart failure. 2. History of cardiomyopathy. 3. History of metastatic prostate carcinoma. 4. Possible aspiration. 5. Questionable increase in right pleural effusion RECOMMENDATIONS: 1. Continue oxygen. 2. Bronchodilators. 3. Urology followup. 4. GI and DVT prophylaxis. 5. Repeat chest x-ray today if significant effusion will require thoracentesis Problems: MARLA NEWBY MD, [facility] Mar 25, 2016 14:18
--- NOTE | 2016-03-25 15:21 | PN ---
Date/Time of Note Date/Time of Note DATE: 03/25/16 TIME: 15:16 Assessment/Plan VTE Prophylaxis VTE Prophylaxis Intervention: SCD's Lines/Catheters IV [facility] Saline Lock Urinary Cath still in place: No (Condom cath) Assessment/Plan Chief Complaint/Hosp Course Assessment and plan 1. CHF exacerbation acute on chronic with systolic dysfunction. Continue diuretics. Continue with cardiology recommendations 2. Metastatic prostate carcinoma with bone metastasis. Continue on analgesics. Patient remains on bicalutamide. Continue with oncologist recommendations 3. Cardiomyopathy with ejection fraction of 20-25%. Continue optimization with cardiovascular medications. ANUJ inhibitor on hold due to worsening renal function. Continue with cardiology recommendations 4. Hypocalcemia. Suspect secondary to bony metastasis. Continue vitamin D supplementation 5. Hypoxic respiratory failure secondary to CHF exacerbation. Continue bronchodilators. 6. Pulmonary hypertension with PA pressure of 85 mmHg. Continue on O2. 7. Hypothyroidism. Continue on Synthroid 8. Reported nonsustained wide-complex tachycardia. Continue on telemetry monitoring. Follow-up with cardiology recommendations 9. Essential hypertension. Continue on antihypertensives and adjust as needed 10. Normocytic normochromic anemia. Likely of chronic disease. Remain stable. We 'll monitor 11. Dementia. Continue fall precautions DVT prophylaxis: SCDs GERD prophylaxis: PPI Disposition and plan: Awaiting patient placement. Follow-up chest radiograph. Discharge when cleared by consultants Discussed but of care with Dr. Costello Problems: Subjective 24 Hr Interval Summary Free Text/Dictation Comfortable at present. No apparent distress Exam/Review of Systems Vital Signs Vitals Vital Signs Date Time Temp Pulse Resp B/P Pulse Ox O2 Delivery O2 Flow Rate FiO2 03/25/16 14:03 100 20 97 Nasal Cannula 2.0 03/25/16 12:10 98.0 105/65 Intake and Output 03/24/16 03/24/16 03/25/16 14:59 22:59 06:59 Intake Total 890 ml 100 ml Output Total 300 ml 700 ml Balance 590 ml -600 ml Exam General: No acute signs or symptoms of distress Eyes: pupils equal round, Anicteric sclera Neck: Supple nontender, no JVD Cardiac: S1, S2 auscultated, regular rhythm and rate Pulmonary: Diminished lung bases GI: Abdomen soft nontender nondistended, bowel sounds active Extremities: No edema bilateral lower extremities Skin: Clean dry and intact Neurologic: Alert to person place and time and situation Results Result Diagram: 03/25/16 0640 03/25/16 0640 Results 24 hrs Laboratory Tests Test 03/25/16 06:40 03/25/16 06:45 Alanine Aminotransferase (ALT/SGPT) 80 H Albumin 3.3 Albumin/Globulin Ratio 0.91 Alkaline Phosphatase 1058 H Anion Gap 21 H Aspartate Amino Transf (AST/SGOT) 135 H Basophils # 0.0 Basophils % 0.4 Blood Morphology Comment Blood Urea Nitrogen 36 H Calcium Level 7.3 L Carbon Dioxide Level 24 Chloride Level 99 Creatinine 1.07 Direct Bilirubin 0.00 Eosinophils # 0.0 Eosinophils % 0.3 Globulin 3.60 H Glucose Level 128 Hematocrit 29.1 L Hemoglobin 10.1 L Indirect Bilirubin 0.2 Lymphocytes # 0.9 Lymphocytes % 11.0 L Mean Corpuscular Hemoglobin 30.2 Mean Corpuscular Hemoglobin Concent 34.6 Mean Corpuscular Volume 87.4 Mean Platelet Volume 8.6 Monocytes # 0.6 Monocytes % 6.9 Neutrophils # 6.9 Neutrophils % 81.4 H Nucleated Red Blood Cells # 0.0 Nucleated Red Blood Cells % 0.0 Platelet Count 238 Potassium Level 4.6 Red Blood Count 3.33 L Red Cell Distribution Width 17.5 H Sodium Level 139 Total Bilirubin 0.2 Total Protein 6.9 White Blood Count 8.4 # Magnesium Level 2.2 Phosphorus Level 3.3 Medications Medications Current Medications Ondansetron HCl (Zofran Inj) 4 mg Q6H PRN IV NAUSEA AND/OR VOMITING; Start at 14:00 Acetaminophen (Tylenol Tab) 650 mg Q6H PRN PO PAIN LEVEL 1-3 OR FEVER Last administered on 03/11/16 21:28; Admin Dose 650 MG; Start 03/08/16 at 14:00 Acetaminophen/ Hydrocodone Bitart ([place] (5/325)) 1 tab Q6H PRN PO PAIN LEVEL 4 -6 Last administered on 03/22/16 12:26; Admin Dose 1 TAB; Start 03/08/16 at 14: 00 Morphine Sulfate (morphine) 2 mg Q4H PRN IV PAIN LEVEL 7-10 Last administered on 03/24/16 16:09; Admin Dose 2 MG; Start 03/08/16 at 14:00 Carvedilol (Coreg) 3.125 mg BID PO Last administered on 03/25/16 08:53; Admin Dose 3.125 MG; Start 03/08/16 at 21:00 Imipramine HCl (Tofranil) 25 mg BID PO Last administered on 03/25/16 08:49; Admin Dose 25 MG; Start 03/08/16 at 21:00 Hydralazine HCl (Apresoline) 10 mg Q6H PRN IV SBP>160; Start 03/08/16 at 16:00 Bicalutamide (Casodex) 50 mg DAILY PO Last administered on 03/25/16 08:51; Admin Dose 50 MG; Start 03/09/16 at 09:00 Lisinopril (Zestril) 2.5 mg DAILY PO Last administered on 03/11/16 08:26; Admin Dose 2.5 MG; Start 03/09/16 at 09:00; Status Future hold Docusate Sodium (Colace) 200 mg HS PO Last administered on 03/24/16 21:46; Admin Dose 200 MG; Start 03/10/16 at 21:00 Phenol (Cepastat Lozenge) 1 lozenge Q4 PRN MT SORE THROAT; Start 03/13/16 at 19 :00 Furosemide (Lasix) 20 mg DAILY PO Last administered on 03/16/16 08:47; Admin Dose 20 MG; Start 03/14/16 at 11:00; Status Future Hold Megestrol Acetate (Megace Susp) 400 mg BID PO Last administered on 03/25/16 08 :49; Admin Dose 400 MG; Start 03/17/16 at 21:00 Calcium Carbonate (Oyster Shell Calcium) 1.25 gm TID PO Last administered on 12:31; Admin Dose 1.25 GM; Start 03/19/16 at 09:00 Cholecalciferol (Vitamin D) 1,000 unit DAILY PO Last administered on 03/25/16 08:49; Admin Dose 1,000 UNIT; Start 03/20/16 at 09:00 Bisacodyl (Dulcolax) 10 mg DAILY PRN PO CONSTIPATION Last administered on 17:21; Admin Dose 10 MG; Start 03/20/16 at 15:00 Polyethylene Glycol (Miralax) 17 gm BID PO Last administered on 03/25/16 08:49 ; Admin Dose 17 GM; Start 03/20/16 at 21:00 Levofloxacin (Levaquin) 250 mg DAILY@06 PO Last administered on 03/25/16 06:01 ; Admin Dose 250 MG; Start 03/22/16 at 06:00 JEFF CORONA Mar 25, 2016 15:21 JEFF CORONA Mar 25, 2016 15:21
[2016-03-25] MEDS: morphine 2 MG INJ IV PRN ×2 (15:53→22:23)
--- NOTE | 2016-03-25 16:00 | RADRPT ---
PROCEDURE: XR Chest. CLINICAL INDICATION: Shortness of breath. TECHNIQUE: Single frontal view. COMPARISON: 03/19/2016. FINDINGS: There is bilateral interstitial and alveolar disease in the mid and lower lung zones consistent with pulmonary edema, unchanged. The heart is enlarged. There is calcification in the aorta consistent with atherosclerosis. Moderate bilateral pleural effusions are unchanged. There is no pneumothorax. IMPRESSION: 1. No change from 03/19/2016. RPTAT: QQ .Srinivas Coley MD, MD Date Time Electronically viewed and signed by .Srinivas Coley MD, MD on 03/25/2016 16:00 .R/
[2016-03-25] MEDS: DOCUSATE SODIUM 100 MG CAP PO SCH (22:19)
[2016-03-26] VITALS (11 sets, daily range): BP systolic 94–110; BP diastolic 55–66; PULSE 85–97; RESP 16–20
[2016-03-26] MEDS: FUROSEMIDE 20 MG INJ IV SCH ×2 (06:00→17:37)
[2016-03-26] MEDS: LEVOFLOXACIN 250 MG TAB PO SCH (06:35)
[2016-03-26] MEDS: LEVOTHYROXINE 25 MCG TAB PO SCH (06:35)
[2016-03-26 07:02] LABS: INR 1.5; PROTIME 18.2 Sec (12.2-14.2); PT RATIO 1.4
[2016-03-26 07:03] LABS: PARTIAL THROMBOPLASTIN TIME 53.6 Sec (25.0-35.0); THROMBIN TIME 14.6 SEC (13.8-19.1)
[2016-03-26] MEDS: PANTOPRAZOLE (EC) 40 MG TAB PO SCH ×2 (08:22→17:37)
[2016-03-26] MEDS: IMIPRAMINE 25 MG TAB PO SCH ×2 (08:22→22:04)
[2016-03-26] MEDS: BICALUTAMIDE 50 MG TAB PO SCH (08:23)
[2016-03-26] MEDS: HYDROCODONE/APAP (5/325) TAB PO PRN (08:28)
[2016-03-26] MEDS: CALCIUM CARBONATE 1.25 GM TAB PO SCH ×3 (08:28→21:01)
[2016-03-26] MEDS: MEGESTROL (40 MG/ML) 10ML CUP PO SCH ×2 (08:28→22:04)
[2016-03-26] MEDS: POLYETHYLENE GLYCOL 17 GM PACKET PO SCH ×2 (08:28→21:02)
[2016-03-26] MEDS: CHOLECALCIFEROL 1,000 UNIT TAB PO SCH (08:28)
[2016-03-26] MEDS: ALBUTEROL/IPRATROPIUM (NEB) 3 ML AMP HHN SCH ×3 (08:45→20:02)
[2016-03-26] MEDS: LISINOPRIL 5 MG TAB PO SCH (11:54)
--- NOTE | 2016-03-26 13:44 | PN ---
Date/Time of Note Date/Time of Note DATE: 03/26/16 TIME: 13:42 Assessment/Plan VTE Prophylaxis VTE Prophylaxis Intervention: other (per primary) Lines/Catheters IV Catheter Type (from Nrsg): Saline Lock Urinary Cath still in place: No (CONDOM CATHETER) Assessment/Plan Assessment/Plan Pt is stable. Next Firmagon injection due about Apr 17. Awaiting placement. Heart failure remains the major issue. Subjective 24 Hr Interval Summary Free Text/Dictation Pt is resting quietly and in no distress Exam/Review of Systems Vital Signs Vitals Vital Signs Date Time Temp Pulse Resp B/P Pulse Ox O2 Delivery O2 Flow Rate FiO2 03/26/16 12:09 88 03/26/16 11:45 97.9 20 94/61 95 03/26/16 11:23 2.0 03/26/16 09:48 Nasal Cannula Intake and Output 03/25/16 03/25/16 03/26/16 15:00 23:00 07:00 Intake Total 750 ml Output Total 600 ml Balance 150 ml Exam Constitutional: alert Psych: no complaints Respiratory: diminished breath sounds, other (basilar rales) Cardiovascular: regular rate and rhythm Gastrointestinal: non-tender, soft Skin: nl turgor Results Result Diagram: 03/26/16 0558 03/25/16 0640 Results 24 hrs Laboratory Tests Test 03/26/16 05:58 Activated Partial Thromboplast Time 53.6 H INR International Normalized Ratio 1.50 Platelet Count 218 Prothrombin Time 18.2 #H Prothrombin Time Ratio 1.4 Thrombin Time 14.6 Medications Medications Current Medications Ondansetron HCl (Zofran Inj) 4 mg Q6H PRN IV NAUSEA AND/OR VOMITING; Start at 14:00 Acetaminophen (Tylenol Tab) 650 mg Q6H PRN PO PAIN LEVEL 1-3 OR FEVER Last administered on 03/11/16 21:28; Admin Dose 650 MG; Start 03/08/16 at 14:00 Acetaminophen/ Hydrocodone Bitart ([place] (5/325)) 1 tab Q6H PRN PO PAIN LEVEL 4 -6 Last administered on 03/26/16 08:28; Admin Dose 1 TAB; Start 03/08/16 at 14: 00 Morphine Sulfate (morphine) 2 mg Q4H PRN IV PAIN LEVEL 7-10 Last administered on 03/25/16 22:23; Admin Dose 2 MG; Start 03/08/16 at 14:00 Carvedilol (Coreg) 3.125 mg BID PO Last administered on 03/26/16 08:24; Admin Dose 3.125 MG; Start 03/08/16 at 21:00 Imipramine HCl (Tofranil) 25 mg BID PO Last administered on 03/26/16 08:22; Admin Dose 25 MG; Start 03/08/16 at 21:00 Hydralazine HCl (Apresoline) 10 mg Q6H PRN IV SBP>160; Start 03/08/16 at 16:00 Bicalutamide (Casodex) 50 mg DAILY PO Last administered on 03/26/16 08:23; Admin Dose 50 MG; Start 03/09/16 at 09:00 Lisinopril (Zestril) 2.5 mg DAILY PO Last administered on 03/11/16 08:26; Admin Dose 2.5 MG; Start 03/09/16 at 09:00; Status Future hold Docusate Sodium (Colace) 200 mg HS PO Last administered on 03/25/16 22:19; Admin Dose 200 MG; Start 03/10/16 at 21:00 Phenol (Cepastat Lozenge) 1 lozenge Q4 PRN MT SORE THROAT; Start 03/13/16 at 19 :00 Furosemide (Lasix) 20 mg DAILY PO Last administered on 03/16/16 08:47; Admin Dose 20 MG; Start 03/14/16 at 11:00; Status Future Hold Megestrol Acetate (Megace Susp) 400 mg BID PO Last administered on 03/26/16 08 :28; Admin Dose 400 MG; Start 03/17/16 at 21:00 Calcium Carbonate (Oyster Shell Calcium) 1.25 gm TID PO Last administered on 08:28; Admin Dose 1.25 GM; Start 03/19/16 at 09:00 Cholecalciferol (Vitamin D) 1,000 unit DAILY PO Last administered on 03/26/16 08:28; Admin Dose 1,000 UNIT; Start 03/20/16 at 09:00 Bisacodyl (Dulcolax) 10 mg DAILY PRN PO CONSTIPATION Last administered on 17:21; Admin Dose 10 MG; Start 03/20/16 at 15:00 Polyethylene Glycol (Miralax) 17 gm BID PO Last administered on 03/26/16 08:28 ; Admin Dose 17 GM; Start 03/20/16 at 21:00 Levofloxacin (Levaquin) 250 mg DAILY@06 PO Last administered on 03/26/16 06:35 ; Admin Dose 250 MG; Start 03/22/16 at 06:00 KIMBERLEE BAER MD Mar 26, 2016 13:44
--- NOTE | 2016-03-26 16:15 | CONS ---
Date/Time of Note Date/Time of Note DATE: 03/26/16 TIME: 16:13 Consult Date/Type/Reason Admit Date/Time Mar 08, 2016 at 11:43 Type of Consultation: pulmonary Ordering Provider: OLIVA BARRERA Subjective Patient stable this morning no new events Objective Vital Signs Date Time Temp Pulse Resp B/P Pulse Ox O2 Delivery O2 Flow Rate FiO2 03/26/16 16:12 85 03/26/16 15:41 97.4 18 98/60 97 03/26/16 14:51 2.0 03/26/16 09:48 Nasal Cannula Intake and Output 03/25/16 03/25/16 03/26/16 15:00 23:00 07:00 Intake Total 750 ml Output Total 600 ml Balance 150 ml PHYSICAL EXAMINATION: VITAL SIGNS: As above HEENT: Pupils are equal and react to light. NECK: Supple. No cervical adenopathy. No carotid bruits heard. LUNGS: Diminished air entry right lung CARDIOVASCULAR: S1, S2 normal. ABDOMEN: Soft, nontender. No organomegaly or masses noted. EXTREMITIES: No clubbing or cyanosis noted. NEUROLOGICAL: Awake. Results/Medications Result Diagram: 03/26/16 0558 03/25/16 0640 Results 24 hrs Laboratory Tests Test 03/26/16 05:58 Activated Partial Thromboplast Time 53.6 H INR International Normalized Ratio 1.50 Platelet Count 218 Prothrombin Time 18.2 #H Prothrombin Time Ratio 1.4 Thrombin Time 14.6 Medications Current Medications Ondansetron HCl (Zofran Inj) 4 mg Q6H PRN IV NAUSEA AND/OR VOMITING; Start at 14:00 Acetaminophen (Tylenol Tab) 650 mg Q6H PRN PO PAIN LEVEL 1-3 OR FEVER Last administered on 03/11/16 21:28; Admin Dose 650 MG; Start 03/08/16 at 14:00 Acetaminophen/ Hydrocodone Bitart ([place] (5/325)) 1 tab Q6H PRN PO PAIN LEVEL 4 -6 Last administered on 03/26/16 08:28; Admin Dose 1 TAB; Start 03/08/16 at 14: 00 Morphine Sulfate (morphine) 2 mg Q4H PRN IV PAIN LEVEL 7-10 Last administered on 03/25/16 22:23; Admin Dose 2 MG; Start 03/08/16 at 14:00 Carvedilol (Coreg) 3.125 mg BID PO Last administered on 03/26/16 08:24; Admin Dose 3.125 MG; Start 03/08/16 at 21:00 Imipramine HCl (Tofranil) 25 mg BID PO Last administered on 03/26/16 08:22; Admin Dose 25 MG; Start 03/08/16 at 21:00 Hydralazine HCl (Apresoline) 10 mg Q6H PRN IV SBP>160; Start 03/08/16 at 16:00 Bicalutamide (Casodex) 50 mg DAILY PO Last administered on 03/26/16 08:23; Admin Dose 50 MG; Start 03/09/16 at 09:00 Lisinopril (Zestril) 2.5 mg DAILY PO Last administered on 03/11/16 08:26; Admin Dose 2.5 MG; Start 03/09/16 at 09:00; Status Future hold Docusate Sodium (Colace) 200 mg HS PO Last administered on 03/25/16 22:19; Admin Dose 200 MG; Start 03/10/16 at 21:00 Phenol (Cepastat Lozenge) 1 lozenge Q4 PRN MT SORE THROAT; Start 03/13/16 at 19 :00 Furosemide (Lasix) 20 mg DAILY PO Last administered on 03/16/16 08:47; Admin Dose 20 MG; Start 03/14/16 at 11:00; Status Future Hold Megestrol Acetate (Megace Susp) 400 mg BID PO Last administered on 03/26/16 08 :28; Admin Dose 400 MG; Start 03/17/16 at 21:00 Calcium Carbonate (Oyster Shell Calcium) 1.25 gm TID PO Last administered on 08:28; Admin Dose 1.25 GM; Start 03/19/16 at 09:00 Cholecalciferol (Vitamin D) 1,000 unit DAILY PO Last administered on 03/26/16 08:28; Admin Dose 1,000 UNIT; Start 03/20/16 at 09:00 Bisacodyl (Dulcolax) 10 mg DAILY PRN PO CONSTIPATION Last administered on 17:21; Admin Dose 10 MG; Start 03/20/16 at 15:00 Polyethylene Glycol (Miralax) 17 gm BID PO Last administered on 03/26/16t 08:28 ; Admin Dose 17 GM; Start 03/20/16 at 21:00 Assessment/Plan Chief Complaint/Hosp Course IMPRESSION: 1. Congestive heart failure. 2. History of cardiomyopathy. 3. History of metastatic prostate carcinoma. 4. Possible aspiration. 5. Questionable increase in right pleural effusion RECOMMENDATIONS: 1. Continue oxygen. 2. Bronchodilators. 3. Urology followup. 4. GI and DVT prophylaxis. 5. Repeat chest x-ray shows possible right pleural effusion. I will order thoracentesis Problems: MARLA NEWBY MD, [facility] Mar 26, 2016 16:15
--- NOTE | 2016-03-26 17:28 | CONS ---
Date/Time of Note Date/Time of Note DATE: 03/26/16 TIME: 17:25 Assessment/Plan Assessment/Plan Chief Complaint/Hosp Course IMPRESSION: 1. Congestive heart failure exacerbation, systolic, acute on chronic.-Now improved volume status currently 2. History of cardiomyopathy with severely depressed left ventricular ejection fraction, last approximately 20% to 25% by echo this admit 3. End-stage renal disease on hemodialysis. 4. History of myocardial infarction by stress 04/2015. No ischemia by stress this admit EF 16% 5. Anemia. 6. Hypertension. 7. Hypothyroidism. 8. Prostate carcinoma. 9. Dementia. 10. Positive troponin-now trended negative 11.Wide complex tachycardia- ?NSVT-no recurrence 12. acute renal failure Recc: -Tele -continue BB/ACEI as tolerated only -Lasix diuresis as tolerated Problems: Consultation Date/Type/Reason Admit Date/Time Mar 08, 2016 at 11:43 Initial Consult Date 03/08/2016 Type of Consultation: Cardiology Reason for Consultation cardiomyopathy Referring Provider: OLIVA BARRERA Exam/Review of Systems Vital Signs Vitals Vital Signs Date Time Temp Pulse Resp B/P Pulse Ox O2 Delivery O2 Flow Rate FiO2 03/26/16 16:12 85 03/26/16 15:41 97.4 18 98/60 97 03/26/16 14:51 2.0 03/26/16 09:48 Nasal Cannula Intake and Output 03/25/16 03/25/16 03/26/16 15:00 23:00 07:00 Intake Total 750 ml Output Total 600 ml Balance 150 ml Exam Review of Systems: CONSTITUTIONAL: No fevers, chills. PULMONARY: No sob CARDIOVASCULAR: No chest pain/palpitations GASTROINTESTINAL: No nausea/vomiting. GENITOURINARY: No hematuria/dysuria. MUSCULOSKELETAL: No myagias/arthalgias. PSYCHIATRIC: The patient denies depression. NEUROLOGIC: No weakness Constitutional: alert, oriented Psych: no complaints Head: normocephalic ENMT: mucosa pink and moist Neck: supple Respiratory: diminished breath sounds (at bases/B) Cardiovascular: regular rate and rhythm Gastrointestinal: non-tender, soft Musculoskeletal: muscle tone (normal) Extremities: edema (none) Neurological: other (No focal deficits) Results Result Diagram: 03/26/16 0558 03/25/16 0640 Results 24 hrs Laboratory Tests Test 03/26/16 05:58 Activated Partial Thromboplast Time 53.6 H INR International Normalized Ratio 1.50 Platelet Count 218 Prothrombin Time 18.2 #H Prothrombin Time Ratio 1.4 Thrombin Time 14.6 Medications Medications Current Medications Ondansetron HCl (Zofran Inj) 4 mg Q6H PRN IV NAUSEA AND/OR VOMITING; Start at 14:00 Acetaminophen (Tylenol Tab) 650 mg Q6H PRN PO PAIN LEVEL 1-3 OR FEVER Last administered on 03/11/16 21:28; Admin Dose 650 MG; Start 03/08/16 at 14:00 Acetaminophen/ Hydrocodone Bitart ([place] (5/325)) 1 tab Q6H PRN PO PAIN LEVEL 4 -6 Last administered on 03/26/16 08:28; Admin Dose 1 TAB; Start 03/08/16 at 14: 00 Morphine Sulfate (morphine) 2 mg Q4H PRN IV PAIN LEVEL 7-10 Last administered on 03/25/16 22:23; Admin Dose 2 MG; Start 03/08/16 at 14:00 Carvedilol (Coreg) 3.125 mg BID PO Last administered on 03/26/16 08:24; Admin Dose 3.125 MG; Start 03/08/16 at 21:00 Imipramine HCl (Tofranil) 25 mg BID PO Last administered on 03/26/16 08:22; Admin Dose 25 MG; Start 03/08/16 at 21:00 Hydralazine HCl (Apresoline) 10 mg Q6H PRN IV SBP>160; Start 03/08/16 at 16:00 Bicalutamide (Casodex) 50 mg DAILY PO Last administered on 03/26/16 08:23; Admin Dose 50 MG; Start 03/09/16 at 09:00 Lisinopril (Zestril) 2.5 mg DAILY PO Last administered on 03/11/16 08:26; Admin Dose 2.5 MG; Start 03/09/16 at 09:00; Status Future hold Docusate Sodium (Colace) 200 mg HS PO Last administered on 03/25/16 22:19; Admin Dose 200 MG; Start 03/10/16 at 21:00 Phenol (Cepastat Lozenge) 1 lozenge Q4 PRN MT SORE THROAT; Start 03/13/16 at 19 :00 Furosemide (Lasix) 20 mg DAILY PO Last administered on 03/16/16 08:47; Admin Dose 20 MG; Start 03/14/16 at 11:00; Status Future Hold Megestrol Acetate (Megace Susp) 400 mg BID PO Last administered on 03/26/16 08 :28; Admin Dose 400 MG; Start 03/17/16 at 21:00 Calcium Carbonate (Oyster Shell Calcium) 1.25 gm TID PO Last administered on 08:28; Admin Dose 1.25 GM; Start 03/19/16 at 09:00 Cholecalciferol (Vitamin D) 1,000 unit DAILY PO Last administered on 03/26/16 08:28; Admin Dose 1,000 UNIT; Start 03/20/16 at 09:00 Bisacodyl (Dulcolax) 10 mg DAILY PRN PO CONSTIPATION Last administered on 17:21; Admin Dose 10 MG; Start 03/20/16 at 15:00 Polyethylene Glycol (Miralax) 17 gm BID PO Last administered on 03/26/16 08:28 ; Admin Dose 17 GM; Start 03/20/16 at 21:00 JUAN CARLOS ALEJANDRO Mar 26, 2016 17:28
--- NOTE | 2016-03-26 17:53 | PN ---
Date/Time of Note Date/Time of Note DATE: 03/26/16 TIME: 17:50 Assessment/Plan VTE Prophylaxis VTE Prophylaxis Intervention: SCD's Lines/Catheters IV [facility] Urinary Cath still in place: No (CON[facility] CATHETER) Assessment/Plan Chief Complaint/Hosp Course Assessment and plan 1. CHF exacerbation acute on chronic with systolic sunken. Continue diuretics. Continue with cardiology recommendations 2. Metastatic prostate carcinoma with bone metastasis. Continue on analgesics. Patient remains on bicalutamide. Continue with oncologist recommendations 3. Cardiomyopathy with ejection fraction of 20-25%. Continue optimization with cardiovascular medications. ANUJ inhibitor on hold due to worsening renal function. Continue with cardiology recommendations 4. Hypocalcemia. Suspect secondary to bony metastasis. Continue vitamin D supplementation 5. Hypoxic respiratory failure secondary to CHF exacerbation. Continue bronchodilators. 6. Pulmonary hypertension with PA pressure of 85 mmHg. Continue on O2. 7. Hypothyroidism. Continue on Synthroid 8. Reported nonsustained wide-complex tachycardia. Continue on telemetry monitoring. Follow-up with cardiology recommendations 9. Essential hypertension. Continue on antihypertensives and adjust as needed 10. Normocytic normochromic anemia. Likely of chronic disease. Remain stable. We 'll monitor 11. Dementia. Continue fall precautions DVT prophylaxis: SCDs GERD prophylaxis: PPI Disposition and plan: Awaiting patient placement. plan for thoracentesis. will follow up Discussed but of care with Dr. Costello Problems: Subjective 24 Hr Interval Summary Free Text/Dictation resting at this time. no s/s of distress Exam/Review of Systems Vital Signs Vitals Vital Signs Date Time Temp Pulse Resp B/P Pulse Ox O2 Delivery O2 Flow Rate FiO2 03/26/16 16:12 85 03/26/16 15:41 97.4 18 98/60 97 03/26/16 14:51 2.0 03/26/16 09:48 Nasal Cannula Intake and Output 03/25/16 03/25/16 03/26/16 15:00 23:00 07:00 Intake Total 750 ml Output Total 600 ml Balance 150 ml Exam General: No acute signs or symptoms of distress Eyes: pupils equal round, Anicteric sclera Neck: Supple nontender, no JVD Cardiac: S1, S2 auscultated, regular rhythm and rate Pulmonary: Diminished lung bases GI: Abdomen soft nontender nondistended, bowel sounds active Extremities: No edema bilateral lower extremities Skin: Clean dry and intact Neurologic: Alert to person place and time and situation Results Result Diagram: 03/26/16 0558 03/25/16 0640 Results 24 hrs Laboratory Tests Test 03/26/16 05:58 Activated Partial Thromboplast Time 53.6 H INR International Normalized Ratio 1.50 Platelet Count 218 Prothrombin Time 18.2 #H Prothrombin Time Ratio 1.4 Thrombin Time 14.6 Medications Medications Current Medications Ondansetron HCl (Zofran Inj) 4 mg Q6H PRN IV NAUSEA AND/OR VOMITING; Start at 14:00 Acetaminophen (Tylenol Tab) 650 mg Q6H PRN PO PAIN LEVEL 1-3 OR FEVER Last administered on 03/11/16 21:28; Admin Dose 650 MG; Start 03/08/16 at 14:00 Acetaminophen/ Hydrocodone Bitart ([place] (5/325)) 1 tab Q6H PRN PO PAIN LEVEL 4 -6 Last administered on 03/26/16 08:28; Admin Dose 1 TAB; Start 03/08/16 at 14: 00 Morphine Sulfate (morphine) 2 mg Q4H PRN IV PAIN LEVEL 7-10 Last administered on 03/25/16 22:23; Admin Dose 2 MG; Start 03/08/16 at 14:00 Carvedilol (Coreg) 3.125 mg BID PO Last administered on 03/26/16 08:24; Admin Dose 3.125 MG; Start 03/08/16 at 21:00 Imipramine HCl (Tofranil) 25 mg BID PO Last administered on 03/26/16 08:22; Admin Dose 25 MG; Start 03/08/16 at 21:00 Hydralazine HCl (Apresoline) 10 mg Q6H PRN IV SBP>160; Start 03/08/16 at 16:00 Bicalutamide (Casodex) 50 mg DAILY PO Last administered on 03/26/16 08:23; Admin Dose 50 MG; Start 03/09/16 at 09:00 Lisinopril (Zestril) 2.5 mg DAILY PO Last administered on 03/11/16 08:26; Admin Dose 2.5 MG; Start 03/09/16 at 09:00; Status Future hold Docusate Sodium (Colace) 200 mg HS PO Last administered on 03/25/16 22:19; Admin Dose 200 MG; Start 03/10/16 at 21:00 Phenol (Cepastat Lozenge) 1 lozenge Q4 PRN MT SORE THROAT; Start 03/13/16 at 19 :00 Furosemide (Lasix) 20 mg DAILY PO Last administered on 03/16/16 08:47; Admin Dose 20 MG; Start 03/14/16 at 11:00; Status Future Hold Megestrol Acetate (Megace Susp) 400 mg BID PO Last administered on 03/26/16 08 :28; Admin Dose 400 MG; Start 03/17/16 at 21:00 Calcium Carbonate (Oyster Shell Calcium) 1.25 gm TID PO Last administered on 08:28; Admin Dose 1.25 GM; Start 03/19/16 at 09:00 Cholecalciferol (Vitamin D) 1,000 unit DAILY PO Last administered on 03/26/16 08:28; Admin Dose 1,000 UNIT; Start 03/20/16 at 09:00 Bisacodyl (Dulcolax) 10 mg DAILY PRN PO CONSTIPATION Last administered on 17:21; Admin Dose 10 MG; Start 03/20/16 at 15:00 Polyethylene Glycol (Miralax) 17 gm BID PO Last administered on 03/26/16 08:28 ; Admin Dose 17 GM; Start 03/20/16 at 21:00 JEFF CORONA Mar 26, 2016 17:53 JEFF CORONA Mar 26, 2016 17:53
[2016-03-26] MEDS: DOCUSATE SODIUM 100 MG CAP PO SCH (21:02)
[2016-03-27] VITALS (12 sets, daily range): BP systolic 98–127; BP diastolic 59–71; PULSE 88–99; RESP 16–22
[2016-03-27] MEDS: FUROSEMIDE 20 MG INJ IV SCH ×2 (05:49→17:45)
[2016-03-27] MEDS: LEVOTHYROXINE 25 MCG TAB PO SCH (06:51)
[2016-03-27] MEDS: PANTOPRAZOLE (EC) 40 MG TAB PO SCH ×3 (07:30→17:35)
[2016-03-27] MEDS: ALBUTEROL/IPRATROPIUM (NEB) 3 ML AMP HHN SCH ×3 (08:07→20:28)
[2016-03-27] MEDS: LISINOPRIL 5 MG TAB PO SCH ×2 (09:00→09:19)
[2016-03-27] MEDS: BICALUTAMIDE 50 MG TAB PO SCH (09:00)
[2016-03-27] MEDS: POLYETHYLENE GLYCOL 17 GM PACKET PO SCH ×3 (09:00→21:00)
[2016-03-27] MEDS: CHOLECALCIFEROL 1,000 UNIT TAB PO SCH (09:00)
[2016-03-27] MEDS: IMIPRAMINE 25 MG TAB PO SCH ×2 (09:18→21:35)
[2016-03-27] MEDS: MEGESTROL (40 MG/ML) 10ML CUP PO SCH ×2 (09:18→21:36)
[2016-03-27] MEDS: CALCIUM CARBONATE 1.25 GM TAB PO SCH ×3 (09:18→21:36)
[2016-03-27 10:20] LABS: PARTIAL THROMBOPLASTIN TIME 46.9 Sec (25.0-35.0)
--- NOTE | 2016-03-27 11:28 | PN ---
DATE: 03/27/2016 SUBJECTIVE: The patient is resting comfortably. He has no specific complaints. OBJECTIVE: VITAL SIGNS: Temperature 97.9, pulse 100 per minute and regular, respirations 18, blood pressure 10 8/71, pulse oximetry 99% on 2 liters of oxygen. SKIN: No ecchymosis, no petechiae or rashes. HEENT: No mucosal lesions. No scleral icterus. NECK: Supple. There is mild jugular venous distention at 45 degrees. CHEST: Decreased breath sounds in both bases with scattered rales, no rubs. ABDOMEN: Soft, no masses, no ascites. EXTREMITIES: No clubbing or cyanosis. On 03/26/2016, protime was 18.2 seconds, INR 1.50, PTT is 53.6 seconds. Thrombin time is 14.6 secon ds. ASSESSMENT: 1. Metastatic prostate carcinoma. 2. Congestive heart failure. PLAN: The patient was to have a thoracentesis, but this has not been accomplished due to the prolon ged PTT. Patient PTT on admission was also prolonged. This likely represents an inhibitor such as "lupus" anticoagulant. We will repeat the PTT this morn ing and obtain a 50/50 PTT. We will also check fibrinogen. If there is no correction of the PTT and dilution with normal plasma this would suggest inhibitor an d would do further evaluation for the possibility of a lupus anticoagulant. Dictated By: MELINDA PAYNE MD, SR/JESUS Conf#: [id number] DID#: [id number]
--- NOTE | 2016-03-27 12:01 | CONS ---
Date/Time of Note Date/Time of Note DATE: 03/27/16 TIME: 12:00 Assessment/Plan Assessment/Plan Chief Complaint/Hosp Course IMPRESSION: 1. Congestive heart failure exacerbation, systolic, acute on chronic.-Now improved volume status currently 2. History of cardiomyopathy with severely depressed left ventricular ejection fraction, last approximately 20% to 25% by echo this admit 3. End-stage renal disease on hemodialysis. 4. History of myocardial infarction by stress 04/2015. No ischemia by stress this admit EF 16% 5. Anemia. 6. Hypertension. 7. Hypothyroidism. 8. Prostate carcinoma. 9. Dementia. 10. Positive troponin-now trended negative 11.Wide complex tachycardia- ?NSVT-no recurrence 12. acute renal failure Recc: -Tele -continue BB/ACEI as tolerated only -Lasix diuresis as tolerated -PT Problems: Consultation Date/Type/Reason Admit Date/Time Mar 08, 2016 at 11:43 Initial Consult Date 03/08/2016 Type of Consultation: Cardiology Reason for Consultation cardiomyopathy/CHF Referring Provider: OLIVA BARRERA Exam/Review of Systems Vital Signs Vitals Vital Signs Date Time Temp Pulse Resp B/P Pulse Ox O2 Delivery O2 Flow Rate FiO2 03/27/16 08:38 88 03/27/16 08:30 97.5 18 111/65 98 03/27/16 08:07 2.0 03/27/16 08:07 Nasal Cannula Intake and Output 03/26/16 03/26/16 03/27/16 15:00 23:00 07:00 Intake Total 200 ml 720 ml Output Total 300 ml 700 ml Balance -100 ml 20 ml Exam Review of Systems: CONSTITUTIONAL: No fevers, chills. PULMONARY: No sob CARDIOVASCULAR: No chest pain/palpitations GASTROINTESTINAL: No nausea/vomiting. GENITOURINARY: No hematuria/dysuria. MUSCULOSKELETAL: No myagias/arthalgias. PSYCHIATRIC: The patient denies depression. NEUROLOGIC: No weakness Constitutional: alert Psych: no complaints Head: normocephalic ENMT: mucosa pink and moist Neck: jvd (9 cm water), supple Respiratory: diminished breath sounds (at bases/B) Cardiovascular: regular rate and rhythm Gastrointestinal: non-tender, soft Musculoskeletal: muscle tone (normal) Extremities: edema (none) Neurological: other (No focal deficits) Results Result Diagram: 03/26/16 0558 03/25/16 0640 Results 24 hrs Laboratory Tests Test 03/27/16 09:15 Activated Partial Thromboplast Time 46.9 H Fibrinogen 1099.0 H Mix PTT Normal Plasma Immediate Pending Medications Medications Current Medications Ondansetron HCl (Zofran Inj) 4 mg Q6H PRN IV NAUSEA AND/OR VOMITING; Start at 14:00 Acetaminophen (Tylenol Tab) 650 mg Q6H PRN PO PAIN LEVEL 1-3 OR FEVER Last administered on 03/11/16 21:28; Admin Dose 650 MG; Start 03/08/16 at 14:00 Acetaminophen/ Hydrocodone Bitart ([place] (5/325)) 1 tab Q6H PRN PO PAIN LEVEL 4 -6 Last administered on 03/26/16 08:28; Admin Dose 1 TAB; Start 03/08/16 at 14: 00 Morphine Sulfate (morphine) 2 mg Q4H PRN IV PAIN LEVEL 7-10 Last administered on 03/25/16 22:23; Admin Dose 2 MG; Start 03/08/16 at 14:00 Carvedilol (Coreg) 3.125 mg BID PO Last administered on 03/26/16 08:24; Admin Dose 3.125 MG; Start 03/08/16 at 21:00 Imipramine HCl (Tofranil) 25 mg BID PO Last administered on 03/27/16 09:18; Admin Dose 25 MG; Start 03/08/16 at 21:00 Hydralazine HCl (Apresoline) 10 mg Q6H PRN IV SBP>160; Start 03/08/16 at 16:00 Bicalutamide (Casodex) 50 mg DAILY PO Last administered on 03/26/16 08:23; Admin Dose 50 MG; Start 03/09/16 at 09:00 Lisinopril (Zestril) 2.5 mg DAILY PO Last administered on 03/11/16 08:26; Admin Dose 2.5 MG; Start 03/09/16 at 09:00; Status Future hold Docusate Sodium (Colace) 200 mg HS PO Last administered on 03/26/16 21:02; Admin Dose 200 MG; Start 03/10/16 at 21:00 Phenol (Cepastat Lozenge) 1 lozenge Q4 PRN MT SORE THROAT; Start 03/13/16 at 19 :00 Furosemide (Lasix) 20 mg DAILY PO Last administered on 03/16/16 08:47; Admin Dose 20 MG; Start 03/14/16 at 11:00; Status Future Hold Megestrol Acetate (Megace Susp) 400 mg BID PO Last administered on 03/27/16 09: 18; Admin Dose 400 MG; Start 03/17/16 at 21:00 Calcium Carbonate (Oyster Shell Calcium) 1.25 gm TID PO Last administered on 09:18; Admin Dose 1.25 GM; Start 03/19/16 at 09:00 Cholecalciferol (Vitamin D) 1,000 unit DAILY PO Last administered on 03/26/16 08:28; Admin Dose 1,000 UNIT; Start 03/20/16 at 09:00 Bisacodyl (Dulcolax) 10 mg DAILY PRN PO CONSTIPATION Last administered on 17:21; Admin Dose 10 MG; Start 03/20/16 at 15:00 Polyethylene Glycol (Miralax) 17 gm BID PO Last administered on 03/26/16 21:02 ; Admin Dose 17 GM; Start 03/20/16 at 21:00 JUAN CARLOS ALEJANDRO Mar 27, 2016 12:01
--- NOTE | 2016-03-27 13:50 | PN ---
Date/Time of Note Date/Time of Note DATE: 03/27/16 TIME: 13:48 Assessment/Plan VTE Prophylaxis VTE Prophylaxis Intervention: SCD's Lines/Catheters IV [facility] Type (from [facility] Saline Lock Urinary Cath still in place: No (CONDOM CATHETER) Assessment/Plan Chief Complaint/Hosp Course Assessment and plan 1. CHF exacerbation acute on chronic with systolic dysfunction. Continue diuretics. Continue with cardiology recommendations 2. Metastatic prostate carcinoma with bone metastasis. Continue on analgesics. Patient remains on bicalutamide. Continue with oncologist recommendations 3. Cardiomyopathy with ejection fraction of 20-25%. Continue optimization with cardiovascular medications. ANUJ inhibitor on hold due to worsening renal function. Continue with cardiology recommendations 4. Hypocalcemia. Suspect secondary to bony metastasis. Continue vitamin D supplementation 5. Hypoxic respiratory failure secondary to CHF exacerbation. Continue bronchodilators. Thoracentesis per layboy operator 6. Pulmonary hypertension with PA pressure of 85 mmHg. Continue on O2. 7. Hypothyroidism. Continue on Synthroid 8. Reported nonsustained wide-complex tachycardia. Continue on telemetry monitoring. Follow-up with cardiology recommendations 9. Essential hypertension. Continue on antihypertensives and adjust as needed 10. Normocytic normochromic anemia. Likely of chronic disease. Remain stable. We 'll monitor 11. Dementia. Continue fall precautions DVT prophylaxis: SCDs GERD prophylaxis: PPI Disposition and plan: Awaiting patient placement. Continue O2 as needed. Continue supportive care Discussed but of care with Dr. Costello Problems: Subjective 24 Hr Interval Summary Free Text/Dictation Comfortable at present. No apparent distress Exam/Review of Systems Vital Signs Vitals Vital Signs Date Time Temp Pulse Resp B/P Pulse Ox O2 Delivery O2 Flow Rate FiO2 03/27/16 12:58 91 03/27/16 12:01 97.8 22 103/63 98 03/27/16 08:07 2.0 03/27/16 08:07 Nasal Cannula Intake and Output 03/26/16 03/26/16 03/27/16 15:00 23:00 07:00 Intake Total 200 ml 720 ml Output Total 300 ml 700 ml Balance -100 ml 20 ml Exam General: No acute signs or symptoms of distress Eyes: pupils equal round, Anicteric sclera Neck: Supple nontender, no JVD Cardiac: S1, S2 auscultated, regular rhythm and rate Pulmonary: Diminished lung bases GI: Abdomen soft nontender nondistended, bowel sounds active Extremities: No edema bilateral lower extremities Skin: Clean dry and intact Neurologic: Alert to person place and time and situation Results Result Diagram: 03/26/16 0558 03/25/16 0640 Results 24 hrs Laboratory Tests Test 03/27/16 09:15 Activated Partial Thromboplast Time 46.9 H Fibrinogen 1099.0 H Mix PTT Normal Plasma Immediate 43.6 Medications Medications Current Medications Ondansetron HCl (Zofran Inj) 4 mg Q6H PRN IV NAUSEA AND/OR VOMITING; Start at 14:00 Acetaminophen (Tylenol Tab) 650 mg Q6H PRN PO PAIN LEVEL 1-3 OR FEVER Last administered on 03/11/16 21:28; Admin Dose 650 MG; Start 03/08/16 at 14:00 Acetaminophen/ Hydrocodone Bitart ([place] (5/325)) 1 tab Q6H PRN PO PAIN LEVEL 4 -6 Last administered on 03/26/16 08:28; Admin Dose 1 TAB; Start 03/08/16 at 14: 00 Morphine Sulfate (morphine) 2 mg Q4H PRN IV PAIN LEVEL 7-10 Last administered on 03/25/16 22:23; Admin Dose 2 MG; Start 03/08/16 at 14:00 Carvedilol (Coreg) 3.125 mg BID PO Last administered on 03/26/16 08:24; Admin Dose 3.125 MG; Start 03/08/16 at 21:00 Imipramine HCl (Tofranil) 25 mg BID PO Last administered on 03/27/16 09:18; Admin Dose 25 MG; Start 03/08/16 at 21:00 Hydralazine HCl (Apresoline) 10 mg Q6H PRN IV SBP>160; Start 03/08/16 at 16:00 Bicalutamide (Casodex) 50 mg DAILY PO Last administered on 03/26/16 08:23; Admin Dose 50 MG; Start 03/09/16 at 09:00 Lisinopril (Zestril) 2.5 mg DAILY PO Last administered on 03/11/16 08:26; Admin Dose 2.5 MG; Start 03/09/16 at 09:00; Status Future hold Docusate Sodium (Colace) 200 mg HS PO Last administered on 03/26/16 21:02; Admin Dose 200 MG; Start 03/10/16 at 21:00 Phenol (Cepastat Lozenge) 1 lozenge Q4 PRN MT SORE THROAT; Start 03/13/16 at 19 :00 Furosemide (Lasix) 20 mg DAILY PO Last administered on 03/16/16 08:47; Admin Dose 20 MG; Start 03/14/16 at 11:00; Status Future Hold Megestrol Acetate (Megace Susp) 400 mg BID PO Last administered on 03/27/16 09: 18; Admin Dose 400 MG; Start 03/17/16 at 21:00 Calcium Carbonate (Oyster Shell Calcium) 1.25 gm TID PO Last administered on 09:18; Admin Dose 1.25 GM; Start 03/19/16 at 09:00 Cholecalciferol (Vitamin D) 1,000 unit DAILY PO Last administered on 03/26/16 08:28; Admin Dose 1,000 UNIT; Start 03/20/16 at 09:00 Bisacodyl (Dulcolax) 10 mg DAILY PRN PO CONSTIPATION Last administered on 17:21; Admin Dose 10 MG; Start 03/20/16 at 15:00 Polyethylene Glycol (Miralax) 17 gm BID PO Last administered on 03/26/16 21:02 ; Admin Dose 17 GM; Start 03/20/16 at 21:00 JEFF CORONA Mar 27, 2016 13:50 JEFF CORONA Mar 27, 2016 13:50
[2016-03-27 14:03] LABS: 50/50 PTT IMMED 43.6 Sec
--- NOTE | 2016-03-27 14:40 | CONS ---
Date/Time of Note Date/Time of Note DATE: 03/27/16 TIME: 14:39 Consult Date/Type/Reason Admit Date/Time Mar 08, 2016 at 11:43 Type of Consultation: pulmonary Ordering Provider: OLIVA BARRERA Subjective Patient stable this morning sitting up in chair Objective Vital Signs Date Time Temp Pulse Resp B/P Pulse Ox O2 Delivery O2 Flow Rate FiO2 03/27/16 12:58 91 03/27/16 12:01 97.8 22 103/63 98 03/27/16 08:07 2.0 03/27/16 08:07 Nasal Cannula Intake and Output 03/26/16 03/26/16 03/27/16 15:00 23:00 07:00 Intake Total 200 ml 720 ml Output Total 300 ml 700 ml Balance -100 ml 20 ml PHYSICAL EXAMINATION: VITAL SIGNS: As above HEENT: Pupils are equal and react to light. NECK: Supple. No cervical adenopathy. No carotid bruits heard. LUNGS: Diminished air entry right lung CARDIOVASCULAR: S1, S2 normal. ABDOMEN: Soft, nontender. No organomegaly or masses noted. EXTREMITIES: No clubbing or cyanosis noted. NEUROLOGICAL: Awake. Results/Medications Result Diagram: 03/26/16 0558 03/25/16 0640 Results 24 hrs Laboratory Tests Test 03/27/16 09:15 Activated Partial Thromboplast Time 46.9 H Fibrinogen 1099.0 H Mix PTT Normal Plasma Immediate 43.6 Medications Current Medications Ondansetron HCl (Zofran Inj) 4 mg Q6H PRN IV NAUSEA AND/OR VOMITING; Start at 14:00 Acetaminophen (Tylenol Tab) 650 mg Q6H PRN PO PAIN LEVEL 1-3 OR FEVER Last administered on 03/11/16 21:28; Admin Dose 650 MG; Start 03/08/16 at 14:00 Acetaminophen/ Hydrocodone Bitart ([place] (5/325)) 1 tab Q6H PRN PO PAIN LEVEL 4 -6 Last administered on 03/26/16 08:28; Admin Dose 1 TAB; Start 03/08/16 at 14: 00 Morphine Sulfate (morphine) 2 mg Q4H PRN IV PAIN LEVEL 7-10 Last administered on 03/25/16 22:23; Admin Dose 2 MG; Start 03/08/16 at 14:00 Carvedilol (Coreg) 3.125 mg BID PO Last administered on 03/26/16 08:24; Admin Dose 3.125 MG; Start 03/08/16 at 21:00 Imipramine HCl (Tofranil) 25 mg BID PO Last administered on 03/27/16 09:18; Admin Dose 25 MG; Start 03/08/16 at 21:00 Hydralazine HCl (Apresoline) 10 mg Q6H PRN IV SBP>160; Start 03/08/16 at 16:00 Bicalutamide (Casodex) 50 mg DAILY PO Last administered on 03/26/16 08:23; Admin Dose 50 MG; Start 03/09/16 at 09:00 Lisinopril (Zestril) 2.5 mg DAILY PO Last administered on 03/11/16 08:26; Admin Dose 2.5 MG; Start 03/09/16 at 09:00; Status Future hold Docusate Sodium (Colace) 200 mg HS PO Last administered on 03/26/16 21:02; Admin Dose 200 MG; Start 03/10/16 at 21:00 Phenol (Cepastat Lozenge) 1 lozenge Q4 PRN MT SORE THROAT; Start 03/13/16 at 19 :00 Furosemide (Lasix) 20 mg DAILY PO Last administered on 03/16/16 08:47; Admin Dose 20 MG; Start 03/14/16 at 11:00; Status Future Hold Megestrol Acetate (Megace Susp) 400 mg BID PO Last administered on 03/27/16 09: 18; Admin Dose 400 MG; Start 03/17/16 at 21:00 Calcium Carbonate (Oyster Shell Calcium) 1.25 gm TID PO Last administered on 09:18; Admin Dose 1.25 GM; Start 03/19/16 at 09:00 Cholecalciferol (Vitamin D) 1,000 unit DAILY PO Last administered on 03/26/16 08:28; Admin Dose 1,000 UNIT; Start 03/20/16 at 09:00 Bisacodyl (Dulcolax) 10 mg DAILY PRN PO CONSTIPATION Last administered on 17:21; Admin Dose 10 MG; Start 03/20/16 at 15:00 Polyethylene Glycol (Miralax) 17 gm BID PO Last administered on 03/26/16t 21:02 ; Admin Dose 17 GM; Start 03/20/16 at 21:00 Assessment/Plan Chief Complaint/Hosp Course IMPRESSION: 1. Congestive heart failure. 2. History of cardiomyopathy. 3. History of metastatic prostate carcinoma. 4. Possible aspiration. 5. Questionable increase in right pleural effusion RECOMMENDATIONS: 1. Continue oxygen. 2. Bronchodilators. 3. Urology followup. 4. GI and DVT prophylaxis. 5. Repeat chest x-ray shows possible right pleural effusion. Thoracentesis is pending Problems: MARLA NEWBY MD, [facility] Mar 27, 2016 14:40
--- NOTE | 2016-03-27 17:15 | RADRPT ---
PROCEDURE: XR Chest. CLINICAL INDICATION: Shortness of breath. Post right thoracentesis. TECHNIQUE: Single frontal view. COMPARISON: 03/25/2016. FINDINGS: Previously noted right pleural effusion is no longer present. There may be a right basilar lung nod ule measuring 2.6 cm now visualize. There is a moderate left pleural effusion and left basilar atel ectasis, unchanged. The heart is enlarged. There is calcification in the aorta consistent with atherosclerosis. There is no pneumothorax. There are severe degenerative changes of both shoulders. The osseous structures are otherwise unremarkable. IMPRESSION: 1. No pneumothorax following right thoracentesis. 2. Right basilar possible lung nodule measuring 2.[address] scan of the chest shou ld be considered. 3. Unchanged left pleural effusion and left basilar atelectasis. 4. Cardiomegaly and atherosclerosis. 5. Severe degenerative changes of both shoulders. RPTAT: QQ .Srinivas Coley MD, MD Date Time Electronically viewed and signed by .Srinivas Coley MD, on 03/27/2016 17:15 .R/
[2016-03-27] MEDS ORDERED: LIDOCAINE 1% (MPF) 5 ML VIAL ONE (17:18)
--- NOTE | 2016-03-27 17:20 | RADRPT ---
PROCEDURE: US guided right thoracentesis. CLINICAL INDICATION: Shortness of breath. Right pleural effusion. TECHNIQUE: Prior to the procedure, informed consent was obtained. The risks, benefits, and alternatives were e xplained to the patient or the patient's family, including but not limited to bleeding, infection, p ain, visceral or vascular damage, shock, pneumothorax, chest tube placement, air embolism, and . The patient or the patient's family understood the risks and the alternatives and wished to proce ed with the study. Informed written consent was obtained. A procedural pause was performed. The patient's name, date of , and procedure to be performed were verified. Ultrasound of the right hemithorax was performed in the axial and sagittal planes. A right pleural e ffusion is noted. Utilizing ultrasound guidance, optimal location for entry to the pleural cavity wa s ascertained. The overlying skin was prepped and draped in the usual sterile fashion. Approximate ly 10 ml of 1% Xylocaine was injected locally for pain control. Using ultrasound guidance, a 5-Fren Yueh catheter was introduced into the right pleural space without difficulty. Fluid was aspirated . COMPARISON: None. FINDINGS: Initial ultrasound demonstrates fluid in the right pleural space. Approximately 0.400 liters of ser ous fluid was aspirated and sent to the laboratory. IMPRESSION: 1. Satisfactory ultrasound-guided right thoracentesis. RPTAT: QQ .Srinivas Coley MD, Date Time Electronically viewed and signed by .Srinivas Coley MD, on 03/27/2016 17:20 .R/
[2016-03-27 20:37] LABS: FLUID GLUCOSE 142 mg/dl; FLUID LD 465 U/L; FLUID TOTAL PROTEIN 2.5 g/dl; FLUID TYPE THORACENTESIS FLUID
[2016-03-27] MEDS: DOCUSATE SODIUM 100 MG CAP PO SCH (21:00)
[2016-03-27 21:01] LABS: FLUID LYMPHOCYTES 41 %; FLUID MONOCYTES 15 %; FLUID NEUTROPHILS 43 %
[2016-03-27 21:05] LABS: FLUID TYPE THORACENTHESIS
[2016-03-27 21:06] LABS: FLUID APPEARANCE SLIGHTLY CLOUDY; FLUID WBC'S 101 /cmm
[2016-03-27 21:07] LABS: FLUID RBC EST 1+
[2016-03-28] VITALS (12 sets, daily range): BP systolic 89–129; BP diastolic 52–60; PULSE 85–91; RESP 16–20
[2016-03-28] MEDS: LEVOTHYROXINE 25 MCG TAB PO SCH (06:08)
[2016-03-28] MEDS: FUROSEMIDE 20 MG INJ IV SCH (06:08)
[2016-03-28] MEDS: ALBUTEROL/IPRATROPIUM (NEB) 3 ML AMP HHN SCH ×3 (08:15→19:48)
[2016-03-28] MEDS: LISINOPRIL 5 MG TAB PO SCH (09:00)
[2016-03-28] MEDS: MEGESTROL (40 MG/ML) 10ML CUP PO SCH ×2 (09:17→20:41)
[2016-03-28] MEDS: IMIPRAMINE 25 MG TAB PO SCH ×2 (09:17→20:40)
[2016-03-28] MEDS: PANTOPRAZOLE (EC) 40 MG TAB PO SCH ×2 (09:17→17:33)
[2016-03-28] MEDS: CALCIUM CARBONATE 1.25 GM TAB PO SCH ×3 (09:17→20:40)
[2016-03-28] MEDS: CHOLECALCIFEROL 1,000 UNIT TAB PO SCH (09:17)
[2016-03-28] MEDS: POLYETHYLENE GLYCOL 17 GM PACKET PO SCH ×2 (09:17→20:41)
[2016-03-28] MEDS: BICALUTAMIDE 50 MG TAB PO SCH (09:28)
--- NOTE | 2016-03-28 12:06 | CONS ---
Date/Time of Note Date/Time of Note DATE: 03/28/16 TIME: 12:04 Consult Date/Type/Reason Admit Date/Time Mar 08, 2016 at 11:43 Type of Consultation: pulmonary Ordering Provider: OLIVA BARRERA Subjective Patient remains stable following thoracentesis No significant shortness of breath this morning Remains frail but comfortable Objective Vital Signs Date Time Temp Pulse Resp B/P Pulse Ox O2 Delivery O2 Flow Rate FiO2 03/28/16 08:23 86 03/28/16 08:18 16 98 Nasal Cannula 2.0 28 03/28/16 07:59 98.0 89/52 Intake and Output 03/27/16 03/27/16 03/28/16 15:00 23:00 07:00 Intake Total 640 ml 450 ml Output Total 450 ml 650 ml Balance 190 ml -200 ml PHYSICAL EXAMINATION: VITAL SIGNS: As above HEENT: Pupils are equal and react to light. NECK: Supple. No cervical adenopathy. No carotid bruits heard. LUNGS: Diminished air entry right lung CARDIOVASCULAR: S1, S2 normal. ABDOMEN: Soft, nontender. No organomegaly or masses noted. EXTREMITIES: No clubbing or cyanosis noted. NEUROLOGICAL: Awake. Results/Medications Result Diagram: 03/26/16 0558 03/25/16 0640 Results 24 hrs Laboratory Tests Test 03/27/16 16:20 Body Fluid Appearance SLIGHTLY CLOUDY Body Fluid Color YELLOW Body Fluid Glucose 142 Body Fluid Lactate Dehydrogenase 465 Body Fluid Lymphocytes (%) 41 Body Fluid Monocytes % 15 Body Fluid Neutrophils % 43 Body Fluid Other Cells (%) 1 Body Fluid RBC 1+ Body Fluid Total Protein 2.5 Body Fluid Type THORACENTESIS FLUID Body Fluid Volume 430.0 Body Fluid WBC 101 Medications Current Medications Ondansetron HCl (Zofran Inj) 4 mg Q6H PRN IV NAUSEA AND/OR VOMITING; Start at 14:00 Acetaminophen (Tylenol Tab) 650 mg Q6H PRN PO PAIN LEVEL 1-3 OR FEVER Last administered on 03/11/16 21:28; Admin Dose 650 MG; Start 03/08/16 at 14:00 Acetaminophen/ Hydrocodone Bitart ([place] (5/325)) 1 tab Q6H PRN PO PAIN LEVEL 4 -6 Last administered on 03/26/16 08:28; Admin Dose 1 TAB; Start 03/08/16 at 14: 00 Morphine Sulfate (morphine) 2 mg Q4H PRN IV PAIN LEVEL 7-10 Last administered on 03/25/16 22:23; Admin Dose 2 MG; Start 03/08/16 at 14:00 Carvedilol (Coreg) 3.125 mg BID PO Last administered on 03/27/16 21:36; Admin Dose 3.125 MG; Start 03/08/16 at 21:00 Imipramine HCl (Tofranil) 25 mg BID PO Last administered on 03/28/16 09:17; Admin Dose 25 MG; Start 03/08/16 at 21:00 Hydralazine HCl (Apresoline) 10 mg Q6H PRN IV SBP>160; Start 03/08/16 at 16:00 Bicalutamide (Casodex) 50 mg DAILY PO Last administered on 03/28/16 09:28; Admin Dose 50 MG; Start 03/09/16 at 09:00 Lisinopril (Zestril) 2.5 mg DAILY PO Last administered on 03/11/16 08:26; Admin Dose 2.5 MG; Start 03/09/16 at 09:00; Status Future hold Docusate Sodium (Colace) 200 mg HS PO Last administered on 03/26/16 21:02; Admin Dose 200 MG; Start 03/10/16 at 21:00 Phenol (Cepastat Lozenge) 1 lozenge Q4 PRN MT SORE THROAT; Start 03/13/16 at 19 :00 Furosemide (Lasix) 20 mg DAILY PO Last administered on 03/16/16 08:47; Admin Dose 20 MG; Start 03/14/16 at 11:00; Status Future Hold Megestrol Acetate (Megace Susp) 400 mg BID PO Last administered on 03/28/16 09: 17; Admin Dose 400 MG; Start 03/17/16 at 21:00 Calcium Carbonate (Oyster Shell Calcium) 1.25 gm TID PO Last administered on 09:17; Admin Dose 1.25 GM; Start 03/19/16 at 09:00 Cholecalciferol (Vitamin D) 1,000 unit DAILY PO Last administered on 03/28/16 09:17; Admin Dose 1,000 UNIT; Start 03/20/16 at 09:00 Bisacodyl (Dulcolax) 10 mg DAILY PRN PO CONSTIPATION Last administered on 17:21; Admin Dose 10 MG; Start 03/20/16 at 15:00 Polyethylene Glycol (Miralax) 17 gm BID PO Last administered on 03/28/16 09:17 ; Admin Dose 17 GM; Start 03/20/16 at 21:00 Assessment/Plan Chief Complaint/Hosp Course IMPRESSION: 1. Congestive heart failure. 2. History of cardiomyopathy. 3. History of metastatic prostate carcinoma. 4. Possible aspiration. 5. Status post thoracentesis right lung RECOMMENDATIONS: 1. Continue oxygen. 2. Bronchodilators. 3. Urology followup. 4. GI and DVT prophylaxis. Discharge planning okay from pulmonary standpoint will need long-term facility Hospice eval can be performed at long-term facility Problems: MARLA NEWBY MD, [facility] Mar 28, 2016 12:06
--- NOTE | 2016-03-28 14:43 | PN ---
Date/Time of Note Date/Time of Note DATE: 03/28/16 TIME: 14:41 Assessment/Plan VTE Prophylaxis VTE Prophylaxis Intervention: SCD's Lines/Catheters IV Catheter Type (from [facility]): Saline Lock Urinary Cath still in place: No Assessment/Plan Chief Complaint/Hosp Course Assessment and plan 1. CHF exacerbation acute on chronic with systolic dysfunction. Continue diuretics. Continue with cardiology recommendations 2. Metastatic prostate carcinoma with bone metastasis. Continue on analgesics. Patient remains on bicalutamide. Continue with oncologist recommendations 3. Cardiomyopathy with ejection fraction of 20-25%. Continue optimization with cardiovascular medications. ANUJ inhibitor on hold due to worsening renal function. Continue with cardiology recommendations 4. Hypocalcemia. Suspect secondary to bony metastasis. Continue vitamin D supplementation 5. Hypoxic respiratory failure secondary to CHF exacerbation. Continue bronchodilators. Status post thoracentesis per dialysis registered nurse 6. Pulmonary hypertension with PA pressure of 85 mmHg. Continue on O2. 7. Hypothyroidism. Continue on Synthroid 8. Reported nonsustained wide-complex tachycardia. Continue on telemetry monitoring. Follow-up with cardiology recommendations 9. Essential hypertension. Continue on antihypertensives and adjust as needed 10. Normocytic normochromic anemia. Likely of chronic disease. Remain stable. We 'll monitor 11. Dementia. Continue fall precautions DVT prophylaxis: SCDs GERD prophylaxis: PPI Disposition and plan: Awaiting patient placement. Continue O2 as needed. Follow- up with case management Discussed but of care with Dr. Costello Problems: Subjective 24 Hr Interval Summary Free Text/Dictation no s/s of distress Exam/Review of Systems Vital Signs Vitals Vital Signs Date Time Temp Pulse Resp B/P Pulse Ox O2 Delivery O2 Flow Rate FiO2 03/28/16 13:59 92 20 97 Nasal Cannula 2.0 28 03/28/16 12:26 97.7 94/60 Intake and Output 03/27/16 03/27/16 03/28/16 14:59 22:59 06:59 Intake Total 640 ml 450 ml Output Total 450 ml 650 ml Balance 190 ml -200 ml Exam General: No acute signs or symptoms of distress Eyes: pupils equal round, Anicteric sclera Neck: Supple nontender, no JVD Cardiac: S1, S2 auscultated, regular rhythm and rate Pulmonary: Diminished lung bases GI: Abdomen soft nontender nondistended, bowel sounds active Extremities: No edema bilateral lower extremities Skin: Clean dry and intact Neurologic: Alert to person place and time and situation Results Result Diagram: 03/26/16 0558 03/25/16 0640 Results 24 hrs Laboratory Tests Test 03/27/16 16:20 Body Fluid Appearance SLIGHTLY CLOUDY Body Fluid Color YELLOW Body Fluid Glucose 142 Body Fluid Lactate Dehydrogenase 465 Body Fluid Lymphocytes (%) 41 Body Fluid Monocytes % 15 Body Fluid Neutrophils % 43 Body Fluid Other Cells (%) 1 Body Fluid RBC 1+ Body Fluid Total Protein 2.5 Body Fluid Type THORACENTESIS FLUID Body Fluid Volume 430.0 Body Fluid WBC 101 Medications Medications Current Medications Ondansetron HCl (Zofran Inj) 4 mg Q6H PRN IV NAUSEA AND/OR VOMITING; Start at 14:00 Acetaminophen (Tylenol Tab) 650 mg Q6H PRN PO PAIN LEVEL 1-3 OR FEVER Last administered on 03/11/16 21:28; Admin Dose 650 MG; Start 03/08/16 at 14:00 Acetaminophen/ Hydrocodone Bitart ([place] (5/325)) 1 tab Q6H PRN PO PAIN LEVEL 4 -6 Last administered on 03/26/16 08:28; Admin Dose 1 TAB; Start 03/08/16 at 14: 00 Morphine Sulfate (morphine) 2 mg Q4H PRN IV PAIN LEVEL 7-10 Last administered on 03/25/16 22:23; Admin Dose 2 MG; Start 03/08/16 at 14:00 Carvedilol (Coreg) 3.125 mg BID PO Last administered on 03/27/16 21:36; Admin Dose 3.125 MG; Start 03/08/16 at 21:00 Imipramine HCl (Tofranil) 25 mg BID PO Last administered on 03/28/16 09:17; Admin Dose 25 MG; Start 03/08/16 at 21:00 Hydralazine HCl (Apresoline) 10 mg Q6H PRN IV SBP>160; Start 03/08/16 at 16:00 Bicalutamide (Casodex) 50 mg DAILY PO Last administered on 03/28/16 09:28; Admin Dose 50 MG; Start 03/09/16 at 09:00 Lisinopril (Zestril) 2.5 mg DAILY PO Last administered on 03/11/16 08:26; Admin Dose 2.5 MG; Start 03/09/16 at 09:00; Status Future hold Docusate Sodium (Colace) 200 mg HS PO Last administered on 03/26/16 21:02; Admin Dose 200 MG; Start 03/10/16 at 21:00 Phenol (Cepastat Lozenge) 1 lozenge Q4 PRN MT SORE THROAT; Start 03/13/16 at 19 :00 Furosemide (Lasix) 20 mg DAILY PO Last administered on 03/16/16 08:47; Admin Dose 20 MG; Start 03/14/16 at 11:00; Status Future Hold Megestrol Acetate (Megace Susp) 400 mg BID PO Last administered on 03/28/16 09: 17; Admin Dose 400 MG; Start 03/17/16 at 21:00 Calcium Carbonate (Oyster Shell Calcium) 1.25 gm TID PO Last administered on 13:13; Admin Dose 1.25 GM; Start 03/19/16 at 09:00 Cholecalciferol (Vitamin D) 1,000 unit DAILY PO Last administered on 03/28/16 09:17; Admin Dose 1,000 UNIT; Start 03/20/16 at 09:00 Bisacodyl (Dulcolax) 10 mg DAILY PRN PO CONSTIPATION Last administered on 17:21; Admin Dose 10 MG; Start 03/20/16 at 15:00 Polyethylene Glycol (Miralax) 17 gm BID PO Last administered on 03/28/16 09:17 ; Admin Dose 17 GM; Start 03/20/16 at 21:00 JEFF CORONA Mar 28, 2016 14:43
--- NOTE | 2016-03-28 17:45 | CONS ---
Date/Time of Note Date/Time of Note DATE: 03/28/16 TIME: 17:30 Assessment/Plan Assessment/Plan Chief Complaint/Hosp Course IMPRESSION: 1. Congestive heart failure exacerbation, systolic, acute on chronic.-Now improved volume status currently 2. History of cardiomyopathy with severely depressed left ventricular ejection fraction, last approximately 20% to 25% by echo this admit 3. End-stage renal disease on hemodialysis. 4. History of myocardial infarction by stress 04/2015. No ischemia by stress this admit EF 16% 5. Anemia. 6. Hypertension. 7. Hypothyroidism. 8. Prostate carcinoma. 9. Dementia. 10. Positive troponin-now trended negative 11.Wide complex tachycardia- ?NSVT-no recurrence-had recurrent to 150 ? PAFL as no change in morphology of QRS complex 12. acute renal failure Recc: -Tele -continue BB/ACEI as tolerated only -Lasix diuresis as tolerated -Start amio in attempt to maintain SR -PT Problems: Consultation Date/Type/Reason Admit Date/Time Mar 08, 2016 at 11:43 Initial Consult Date 03/08/2016 Type of Consultation: Cardiology Reason for Consultation cardiomyopathy Referring Provider: OLIVA BARRERA Exam/Review of Systems Vital Signs Vitals Vital Signs Date Time Temp Pulse Resp B/P Pulse Ox O2 Delivery O2 Flow Rate FiO2 03/28/16 16:30 88 03/28/16 16:00 98.3 19 109/60 98 03/28/16 13:59 Nasal Cannula 2.0 28 Intake and Output 03/27/16 03/27/16 03/28/16 15:00 23:00 07:00 Intake Total 640 ml 450 ml Output Total 450 ml 650 ml Balance 190 ml -200 ml Exam Review of Systems: CONSTITUTIONAL: No fevers, chills. PULMONARY: No sob CARDIOVASCULAR: No chest pain/palpitations GASTROINTESTINAL: No nausea/vomiting. GENITOURINARY: No hematuria/dysuria. MUSCULOSKELETAL: No myagias/arthalgias. PSYCHIATRIC: The patient denies depression. NEUROLOGIC: No weakness Constitutional: alert Psych: no complaints ENMT: mucosa pink and moist Neck: jvd, supple Respiratory: diminished breath sounds Cardiovascular: regular rate and rhythm Gastrointestinal: soft Musculoskeletal: muscle tone (normal) Extremities: normal pulses Neurological: other (No focal deficits) Results Result Diagram: 03/26/16 05 03/25/16 0640 Medications Medications Current Medications Ondansetron HCl (Zofran Inj) 4 mg Q6H PRN IV NAUSEA AND/OR VOMITING; Start at 14:00 Acetaminophen (Tylenol Tab) 650 mg Q6H PRN PO PAIN LEVEL 1-3 OR FEVER Last administered on 03/11/16 21:28; Admin Dose 650 MG; Start 03/08/16 at 14:00 Acetaminophen/ Hydrocodone Bitart ([place] (5/325)) 1 tab Q6H PRN PO PAIN LEVEL 4 -6 Last administered on 03/26/16 08:28; Admin Dose 1 TAB; Start 03/08/16 at 14: 00 Morphine Sulfate (morphine) 2 mg Q4H PRN IV PAIN LEVEL 7-10 Last administered on 03/25/16 22:23; Admin Dose 2 MG; Start 03/08/16 at 14:00 Carvedilol (Coreg) 3.125 mg BID PO Last administered on 03/27/16 21:36; Admin Dose 3.125 MG; Start 03/08/16 at 21:00 Imipramine HCl (Tofranil) 25 mg BID PO Last administered on 03/28/16 09:17; Admin Dose 25 MG; Start 03/08/16 at 21:00 Hydralazine HCl (Apresoline) 10 mg Q6H PRN IV SBP>160; Start 03/08/16 at 16:00 Bicalutamide (Casodex) 50 mg DAILY PO Last administered on 03/28/16 09:28; Admin Dose 50 MG; Start 03/09/16 at 09:00 Lisinopril (Zestril) 2.5 mg DAILY PO Last administered on 03/11/16 08:26; Admin Dose 2.5 MG; Start 03/09/16 at 09:00; Status Future hold Docusate Sodium (Colace) 200 mg HS PO Last administered on 03/26/16 21:02; Admin Dose 200 MG; Start 03/10/16 at 21:00 Phenol (Cepastat Lozenge) 1 lozenge Q4 PRN MT SORE THROAT; Start 03/13/16 at 19 :00 Furosemide (Lasix) 20 mg DAILY PO Last administered on 03/16/16 08:47; Admin Dose 20 MG; Start 03/14/16 at 11:00; Status Future Hold Megestrol Acetate (Megace Susp) 400 mg BID PO Last administered on 03/28/16 09: 17; Admin Dose 400 MG; Start 03/17/16 at 21:00 Calcium Carbonate (Oyster Shell Calcium) 1.25 gm TID PO Last administered on 13:13; Admin Dose 1.25 GM; Start 03/19/16 at 09:00 Cholecalciferol (Vitamin D) 1,000 unit DAILY PO Last administered on 03/28/16 09:17; Admin Dose 1,000 UNIT; Start 03/20/16 at 09:00 Bisacodyl (Dulcolax) 10 mg DAILY PRN PO CONSTIPATION Last administered on 17:21; Admin Dose 10 MG; Start 03/20/16 at 15:00 Polyethylene Glycol (Miralax) 17 gm BID PO Last administered on 03/28/16 09:17 ; Admin Dose 17 GM; Start 03/20/16 at 21:00 JUAN CARLOS ALEJANDRO Mar 28, 2016 17:45
[2016-03-28] MEDS: ACETAMINOPHEN 325 MG TAB PO PRN (20:40)
[2016-03-28] MEDS: DOCUSATE SODIUM 100 MG CAP PO SCH (20:41)
[2016-03-28] MEDS: AMIODARONE 200 MG TAB PO SCH (20:41)
[2016-03-29] VITALS (12 sets, daily range): BP systolic 94–140; BP diastolic 52–68; PULSE 65–93; RESP 15–22
[2016-03-29] MEDS: PANTOPRAZOLE (EC) 40 MG TAB PO SCH ×2 (06:31→16:47)
[2016-03-29] MEDS: LEVOTHYROXINE 25 MCG TAB PO SCH (06:31)
[2016-03-29] MEDS: MEGESTROL (40 MG/ML) 10ML CUP PO SCH ×2 (09:00→20:41)
[2016-03-29] MEDS: AMIODARONE 200 MG TAB PO SCH ×2 (09:00→20:43)
[2016-03-29] MEDS: CHOLECALCIFEROL 1,000 UNIT TAB PO SCH (09:00)
[2016-03-29] MEDS: CALCIUM CARBONATE 1.25 GM TAB PO SCH ×3 (09:00→20:42)
[2016-03-29] MEDS: LISINOPRIL 5 MG TAB PO SCH (09:00)
[2016-03-29] MEDS: BICALUTAMIDE 50 MG TAB PO SCH (09:00)
[2016-03-29] MEDS: POLYETHYLENE GLYCOL 17 GM PACKET PO SCH ×2 (09:00→21:00)
[2016-03-29] MEDS: FUROSEMIDE 20 MG INJ IV SCH (09:00)
[2016-03-29] MEDS: IMIPRAMINE 25 MG TAB PO SCH ×2 (09:00→20:43)
[2016-03-29] MEDS: ALBUTEROL/IPRATROPIUM (NEB) 3 ML AMP HHN SCH ×3 (10:15→21:22)
--- NOTE | 2016-03-29 10:51 | CONS ---
DATE OF ADMISSION: 03/08/2016 DATE OF CONSULTATION: 03/29/2016 TYPE OF CONSULTATION: Medical oncology progress note. HISTORY OF PRESENT ILLNESS: Mr. Frey seems comfortable. He is resting in bed quietly. No compl aints of chest pain. No complaints of bone pain. OBJECTIVE VITAL SIGNS: Temperature 98.2, pulse 81 per minute and regular, respirations 18, blood pressure 94/ 52 and pulse oximetry is 98% on 3 liters of oxygen by nasal cannula. SKIN: No ecchymosis, no petechiae or rashes. HEENT: No mucosal lesions. No scleral icterus. Nasal oxygen in place. NECK: Supple. Mild jugular venous distention. No carotid bruits. CHEST: Decreased breath sounds in bases. Scattered rales in bases. No rubs. HEART: Regular sinus rhythm, no S3, S4 or murmurs. ABDOMEN: Soft, no masses, no ascites. EXTREMITIES: No clubbing, edema or cyanosis. No palpable cords or Homans sign. NEUROLOGIC: Unchanged. There are no focal neurologic abnormalities. The patient did undergo a thoracentesis on 03/27/2116. This did yield 400 mL of a serous fluid. Th e fluid cell count is 101. 43% neutrophils of 41% lymphocytes, 15% monocytes. The glucose is 142, LDH 465 and total protein 2.5. Cytologic evaluation is pending. DISCUSSION: The patient previously ordered 50/50 PTT does not show correction with normal plasma. This suggests a lupus anticoagulant. There is no evidence of heparin effect as the patient's thromb in time is 14.6 seconds. ASSESSMENT: 1. Metastatic prostate carcinoma. 2. Congestive heart failure. 3. Lupus anticoagulant. PLAN: Awaiting the results of cytology on pleural fluid, but the finding of a total protein of only 2.5 suggests a transudative benign fluid. We will also check an BONNIE as well as antiphospholipid antibodies. Dictated By: MELINDA PAYNE MD, SR/JESUS Conf#: [id number] DID#: [id number]
--- NOTE | 2016-03-29 14:19 | CONS ---
Date/Time of Note Date/Time of Note DATE: 03/29/16 TIME: 14:18 Consult Date/Type/Reason Admit Date/Time Mar 08, 2016 at 11:43 Type of Consultation: pulmonary Ordering Provider: OLIVA BARRERA Subjective Patient appears comfortable no acute distress Objective Vital Signs Date Time Temp Pulse Resp B/P Pulse Ox O2 Delivery O2 Flow Rate FiO2 03/29/16 12:45 87 03/29/16 11:00 97.6 19 94/57 94 03/29/16 08:30 Nasal Cannula 3.0 03/28/16 13:59 28 Intake and Output 03/28/16 03/28/16 03/29/16 14:59 22:59 06:59 Intake Total 200 ml 500 ml Output Total 500 ml 450 ml Balance -300 ml 50 ml PHYSICAL EXAMINATION: VITAL SIGNS: As above family elderly gentleman HEENT: Pupils are equal and react to light. NECK: Supple. No cervical adenopathy. No carotid bruits heard. LUNGS: Diminished air entry right lung CARDIOVASCULAR: S1, S2 normal. ABDOMEN: Soft, nontender. No organomegaly or masses noted. EXTREMITIES: No clubbing or cyanosis noted. NEUROLOGICAL: Awake. Results/Medications Result Diagram: 03/26/16 0558 03/25/16 0640 Medications Current Medications Ondansetron HCl (Zofran Inj) 4 mg Q6H PRN IV NAUSEA AND/OR VOMITING; Start at 14:00 Acetaminophen (Tylenol Tab) 650 mg Q6H PRN PO PAIN LEVEL 1-3 OR FEVER Last administered on 03/28/16 20:40; Admin Dose 650 MG; Start 03/08/16 at 14:00 Acetaminophen/ Hydrocodone Bitart ([place] (5/325)) 1 tab Q6H PRN PO PAIN LEVEL 4 -6 Last administered on 03/26/16 08:28; Admin Dose 1 TAB; Start 03/08/16 at 14: 00 Morphine Sulfate (morphine) 2 mg Q4H PRN IV PAIN LEVEL 7-10 Last administered on 03/25/16 22:23; Admin Dose 2 MG; Start 03/08/16 at 14:00 Carvedilol (Coreg) 3.125 mg BID PO Last administered on 03/28/16 20:41; Admin Dose 3.125 MG; Start 03/08/16 at 21:00 Imipramine HCl (Tofranil) 25 mg BID PO Last administered on 03/28/16 20:40; Admin Dose 25 MG; Start 03/08/16 at 21:00 Hydralazine HCl (Apresoline) 10 mg Q6H PRN IV SBP>160; Start 03/08/16 at 16:00 Bicalutamide (Casodex) 50 mg DAILY PO Last administered on 03/28/16 09:28; Admin Dose 50 MG; Start 03/09/16 at 09:00 Lisinopril (Zestril) 2.5 mg DAILY PO Last administered on 03/11/16 08:26; Admin Dose 2.5 MG; Start 03/09/16 at 09:00; Status Future hold Docusate Sodium (Colace) 200 mg HS PO Last administered on 03/28/16 20:41; Admin Dose 200 MG; Start 03/10/16 at 21:00 Phenol (Cepastat Lozenge) 1 lozenge Q4 PRN MT SORE THROAT; Start 03/13/16 at 19 :00 Megestrol Acetate (Megace Susp) 400 mg BID PO Last administered on 03/28/16 20: 41; Admin Dose 400 MG; Start 03/17/16 at 21:00 Calcium Carbonate (Oyster Shell Calcium) 1.25 gm TID PO Last administered on 20:40; Admin Dose 1.25 GM; Start 03/19/16 at 09:00 Cholecalciferol (Vitamin D) 1,000 unit DAILY PO Last administered on 03/28/16 09:17; Admin Dose 1,000 UNIT; Start 03/20/16 at 09:00 Bisacodyl (Dulcolax) 10 mg DAILY PRN PO CONSTIPATION Last administered on 17:21; Admin Dose 10 MG; Start 03/20/16 at 15:00 Polyethylene Glycol (Miralax) 17 gm BID PO Last administered on 03/28/16 20:41 ; Admin Dose 17 GM; Start 03/20/16 at 21:00 Furosemide (Lasix) 20 mg DAILY IV ; Start 03/29/16 at 09:00 Amiodarone HCl (Cordarone) 200 mg BID PO Last administered on 2/2/17at 20:41; Admin Dose 200 MG; Start 03/28/16 at 21:00 Assessment/Plan Chief Complaint/Hosp Course IMPRESSION: 1. Congestive heart failure. 2. History of cardiomyopathy. 3. History of metastatic prostate carcinoma. 4. Possible aspiration. 5. Status post thoracentesis right lung RECOMMENDATIONS: 1. Continue oxygen. 2. Bronchodilators. 3. Urology followup. 4. GI and DVT prophylaxis. Patient being discharged home with hospice. Problems: MARLA NEWBY MD, [facility] Mar 29, 2016 14:19
[2016-03-29] MEDS: HYDROCODONE/APAP (5/325) TAB PO PRN (14:22)
--- NOTE | 2016-03-29 15:16 | PN ---
Date/Time of Note Date/Time of Note DATE: 03/29/16 TIME: 15:14 Assessment/Plan VTE Prophylaxis VTE Prophylaxis Intervention: SCD's Lines/Catheters IV [facility] Urinary Cath still in place: No Assessment/Plan Chief Complaint/Hosp Course Assessment and plan 1. CHF exacerbation acute on chronic with systolic dysfunction. Continue diuretics. Continue with cardiology recommendations 2. Metastatic prostate carcinoma with bone metastasis. Continue on analgesics. Patient remains on bicalutamide. Continue with oncologist recommendations 3. Cardiomyopathy with ejection fraction of 20-25%. Continue optimization with cardiovascular medications. ANUJ inhibitor on hold due to worsening renal function. Continue with cardiology recommendations 4. Hypocalcemia. Suspect secondary to bony metastasis. Continue vitamin D supplementation 5. Hypoxic respiratory failure secondary to CHF exacerbation. Continue bronchodilators. 6. Pulmonary hypertension with PA pressure of 85 mmHg. Continue on O2. 7. Hypothyroidism. Continue on Synthroid 8. Reported nonsustained wide-complex tachycardia. Continue on telemetry monitoring. Follow-up with cardiology recommendations 9. Essential hypertension. Continue on antihypertensives and adjust as needed 10. Normocytic normochromic anemia. Likely of chronic disease. Remain stable. We 'll monitor 11. Dementia. Continue fall precautions DVT prophylaxis: SCDs GERD prophylaxis: PPI Disposition and plan: Plan to discharge patient home with home hospice. We'll follow-up with case management. Discharge when set up for home. Discussed with family Discussed but of care with Dr. Costello Problems: Subjective 24 Hr Interval Summary Free Text/Dictation No apparent distress. Family at bedside Exam/Review of Systems Vital Signs Vitals Vital Signs Date Time Temp Pulse Resp B/P Pulse Ox O2 Delivery O2 Flow Rate FiO2 03/29/16 14:25 99 3.0 03/29/16 14:08 100 18 Nasal Cannula 03/29/16 11:00 97.6 94/57 03/28/16 13:59 28 Intake and Output 03/28/16 03/28/16 03/29/16 14:59 22:59 06:59 Intake Total 200 ml 500 ml Output Total 500 ml 450 ml Balance -300 ml 50 ml Exam General: No acute signs or symptoms of distress Eyes: pupils equal round, Anicteric sclera Neck: Supple nontender, no JVD Cardiac: S1, S2 auscultated, regular rhythm and rate Pulmonary: No coarse rhonchi or breathing auscultated GI: Abdomen soft nontender nondistended, bowel sounds active Extremities: No edema bilateral lower extremities Skin: Clean dry and intact Neurologic: Alert to person place and time and situation Results Result Diagram: 03/26/16 0558 03/25/16 0640 Medications Medications Current Medications Ondansetron HCl (Zofran Inj) 4 mg Q6H PRN IV NAUSEA AND/OR VOMITING; Start at 14:00 Acetaminophen (Tylenol Tab) 650 mg Q6H PRN PO PAIN LEVEL 1-3 OR FEVER Last administered on 03/28/16 20:40; Admin Dose 650 MG; Start 03/08/16 at 14:00 Acetaminophen/ Hydrocodone Bitart ([place] (5/325)) 1 tab Q6H PRN PO PAIN LEVEL 4 -6 Last administered on 03/29/16 14:22; Admin Dose 1 TAB; Start 03/08/16 at 14: 00 Morphine Sulfate (morphine) 2 mg Q4H PRN IV PAIN LEVEL 7-10 Last administered on 03/25/16 22:23; Admin Dose 2 MG; Start 03/08/16 at 14:00 Carvedilol (Coreg) 3.125 mg BID PO Last administered on 03/28/16 20:41; Admin Dose 3.125 MG; Start 03/08/16 at 21:00 Imipramine HCl (Tofranil) 25 mg BID PO Last administered on 03/28/16 20:40; Admin Dose 25 MG; Start 03/08/16 at 21:00 Hydralazine HCl (Apresoline) 10 mg Q6H PRN IV SBP>160; Start 03/08/16 at 16:00 Bicalutamide (Casodex) 50 mg DAILY PO Last administered on 03/28/16 09:28; Admin Dose 50 MG; Start 03/09/16 at 09:00 Lisinopril (Zestril) 2.5 mg DAILY PO Last administered on 03/11/16 08:26; Admin Dose 2.5 MG; Start 03/09/16 at 09:00; Status Future hold Docusate Sodium (Colace) 200 mg HS PO Last administered on 03/28/16 20:41; Admin Dose 200 MG; Start 03/10/16 at 21:00 Phenol (Cepastat Lozenge) 1 lozenge Q4 PRN MT SORE THROAT; Start 03/13/16 at 19 :00 Megestrol Acetate (Megace Susp) 400 mg BID PO Last administered on 03/28/16 20: 41; Admin Dose 400 MG; Start 03/17/16 at 21:00 Calcium Carbonate (Oyster Shell Calcium) 1.25 gm TID PO Last administered on 20:40; Admin Dose 1.25 GM; Start 03/19/16 at 09:00 Cholecalciferol (Vitamin D) 1,000 unit DAILY PO Last administered on 03/28/16 09:17; Admin Dose 1,000 UNIT; Start 03/20/16 at 09:00 Bisacodyl (Dulcolax) 10 mg DAILY PRN PO CONSTIPATION Last administered on 17:21; Admin Dose 10 MG; Start 03/20/16 at 15:00 Polyethylene Glycol (Miralax) 17 gm BID PO Last administered on 03/28/16 20:41 ; Admin Dose 17 GM; Start 03/20/16 at 21:00 Furosemide (Lasix) 20 mg DAILY IV ; Start 03/29/16 at 09:00 Amiodarone HCl (Cordarone) 200 mg BID PO Last administered on 03/28/16 20:41; Admin Dose 200 MG; Start 03/28/16 at 21:00 JEFF CORONA Mar 29, 2016 15:16
--- NOTE | 2016-03-29 15:45 | CONS ---
Date/Time of Note Date/Time of Note DATE: 03/29/16 TIME: 15:42 Assessment/Plan Assessment/Plan Chief Complaint/Hosp Course IMPRESSION: 1. Congestive heart failure exacerbation, systolic, acute on chronic.-Now improved volume status currently 2. History of cardiomyopathy with severely depressed left ventricular ejection fraction, last approximately 20% to 25% by echo this admit 3. End-stage renal disease on hemodialysis. 4. History of myocardial infarction by stress 04/2015. No ischemia by stress this admit EF 16% 5. Anemia. 6. Hypertension. 7. Hypothyroidism. 8. Prostate carcinoma. 9. Dementia. 10. Positive troponin-now trended negative 11.Wide complex tachycardia- ?NSVT-no recurrence-had recurrent to 150 ? PAFL as no change in morphology of QRS complex 12. acute renal failure Recc: -Tele -continue BB/ACEI as tolerated only -Lasix diuresis as tolerated -Continue amio in attempt to maintain SR and as patient will comply with -PT Problems: Consultation Date/Type/Reason Admit Date/Time Mar 08, 2016 at 11:43 Initial Consult Date 03/08/2016 Type of Consultation: Cardiology Reason for Consultation cardiomyopathy Referring Provider: OLIVA BARRERA Exam/Review of Systems Vital Signs Vitals Vital Signs Date Time Temp Pulse Resp B/P Pulse Ox O2 Delivery O2 Flow Rate FiO2 03/29/16 14:25 99 3.0 03/29/16 14:08 100 18 Nasal Cannula 03/29/16 11:00 97.6 94/57 03/28/16 13:59 28 Intake and Output 03/28/16 03/28/16 03/29/16 15:00 23:00 07:00 Intake Total 200 ml 500 ml Output Total 500 ml 450 ml Balance -300 ml 50 ml Exam Review of Systems: CONSTITUTIONAL: No fevers, chills. PULMONARY: No sob CARDIOVASCULAR: No chest pain/palpitations GASTROINTESTINAL: No nausea/vomiting. GENITOURINARY: No hematuria/dysuria. MUSCULOSKELETAL: No myagias/arthalgias. PSYCHIATRIC: The patient denies depression. NEUROLOGIC: lethargic Constitutional: alert Psych: no complaints Head: normocephalic ENMT: mucosa pink and moist Neck: jvd, supple Respiratory: diminished breath sounds Cardiovascular: regular rate and rhythm Gastrointestinal: non-tender, soft Musculoskeletal: muscle tone (normal) Extremities: edema (none) Neurological: other (No focal deficits) Results Result Diagram: 03/26/16 0558 03/25/16 0640 Medications Medications Current Medications Ondansetron HCl (Zofran Inj) 4 mg Q6H PRN IV NAUSEA AND/OR VOMITING; Start at 14:00 Acetaminophen (Tylenol Tab) 650 mg Q6H PRN PO PAIN LEVEL 1-3 OR FEVER Last administered on 03/28/16 20:40; Admin Dose 650 MG; Start 03/08/16 at 14:00 Acetaminophen/ Hydrocodone Bitart ([place] (5/325)) 1 tab Q6H PRN PO PAIN LEVEL 4 -6 Last administered on 03/29/16 14:22; Admin Dose 1 TAB; Start 03/08/16 at 14: 00 Morphine Sulfate (morphine) 2 mg Q4H PRN IV PAIN LEVEL 7-10 Last administered on 03/25/16 22:23; Admin Dose 2 MG; Start 03/08/16 at 14:00 Carvedilol (Coreg) 3.125 mg BID PO Last administered on 03/28/16 20:41; Admin Dose 3.125 MG; Start 03/08/16 at 21:00 Imipramine HCl (Tofranil) 25 mg BID PO Last administered on 03/28/16 20:40; Admin Dose 25 MG; Start 03/08/16 at 21:00 Hydralazine HCl (Apresoline) 10 mg Q6H PRN IV SBP>160; Start 03/08/16 at 16:00 Bicalutamide (Casodex) 50 mg DAILY PO Last administered on 03/28/16 09:28; Admin Dose 50 MG; Start 03/09/16 at 09:00 Lisinopril (Zestril) 2.5 mg DAILY PO Last administered on 03/11/16 08:26; Admin Dose 2.5 MG; Start 03/09/16 at 09:00; Status Future hold Docusate Sodium (Colace) 200 mg HS PO Last administered on 03/28/16 20:41; Admin Dose 200 MG; Start 03/10/16 at 21:00 Phenol (Cepastat Lozenge) 1 lozenge Q4 PRN MT SORE THROAT; Start 03/13/16 at 19 :00 Megestrol Acetate (Megace Susp) 400 mg BID PO Last administered on 03/28/16 20: 41; Admin Dose 400 MG; Start 03/17/16 at 21:00 Calcium Carbonate (Oyster Shell Calcium) 1.25 gm TID PO Last administered on 20:40; Admin Dose 1.25 GM; Start 03/19/16 at 09:00 Cholecalciferol (Vitamin D) 1,000 unit DAILY PO Last administered on 03/28/16 09:17; Admin Dose 1,000 UNIT; Start 03/20/16 at 09:00 Bisacodyl (Dulcolax) 10 mg DAILY PRN PO CONSTIPATION Last administered on 17:21; Admin Dose 10 MG; Start 03/20/16 at 15:00 Polyethylene Glycol (Miralax) 17 gm BID PO Last administered on 03/28/16 20:41 ; Admin Dose 17 GM; Start 03/20/16 at 21:00 Furosemide (Lasix) 20 mg DAILY IV ; Start 03/29/16 at 09:00 Amiodarone HCl (Cordarone) 200 mg BID PO Last administered on 03/28/16 20:41; Admin Dose 200 MG; Start 03/28/16 at 21:00 JUAN CARLOS ALEJANDRO Mar 29, 2016 15:45
[2016-03-29] MEDS: morphine 2 MG INJ IV PRN (20:41)
[2016-03-29] MEDS: DOCUSATE SODIUM 100 MG CAP PO SCH (20:42)
[2016-03-30] VITALS (12 sets, daily range): BP systolic 89–114; BP diastolic 50–64; PULSE 81–100; RESP 15–20
[2016-03-30] MEDS: LEVOTHYROXINE 25 MCG TAB PO SCH (06:11)
[2016-03-30] MEDS: LISINOPRIL 5 MG TAB PO SCH (08:50)
[2016-03-30] MEDS: FUROSEMIDE 20 MG INJ IV SCH (08:51)
[2016-03-30] MEDS: POLYETHYLENE GLYCOL 17 GM PACKET PO SCH ×2 (08:51→21:36)
[2016-03-30] MEDS: CHOLECALCIFEROL 1,000 UNIT TAB PO SCH (08:51)
[2016-03-30] MEDS: MEGESTROL (40 MG/ML) 10ML CUP PO SCH ×2 (08:51→21:33)
[2016-03-30] MEDS: CALCIUM CARBONATE 1.25 GM TAB PO SCH ×3 (08:51→21:34)
[2016-03-30] MEDS: PANTOPRAZOLE (EC) 40 MG TAB PO SCH ×2 (08:51→18:16)
[2016-03-30] MEDS: AMIODARONE 200 MG TAB PO SCH ×2 (08:52→21:00)
[2016-03-30] MEDS: IMIPRAMINE 25 MG TAB PO SCH ×2 (08:52→21:33)
[2016-03-30] MEDS: BICALUTAMIDE 50 MG TAB PO SCH (09:01)
[2016-03-30 09:06] LABS: ALBUMIN 3.2 g/dl (3.3-4.9); POTASSIUM 4.5 mmol/L (3.5-5.1)
[2016-03-30 09:08] LABS: BILIRUBIN,INDIRECT 0.2 mg/dl (0-1.1); BILIRUBIN,TOTAL 0.2 mg/dl (0.2-1.3); CREATININE 1.23 mg/dl (0.61-1.24)
[2016-03-30 09:09] LABS: ALBUMIN/GLOBULIN RATIO 0.94; TOTAL PROTEIN 6.6 g/dl (6.1-8.1)
[2016-03-30] MEDS: ALBUTEROL/IPRATROPIUM (NEB) 3 ML AMP HHN SCH ×3 (09:31→20:14)
[2016-03-30 11:15] LABS: HEMATOCRIT 28.9 % (42.0-52.0); HEMOGLOBIN 9.2 g/dl (14.0-18.0); MEAN CORPUSCULAR HEMOGLOBIN 28.9 pg (29.0-33.0); MEAN CORPUSCULAR VOLUME 90.9 fl (82.0-101.0); RED BLOOD COUNT 3.18 10^6/ul (4.70-6.10); WHITE BLOOD COUNT 7.6 10^3/ul (4.8-10.8)
[2016-03-30 11:16] LABS: MEAN CORPUSCULAR HGB CONC 31.8 g/dl (32.0-37.0); PLATELET COUNT 213 10^3/UL (140-440); RED CELL DISTRIBUTION WIDTH 17.3 % (11.5-14.5)
[2016-03-30 12:35] LABS: LYMPHOCYTES # 0.6 10^3/ul (0.8-2.9); MONOCYTE # 0.3 10^3/ul (0.3-0.9); NEUTROPHIL # 6.5 10^3/ul (1.6-7.5)
[2016-03-30 12:36] LABS: ANISOCYTOSIS 1+; HYPOCHROMASIA 1+; PLATELET ESTIMATE PLT APPEAR ADEQUATE
[2016-03-30] MEDS ORDERED: CALCIUM GLUCONATE 10% 2 GM in SOD CHLORIDE 0.9% 100 ML IVPB ONE (15:00)
--- NOTE | 2016-03-30 15:23 | CONS ---
Date/Time of Note Date/Time of Note DATE: 03/30/16 TIME: 15:22 Consult Date/Type/Reason Admit Date/Time Mar 08, 2016 at 11:43 Type of Consultation: Pulm Ordering Provider: OLIVA BARRERA Subjective Comfortable no new events. Still weak. Objective Vital Signs Date Time Temp Pulse Resp B/P Pulse Ox O2 Delivery O2 Flow Rate FiO2 03/30/16 14:25 96 16 98 Nasal Cannula 2.0 03/30/16 11:00 97.4 92/57 03/28/16 13:59 28 Intake and Output 03/29/16 03/29/16 03/30/16 15:00 23:00 07:00 Intake Total 300 ml 500 ml Output Total 350 ml 325 ml Balance -50 ml 175 ml PHYSICAL EXAMINATION: VITAL SIGNS: As above HEENT: Pupils are equal and react to light. NECK: Supple. No cervical adenopathy. No carotid bruits heard. LUNGS: Diminished air entry right lung CARDIOVASCULAR: S1, S2 normal. ABDOMEN: Soft, nontender. No organomegaly or masses noted. EXTREMITIES: No clubbing or cyanosis noted. NEUROLOGICAL: Awake. Results/Medications Result Diagram: 03/30/16 0737 03/30/16 0737 Results 24 hrs Laboratory Tests Test 03/30/16 07:37 Alanine Aminotransferase (ALT/SGPT) 53 Albumin 3.2 L Albumin/Globulin Ratio 0.94 Alkaline Phosphatase 737 H Anion Gap 23 H Anisocytosis 1+ Aspartate Amino Transf (AST/SGOT) 80 H Band Neutrophils % 2.0 Basophils # Basophils % Blood Urea Nitrogen 69 H Calcium Level 5.0 *L Carbon Dioxide Level 24 Chloride Level 101 Creatinine 1.23 Direct Bilirubin 0.00 Eosinophils # Eosinophils % Globulin 3.40 H Glucose Level 121 Hematocrit 28.9 L Hemoglobin 9.2 L Hypochromasia 1+ Indirect Bilirubin 0.2 Lymphocytes # 0.6 L Lymphocytes % 8.0 L Mean Corpuscular Hemoglobin 28.9 L Mean Corpuscular Hemoglobin Concent 31.8 L Mean Corpuscular Volume 90.9 Mean Platelet Volume 11.0 #H Monocytes # 0.3 Monocytes % 4.0 Neutrophils # 6.5 Neutrophils % 86.0 H Nucleated Red Blood Cells # Nucleated Red Blood Cells % 1.0 H Platelet Count 213 Platelet Estimate PLT APPEAR ADEQUATE Potassium Level 4.5 Red Blood Count 3.18 L Red Cell Distribution Width 17.3 H Sodium Level 143 Total Bilirubin 0.2 Total Protein 6.6 White Blood Count 7.6 Medications Current Medications Ondansetron HCl (Zofran Inj) 4 mg Q6H PRN IV NAUSEA AND/OR VOMITING; Start at 14:00 Acetaminophen (Tylenol Tab) 650 mg Q6H PRN PO PAIN LEVEL 1-3 OR FEVER Last administered on 03/28/16 20:40; Admin Dose 650 MG; Start 03/08/16 at 14:00 Acetaminophen/ Hydrocodone Bitart ([place] (5/325)) 1 tab Q6H PRN PO PAIN LEVEL 4 -6 Last administered on 03/29/16 14:22; Admin Dose 1 TAB; Start 03/08/16 at 14: 00 Morphine Sulfate (morphine) 2 mg Q4H PRN IV PAIN LEVEL 7-10 Last administered on 03/29/16 20:41; Admin Dose 2 MG; Start 03/08/16 at 14:00 Carvedilol (Coreg) 3.125 mg BID PO Last administered on 03/30/16 08:53; Admin Dose 3.125 MG; Start 03/08/16 at 21:00 Imipramine HCl (Tofranil) 25 mg BID PO Last administered on 03/30/16 08:52; Admin Dose 25 MG; Start 03/08/16 at 21:00 Hydralazine HCl (Apresoline) 10 mg Q6H PRN IV SBP>160; Start 03/08/16 at 16:00 Bicalutamide (Casodex) 50 mg DAILY PO Last administered on 03/30/16 09:01; Admin Dose 50 MG; Start 03/09/16 at 09:00 Lisinopril (Zestril) 2.5 mg DAILY PO Last administered on 03/30/16 08:50; Admin Dose 2.5 MG; Start 03/09/16 at 09:00; Status Future hold Docusate Sodium (Colace) 200 mg HS PO Last administered on 03/29/16 20:42; Admin Dose 200 MG; Start 03/10/16 at 21:00 Phenol (Cepastat Lozenge) 1 lozenge Q4 PRN MT SORE THROAT; Start 03/13/16 at 19 :00 Megestrol Acetate (Megace Susp) 400 mg BID PO Last administered on 03/30/16 08: 51; Admin Dose 400 MG; Start 03/17/16 at 21:00 Calcium Carbonate (Oyster Shell Calcium) 1.25 gm TID PO Last administered on 12:45; Admin Dose 1.25 GM; Start 03/19/16 at 09:00 Cholecalciferol (Vitamin D) 1,000 unit DAILY PO Last administered on 03/30/16 08:51; Admin Dose 1,000 UNIT; Start 03/20/16 at 09:00 Bisacodyl (Dulcolax) 10 mg DAILY PRN PO CONSTIPATION Last administered on 17:21; Admin Dose 10 MG; Start 03/20/16 at 15:00 Polyethylene Glycol (Miralax) 17 gm BID PO Last administered on 03/30/16 08:51 ; Admin Dose 17 GM; Start 03/20/16 at 21:00 Furosemide (Lasix) 20 mg DAILY IV Last administered on 03/30/16 08:51; Admin Dose 20 MG; Start 03/29/16 at 09:00 Amiodarone HCl 200 mg 200 mg BID PO Last administered on 03/30/16 08:52; Admin Dose 200 MG; Start 03/28/16 at 21:00 Calcium Gluconate/ Sodium Chloride (Ca Gluc/NS) 120 ml @ 60 mls/hr ONCE ONCE IVPB ; Start 03/30/16 at 15:00; Stop 03/30/16 at 16:59 Assessment/Plan Chief Complaint/Hosp Course IMPRESSION: 1. Congestive heart failure. 2. History of cardiomyopathy. 3. History of metastatic prostate carcinoma. 4. Possible aspiration. 5. Status post thoracentesis right lung RECOMMENDATIONS: 1. Continue oxygen. 2. Bronchodilators. 3. Urology followup. 4. GI and DVT prophylaxis. dc with hospice. will s/o Problems: MARLA NEWBY MD, [facility] Mar 30, 2016 15:23
--- NOTE | 2016-03-30 15:46 | CONS ---
Date/Time of Note Date/Time of Note DATE: 03/30/16 TIME: 15:42 Assessment/Plan Assessment/Plan Additional Assessment/Plan 1. Congestive heart failure exacerbation with EF 20-25% 2 End-stage renal disease on hemodialysis. 3. s/p myocardial infarction 4. Anemia. 5. Hypertension. 6. Hypothyroidism. 7. Prostate carcinoma. 8. Dementia. 9. Acute renal failure hypotensive Closely monitor hemodynamics Continue Coreg and lisinopril HD as scheduled Avoid Volume Overload Restrict fluids 1500cc/ 24 hours Consultation Date/Type/Reason Admit Date/Time Mar 08, 2016 at 11:43 Constitutional: no complaints Psychological: no complaints Past Medical History Medical History: congestive heart failure, coronary artery disease, hypertension Past Surgical History Past Surgical Hx: no surgical history Social History Alcohol Use: none Smoking Status: Former smoker Drug Use: none Exam/Review of Systems Vital Signs Vitals Vital Signs Date Time Temp Pulse Resp B/P Pulse Ox O2 Delivery O2 Flow Rate FiO2 03/30/16 15:00 97.7 86 19 90/50 96 03/30/16 14:25 Nasal Cannula 2.0 03/28/16 13:59 28 Intake and Output 03/29/16 03/29/16 03/30/16 15:00 23:00 07:00 Intake Total 300 ml 500 ml Output Total 350 ml 325 ml Balance -50 ml 175 ml Exam Head: atraumatic, normocephalic Neck: non-tender, supple Respiratory: clear to auscultation Cardiovascular: regular rate and rhythm Gastrointestinal: nl liver, spleen, non-tender, soft Extremities: normal pulses Results Result Diagram: 03/30/16 0737 03/30/16 0737 Results 24 hrs Laboratory Tests Test 03/30/16 07:37 Alanine Aminotransferase (ALT/SGPT) 53 Albumin 3.2 L Albumin/Globulin Ratio 0.94 Alkaline Phosphatase 737 H Anion Gap 23 H Anisocytosis 1+ Aspartate Amino Transf (AST/SGOT) 80 H Band Neutrophils % 2.0 Basophils # Basophils % Blood Urea Nitrogen 69 H Calcium Level 5.0 *L Carbon Dioxide Level 24 Chloride Level 101 Creatinine 1.23 Direct Bilirubin 0.00 Eosinophils # Eosinophils % Globulin 3.40 H Glucose Level 121 Hematocrit 28.9 L Hemoglobin 9.2 L Hypochromasia 1+ Indirect Bilirubin 0.2 Lymphocytes # 0.6 L Lymphocytes % 8.0 L Mean Corpuscular Hemoglobin 28.9 L Mean Corpuscular Hemoglobin Concent 31.8 L Mean Corpuscular Volume 90.9 Mean Platelet Volume 11.0 #H Monocytes # 0.3 Monocytes % 4.0 Neutrophils # 6.5 Neutrophils % 86.0 H Nucleated Red Blood Cells # Nucleated Red Blood Cells % 1.0 H Platelet Count 213 Platelet Estimate PLT APPEAR ADEQUATE Potassium Level 4.5 Red Blood Count 3.18 L Red Cell Distribution Width 17.3 H Sodium Level 143 Total Bilirubin 0.2 Total Protein 6.6 White Blood Count 7.6 Medications Medications Current Medications Ondansetron HCl (Zofran Inj) 4 mg Q6H PRN IV NAUSEA AND/OR VOMITING; Start at 14:00 Acetaminophen (Tylenol Tab) 650 mg Q6H PRN PO PAIN LEVEL 1-3 OR FEVER Last administered on 03/28/16 20:40; Admin Dose 650 MG; Start 03/08/16 at 14:00 Acetaminophen/ Hydrocodone Bitart ([place] (5/325)) 1 tab Q6H PRN PO PAIN LEVEL 4 -6 Last administered on 03/29/16 14:22; Admin Dose 1 TAB; Start 03/08/16 at 14: 00 Morphine Sulfate (morphine) 2 mg Q4H PRN IV PAIN LEVEL 7-10 Last administered on 03/29/16 20:41; Admin Dose 2 MG; Start 03/08/16 at 14:00 Carvedilol (Coreg) 3.125 mg BID PO Last administered on 03/30/16 08:53; Admin Dose 3.125 MG; Start 03/08/16 at 21:00 Imipramine HCl (Tofranil) 25 mg BID PO Last administered on 03/30/16 08:52; Admin Dose 25 MG; Start 03/08/16 at 21:00 Hydralazine HCl (Apresoline) 10 mg Q6H PRN IV SBP>160; Start 03/08/16 at 16:00 Bicalutamide (Casodex) 50 mg DAILY PO Last administered on 03/30/16 09:01; Admin Dose 50 MG; Start 03/09/16 at 09:00 Lisinopril (Zestril) 2.5 mg DAILY PO Last administered on 03/30/16 08:50; Admin Dose 2.5 MG; Start 03/09/16 at 09:00; Status Future hold Docusate Sodium (Colace) 200 mg HS PO Last administered on 03/29/16 20:42; Admin Dose 200 MG; Start 03/10/16 at 21:00 Phenol (Cepastat Lozenge) 1 lozenge Q4 PRN MT SORE THROAT; Start 03/13/16 at 19 :00 Megestrol Acetate (Megace Susp) 400 mg BID PO Last administered on 03/30/16 08: 51; Admin Dose 400 MG; Start 03/17/16 at 21:00 Calcium Carbonate (Oyster Shell Calcium) 1.25 gm TID PO Last administered on 12:45; Admin Dose 1.25 GM; Start 03/19/16 at 09:00 Cholecalciferol (Vitamin D) 1,000 unit DAILY PO Last administered on 03/30/16 08:51; Admin Dose 1,000 UNIT; Start 03/20/16 at 09:00 Bisacodyl (Dulcolax) 10 mg DAILY PRN PO CONSTIPATION Last administered on 17:21; Admin Dose 10 MG; Start 03/20/16 at 15:00 Polyethylene Glycol (Miralax) 17 gm BID PO Last administered on 03/30/16 08:51 ; Admin Dose 17 GM; Start 03/20/16 at 21:00 Furosemide (Lasix) 20 mg DAILY IV Last administered on 03/30/16 08:51; Admin Dose 20 MG; Start 03/29/16 at 09:00 Amiodarone HCl 200 mg 200 mg BID PO Last administered on 03/30/16 08:52; Admin Dose 200 MG; Start 03/28/16 at 21:00 Calcium Gluconate/ Sodium Chloride (Ca Gluc/NS) 120 ml @ 60 mls/hr ONCE ONCE IVPB ; Start 03/30/16 at 15:00; Stop 03/30/16 at 16:59 TYSHAWN MATHEWS M.D. Mar 30, 2016 15:46
--- NOTE | 2016-03-30 17:07 | PN ---
Date/Time of Note Date/Time of Note DATE: 03/30/16 TIME: 17:06 Assessment/Plan VTE Prophylaxis VTE Prophylaxis Intervention: SCD's Lines/Catheters [facility] Urinary Cath still in place: No Assessment/Plan Chief Complaint/Hosp Course Assessment and plan 1. CHF exacerbation acute on chronic with systolic dysfunction. Continue diuretics. Continue with cardiology recommendations 2. Metastatic prostate carcinoma with bone metastasis. Continue on analgesics. Patient remains on bicalutamide. Continue with oncologist recommendations 3. Cardiomyopathy with ejection fraction of 20-25%. Continue optimization with cardiovascular medications. ANUJ inhibitor on hold due to worsening renal function. Continue with cardiology recommendations 4. Hypocalcemia. Suspect secondary to bony metastasis. Continue vitamin D supplementation 5. Hypoxic respiratory failure secondary to CHF exacerbation. Continue bronchodilators. 6. Pulmonary hypertension with PA pressure of 85 mmHg. Continue on O2. 7. Hypothyroidism. Continue on Synthroid 8. Reported nonsustained wide-complex tachycardia. Continue on telemetry monitoring. Follow-up with cardiology recommendations 9. Essential hypertension. Continue on antihypertensives and adjust as needed 10. Normocytic normochromic anemia. Likely of chronic disease. Remain stable. We 'll monitor 11. Dementia. Continue fall precautions 12. Hypocalcemia. We'll replete and check level in a.m. DVT prophylaxis: SCDs GERD prophylaxis: PPI Disposition and plan: Patient to be discharged home with hospice. Awaiting set up for home. Discussed but of care with Dr. Costello Problems: Subjective 24 Hr Interval Summary Free Text/Dictation Comfortable at present. No apparent distress Exam/Review of Systems Vital Signs Vitals Vital Signs Date Time Temp Pulse Resp B/P Pulse Ox O2 Delivery O2 Flow Rate FiO2 03/30/16 16:07 82 03/30/16 15:58 2.0 03/30/16 15:00 97.7 19 90/50 96 03/30/16 14:25 Nasal Cannula 03/28/16 13:59 28 Intake and Output 03/29/16 03/29/16 03/30/16 15:00 23:00 07:00 Intake Total 300 ml 500 ml Output Total 350 ml 325 ml Balance -50 ml 175 ml Exam General: No acute signs or symptoms of distress Eyes: pupils equal round, Anicteric sclera Neck: Supple nontender, no JVD Cardiac: S1, S2 auscultated, regular rhythm and rate Pulmonary: No coarse rhonchi or breathing auscultated GI: Abdomen soft nontender nondistended, bowel sounds active Extremities: No edema bilateral lower extremities Skin: Clean dry and intact Neurologic: Alert to person place and time and situation Results Result Diagram: 03/30/16 0737 03/30/16 0737 Results 24 hrs Laboratory Tests Test 03/30/16 07:37 03/30/16 15:15 Alanine Aminotransferase (ALT/SGPT) 53 Albumin 3.2 L Albumin/Globulin Ratio 0.94 Alkaline Phosphatase 737 H Anion Gap 23 H Anisocytosis 1+ Aspartate Amino Transf (AST/SGOT) 80 H Band Neutrophils % 2.0 Basophils # Basophils % Blood Urea Nitrogen 69 H Calcium Level 5.0 *L Carbon Dioxide Level 24 Chloride Level 101 Creatinine 1.23 Direct Bilirubin 0.00 Eosinophils # Eosinophils % Globulin 3.40 H Glucose Level 121 Hematocrit 28.9 L Hemoglobin 9.2 L Hypochromasia 1+ Indirect Bilirubin 0.2 Lymphocytes # 0.6 L Lymphocytes % 8.0 L Mean Corpuscular Hemoglobin 28.9 L Mean Corpuscular Hemoglobin Concent 31.8 L Mean Corpuscular Volume 90.9 Mean Platelet Volume 11.0 #H Monocytes # 0.3 Monocytes % 4.0 Neutrophils # 6.5 Neutrophils % 86.0 H Nucleated Red Blood Cells # Nucleated Red Blood Cells % 1.0 H Platelet Count 213 Platelet Estimate PLT APPEAR ADEQUATE Potassium Level 4.5 Red Blood Count 3.18 L Red Cell Distribution Width 17.3 H Sodium Level 143 Total Bilirubin 0.2 Total Protein 6.6 White Blood Count 7.6 Magnesium Level 2.6 H Medications Medications Current Medications Ondansetron HCl (Zofran Inj) 4 mg Q6H PRN IV NAUSEA AND/OR VOMITING; Start at 14:00 Acetaminophen (Tylenol Tab) 650 mg Q6H PRN PO PAIN LEVEL 1-3 OR FEVER Last administered on 03/28/16 20:40; Admin Dose 650 MG; Start 03/08/16 at 14:00 Acetaminophen/ Hydrocodone Bitart ([place] (5/325)) 1 tab Q6H PRN PO PAIN LEVEL 4 -6 Last administered on 03/29/16 14:22; Admin Dose 1 TAB; Start 03/08/16 at 14: 00 Morphine Sulfate (morphine) 2 mg Q4H PRN IV PAIN LEVEL 7-10 Last administered on 03/29/16 20:41; Admin Dose 2 MG; Start 03/08/16 at 14:00 Carvedilol (Coreg) 3.125 mg BID PO Last administered on 03/30/16 08:53; Admin Dose 3.125 MG; Start 03/08/16 at 21:00 Imipramine HCl (Tofranil) 25 mg BID PO Last administered on 03/30/16 08:52; Admin Dose 25 MG; Start 03/08/16 at 21:00 Hydralazine HCl (Apresoline) 10 mg Q6H PRN IV SBP>160; Start 03/08/16 at 16:00 Bicalutamide (Casodex) 50 mg DAILY PO Last administered on 03/30/16 09:01; Admin Dose 50 MG; Start 03/09/16 at 09:00 Lisinopril (Zestril) 2.5 mg DAILY PO Last administered on 03/30/16 08:50; Admin Dose 2.5 MG; Start 03/09/16 at 09:00; Status Future hold Docusate Sodium (Colace) 200 mg HS PO Last administered on 03/29/16 20:42; Admin Dose 200 MG; Start 03/10/16 at 21:00 Phenol (Cepastat Lozenge) 1 lozenge Q4 PRN MT SORE THROAT; Start 03/13/16 at 19 :00 Megestrol Acetate (Megace Susp) 400 mg BID PO Last administered on 03/30/16 08: 51; Admin Dose 400 MG; Start 03/17/16 at 21:00 Calcium Carbonate (Oyster Shell Calcium) 1.25 gm TID PO Last administered on 12:45; Admin Dose 1.25 GM; Start 03/19/16 at 09:00 Cholecalciferol (Vitamin D) 1,000 unit DAILY PO Last administered on 03/30/16 08:51; Admin Dose 1,000 UNIT; Start 03/20/16 at 09:00 Bisacodyl (Dulcolax) 10 mg DAILY PRN PO CONSTIPATION Last administered on 17:21; Admin Dose 10 MG; Start 03/20/16 at 15:00 Polyethylene Glycol (Miralax) 17 gm BID PO Last administered on 03/30/16 08:51 ; Admin Dose 17 GM; Start 03/20/16 at 21:00 Furosemide (Lasix) 20 mg DAILY IV Last administered on 03/30/16 08:51; Admin Dose 20 MG; Start 03/29/16 at 09:00 Amiodarone HCl (Cordarone) 200 mg BID PO Last administered on 03/30/16 08:52; Admin Dose 200 MG; Start 03/28/16 at 21:00 JEFF CORONA Mar 30, 2016 17:07
[2016-03-30] MEDS: DOCUSATE SODIUM 100 MG CAP PO SCH (21:33)
[2016-03-31] VITALS (13 sets, daily range): BP systolic 88–113; BP diastolic 53–65; PULSE 72–152; RESP 18–20
[2016-03-31] MEDS: MIDODRINE 5 MG TAB PO SCH ×4 (04:31→17:30)
[2016-03-31] MEDS: LEVOTHYROXINE 25 MCG TAB PO SCH (06:09)
[2016-03-31 07:04] LABS: BASOPHILS % 0.1 % (0.0-2.0); EOSINOPHILS % 0.2 % (0.0-7.0); HEMATOCRIT 27.8 % (42.0-52.0); HEMOGLOBIN 9.3 g/dl (14.0-18.0); LYMPHOCYTES # 1.1 10^3/ul (0.8-2.9); LYMPHOCYTES % 11.3 % (15.0-51.0); MEAN CORPUSCULAR HEMOGLOBIN 29.9 pg (29.0-33.0); MEAN CORPUSCULAR HGB CONC 33.4 g/dl (32.0-37.0); MEAN CORPUSCULAR VOLUME 89.3 fl (82.0-101.0); MONOCYTE # 0.5 10^3/ul (0.3-0.9); MONOCYTES % 5.7 % (0.0-11.0); NEUTROPHIL # 7.9 10^3/ul (1.6-7.5); NEUTROPHILS % 82.7 % (39.0-77.0); PLATELET COUNT 230 10^3/UL (140-440); RED BLOOD COUNT 3.11 10^6/ul (4.70-6.10); RED CELL DISTRIBUTION WIDTH 17.4 % (11.5-14.5); UNCORRECTED WBC 9.6 10^3/ul (4.8-10.8); WHITE BLOOD COUNT 9.6 10^3/ul (4.8-10.8)
[2016-03-31 07:08] LABS: CONDITION 1; LH ANALYZER COMMENTS 1
[2016-03-31 07:25] LABS: POTASSIUM 4.2 mmol/L (3.5-5.1)
[2016-03-31 07:28] LABS: CREATININE 1.22 mg/dl (0.61-1.24)
[2016-03-31] MEDS: ALBUTEROL/IPRATROPIUM (NEB) 3 ML AMP HHN SCH ×3 (07:42→19:38)
[2016-03-31 07:59] LABS: CALCIUM 5.2 mg/dl (8.4-10.2)
[2016-03-31] MEDS: POLYETHYLENE GLYCOL 17 GM PACKET PO SCH ×2 (08:28→21:54)
[2016-03-31] MEDS: CHOLECALCIFEROL 1,000 UNIT TAB PO SCH (08:28)
[2016-03-31] MEDS: PANTOPRAZOLE (EC) 40 MG TAB PO SCH ×2 (08:28→17:30)
[2016-03-31] MEDS: CALCIUM CARBONATE 1.25 GM TAB PO SCH ×3 (08:28→21:55)
[2016-03-31] MEDS: MEGESTROL (40 MG/ML) 10ML CUP PO SCH ×2 (08:28→21:55)
[2016-03-31] MEDS: IMIPRAMINE 25 MG TAB PO SCH ×2 (08:28→21:55)
[2016-03-31] MEDS: BICALUTAMIDE 50 MG TAB PO SCH (08:32)
[2016-03-31] MEDS ORDERED: MIDODRINE 5 MG TAB PO SCH (09:00)
[2016-03-31] MEDS: AMIODARONE 200 MG TAB PO SCH ×2 (09:00→21:55)
[2016-03-31] MEDS ORDERED: MIDODRINE 5 MG TAB NGT SCH (09:00)
[2016-03-31] MEDS: LISINOPRIL 5 MG TAB PO SCH (09:00)
[2016-03-31] MEDS: FUROSEMIDE 20 MG INJ IV SCH (09:00)
--- NOTE | 2016-03-31 09:50 | PN ---
Date/Time of Note Date/Time of Note DATE: 03/31/16 TIME: 09:48 Assessment/Plan VTE Prophylaxis VTE Prophylaxis Intervention: SCD's Lines/Catheters [facility] Saline [facility] Urinary Cath still in place: No Assessment/Plan Chief Complaint/Hosp Course Assessment and plan 1. CHF exacerbation acute on chronic with systolic dysfunction. Continue diuretics. Continue with cardiology recommendations 2. Metastatic prostate carcinoma with bone metastasis. Continue on analgesics. Patient remains on bicalutamide. Continue with oncologist recommendations 3. Cardiomyopathy with ejection fraction of 20-25%. Continue optimization with cardiovascular medications. ANUJ inhibitor on hold due to worsening renal function. Continue with cardiology recommendations 4. Hypocalcemia. Suspect secondary to bony metastasis. Continue vitamin D supplementation 5. Hypoxic respiratory failure secondary to CHF exacerbation. Continue bronchodilators. 6. Pulmonary hypertension with PA pressure of 85 mmHg. Continue on O2. 7. Hypothyroidism. Continue on Synthroid 8. Reported nonsustained wide-complex tachycardia. Continue on telemetry monitoring. Follow-up with cardiology recommendations 9. Essential hypertension. Continue on antihypertensives and adjust as needed 10. Normocytic normochromic anemia. Likely of chronic disease. Remain stable. We 'll monitor 11. Dementia. Continue fall precautions 12. Hypocalcemia. noted with slightly low albumin. We'll replete and check level in a.m. DVT prophylaxis: SCDs GERD prophylaxis: PPI Disposition and plan: Patient to be discharged home with hospice. Awaiting set up for home. cont supportive are Discussed but of care with Dr. Costello Problems: Subjective 24 Hr Interval Summary Free Text/Dictation no s/s of distress. comfortable at present Exam/Review of Systems Vital Signs Vitals Vital Signs Date Time Temp Pulse Resp B/P Pulse Ox O2 Delivery O2 Flow Rate FiO2 03/31/16 08:14 80 03/31/16 08:03 97.6 20 103/57 99 03/31/16 07:42 3.0 03/31/16 07:42 Nasal Cannula 03/28/16 13:59 28 Intake and Output 03/30/16 03/30/16 03/31/16 14:59 22:59 06:59 Intake Total 400 ml 400 ml Output Total 500 ml 400 ml Balance -100 ml 0 ml Exam General: No acute signs or symptoms of distress Eyes: pupils equal round, Anicteric sclera Neck: Supple nontender, no JVD Cardiac: S1, S2 auscultated, regular rhythm and rate Pulmonary: No coarse rhonchi or breathing auscultated GI: Abdomen soft nontender nondistended, bowel sounds active Extremities: No edema bilateral lower extremities Skin: Clean dry and intact Neurologic: Alert to person place and time and situation Results Result Diagram: 03/31/16 0530 03/31/16 0532 Results 24 hrs Laboratory Tests Test 03/30/16 15:15 03/31/16 05:30 03/31/16 05:32 Magnesium Level 2.6 H Basophils # 0.0 Basophils % 0.1 Blood Morphology Comment Eosinophils # 0.0 Eosinophils % 0.2 Hematocrit 27.8 L Hemoglobin 9.3 L Lymphocytes # 1.1 Lymphocytes % 11.3 L Mean Corpuscular Hemoglobin 29.9 Mean Corpuscular Hemoglobin Concent 33.4 Mean Corpuscular Volume 89.3 Mean Platelet Volume 9.0 Monocytes # 0.5 Monocytes % 5.7 Neutrophils # 7.9 H Neutrophils % 82.7 H Nucleated Red Blood Cells # 0.0 Nucleated Red Blood Cells % 0.0 Platelet Count 230 Red Blood Count 3.11 L Red Cell Distribution Width 17.4 H White Blood Count 9.6 # Anion Gap 21 H Blood Urea Nitrogen 69 H Calcium Level 5.2 *L Carbon Dioxide Level 21 Chloride Level 101 Creatinine 1.22 Glucose Level 117 Potassium Level 4.2 Sodium Level 139 Medications Medications Current Medications Ondansetron HCl (Zofran Inj) 4 mg Q6H PRN IV NAUSEA AND/OR VOMITING; Start at 14:00 Acetaminophen (Tylenol Tab) 650 mg Q6H PRN PO PAIN LEVEL 1-3 OR FEVER Last administered on 03/28/16 20:40; Admin Dose 650 MG; Start 03/08/16 at 14:00 Acetaminophen/ Hydrocodone Bitart ([place] (5/325)) 1 tab Q6H PRN PO PAIN LEVEL 4 -6 Last administered on 03/29/16 14:22; Admin Dose 1 TAB; Start 03/08/16 at 14: 00 Morphine Sulfate (morphine) 2 mg Q4H PRN IV PAIN LEVEL 7-10 Last administered on 03/29/16 20:41; Admin Dose 2 MG; Start 03/08/16 at 14:00 Carvedilol (Coreg) 3.125 mg BID PO Last administered on 03/30/16 08:53; Admin Dose 3.125 MG; Start 03/08/16 at 21:00 Imipramine HCl (Tofranil) 25 mg BID PO Last administered on 03/31/16 08:28; Admin Dose 25 MG; Start 03/08/16 at 21:00 Hydralazine HCl (Apresoline) 10 mg Q6H PRN IV SBP>160; Start 03/08/16 at 16:00 Bicalutamide (Casodex) 50 mg DAILY PO Last administered on 03/31/16 08:32; Admin Dose 50 MG; Start 03/09/16 at 09:00 Lisinopril (Zestril) 2.5 mg DAILY PO Last administered on 03/30/16 08:50; Admin Dose 2.5 MG; Start 03/09/16 at 09:00; Status Future hold Docusate Sodium (Colace) 200 mg HS PO Last administered on 03/30/16 21:33; Admin Dose 200 MG; Start 03/10/16 at 21:00 Phenol (Cepastat Lozenge) 1 lozenge Q4 PRN MT SORE THROAT; Start 03/13/16 at 19 :00 Megestrol Acetate (Megace Susp) 400 mg BID PO Last administered on 03/31/16 08: 28; Admin Dose 400 MG; Start 03/17/16 at 21:00 Calcium Carbonate (Oyster Shell Calcium) 1.25 gm TID PO Last administered on 08:28; Admin Dose 1.25 GM; Start 03/19/16 at 09:00 Cholecalciferol (Vitamin D) 1,000 unit DAILY PO Last administered on 03/31/16 08:28; Admin Dose 1,000 UNIT; Start 03/20/16 at 09:00 Bisacodyl (Dulcolax) 10 mg DAILY PRN PO CONSTIPATION Last administered on 17:21; Admin Dose 10 MG; Start 03/20/16 at 15:00 Polyethylene Glycol (Miralax) 17 gm BID PO Last administered on 03/31/16 08:28 ; Admin Dose 17 GM; Start 03/20/16 at 21:00 Furosemide (Lasix) 20 mg DAILY IV Last administered on 03/30/16 08:51; Admin Dose 20 MG; Start 03/29/16 at 09:00 Amiodarone HCl (Cordarone) 200 mg BID PO Last administered on 03/30/16 08:52; Admin Dose 200 MG; Start 03/28/16 at 21:00 Midodrine (Proamatine) 10 mg TID@,, PO Last administered on 03/31/16 09: 09; Admin Dose 10 MG; Start 03/31/16 at 04:00 JEFF CORONA Mar 31, 2016 09:50
[2016-03-31] MEDS ORDERED: CALCIUM GLUCONATE 10% 2 GM in SOD CHLORIDE 0.9% 100 ML IVPB ONE (11:00)
--- NOTE | 2016-03-31 13:37 | CONS ---
Date/Time of Note Date/Time of Note DATE: 03/31/16 TIME: 13:35 Consult Date/Type/Reason Admit Date/Time Mar 08, 2016 at 11:43 Type of Consultation: Pulm Ordering Provider: OLIVA BARRERA Subjective Patient remains comfortable this morning no new events Family are awaiting a hospital bed is prior to discharge home with hospice Objective Vital Signs Date Time Temp Pulse Resp B/P Pulse Ox O2 Delivery O2 Flow Rate FiO2 03/31/16 12:10 98.0 71 20 98/60 94 03/31/16 07:42 3.0 03/31/16 07:42 Nasal Cannula 03/28/16 13:59 28 Intake and Output 03/30/16 03/30/16 03/31/16 15:00 23:00 07:00 Intake Total 400 ml 400 ml Output Total 500 ml 400 ml Balance -100 ml 0 ml PHYSICAL EXAMINATION: VITAL SIGNS: As above HEENT: Pupils are equal and react to light. NECK: Supple. No cervical adenopathy. No carotid bruits heard. LUNGS: Diminished air entry right lung CARDIOVASCULAR: S1, S2 normal. ABDOMEN: Soft, nontender. No organomegaly or masses noted. EXTREMITIES: No clubbing or cyanosis noted. NEUROLOGICAL: Awake. Results/Medications Result Diagram: 03/31/16 0530 03/31/16 0532 Results 24 hrs Laboratory Tests Test 03/30/16 15:15 03/31/16 05:30 03/31/16 05:32 Magnesium Level 2.6 H Basophils # 0.0 Basophils % 0.1 Blood Morphology Comment Eosinophils # 0.0 Eosinophils % 0.2 Hematocrit 27.8 L Hemoglobin 9.3 L Lymphocytes # 1.1 Lymphocytes % 11.3 L Mean Corpuscular Hemoglobin 29.9 Mean Corpuscular Hemoglobin Concent 33.4 Mean Corpuscular Volume 89.3 Mean Platelet Volume 9.0 Monocytes # 0.5 Monocytes % 5.7 Neutrophils # 7.9 H Neutrophils % 82.7 H Nucleated Red Blood Cells # 0.0 Nucleated Red Blood Cells % 0.0 Platelet Count 230 Red Blood Count 3.11 L Red Cell Distribution Width 17.4 H White Blood Count 9.6 # Anion Gap 21 H Blood Urea Nitrogen 69 H Calcium Level 5.2 *L Carbon Dioxide Level 21 Chloride Level 101 Creatinine 1.22 Glucose Level 117 Potassium Level 4.2 Sodium Level 139 Medications Current Medications Ondansetron HCl (Zofran Inj) 4 mg Q6H PRN IV NAUSEA AND/OR VOMITING; Start at 14:00 Acetaminophen (Tylenol Tab) 650 mg Q6H PRN PO PAIN LEVEL 1-3 OR FEVER Last administered on 03/28/16 20:40; Admin Dose 650 MG; Start 03/08/16 at 14:00 Acetaminophen/ Hydrocodone Bitart ([place] (5/325)) 1 tab Q6H PRN PO PAIN LEVEL 4 -6 Last administered on 03/29/16 14:22; Admin Dose 1 TAB; Start 03/08/16 at 14: 00 Morphine Sulfate (morphine) 2 mg Q4H PRN IV PAIN LEVEL 7-10 Last administered on 03/29/16 20:41; Admin Dose 2 MG; Start 03/08/16 at 14:00 Carvedilol (Coreg) 3.125 mg BID PO Last administered on 03/30/16 08:53; Admin Dose 3.125 MG; Start 03/08/16 at 21:00 Imipramine HCl (Tofranil) 25 mg BID PO Last administered on 03/31/16 08:28; Admin Dose 25 MG; Start 03/08/16 at 21:00 Hydralazine HCl (Apresoline) 10 mg Q6H PRN IV SBP>160; Start 03/08/16 at 16:00 Bicalutamide (Casodex) 50 mg DAILY PO Last administered on 03/31/16 08:32; Admin Dose 50 MG; Start 03/09/16 at 09:00 Lisinopril (Zestril) 2.5 mg DAILY PO Last administered on 03/30/16 08:50; Admin Dose 2.5 MG; Start 03/09/16 at 09:00; Status Future hold Docusate Sodium (Colace) 200 mg HS PO Last administered on 03/30/16 21:33; Admin Dose 200 MG; Start 03/10/16 at 21:00 Phenol (Cepastat Lozenge) 1 lozenge Q4 PRN MT SORE THROAT; Start 03/13/16 at 19 :00 Megestrol Acetate (Megace Susp) 400 mg BID PO Last administered on 03/31/16 08: 28; Admin Dose 400 MG; Start 03/17/16 at 21:00 Calcium Carbonate (Oyster Shell Calcium) 1.25 gm TID PO Last administered on 08:28; Admin Dose 1.25 GM; Start 03/19/16 at 09:00 Cholecalciferol (Vitamin D) 1,000 unit DAILY PO Last administered on 03/31/16 08:28; Admin Dose 1,000 UNIT; Start 03/20/16 at 09:00 Bisacodyl (Dulcolax) 10 mg DAILY PRN PO CONSTIPATION Last administered on 17:21; Admin Dose 10 MG; Start 03/20/16 at 15:00 Polyethylene Glycol (Miralax) 17 gm BID PO Last administered on 03/31/16 08:28 ; Admin Dose 17 GM; Start 03/20/16 at 21:00 Furosemide (Lasix) 20 mg DAILY IV Last administered on 03/30/16 08:51; Admin Dose 20 MG; Start 03/29/16 at 09:00 Amiodarone HCl (Cordarone) 200 mg BID PO Last administered on 03/30/16 08:52; Admin Dose 200 MG; Start 03/28/16 at 21:00 Midodrine (Proamatine) 10 mg TID@ PO Last administered on 03/31/16 09: 09; Admin Dose 10 MG; Start 03/31/16 at 04:00 Assessment/Plan Chief Complaint/Hosp Course IMPRESSION: 1. Congestive heart failure. 2. History of cardiomyopathy. 3. History of metastatic prostate carcinoma. 4. Possible aspiration. 5. Status post thoracentesis right lung RECOMMENDATIONS: 1. Continue oxygen. 2. Bronchodilators. 3. Urology followup. 4. GI and DVT prophylaxis. dc with hospice. will s/o Problems: MARLA NEWBY [facility], [facility] Mar 31, 2016 13:36
--- NOTE | 2016-03-31 19:43 | CONS ---
Date/Time of Note Date/Time of Note DATE: 03/31/16 TIME: 19:42 Assessment/Plan Assessment/Plan Additional Assessment/Plan 1. Congestive heart failure exacerbation with EF 20-25% 2 End-stage renal disease on hemodialysis. 3. s/p myocardial infarction 4. Anemia. 5. Hypertension. 6. Hypothyroidism. 7. Prostate carcinoma. 8. Dementia. 9. Acute renal failure hypotensive Closely monitor hemodynamics Continue Coreg and lisinopril HD as scheduled Avoid Volume Overload Restrict fluids 1500cc/ 24 hours Consultation Date/Type/Reason Admit Date/Time Mar 08, 2016 at 11:43 Type of Consultation: Pulm Referring Provider: OLIVA BARRERA Exam/Review of Systems Vital Signs Vitals Vital Signs Date Time Temp Pulse Resp B/P Pulse Ox O2 Delivery O2 Flow Rate FiO2 03/31/16 19:39 3.0 03/31/16 16:27 97.5 82 20 108/56 96 03/31/16 14:44 Nasal Cannula 03/28/16 13:59 28 Intake and Output 03/30/16 03/30/16 03/31/16 15:00 23:00 07:00 Intake Total 400 ml 400 ml Output Total 500 ml 400 ml Balance -100 ml 0 ml Exam Head: atraumatic, normocephalic Neck: non-tender, supple Respiratory: clear to auscultation Cardiovascular: regular rate and rhythm Gastrointestinal: nl liver, spleen, non-tender, soft Extremities: normal pulses Results Result Diagram: 03/31/16 0530 03/31/16 0532 Results 24 hrs Laboratory Tests Test 03/31/16 05:30 03/31/16 05:32 Basophils # 0.0 Basophils % 0.1 Blood Morphology Comment Eosinophils # 0.0 Eosinophils % 0.2 Hematocrit 27.8 L Hemoglobin 9.3 L Lymphocytes # 1.1 Lymphocytes % 11.3 L Mean Corpuscular Hemoglobin 29.9 Mean Corpuscular Hemoglobin Concent 33.4 Mean Corpuscular Volume 89.3 Mean Platelet Volume 9.0 Monocytes # 0.5 Monocytes % 5.7 Neutrophils # 7.9 H Neutrophils % 82.7 H Nucleated Red Blood Cells # 0.0 Nucleated Red Blood Cells % 0.0 Platelet Count 230 Red Blood Count 3.11 L Red Cell Distribution Width 17.4 H White Blood Count 9.6 # Anion Gap 21 H Blood Urea Nitrogen 69 H Calcium Level 5.2 *L Carbon Dioxide Level 21 Chloride Level 101 Creatinine 1.22 Glucose Level 117 Potassium Level 4.2 Sodium Level 139 Medications Medications Current Medications Ondansetron HCl (Zofran Inj) 4 mg Q6H PRN IV NAUSEA AND/OR VOMITING; Start at 14:00 Acetaminophen (Tylenol Tab) 650 mg Q6H PRN PO PAIN LEVEL 1-3 OR FEVER Last administered on 03/28/16 20:40; Admin Dose 650 MG; Start 03/08/16 at 14:00 Acetaminophen/ Hydrocodone Bitart ([place] (5/325)) 1 tab Q6H PRN PO PAIN LEVEL 4 -6 Last administered on 03/29/16 14:22; Admin Dose 1 TAB; Start 03/08/16 at 14: 00 Morphine Sulfate (morphine) 2 mg Q4H PRN IV PAIN LEVEL 7-10 Last administered on 03/29/16 20:41; Admin Dose 2 MG; Start 03/08/16 at 14:00 Carvedilol (Coreg) 3.125 mg BID PO Last administered on 03/30/16 08:53; Admin Dose 3.125 MG; Start 03/08/16 at 21:00 Imipramine HCl (Tofranil) 25 mg BID PO Last administered on 03/31/16 08:28; Admin Dose 25 MG; Start 03/08/16 at 21:00 Hydralazine HCl (Apresoline) 10 mg Q6H PRN IV SBP>160; Start 03/08/16 at 16:00 Bicalutamide (Casodex) 50 mg DAILY PO Last administered on 03/31/16 08:32; Admin Dose 50 MG; Start 03/09/16 at 09:00 Lisinopril (Zestril) 2.5 mg DAILY PO Last administered on 03/30/16 08:50; Admin Dose 2.5 MG; Start 03/09/16 at 09:00; Status Future hold Docusate Sodium (Colace) 200 mg HS PO Last administered on 03/30/16 21:33; Admin Dose 200 MG; Start 03/10/16 at 21:00 Phenol (Cepastat Lozenge) 1 lozenge Q4 PRN MT SORE THROAT; Start 03/13/16 at 19 :00 Megestrol Acetate (Megace Susp) 400 mg BID PO Last administered on 03/31/16 08: 28; Admin Dose 400 MG; Start 03/17/16 at 21:00 Calcium Carbonate (Oyster Shell Calcium) 1.25 gm TID PO Last administered on 14:45; Admin Dose 1.25 GM; Start 03/19/16 at 09:00 Cholecalciferol (Vitamin D) 1,000 unit DAILY PO Last administered on 03/31/16 08:28; Admin Dose 1,000 UNIT; Start 03/20/16 at 09:00 Bisacodyl (Dulcolax) 10 mg DAILY PRN PO CONSTIPATION Last administered on 17:21; Admin Dose 10 MG; Start 03/20/16 at 15:00 Polyethylene Glycol (Miralax) 17 gm BID PO Last administered on 03/31/16 08:28 ; Admin Dose 17 GM; Start 03/20/16 at 21:00 Furosemide (Lasix) 20 mg DAILY IV Last administered on 03/30/16 08:51; Admin Dose 20 MG; Start 03/29/16 at 09:00 Amiodarone HCl (Cordarone) 200 mg BID PO Last administered on 03/30/16 08:52; Admin Dose 200 MG; Start 03/28/16 at 21:00 Midodrine (Proamatine) 10 mg TID@,,17 PO Last administered on 03/31/16 17: 30; Admin Dose 10 MG; Start 03/31/16 at 04:00 TYSHAWN MATHEWS M.D. Mar 31, 2016 19:43
[2016-03-31] MEDS: DOCUSATE SODIUM 100 MG CAP PO SCH (21:56)
[2016-03-31] MEDS: HYDROCODONE/APAP (5/325) TAB PO PRN (23:39)
[2016-04-01] VITALS (11 sets, daily range): BP systolic 102–131; BP diastolic 51–77; PULSE 74–102; RESP 13–20
[2016-04-01] MEDS: LEVOTHYROXINE 25 MCG TAB PO SCH (05:38)
[2016-04-01] MEDS: PANTOPRAZOLE (EC) 40 MG TAB PO SCH ×2 (07:47→17:28)
[2016-04-01] MEDS: ALBUTEROL/IPRATROPIUM (NEB) 3 ML AMP HHN SCH ×3 (07:54→19:41)
[2016-04-01] MEDS: POLYETHYLENE GLYCOL 17 GM PACKET PO SCH ×2 (08:10→22:00)
[2016-04-01] MEDS: MEGESTROL (40 MG/ML) 10ML CUP PO SCH ×2 (08:10→22:00)
[2016-04-01] MEDS: IMIPRAMINE 25 MG TAB PO SCH ×2 (08:11→22:00)
[2016-04-01] MEDS: BICALUTAMIDE 50 MG TAB PO SCH (08:11)
[2016-04-01] MEDS: MIDODRINE 5 MG TAB PO SCH ×2 (08:11→12:43)
[2016-04-01] MEDS: CALCIUM CARBONATE 1.25 GM TAB PO SCH ×3 (08:11→22:00)
[2016-04-01] MEDS: AMIODARONE 200 MG TAB PO SCH ×2 (08:11→22:02)
[2016-04-01] MEDS: CHOLECALCIFEROL 1,000 UNIT TAB PO SCH (08:11)
[2016-04-01] MEDS: LISINOPRIL 5 MG TAB PO SCH (08:12)
[2016-04-01] MEDS: FUROSEMIDE 20 MG INJ IV SCH (08:12)
--- NOTE | 2016-04-01 09:49 | CONS ---
DATE OF ADMISSION: 03/08/2016 DATE OF CONSULTATION: 04/01/2016 SUBJECTIVE: The patient has no new complaints, is resting quietly in bed. OBJECTIVE VITAL SIGNS: Temperature 97.5, pulse 76 per minute and regular, respirations 18, blood pressure 109 /51, pulse oximetry 93% on 3 liters of oxygen. Pleural fluid cytology from thoracentesis on 03/27/2016 is negative for malignant cells. There are some mesothelial cells, histiocytes and a few neutrophils seen. ASSESSMENT: 1. Congestive heart failure with cardiomyopathy. 2. Metastatic prostatic carcinoma. The patient's pleural fluid is a transudate and not consistent with a malignant pleural effusion. I feel this is due to the patient's underlying congestive cardiomyopathy. Apparently, the patient's family has now decided that he will be sent home on hospice and no further active therapy administered. Dictated By: MELINDA PAYNE MD, SR/JESUS Conf#: [id number] DID#: [id number]
--- NOTE | 2016-04-01 12:33 | CONS ---
Date/Time of Note Date/Time of Note DATE: 04/01/16 TIME: 12:32 Consult Date/Type/Reason Admit Date/Time Mar 08, 2016 at 11:43 Type of Consultation: Pulm Ordering Provider: OLIVA BARRERA Subjective Patient remains stable this morning no new events Objective Vital Signs Date Time Temp Pulse Resp B/P Pulse Ox O2 Delivery O2 Flow Rate FiO2 04/01/16 08:21 76 04/01/16 08:12 98.2 13 127/77 93 04/01/16 07:58 Nasal Cannula 3.0 03/28/16 13:59 28 Intake and Output 03/31/16 03/31/16 04/01/16 15:00 23:00 07:00 Intake Total 450 ml Output Total 450 ml Balance 0 ml PHYSICAL EXAMINATION: VITAL SIGNS: As above HEENT: Pupils are equal and react to light. NECK: Supple. No cervical adenopathy. No carotid bruits heard. LUNGS: Diminished air entry right lung CARDIOVASCULAR: S1, S2 normal. ABDOMEN: Soft, nontender. No organomegaly or masses noted. EXTREMITIES: No clubbing or cyanosis noted. NEUROLOGICAL: Awake. Results/Medications Result Diagram: 03/31/16 0530 03/31/16 0532 Medications Current Medications Ondansetron HCl (Zofran Inj) 4 mg Q6H PRN IV NAUSEA AND/OR VOMITING; Start at 14:00 Acetaminophen (Tylenol Tab) 650 mg Q6H PRN PO PAIN LEVEL 1-3 OR FEVER Last administered on 03/28/16 20:40; Admin Dose 650 MG; Start 03/08/16 at 14:00 Acetaminophen/ Hydrocodone Bitart ([place] (5/325)) 1 tab Q6H PRN PO PAIN LEVEL 4 -6 Last administered on 03/31/16 23:39; Admin Dose 1 TAB; Start 03/08/16 at 14: 00 Morphine Sulfate (morphine) 2 mg Q4H PRN IV PAIN LEVEL 7-10 Last administered on 03/29/16 20:41; Admin Dose 2 MG; Start 03/08/16 at 14:00 Carvedilol (Coreg) 3.125 mg BID PO Last administered on 04/01/16 08:12; Admin Dose 3.125 MG; Start 03/08/16 at 21:00 Imipramine HCl (Tofranil) 25 mg BID PO Last administered on 04/01/16 08:11; Admin Dose 25 MG; Start 03/08/16 at 21:00 Hydralazine HCl (Apresoline) 10 mg Q6H PRN IV SBP>160; Start 03/08/16 at 16:00 Bicalutamide (Casodex) 50 mg DAILY PO Last administered on 04/01/16 08:11; Admin Dose 50 MG; Start 03/09/16 at 09:00 Lisinopril (Zestril) 2.5 mg DAILY PO Last administered on 04/01/16 08:12; Admin Dose 2.5 MG; Start 03/09/16 at 09:00; Status Future hold Docusate Sodium (Colace) 200 mg HS PO Last administered on 03/31/16 21:56; Admin Dose 200 MG; Start 03/10/16 at 21:00 Phenol (Cepastat Lozenge) 1 lozenge Q4 PRN MT SORE THROAT; Start 03/13/16 at 19 :00 Megestrol Acetate (Megace Susp) 400 mg BID PO Last administered on 04/01/16 08: 10; Admin Dose 400 MG; Start 03/17/16 at 21:00 Calcium Carbonate (Oyster Shell Calcium) 1.25 gm TID PO Last administered on 08:11; Admin Dose 1.25 GM; Start 03/19/16 at 09:00 Cholecalciferol (Vitamin D) 1,000 unit DAILY PO Last administered on 04/01/16 08:11; Admin Dose 1,000 UNIT; Start 03/20/16 at 09:00 Bisacodyl (Dulcolax) 10 mg DAILY PRN PO CONSTIPATION Last administered on 17:21; Admin Dose 10 MG; Start 03/20/16 at 15:00 Polyethylene Glycol (Miralax) 17 gm BID PO Last administered on 04/01/16 08:10 ; Admin Dose 17 GM; Start 03/20/16 at 21:00 Furosemide (Lasix) 20 mg DAILY IV Last administered on 04/01/16 08:12; Admin Dose 20 MG; Start 03/29/16 at 09:00 Amiodarone HCl (Cordarone) 200 mg BID PO Last administered on 04/01/16 08:11; Admin Dose 200 MG; Start 03/28/16 at 21:00 Midodrine (Proamatine) 10 mg TID@,,17 PO Last administered on 04/01/16 08: 11; Admin Dose 10 MG; Start 03/31/16 at 04:00 Assessment/Plan Chief Complaint/Hosp Course IMPRESSION: 1. Congestive heart failure. 2. History of cardiomyopathy. 3. History of metastatic prostate carcinoma. 4. Possible aspiration. 5. Status post thoracentesis right lung RECOMMENDATIONS: 1. Continue oxygen. 2. Bronchodilators. 3. Urology followup. 4. GI and DVT prophylaxis. dc with hospice. Problems: MARLA NEWBY MD, FCCP Apr 01, 2016 12:33
--- NOTE | 2016-04-01 16:02 | PN ---
Date/Time of Note Date/Time of Note DATE: 04/01/16 TIME: 16:00 Assessment/Plan VTE Prophylaxis VTE Prophylaxis Intervention: SCD's Lines/Catheters IV [facility]ter [facility]from [facility]): [place] Urinary Cath still in place: No Assessment/Plan Chief Complaint/Hosp Course 1. Congestive heart failure exacerbation, acute on chronic, systolic dysfunction. Continue diuresis. Cardiology following the patient. 2. Metastatic prostate carcinoma with bone metastasis. Continue pain control. The patient is on bicalutamide. The patient being followed by oncology. 3. Ischemic cardiomyopathy with ejection fraction of 20% to 25%. Continue beta blockers. ANUJ inhibitors have been on hold because of worsening renal function. Cardiology following. 4. Hypocalcemia. Will provide the patient with calcium supplements. Etiology of hypocalcemia remains unclear. Most probably secondary to bony metastasis. Low vitamin D levels. Continue vitamin D supplementation. 5. Acute hypoxic respiratory failure secondary to congestive heart failure exacerbation. Improved. Continue supplemental oxygen and inhaled bronchodilators. Pulmonary following the patient. 6. Severe pulmonary hypertension with a PA pressure of 85 mmHg. Continue supplemental oxygen. 7. Hypothyroidism. Continue Synthroid. 8. Non sustained wide complex tachycardia. Continue management as per cardiology. 9. Essential hypertension. Continue antihypertensives. 10. Normocytic normochromic anemia. Iron panel within normal limits. Stool for OB x1 negative. Probably anemia of chronic disease. Monitor H and H closely. Transfuse as needed. 11. Dementia. Continue frequent reorientation. 12. Transaminitis without hyperbilirubinemia. Etiology unclear. Will trend LFTs. Avoid hepatotoxic medications. 13. Fluids, electrolytes, and nutrition. Pureed diet. 14. Deep venous thrombosis prophylaxis. Bilateral sequential compression devices. 15. Gastrointestinal prophylaxis. Proton pump inhibitors. 16. Plan. Continue supplemental oxygen. Continue inhaled bronchodilators. Replete calcium. Await hospice evaluation. The case was discussed with Dr. Howell. Problems: Subjective 24 Hr Interval Summary Free Text/Dictation Patient's vital signs stable. Exam/Review of Systems Vital Signs Vitals Vital Signs Date Time Temp Pulse Resp B/P Pulse Ox O2 Delivery O2 Flow Rate FiO2 04/01/16 15:29 98.3 70 20 102/55 96 04/01/16 15:01 3.0 04/01/16 14:37 Nasal Cannula 03/28/16 13:59 28 Intake and Output 2/07/1003/31/16 04/01/16 15:00 23:00 07:00 Intake Total 450 ml Output Total 450 ml Balance 0 ml Exam GENERAL: This is an elderly male lying in bed in no apparent distress. HEENT: Head normocephalic and atraumatic. Eyes: Anicteric sclerae. Conjunctivae clear. ENT: Nasal septum is midline. Oral mucosa is dry. Tongue midline. No thrush. NECK: Supple. No JVD noticed. RESPIRATORY: Bilaterally diminished breath sounds. No use of accessory muscles of respiration. CARDIAC: Regular rate and rhythm. ABDOMEN: Soft, nontender, and nondistended. Bowel sounds positive in all 4 quadrants. GENITOURINARY: The patient has a Hernandez catheter in place that is draining clear , straw-colored urine. EXTREMITIES: No cyanosis, no clubbing, no edema. Peripheral pulses are palpable. NEUROLOGIC: The patient is awake, alert, and oriented. The patient moves all 4 extremities. Results Result Diagram: 03/31/16 0530 03/31/16 0532 Medications Medications Current Medications Ondansetron HCl (Zofran Inj) 4 mg Q6H PRN IV NAUSEA AND/OR VOMITING; Start at 14:00 Acetaminophen (Tylenol Tab) 650 mg Q6H PRN PO PAIN LEVEL 1-3 OR FEVER Last administered on 03/28/16 20:40; Admin Dose 650 MG; Start 03/08/16 at 14:00 Acetaminophen/ Hydrocodone Bitart ([place] (5/325)) 1 tab Q6H PRN PO PAIN LEVEL 4 -6 Last administered on 03/31/16 23:39; Admin Dose 1 TAB; Start 03/08/16 at 14: 00 Morphine Sulfate (morphine) 2 mg Q4H PRN IV PAIN LEVEL 7-10 Last administered on 03/29/16 20:41; Admin Dose 2 MG; Start 03/08/16 at 14:00 Carvedilol (Coreg) 3.125 mg BID PO Last administered on 04/01/16 08:12; Admin Dose 3.125 MG; Start 03/08/16 at 21:00 Imipramine HCl (Tofranil) 25 mg BID PO Last administered on 04/01/16 08:11; Admin Dose 25 MG; Start 03/08/16 at 21:00 Hydralazine HCl (Apresoline) 10 mg Q6H PRN IV SBP>160; Start 03/08/16 at 16:00 Bicalutamide (Casodex) 50 mg DAILY PO Last administered on 04/01/16 08:11; Admin Dose 50 MG; Start 03/09/16 at 09:00 Lisinopril (Zestril) 2.5 mg DAILY PO Last administered on 04/01/16 08:12; Admin Dose 2.5 MG; Start 03/09/16 at 09:00; Status Future hold Docusate Sodium (Colace) 200 mg HS PO Last administered on 03/31/16 21:56; Admin Dose 200 MG; Start 03/10/16 at 21:00 Phenol (Cepastat Lozenge) 1 lozenge Q4 PRN MT SORE THROAT; Start 03/13/16 at 19 :00 Megestrol Acetate (Megace Susp) 400 mg BID PO Last administered on 04/01/16 08: 10; Admin Dose 400 MG; Start 03/17/16 at 21:00 Calcium Carbonate (Oyster Shell Calcium) 1.25 gm TID PO Last administered on 12:43; Admin Dose 1.25 GM; Start 03/19/16 at 09:00 Cholecalciferol (Vitamin D) 1,000 unit DAILY PO Last administered on 04/01/16 08:11; Admin Dose 1,000 UNIT; Start 03/20/16 at 09:00 Bisacodyl (Dulcolax) 10 mg DAILY PRN PO CONSTIPATION Last administered on 17:21; Admin Dose 10 MG; Start 03/20/16 at 15:00 Polyethylene Glycol (Miralax) 17 gm BID PO Last administered on 04/01/16 08:10 ; Admin Dose 17 GM; Start 03/20/16 at 21:00 Furosemide (Lasix) 20 mg DAILY IV Last administered on 04/01/16 08:12; Admin Dose 20 MG; Start 03/29/16 at 09:00 Amiodarone HCl (Cordarone) 200 mg BID PO Last administered on 04/01/16 08:11; Admin Dose 200 MG; Start 03/28/16 at 21:00 Midodrine (Proamatine) 10 mg TID@09,13,17 PO Last administered on 04/01/16t 12: 43; Admin Dose 10 MG; Start 03/31/16 at 04:00 ERICA MOHAN NP Apr 01, 2016 16:02
--- NOTE | 2016-04-01 17:22 | CONS ---
Date/Time of Note Date/Time of Note DATE: 04/01/16 TIME: 17:20 Assessment/Plan Assessment/Plan Chief Complaint/Hosp Course IMPRESSION: 1. Congestive heart failure exacerbation, systolic, acute on chronic.-Now improved volume status currently 2. History of cardiomyopathy with severely depressed left ventricular ejection fraction, last approximately 20% to 25% by echo this admit 3. End-stage renal disease on hemodialysis. 4. History of myocardial infarction by stress 04/2015. No ischemia by stress this admit EF 16% 5. Anemia. 6. Hypertension. 7. Hypothyroidism. 8. Prostate carcinoma. 9. Dementia. 10. Positive troponin-now trended negative 11.Wide complex tachycardia- ?NSVT-no recurrence-had recurrent to 150 ? PAFL as no change in morphology of QRS complex 12. acute renal failure Recc: -Tele -continue BB/ACEI as tolerated only -Lasix diuresis as tolerated -Continue amio in attempt to maintain SR and as patient will comply with -PT -ICD eval -D/C midodrine afterload Problems: Consultation Date/Type/Reason Admit Date/Time Mar 08, 2016 at 11:43 Initial Consult Date 03/08/2016 Type of Consultation: Cardiology Reason for Consultation Cardiomyopathy Referring Provider: OLIVA BARRERA Exam/Review of Systems Vital Signs Vitals Vital Signs Date Time Temp Pulse Resp B/P Pulse Ox O2 Delivery O2 Flow Rate FiO2 04/01/16 16:48 74 04/01/16 15:29 98.3 20 102/55 96 04/01/16 15:01 3.0 04/01/16 14:37 Nasal Cannula 03/28/16 13:59 28 Intake and Output 03/31/16 03/31/16 04/01/16 15:00 23:00 07:00 Intake Total 450 ml Output Total 450 ml Balance 0 ml Exam Review of Systems: CONSTITUTIONAL: No fevers, chills. PULMONARY: No sob CARDIOVASCULAR: No chest pain/palpitations GASTROINTESTINAL: No nausea/vomiting. GENITOURINARY: No hematuria/dysuria. MUSCULOSKELETAL: No myagias/arthalgias. PSYCHIATRIC: The patient denies depression. NEUROLOGIC: Generalized weakness Constitutional: alert, oriented Psych: no complaints Head: normocephalic ENMT: mucosa pink and moist Neck: jvd (9 cm water), supple Respiratory: diminished breath sounds (at bases/B) Cardiovascular: regular rate and rhythm Gastrointestinal: non-tender, soft Musculoskeletal: muscle tone ([place]alk) Extremities: edema (none) Neurological: lethargic Results Result Diagram: 03/31/16 0530 03/31/16 0532 Medications Medications Current Medications Ondansetron HCl (Zofran Inj) 4 mg Q6H PRN IV NAUSEA AND/OR VOMITING; Start at 14:00 Acetaminophen (Tylenol Tab) 650 mg Q6H PRN PO PAIN LEVEL 1-3 OR FEVER Last administered on 03/28/16 20:40; Admin Dose 650 MG; Start 03/08/16 at 14:00 Acetaminophen/ Hydrocodone Bitart ([place] (5/325)) 1 tab Q6H PRN PO PAIN LEVEL 4 -6 Last administered on 03/31/16 23:39; Admin Dose 1 TAB; Start 03/08/16 at 14: 00 Morphine Sulfate (morphine) 2 mg Q4H PRN IV PAIN LEVEL 7-10 Last administered on 03/29/16 20:41; Admin Dose 2 MG; Start 03/08/16 at 14:00 Carvedilol (Coreg) 3.125 mg BID PO Last administered on 04/01/16 08:12; Admin Dose 3.125 MG; Start 03/08/16 at 21:00 Imipramine HCl (Tofranil) 25 mg BID PO Last administered on 04/01/16 08:11; Admin Dose 25 MG; Start 03/08/16 at 21:00 Hydralazine HCl (Apresoline) 10 mg Q6H PRN IV SBP>160; Start 03/08/16 at 16:00 Bicalutamide (Casodex) 50 mg DAILY PO Last administered on 04/01/16 08:11; Admin Dose 50 MG; Start 03/09/16 at 09:00 Lisinopril (Zestril) 2.5 mg DAILY PO Last administered on 04/01/16 08:12; Admin Dose 2.5 MG; Start 03/09/16 at 09:00; Status Future hold Docusate Sodium (Colace) 200 mg HS PO Last administered on 03/31/16 21:56; Admin Dose 200 MG; Start 03/10/16 at 21:00 Phenol (Cepastat Lozenge) 1 lozenge Q4 PRN MT SORE THROAT; Start 03/13/16 at 19 :00 Megestrol Acetate (Megace Susp) 400 mg BID PO Last administered on 04/01/16 08: 10; Admin Dose 400 MG; Start 03/17/16 at 21:00 Calcium Carbonate (Oyster Shell Calcium) 1.25 gm TID PO Last administered on 12:43; Admin Dose 1.25 GM; Start 03/19/16 at 09:00 Cholecalciferol (Vitamin D) 1,000 unit DAILY PO Last administered on 04/01/16 08:11; Admin Dose 1,000 UNIT; Start 03/20/16 at 09:00 Bisacodyl (Dulcolax) 10 mg DAILY PRN PO CONSTIPATION Last administered on 17:21; Admin Dose 10 MG; Start 03/20/16 at 15:00 Polyethylene Glycol (Miralax) 17 gm BID PO Last administered on 04/01/16 08:10 ; Admin Dose 17 GM; Start 03/20/16 at 21:00 Furosemide (Lasix) 20 mg DAILY IV Last administered on 04/01/16 08:12; Admin Dose 20 MG; Start 03/29/16 at 09:00 Amiodarone HCl (Cordarone) 200 mg BID PO Last administered on 04/01/16 08:11; Admin Dose 200 MG; Start 03/28/16 at 21:00 Midodrine (Proamatine) 10 mg TID@,,17 PO Last administered on 04/01/16 12: 43; Admin Dose 10 MG; Start 03/31/16 at 04:00 JUAN CARLOS ALEJANDRO Apr 01, 2016 17:22
[2016-04-01] MEDS: DOCUSATE SODIUM 100 MG CAP PO SCH (22:00)
[2016-04-02] MEDS: morphine 2 MG INJ IV PRN (04:40)
[2016-04-02 05:26] VITALS: BP 100/64; RESP 18
[2016-04-02] MEDS: LEVOTHYROXINE 25 MCG TAB PO SCH (06:07)
[2016-04-02] MEDS: PANTOPRAZOLE (EC) 40 MG TAB PO SCH (06:07)
[2016-04-02 08:05] VITALS: BP 162/58; RESP 17
[2016-04-02] MEDS: CALCIUM CARBONATE 1.25 GM TAB PO SCH ×2 (08:09→12:41)
[2016-04-02] MEDS: IMIPRAMINE 25 MG TAB PO SCH (08:09)
[2016-04-02] MEDS: CHOLECALCIFEROL 1,000 UNIT TAB PO SCH (08:09)
[2016-04-02] MEDS: BICALUTAMIDE 50 MG TAB PO SCH (08:10)
[2016-04-02] MEDS: LISINOPRIL 5 MG TAB PO SCH (08:10)
[2016-04-02] MEDS: AMIODARONE 200 MG TAB PO SCH (08:10)
[2016-04-02] MEDS: POLYETHYLENE GLYCOL 17 GM PACKET PO SCH (08:11)
[2016-04-02] MEDS: MEGESTROL (40 MG/ML) 10ML CUP PO SCH (08:14)
[2016-04-02] MEDS: ALBUTEROL/IPRATROPIUM (NEB) 3 ML AMP HHN SCH (08:34)
--- NOTE | 2016-04-02 08:52 | CONS ---
Date/Time of Note Date/Time of Note DATE: 04/02/16 TIME: 08:49 Assessment/Plan Assessment/Plan Additional Assessment/Plan 1. Congestive heart failure exacerbation, systolic, acute on chronic- improved volume status currently, stable 2. History of cardiomyopathy with severely depressed left ventricular ejection fraction, last approximately 20% to 25% by echo this admit - OUTPT ICD eval 3. End-stage renal disease on hemodialysis - Rx with renal team as needed. 4. History of myocardial infarction by stress 04/2015. No ischemia by stress this admit EF 16% 5. Anemia. 6. Hypertension- on high side, HD to follow 7. Hypothyroidism. 8. Prostate carcinoma. 9. Dementia. 10. Positive troponin-now trended negative - no intervention planned 11.Wide complex tachycardia- ?NSVT-no recurrence-had recurrent to 150 ? PAFL as no change in morphology of QRS complex - in sinus now Consultation Date/Type/Reason Admit Date/Time Mar 08, 2016 at 11:43 Type of Consultation: Cardiology Referring Provider: OLIVA BARRERA 24 HR Interval Summary Free Text/Dictation No acute change - in sinus now. Off tele - but no palpitations noted. ROS: No fever, no chills, no nausea, no vomiting, no diarrhea/constipation No recent weight changes No chest pain, no PND, no orthopnea No dizziness, blurred vision No thirst, no heat or cold intolerance Exam/Review of Systems Vital Signs Vitals Vital Signs Date Time Temp Pulse Resp B/P Pulse Ox O2 Delivery O2 Flow Rate FiO2 04/02/16 08:34 82 20 94 Nasal Cannula 3.0 04/02/16 08:05 97.8 162/58 Intake and Output 04/01/16 04/01/16 04/02/16 15:00 23:00 07:00 Intake Total 700 ml Output Total 600 ml Balance 100 ml Exam General: WN/WD/NAD, AOx 1-2 HEENT: Unicetric/atraumatic/EOMI (follow commands) NECK: JVD elevated, no thyromegaly Lymph: no lymphadenopathy HEART: regular with no S3, II/ systolic murmur at apex, PMI left LUNGS: Coarse sounds ABD: soft, NT, ND, +BS : Intact Neuro: non focal SKIN: chronic changes EXT: trace edema Results Result Diagram: 03/31/16 0530 03/31/16 0532 Medications Medications Current Medications Ondansetron HCl (Zofran Inj) 4 mg Q6H PRN IV NAUSEA AND/OR VOMITING; Start at 14:00 Acetaminophen (Tylenol Tab) 650 mg Q6H PRN PO PAIN LEVEL 1-3 OR FEVER Last administered on 03/28/16 20:40; Admin Dose 650 MG; Start 03/08/16 at 14:00 Acetaminophen/ Hydrocodone Bitart ([place] (5/325)) 1 tab Q6H PRN PO PAIN LEVEL 4 -6 Last administered on 03/31/16 23:39; Admin Dose 1 TAB; Start 03/08/16 at 14: 00 Morphine Sulfate (morphine) 2 mg Q4H PRN IV PAIN LEVEL 7-10 Last administered on 04/02/16 04:40; Admin Dose 2 MG; Start 03/08/16 at 14:00 Carvedilol (Coreg) 3.125 mg BID PO Last administered on 04/02/16 08:11; Admin Dose 3.125 MG; Start 03/08/16 at 21:00 Imipramine HCl (Tofranil) 25 mg BID PO Last administered on 04/02/16 08:09; Admin Dose 25 MG; Start 03/08/16 at 21:00 Hydralazine HCl (Apresoline) 10 mg Q6H PRN IV SBP>160; Start 03/08/16 at 16:00 Bicalutamide (Casodex) 50 mg DAILY PO Last administered on 04/02/16 08:10; Admin Dose 50 MG; Start 03/09/16 at 09:00 Lisinopril (Zestril) 2.5 mg DAILY PO Last administered on 04/02/16 08:10; Admin Dose 2.5 MG; Start 03/09/16 at 09:00; Status Future hold Docusate Sodium (Colace) 200 mg HS PO Last administered on 04/01/16 22:00; Admin Dose 200 MG; Start 03/10/16 at 21:00 Phenol (Cepastat Lozenge) 1 lozenge Q4 PRN MT SORE THROAT; Start 03/13/16 at 19 :00 Megestrol Acetate (Megace Susp) 400 mg BID PO Last administered on 04/02/16 08: 14; Admin Dose 400 MG; Start 03/17/16 at 21:00 Calcium Carbonate (Oyster Shell Calcium) 1.25 gm TID PO Last administered on 08:09; Admin Dose 1.25 GM; Start 03/19/16 at 09:00 Cholecalciferol (Vitamin D) 1,000 unit DAILY PO Last administered on 04/02/16 08:09; Admin Dose 1,000 UNIT; Start 03/20/16 at 09:00 Bisacodyl (Dulcolax) 10 mg DAILY PRN PO CONSTIPATION Last administered on 17:21; Admin Dose 10 MG; Start 03/20/16 at 15:00 Polyethylene Glycol (Miralax) 17 gm BID PO Last administered on 04/02/16 08:11 ; Admin Dose 17 GM; Start 03/20/16 at 21:00 Amiodarone HCl (Cordarone) 200 mg BID PO Last administered on 04/02/16 08:10; Admin Dose 200 MG; Start 03/28/16 at 21:00 Furosemide (Lasix) 20 mg DAILY PO Last administered on 04/02/16 08:11; Admin Dose 20 MG; Start 04/02/16 at 09:00 KIMBERLEE LOPES MD Apr 02, 2016 08:51
[2016-04-02] MEDS ORDERED: FUROSEMIDE 20 MG TAB PO SCH (09:00)
--- NOTE | 2016-04-02 10:30 | PDOCDIS ---
Discharge Instructions DIAGNOSIS Discharge Diagnosis: Metastatic prostate cancer CONDITION Patient Condition: Guarded HOME CARE INSTRUCTIONS: Diet Instructions: Reduced SodiumSpecial Diet: pureed ACTIVITY: Activity Restrictions: No Restrictions OTHER ORDERS: Other Orders: 1. Home with hospice. Medications as per hospice. ERICA MOHAN NP Apr 02, 2016 10:29
[2016-04-02 11:41] VITALS: BP 85/52; RESP 19
--- NOTE | 2016-04-02 12:25 | DS ---
DATE OF ADMISSION: 03/08/2016 DATE OF DISCHARGE: 04/02/2016 (Discharged to SNF with hospice.) FINAL DIAGNOSES: 1. Congestive heart failure exacerbation, acute on chronic systolic dysfunction. 2. Metastatic prostate carcinoma with bone metastasis. 3. Ischemic cardiomyopathy with ejection fraction of 20% to 25%. 4. 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 5. Acute hypoxic respiratory failure secondary to congestive heart failure exacerbation. 6. Severe pulmonary hypertension with a PA pressure of 85 mmHg. 7. Hypothyroidism. 8. Nonsustained wide complex tachycardia. 9. Essential hypertension. 10. Normocytic, normochromic anemia. 11. Dementia. 12. Transaminitis without hyperbilirubinemia. CONSULTATIONS: 1. Dr. Mark Macias, cardiology. 2. Dr. Anil Romano, cardiology. 3. Dr. Micah Rain, oncology. 4. Dr. Ranulfo Bowman, pulmonary. 5. Dr. Julio Campo, urology. 6. Dr. Dakota Moss, palliative care. 7. Dr. Rishabh Jamison, pulmonary. HOSPITAL COURSE: This is an 85-year-old male with past medical history of essential hypertension, hypothyroidism, cardiomyopathy with ejection fraction of 25%, prostate cancer, and esophagitis, who was brought in by the patient's family members because of dyspnea with exertion that started from 01/2017 as per the patient's family. The patient was also complaining of some palpitations. The patient denied any chest pain. He denied any fevers or chills. The patient denied any syncope or presyncope. The patient gets most of his medications from [place]. In the emergency room, the patient's initial troponins were negative. The patient's 12-lead EKG showed sinus rhythm with right axis deviation and left bundle branch block. The patient's BNP was found to be 13,900. The patient was noticed to be anemic with a hemoglobin and hematocrit of 7.8 and 23.2, respectively. Provided the patient's history of present illness, his comorbidities, and the diagnostic findings, a clinical decision was made to admit the patient to inpatient setting to have him further evaluated. The patient was admitted to inpatient telemetry floor. A cardiology consult was called on this patient. The patient has known history of congestive heart failure. The patient was in congestive heart failure exacerbation, systolic dysfunction. The patient was aggressively diuresed with improvement in the patient's symptoms. The patient was maintained on supplemental oxygen. The patient underwent a 2D echocardiogram that showed ejection fraction of 20% to 25 %. The 2D echocardiogram also revealed severe pulmonary hypertension with a PA systolic pressure of 85 mmHg. The patient underwent a nuclear medicine cardiac stress test on 03/14/2016 that showed no evidence of any stress-induced myocardial ischemia. The patient has known history of prostate cancer. Hence, oncology was consulted on this patient. The patient also had significant hypocalcemia. The patient was seen and evaluated by oncology. The patient was started on bicalutamide. The patient underwent a bone scan that showed patchy heterogeneous distribution of tracer activity throughout the axial and appendicular skeleton concerning for skeletal metastasis. The patient was in severe pain. Hence, the patient was maintained on analgesics. Palliative care was following the patient. After the patient was confirmed to have skeletal metastasis, multiple consultants talked to the patient's family and the patient was made a DNR. The patient was also noticed to have significant hypocalcemia. The patient had associated vitamin D deficiency. The patient's significant hypocalcemia could be most probably secondary to skeletal metastases. As mentioned earlier, the patient had significant pulmonary hypertension with a PA pressure of 85 mmHg. The patient was maintained on supplemental oxygen. The patient has history of hypothyroidism. He was maintained on Synthroid for the same. He has essential hypertension. The patient was maintained on antihypertensives. The patient had nonsustained wide complex tachycardia. The patient was not a suitable candidate for any type of anticoagulation because of underlying anemia. The patient received a total of 2 units of PRBC during this admission. The patient was also noticed to have transaminitis without hyperbilirubinemia. The etiology of this remained unclear. Nevertheless, the patient's transaminitis, improved throughout the patient's hospital course. During the patient's hospital course, the patient had a rapid response on 2016, when he was transferred to the intensive care unit because of significant dyspnea. The patient was later moved out of the intensive care unit. The patient was also seen and evaluated by urology for Hernandez catheter insertion, since the nurses had a hard time putting a Hernandez catheter in this patient provided the patient's history of prostate cancer. After multiple conversations with the patient's family, the patient's family decided on making the patient a hospice. Hence, hospice evaluated the patient. The patient will be discharged to SNF with hospice on 04/02/2016. DISCHARGE DISPOSITION/PLAN: 1. The patient will be discharged to a SNF with hospice. 2. The patient will continue to take a pureed diet. 3. All the medications will be managed by the hospice team. DISCHARGE MEDICATIONS: None. PERTINENT LABORATORY AND DIAGNOSTIC DATA: 1. 2D echocardiogram. Ejection fraction of 20% to 25%. Stage I diastolic dysfunction. Aortic sclerosis without stenosis. Estimated peak PA systolic pressure of 85 mmHg. There is moderate tricuspid regurgitation. 2. Ultrasound-guided right-sided thoracentesis on 03/27/2016. Removal of 4.4 liters of serous fluid. 3. Nuclear medicine cardiac stress test on 03/14/2016. No evidence of stress- induced myocardial ischemia. 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 Ejection fraction at stress is markedly diminished measuring 16%. 4. Bone scan. Patchy heterogeneous distribution of tracer activity throughout the axial and appendicular skeleton concerning for skeletal metastasis. 5. Latest CBC: WBC 9.6, hemoglobin 9.3, hematocrit 27.8, platelet count 230. 6. Latest BMP: Sodium 139, potassium 4.2, chloride 101, carbon dioxide 29, anion gap 21, BUN 15, creatinine 1.2, glucose 117, calcium 5.2. 7. Hemoglobin A1c 5.9. At this time, I would like to thank all the consultants for seeing the patient, doing the necessary procedures, and providing clinical recommendations. The case and management of this patient was fully discussed with Dr. Giron. Approximately 35 minutes was spent on coordinating the discharge on this patient. ERICA GIRON MD, AM/JESUS Conf#: [id number] DID#: [id number]
[2016-04-02 14:21] LABS: ANA SCREEN POSITIVE (NEGATIVE); ANA TITER 1:40 titer
== END 2016-04-02 14:30 | disposition hospice, home (50) | DRG 291 ==
LOC: E/R 08:32 → TEL 11:43 → MS2 03-12 22:06 → ICU 03-18 10:23 → MS4 03-19 15:16
PROVIDERS: ADMIT Family Medicine; ATTEND Family Medicine
PROC: 0T7D7ZZ Dilation of Urethra, Via Natural or Artificial Opening (ICD-10-PCS; 2016-03-19)
PROC: 3E01305 Introduction of Other Antineoplastic into Subcutaneous Tissue, Percutaneous Approach (ICD-10-PCS; 2016-03-20)
PROC: 0W993ZZ Drainage of Right Pleural Cavity, Percutaneous Approach (ICD-10-PCS; principal; 2016-03-27)
PROC: 30233N1 Transfusion of Nonautologous Red Blood Cells into Peripheral Vein, Percutaneous Approach (ICD-10-PCS; 2016-03-27)
DX: I13.2 Hypertensive heart and chronic kidney disease with heart failure and with stage 5 chronic kidney disease, or end stage renal disease (principal); I50.23 Acute on chronic systolic (congestive) heart failure; J96.01 Acute respiratory failure with hypoxia; J69.0 Pneumonitis due to inhalation of food and vomit; I47.2 Ventricular tachycardia; N17.9 Acute kidney failure, unspecified; J90 Pleural effusion, not elsewhere classified; C79.51 Secondary malignant neoplasm of bone; N18.6 End stage renal disease; D68.62 Lupus anticoagulant syndrome; I27.2 Other secondary pulmonary hypertension; F03.90 Unspecified dementia, unspecified severity, without behavioral disturbance, psychotic disturbance, mood disturbance, and anxiety; C61 Malignant neoplasm of prostate; Z99.2 Dependence on renal dialysis; Z66 Do not resuscitate; I25.5 Ischemic cardiomyopathy; E03.9 Hypothyroidism, unspecified; E83.51 Hypocalcemia; E80.6 Other disorders of bilirubin metabolism; I44.7 Left bundle-branch block, unspecified; G89.3 Neoplasm related pain (acute) (chronic); E53.8 Deficiency of other specified B group vitamins; I25.2 Old myocardial infarction; R13.10 Dysphagia, unspecified; K59.00 Constipation, unspecified; K21.0 Gastro-esophageal reflux disease with esophagitis; D63.8 Anemia in other chronic diseases classified elsewhere; I48.91 Unspecified atrial fibrillation; R33.9 Retention of urine, unspecified; N35.9 Urethral stricture, unspecified
CPT/HCPCS: 32555; 36415; 36430; 36600; 71010; 78306; 78452; 80048; 80053; 80061; 82270; 82550; 82553; 82607; 82652; 82728; 82746; 82803; 82945; 82962; 83010; 83036; 83540; 83605; 83615; 83735; 83880; 83970; 84100; 84153; 84154; 84157; 84436; 84439; 84443; 84479; 84484; 85025; 85045; 85049; 85335; 85384; 85610; 85670; 85730; 86038; 86147; 86850; 86900; 86901; 86920; 87040; 87070; 87081; 87086; 87102; 87116; 88104; 88305; 88313; 89050; 90686; 92610; 93005; 93017; 93306; 94640; 94664; 96374; 96376; 97110; 97163; 97164; 97530; A9503; J0885; J1940; A9500; A9505; J0610; J1956; J2060; J2270; J2785; J3475; J7040; P9016